=== PATIENT | male | born 1955 | race Caucasian/White ===

== ENCOUNTER 2016-09-20 07:20 | Inpatient (IN) | payer MEDICARE, OTHER ==
[~2016-09-20] VITALS: Ht 182.9 cm; Wt 58.0 kg
[2016-09-20] VITALS (19 sets, daily range): BP systolic 102–147; BP diastolic 67–96; PULSE 74–94; RESP 14–38; TEMP 98.1–98.5; O2SAT 96–100
[~2016-09-20 07:20] MED LIST: ALBU6.7H INH; HYDR-755 PO; PERM5CRE TOP; THIO10CA PO; TRIA.1%T TOP; ZYPR20TA PO
--- NOTE | 2016-09-20 07:39 | PD ---
HPI Chief Complaint: Respiratory Distress Time Seen by Provider: 07:36 Travel History International Travel<30 days: No Contact w/Intl Traveler<30days: No Traveled to known affect area: No History of Present Illness HPI 60-year-old male with history of schizophrenia, smoking, COPD, presents to the ER brought in by EMS for worsening in shortness of breath. He had been given Solu-Medrol and 4 nebulizers by EMS with little improvement. Initial saturation was in the 70s. He is currently able to speak sentence fragments at a time. He has been coughing. Denies any chest pains or other issues. Modifying Factors: None Associated Signs & Symptoms: Shortness of breath, coughing Risk Factors: COPD PFSH Past Medical History Asthma: No Blood Disorders: No Depression: Yes Cancer: No Cardiovascular Problems: No COPD: No Diabetes: No Diminished Hearing: No Endocrine: No Genitourinary: No Immune Disorder: No Musculoskeletal: No Neurologic: No Psychiatric: Yes (SCHIZOPHRENIA) Reproductive: No Respiratory: Yes Schizophrenia: Yes PNEUMOCCOCAL Vaccine (Year): 3 Past Surgical History Abdominal Surgery: Yes (CYST REMOVED) Neurologic Surgery: Yes (PT UNABLE TO SPECIFY) Other Surgery: No Social History Alcohol Use: No Tobacco Use: Yes (1/2 PPD) Substance Use: Yes (PAST HX) Allergies-Medications (Allergen,Severity, Reaction): Coded Allergies: Codeine (Verified Adverse Reaction, Mild, NAUSEA, 03/06/14) Reported Meds & Prescriptions Reported Meds & Active Scripts Active Proventil Hfa (Albuterol Sulfate) 6.7 Gm Aero 2 Puff INH Q4 * SHAKE WELL BEFORE USE * Elimite (Permethrin) 5 % Cr 60 Gm TOP DIRECTED PATIENT INSTRUCTIONS: THOROUGHLY MASSAGE ELIMITE (PERMETHRIN) 5% CREAM INTO THE SKIN FROM HEAD TO TOE COVERING ALL EXTERNAL BODY PARTS. THE CREAM SHOULD BE REMOVED BY WASHING (SHOWER OR BATH) 8 TO 14 HOURS AFTER APPLICATION. PATIENTS MAY EXPERIENCE ITCHING AFTER TREATMENT AND IS RARELY A SIGN OF TREATMENT FAILURE. Reported Hydroxyzine Hcl (Hydroxyzine HCl) 10 Mg Tab 10 Mg PO Q6 Aristocort (Triamcinolone Acetonide) 0.1 % Lotn 1 Applic TOP BID APPLY TO: Thiothixene 10 Mg Cap 10 Mg PO Zyprexa (Olanzapine) 20 Mg Tab 20 Mg PO HS Review of Systems Except as stated in HPI: all other systems reviewed are Neg Physical Exam Narrative GENERAL: Well-developed elderly white male patient currently in moderate respiratory distress. Lethargic but awake and oriented 3. SKIN: Focused skin assessment warm/dry. HEAD: Atraumatic. Normocephalic. EYES: Pupils equal and round. No scleral icterus. No injection or drainage. ENT: No nasal bleeding or discharge. Mucous membranes pink and moist. NECK: Trachea midline. No JVD. CARDIOVASCULAR: Regular rate and rhythm. No murmur appreciated. RESPIRATORY: No accessory muscle use. Coarse breath sounds bilaterally. Breath sounds equal bilaterally. GASTROINTESTINAL: Abdomen soft, non-tender, nondistended. Hepatic and splenic margins not palpable. MUSCULOSKELETAL: No obvious deformities. No clubbing. No cyanosis. No edema. NEUROLOGICAL: Awake and alert. No obvious cranial nerve deficits. Motor grossly within normal limits. Normal speech. PSYCHIATRIC: Appropriate mood and affect; insight and judgment normal. Data Data Last Documented VS Vital Signs Date Time Temp Pulse Resp B/P Pulse Ox O2 Delivery O2 Flow Rate FiO2 09/20/16 07:55 100 60 09/20/16 07:53 92 37 CPAP 09/20/16 07:45 139/67 09/20/16 07:30 98.3 Orders Complete Blood Count With Diff (09/20/16 07:36) Comprehensive Metabolic Panel (09/20/16 07:36) B-Type Natriuretic Peptide (09/20/16 07:36) Ckmb (Isoenzyme) Profile (09/20/16 07:36) Troponin I (09/20/16 07:36) Blood Culture (09/20/16 07:36) Iv Access Insert/Monitor (09/20/16 07:36) Electrocardiogram (09/20/16 07:36) Ecg Monitoring (09/20/16 07:36) Oximetry (09/20/16 07:36) Oxygen Administration (09/20/16 07:36) Chest, Single Ap (09/20/16 07:36) Sodium Chloride 0.9% Flush (Ns Flush) (09/20/16 07:45) Resp Bipap / Cpap Non Invas Vt (09/20/16 07:36) Lactic Acid (09/20/16 07:40) Ceftriaxone Inj (Rocephin Inj) (09/20/16 08:21) Azithromycin Inj (Zithromax Inj) (09/20/16 08:21) CKMB (09/20/16 07:35) CKMB% (09/20/16 07:35) Sodium Chlorid 0.9% 500 Ml Inj (Ns 500 M (09/20/16 09:00) Albuterol-Ipratropium Neb (Duoneb Neb) (09/20/16 09:00) Arterial Blood Gas (Abg) (09/20/16 08:45) Resp Bipap / Cpap Non Invas Vt (09/20/16 08:58) Labs Laboratory Tests Test 09/20/16 09/20/16 09/20/16 07:35 07:41 08:45 White Blood Count 5.3 TH/MM3 Red Blood Count 4.64 MIL/MM3 Hemoglobin 14.2 GM/DL Hematocrit 42.6 % Mean Corpuscular Volume 91.9 FL Mean Corpuscular Hemoglobin 30.5 PG Mean Corpuscular Hemoglobin 33.2 % Concent Red Cell Distribution Width 12.9 % Platelet Count 185 TH/MM3 Mean Platelet Volume 7.6 FL Neutrophils (%) (Auto) 64.3 % Lymphocytes (%) (Auto) 17.0 % Monocytes (%) (Auto) 18.6 % Eosinophils (%) (Auto) 0.0 % Basophils (%) (Auto) 0.1 % Neutrophils # (Auto) 3.4 TH/MM3 Lymphocytes # (Auto) 0.9 TH/MM3 Monocytes # (Auto) 1.0 TH/MM3 Eosinophils # (Auto) 0.0 TH/MM3 Basophils # (Auto) 0.0 TH/MM3 CBC Comment DIFF FINAL Differential Comment Sodium Level 121 MEQ/L Potassium Level 4.6 MEQ/L Chloride Level 78 MEQ/L Carbon Dioxide Level 35.3 MEQ/L Anion Gap 8 MEQ/L Blood Urea Nitrogen 14 MG/DL Creatinine 0.69 MG/DL Estimat Glomerular Filtration 116 ML/MIN Rate Random Glucose 140 MG/DL Calcium Level 9.4 MG/DL Total Bilirubin 0.5 MG/DL Aspartate Amino Transf 72 U/L (AST/SGOT) Alanine Aminotransferase 83 U/L (ALT/SGPT) Alkaline Phosphatase 80 U/L Total Creatine Kinase 293 U/L Creatine Kinase MB 33.7 NG/ML Troponin I 0.27 NG/ML B-Type Natriuretic Peptide 334 PG/ML Total Protein 7.0 GM/DL Albumin 3.2 GM/DL Lactic Acid Level 1.7 mmol/L Blood Gas Puncture Site RT RADIAL Blood Gas Patient Temperature 98.6 Blood Gas HCO3 36 mmol/L Blood Gas Base Excess 9.1 mmol/L Blood Gas Oxygen Saturation 92 % Arterial Blood pH 7.26 Arterial Blood Partial 82 mmHg Pressure CO2 Arterial Blood Partial 239 mmHG Pressure O2 Arterial Blood Oxygen Content 19.0 Vol % Arterial Blood 7.0 % Carboxyhemoglobin Arterial Blood Methemoglobin 0.7 % Blood Gas Hemoglobin 14.3 G/DL Oxygen Delivery Device BIPAP Blood Gas Ventilator Setting IPAP15/EPAP5 Blood Gas Inspired Oxygen 60 % MDM Medical Decision Making Medical Screen Exam Complete: Yes Emergency Medical Condition: Yes Medical Record Reviewed: Yes Interpretation(s) EKG shows sinus rhythm at a rate of 95 bpm with intermittent APCs. No signs of acute ST-T changes. Laboratory Tests Test 09/20/16 09/20/16 07:35 08:45 Monocytes (%) (Auto) 18.6 % (0.0-8.0) Lymphocytes # (Auto) 0.9 TH/MM3 (1.0-4.8) Monocytes # (Auto) 1.0 TH/MM3 (0-0.9) Sodium Level 121 MEQ/L (136-145) Chloride Level 78 MEQ/L (98-107) Carbon Dioxide Level 35.3 MEQ/L (21.0-32.0) Random Glucose 140 MG/DL (74-106) Aspartate Amino Transf 72 U/L (15-37) (AST/SGOT) Alanine Aminotransferase 83 U/L (12-78) (ALT/SGPT) Creatine Kinase MB 33.7 NG/ML (0.5-3.6) Troponin I 0.27 NG/ML (0.02-0.05) B-Type Natriuretic Peptide 334 PG/ML (0-100) Albumin 3.2 GM/DL (3.4-5.0) Blood Gas HCO3 36 mmol/L (22-26) Blood Gas Base Excess 9.1 mmol/L (-2-2) Arterial Blood pH 7.26 (7.380-7.420) Arterial Blood Partial 82 mmHg (38-42) Pressure CO2 Arterial Blood Partial 239 mmHG Pressure O2 (61-120) Arterial Blood 7.0 % (0-4) Carboxyhemoglobin Last 24 hours Impressions Chest X-Ray 09/20/16 0964 Signed Impressions: Service Date/Time: Tuesday, September 20, 2016 07:55 - CONCLUSION: 1. Interstitial and airspace opacities in the paratracheal right apical region appear slightly more prominent in comparison to remote comparison and likely reflect interval evolution of scarring. However, superimposed developing airspace disease on chronic changes cannot be excluded in the appropriate clinical setting. Ron Baltazar MD Differential Diagnosis Shortness of breath, coughingCOPD exacerbation versus pneumonia versus CHF versus bronchitis Narrative Course Chest x-ray does show some signs of apical filtrates questionable for early pneumonia. IV antibiotics were initiated after cultures were drawn. Patient was given further nebulizers and put on BiPAP in the ER due to ongoing respiratory distress. Patient's lab work returns showing significant hyponatremia and IV fluids normal saline were also given. At this point, my plan would be to admit the patient for further treatment. Case is discussed with [facility] practice resident service for admission. Patient is admitted to critical care unit due to BiPAP use. Aggregate critical care time was 30 minutes. Time to perform other separately billable procedures was not included in the critical care time. My time did not include minutes spent treating any other patients simultaneously or on activities that did not directly contribute to the patient's treatment. The services I provided to this patient were to treat and/or prevent clinically significant deterioration that could result in: Worsening respiratory distress, respiratory Failure, sepsis, I provided critical care services requiring my management, as noted below: Chart data review, documentation time, medication orders and management, vital sign assessments/reviewing monitor data, ordering and reviewing lab tests, ordering and interpreting/reviewing x-rays and diagnostic studies, care of the patient and discussion of the patient with the admitting physicians. Diagnosis Primary Impression: COPD exacerbation Additional Impression: Pneumonia Admitting Information Admitting Physician Requests: Admit Raul Whitley MD Sep 20, 2016 07:39
[2016-09-20] MEDS ORDERED: SODIUM CHLORIDE 0.9% FLUSH 10 ML FLUSH IVF PRN (07:45)
[2016-09-20 08:00] LABS: AUTOMATED NEUTROPHIL # 3.4 TH/MM3 (1.8-7.7); BASOPHIL % 0.1 % (0.0-2.0); HEMATOCRIT 42.6 % (39.0-51.0); HEMO FLAGS DIFF FINAL; LYMPHOCYTE # 0.9 TH/MM3 (1.0-4.8); MEAN CELL VOLUME 91.9 FL (80.0-100.0); MEAN CORPUSCULAR HEMOGLOBIN 30.5 PG (27.0-34.0); MEAN CORPUSCULAR HGB CONC 33.2 % (32.0-36.0); MONO % 18.6 % (0.0-8.0); NEUT % 64.3 % (16.0-70.0); PLATELET COUNT 185 TH/MM3 (150-450); RED BLOOD COUNT 4.64 MIL/MM3 (4.50-5.90); RED CELL DISTRIBUTION WIDTH 12.9 % (11.6-17.2); WHITE BLOOD COUNT 5.3 TH/MM3 (4.0-11.0)
--- NOTE | 2016-09-20 08:17 | RADRPT ---
EXAM DATE/TIME: 09/20/2016 07:55 [facility] COMPARISON: CHEST SINGLE AP, March 06, 2014, 14:47. INDICATIONS : Short of breath. MEDICAL HISTORY : None. SURGICAL HISTORY : None. ENCOUNTER: Initial ACUITY: 1 day PAIN SCORE: 0/10 LOCATION: Bilateral chest FINDINGS: Patchy interstitial and airspace opacities in the right paratracheal apical region which may reflect scarring. Lungs are hyperexpanded with mild interstitial prominence similar to prior exam. Cardiomedi astinal contours are within normal limits. Bony thorax is intact. CONCLUSION: 1. Interstitial and airspace opacities in the paratracheal right apical region appear slightly more p rominent in comparison to remote comparison and likely reflect interval evolution of scarring. Howeve r, superimposed developing airspace disease on chronic changes cannot be excluded in the appropriate clinical setting. Ron Baltazar MD on September 20, 2016 at 8:10 Board Certified Radiologist. This report was verified electronically.
[2016-09-20] MEDS ORDERED: AZITHROMYCIN INJ 500 MG in SODIUM CHLOR 0.9% 250 ML INJ 250 ML IV STA (08:21)
[2016-09-20] MEDS ORDERED: cefTRIAXone INJ 2,000 MG in SODIUM CHLORIDE 0.9% INJ 100 ML IV STA (08:21)
[2016-09-20 08:25] LABS: ALKALINE PHOSPHATASE 80 U/L (45-117); ALT (GPT) 83 U/L (12-78); ANION GAP 8 MEQ/L (5-15); AST (GOT) 72 U/L (15-37); BICARBONATE 35.3 MEQ/L (21.0-32.0); BLOOD UREA NITROGEN 14 MG/DL (7-18); CHLORIDE 78 MEQ/L (98-107); CREATINE KINASE 293 U/L (39-308); GLOMERULAR FILTRATION RATE 116 ML/MIN (>89); POTASSIUM 4.6 MEQ/L (3.5-5.1); TOTAL BILIRUBIN ADULT 0.5 MG/DL (0.2-1.0)
[2016-09-20 08:38] LABS: SODIUM (NA) 121 MEQ/L (136-145)
[2016-09-20 08:54] LABS: CKMB 33.7 NG/ML (0.5-3.6)
[2016-09-20 08:56] LABS: BLOOD GAS BASE EXCESS 9.1 mmol/L (-2-2); BLOOD GAS HCO3 36 mmol/L (22-26); BLOOD GAS METHEMOGLOBIN 0.7 % (0-2); BLOOD GAS O2 HGB SATURATION 92 % (90-100); BLOOD GAS PCO2 82 mmHg (38-42); BLOOD GAS PO2 239 mmHG (61-120); BLOOD GAS TOTAL HGB 14.3 G/DL (12.0-16.0); TEMP CORR TO 98.6
[2016-09-20 08:57] LABS: CRITICAL VALUE YES; DRAW SITE RT RADIAL; FIO2 60 %; NUMBER OF ARTERIAL PUNCTURES 1; OXYGEN DEVICE BIPAP; STAT YES; ULNAR PULSE PRESENT; VENT SETTINGS IPAP15/EPAP5
[2016-09-20] MEDS ORDERED: SODIUM CHLORID 0.9% 500 ML INJ 500 ML IV ONE (09:00)
[2016-09-20] MEDS: RESP: ALBUTEROL 2.5 MG/IPRATROPIUM 0.5 MG NEB (SCH) INH ×6 (09:05→23:21)
--- NOTE | 2016-09-20 09:27 | HHI.HP ---
HPI Service Family Medicine Team B Dr. Maricel Laurent, attending Dr. Christa Cobian, PGY 2 Dr. Agustina Gonzales, PGY 1 Primary Care Physician Antwan Diaz MD Admission Diagnosis COPD exacerbation/pneumonia/hypercapnia/BiPAP Diagnoses: International Travel<30 Days: No Contact w/Intl Traveler<30days: No History of Present Illness Patient is a 60 year old male with a history significant for COPD, chronic smoking, schizophrenia, who presents to the ED from his [facility] for worsening shortness of breath. Endorses he has had symptoms of shortness of breath for at least a week. He was brought via [facility] to the ED. He denies chest pain but endorses chest tightness. He endorses a cough but states this is nonproductive. He denies fevers, chills at home. He denies a history of intubation or needing CPAP in the past. He resides at [facility], and cannot offer which medication she has been taking at home. He is possibly on amitriptyline. EMS treatments: Solu-Medrol 125 mg IV 1, albuterol 4. ED treatments: Continued monitoring, Duonebs x 2, requiring BiPAP at arrival. Received IV ceftriaxone and IV azithromycin 1. Initial lab work collected. ( Christa Cobian MD R1) Review of Systems ROS Limitations: Clinical Condition (wearing BiPAP, difficult to hear answers) Constitutional: DENIES: Fever, Chills Eyes: DENIES: Blurred vision, Diplopia, Eye pain, Vision loss Respiratory: COMPLAINS OF: Cough, Shortness of breath, DENIES: Wheezing, Hemoptysis, Sputum production Cardiovascular: DENIES: Chest pain, Palpitations, Syncope, Dyspnea on Exertion Gastrointestinal: DENIES: Abdominal pain, Nausea, Vomiting Integumentary: DENIES: Rash Hematologic/lymphatic: DENIES: Bruising, Lymphadenopathy (Christa Cobian MD R1 ) Past Family Social History Past Medical History COPD Chronic smoking Schizophrenia History of gallstones per patient report Past Surgical History Denies Reported Medications Patient states he takes medications daily for schizophrenia Medication reconciliation pending (Christa Cobian MD R1) Allergies: Coded Allergies: Codeine (Verified Adverse Reaction, Mild, NAUSEA, 03/06/14) *MDRO Multi-Drug Resistant Organism (Verified Adverse Reaction, Unknown, ) MRSA PCR screen positive 09/20/16 Family History Unable to obtain Social History Lives at [facility] Endorses smoking cigarette Denies alcohol Denies illicit drug use (Christa Cobian MD R1) Physical Exam Vital Signs Vital Signs Date Time Temp Pulse Resp B/P Pulse Ox O2 Delivery O2 Flow Rate FiO2 09/20/16 07:55 100 60 09/20/16 07:53 92 37 99 CPAP 60 09/20/16 07:45 90 35 139/67 98 Aerosol Mask 100 09/20/16 07:30 98.3 94 38 143/77 98 09/20/16 07:30 98.3 94 38 143/77 98 Aerosol Mask 100 09/20/16 07:30 98 Aerosol Mask Physical Exam GENERAL: Thin male patient in moderate respiratory distress. He is wearing BiPAP. He has increased work of breathing, abdominal breathing. He appears anxious. He is speaking in short sentences. SKIN: Warm and dry. No obvious rashes or bruises. He is very tanned. HEAD: Atraumatic. Normocephalic. EYES: Pupils equal and round. No scleral icterus. No injection or drainage. ENT: Patient is wearing BiPAP machine; this exam was deferred. NECK: Trachea midline. No JVD. CARDIOVASCULAR: Regular rate and rhythm. No murmurs on auscultation. RESPIRATORY: Coarse breath sounds on anterior lung currie. BiPAP settings are PEEP 15, IPAP range 6-8, 45% FiO2. Significant decreased air movement all over the posterior lung currie. There are no obvious crackles or wheezes. GASTROINTESTINAL: Abdomen soft, non-tender, mild distention. Hepatic and splenic margins not palpable. Normal bowel sounds. MUSCULOSKELETAL: Extremities without clubbing, cyanosis, or edema. No obvious deformities. NEUROLOGICAL: Awake and alert. No obvious cranial nerve deficits. Motor grossly within normal limits. Grossly normal strength. Normal speech. PSYCHIATRIC: Appropriate mood and affect; insight and judgment normal. Laboratory Laboratory Tests Test 09/20/16 09/20/16 09/20/16 07:35 07:41 08:45 White Blood Count 5.3 Red Blood Count 4.64 Hemoglobin 14.2 Hematocrit 42.6 Mean Corpuscular Volume 91.9 Mean Corpuscular Hemoglobin 30.5 Mean Corpuscular Hemoglobin 33.2 Concent Red Cell Distribution Width 12.9 Platelet Count 185 Mean Platelet Volume 7.6 Neutrophils (%) (Auto) 64.3 Lymphocytes (%) (Auto) 17.0 Monocytes (%) (Auto) 18.6 Eosinophils (%) (Auto) 0.0 Basophils (%) (Auto) 0.1 Neutrophils # (Auto) 3.4 Lymphocytes # (Auto) 0.9 Monocytes # (Auto) 1.0 Eosinophils # (Auto) 0.0 Basophils # (Auto) 0.0 CBC Comment DIFF FINAL Differential Comment Sodium Level 121 Potassium Level 4.6 Chloride Level 78 Carbon Dioxide Level 35.3 Anion Gap 8 Blood Urea Nitrogen 14 Creatinine 0.69 Estimat Glomerular Filtration 116 Rate Random Glucose 140 Calcium Level 9.4 Total Bilirubin 0.5 Aspartate Amino Transf 72 (AST/SGOT) Alanine Aminotransferase 83 (ALT/SGPT) Alkaline Phosphatase 80 Total Creatine Kinase 293 Creatine Kinase MB 33.7 Troponin I 0.27 B-Type Natriuretic Peptide 334 Total Protein 7.0 Albumin 3.2 Lactic Acid Level 1.7 Blood Gas Puncture Site RT RADIAL Blood Gas Patient Temperature 98.6 Blood Gas HCO3 36 Blood Gas Base Excess 9.1 Blood Gas Oxygen Saturation 92 Arterial Blood pH 7.26 Arterial Blood Partial 82 Pressure CO2 Arterial Blood Partial 239 Pressure O2 Arterial Blood Oxygen Content 19.0 Arterial Blood 7.0 Carboxyhemoglobin Arterial Blood Methemoglobin 0.7 Blood Gas Hemoglobin 14.3 Oxygen Delivery Device BIPAP Blood Gas Ventilator Setting IPAP15/EPAP5 Blood Gas Inspired Oxygen 60 Date/Time Procedure Status Source Growth 09/20/16 07:40 Aerobic Blood Culture Received Blood Peripheral Pending 09/20/16 07:40 Anaerobic Blood Culture Received Blood Peripheral Pending (Christa Cobian MD R1) Result Diagram: 09/20/1673409/20/1635 Imaging Last Impressions Chest X-Ray 09/20/16735 Signed Impressions: Service Date/Time: Tuesday, September 20, 2016 07:55 - CONCLUSION: 1. Interstitial and airspace opacities in the paratracheal right apical region appear slightly more prominent in comparison to remote comparison and likely reflect interval evolution of scarring. However, superimposed developing airspace disease on chronic changes cannot be excluded in the appropriate clinical setting. Ron Baltazar MD (Christa Cobian MD R1) Assessment and Plan Assessment and Plan 60-year-old male with history of COPD, schizophrenia, and chronic smoking who presents with severe shortness of breath concerning for acute COPD exacerbation. CXR notable for possible infiltrate concerning for underlying pneumonia. Patient required BiPAP on admission with good O2 sats, however, ABG is notable for significant CO2 retention and patient may tire due to respiratory effort. We will admit to [facility] for close monitoring. Code Status Full code on admission. Patient is hesitant to get intubated but he has decided that he would like to be documented as full code at time of admission. Discussed Condition With Dr. Agustina Gonzales and Dr. Maricel Laurent present during conversation. ( Christa Cobian MD R1) Attending Attestation THIS CASE WAS DISCUSSED WITH THE RESIDENT PHYSICIANS AND PATIENT WAS SEEN AND EXAMINED BY ME IN THE EMERGENCY ROOM. I HAVE REVIEWED THE RECORD AND AGREE WITH THE ABOVE NOTE AND PLAN OF CARE WAS DISCUSSED. I HAVE AUTHORIZED THE ORDER FOR ADMISSION TO AN IN-PATIENT STATUS. Pt is moderate to severe resp distress on bipap. He was admitted to the [facility] with anticipation that he would tire and might need further ventilatory support. Soon after admission repeat ABG and patients clinical picture was not improving so the patient was intubated by the pipe covering molder. Due to patient underlying psychiatric illnesses of anxiety and schizophrenia we will watch very closely - he may be difficult to wean off of the ventilator support due to these issues. (Maricel Laurent MD) Problem List: (1) COPD exacerbation Status: Acute Plan: Patient admitted for acute COPD exacerbation, possibly exacerbated by pneumonia. ABG on admission as follows: PH 7.26, CO2 82, * Admit to C. Dr. August is aware of patient. * Repeat ABG at noon * Respiratory support with BiPAP, goal O2 sat greater than 92%, titrate down her up as indicated * Patient has been counseled that he may require ventilatory support after further monitoring, pending ABG changes/respiratory effort changes * Duo nebs every 4 hours scheduled, albuterol every 2 hours prn SOB/wheezing * Solu-Medrol 125 mg IV 1 per EMS, will continue Solu-Medrol IV 60 mg every 6 hours, consider titrating down on reevaluation tomorrow * We'll treat for pneumonia, community-acquired, based on CXR findings: Rocephin 1 g every 24 hours IV, azithromycin 500 mg IV every 24 hours. Once patient is no longer on BiPAP, we will transition to azithromycin by mouth. * Respiratory: A cappella, chest physiotherapy, incentive spirometry * We'll obtain UA for urine Legionella and pneumococcal antigens (2) Elevated troponin Status: Acute Plan: Patient complains of chest tightness on admission. EKG showing non-acute abnormalities, no evidence of ischemia. Troponin is 0.27, mildly elevated. Only documented troponin and EMR is from 2013 and it was within normal limits. Elevated troponin can be due to demand ischemia related to initial hypoxia. * Trend cardiac enzymes and EKG every 3 hours * Monitor for changes in chest symptoms as his chest tightness is likely related to his respiratory status * Re-evaluate for new pain symptoms (3) Pneumonia Status: Acute Plan: As above, patient is admitted for acute COPD exacerbation with CXR notable for possible infiltrate in the right apex. * Treatment as above (4) SCHIZOPHRENIA NOS-UNSPEC Status: Chronic Plan: Patient has chronic schizophrenia. He is not appearing to respond to stimuli or having acute symptoms at this time. * He has not had any recent admissions for schizophrenia, therefore we will refer to records for current medications and administer home medications while inpatient (5) Tobacco dependence, continuous Status: Chronic Plan: Patient reports chronic tobacco dependence. * Nicotine high-dose patch while inpatient * We will patient financial counselor on smoking cessation (6) Hyponatremia Status: Acute Plan: Patient noted to have sodium of 121 on admission. Differential diagnosis includes SIADH, heart failure, hypothyroidism, adrenal insufficiency. Suspect SIADH given patient has history of pulmonary disease including likely pneumonia at this time. Kidneys are functioning normally per initial BMP. Glucose was mildly elevated on initial BMP at 140. Plan: * Will repeat BMP * Fluid restrict for now (7) Fluids/Electrolytes/Nutrition/Prophylaxis Status: Acute Plan: Fluids: Fluid restricted given hyponatremia Electrolytes: Hyponatremia, managed as above, will monitor Nutrition: NPO for now given respiratory distress, will reassess DVT Prophylaxis: Early ambulation. Heparin 5000U subQ q12hr/bilateral SCDs] GI Prophylaxis: Protonix 40 mg IV daily given steroid use (Christa Cobian MD R1) Physician Certification 2 Midnight Certification Type: Admission for Inpatient Services Order for Inpatient Services The services are ordered in accordance with Medicare regulations or non- Medicare payer requirements, as applicable. In the case of services not specified as inpatient-only, they are appropriately provided as inpatient services in accordance with the 2-midnight benchmark. Estimated LOS (days): 4 days is the estimated time the patient will need to remain in the hospital, assuming treatment plan goals are met and no additional complications. Post-Hospital Plan: Not yet determined (Christa Cobian MD R1) 2 Midnight Certification Type: Admission for Inpatient Services Post-Hospital Plan: Skilled Nursing/LONG-TERM (Maricel Laurent MD) Christa Cobian MD R1 Sep 20, 2016 09:27 Maricel Laurent MD Sep 21, 2016 11:57
[2016-09-20] MEDS ORDERED: LACTULOSE SYRUP 20 GM/30 ML CUP PO PRN (09:30)
[2016-09-20] MEDS ORDERED: ACETAMINOPHEN 325 MG TAB PO PRN ×2 (09:30→10:45)
[2016-09-20] MEDS ORDERED: SENNOSIDES 8.6 MG TAB PO PRN (09:30)
[2016-09-20] MEDS ORDERED: NALOXONE HCL 0.4 MG/ML AMP IV PRN (09:30)
[2016-09-20] MEDS ORDERED: MAGNESIUM HYDROXIDE SUSP 30 ML CUP PO PRN (09:30)
[2016-09-20] MEDS ORDERED: BISACODYL 10 MG SUPP RECTAL PRN (09:30)
[2016-09-20] MEDS ORDERED: ONDANSETRON HCL 4 MG/2 ML VIAL IVP PRN (09:30)
[2016-09-20] MEDS ORDERED: SODIUM CHLORIDE 0.9% FLUSH 10 ML FLUSH IV FLUSH PRN (09:30)
[2016-09-20] MEDS ORDERED: RESP: ALBUTEROL 2.5 MG/3 ML NEB (PRN) INH (09:45)
[2016-09-20 10:13] LABS: BLOOD GAS BASE EXCESS 4.8 mmol/L (-2-2); BLOOD GAS CARBOXYHEMOGLOBIN 5.6 % (0-4); BLOOD GAS HCO3 32 mmol/L (22-26); BLOOD GAS METHEMOGLOBIN 0.7 % (0-2); BLOOD GAS O2 HGB SATURATION 93 % (90-100); BLOOD GAS OXYGEN CONTENT 18.7 Vol % (12.0-20.0); BLOOD GAS PCO2 78 mmHg (38-42); BLOOD GAS PO2 140 mmHG (61-120); BLOOD GAS TOTAL HGB 14.2 G/DL (12.0-16.0); CRITICAL VALUE YES; TEMP CORR TO 98.6
[2016-09-20 10:14] LABS: DRAW SITE RT RADIAL; FIO2 45 %; NUMBER OF ARTERIAL PUNCTURES 1; OXYGEN DEVICE BIPAP; STAT NO; ULNAR PULSE PRESENT; VENT SETTINGS IPAP18/EPAP6
[2016-09-20] MEDS ORDERED: MISCELLANEOUS NURSING INFORMATION XX SCH (10:45)
[2016-09-20] MEDS ORDERED: CHLORHEXIDINE GLUCONATE 2 % 1 PACK (2 CLOTHS) TOP PRN (10:45)
[2016-09-20] MEDS: HEPARIN SODIUM - SQ 10,000 UNITS/ML VIAL SQ SCH ×2 (10:52→21:47)
[2016-09-20] MEDS: methylPREDNISolone SOD SUCC 125 MG/2 ML VIAL IVP SCH ×3 (10:53→21:47)
[2016-09-20] MEDS: PANTOPRAZOLE SODIUM 40 MG VIAL IV SCH (10:59)
[2016-09-20] MEDS ORDERED: PROPOFOL 1000 MG/100 ML INJ 100 ML ONE (11:38)
[2016-09-20] MEDS ORDERED: SUCCINYLCHOLINE CHLORIDE 200 MG/10 ML VIAL ONE (11:38)
[2016-09-20] MEDS ORDERED: SUCCINYLCHOLINE CHLORIDE 200 MG/10 ML VIAL IV ONE (12:15)
[2016-09-20] MEDS ORDERED: PROPOFOL 1000 MG/100 ML IV SCH (12:30)
[2016-09-20] MEDS ORDERED: fentaNYL DRIP 250 ML IV SCH (12:45)
[2016-09-20 13:45] LABS: BLOOD, URINE NEG (NEG); COMMENT (UR) CULT NOT INDICATED; CULTURE IF INDICATED CULT NOT INDICATED; GLUCOSE,URINE TRACE mg/dL (NEG); HYALINE CAST, URINE 3 /lpf (RARE); KETONE, URINE NEG (NEG); MUCUS URINE FEW /lpf (OCC); NITRITE,URINE NEG (NEG); PH, URINE 6.5 (5.0-8.5); SQUAMOUS EPITHELIAL CELL URINE <1 /hpf (0-5); URINE COLOR YELLOW (YELLW/STRAW)
[2016-09-20 14:25] LABS: BLOOD GAS BASE EXCESS 3.6 mmol/L (-2-2); BLOOD GAS CARBOXYHEMOGLOBIN 2.4 % (0-4); BLOOD GAS HCO3 30 mmol/L (22-26); BLOOD GAS METHEMOGLOBIN 1.1 % (0-2); BLOOD GAS O2 HGB SATURATION 96 % (90-100); BLOOD GAS PCO2 64 mmHg (38-42); BLOOD GAS PO2 506 mmHg (61-120); CRITICAL VALUE YES; DRAW SITE RT RADIAL; FIO2 100 %; NUMBER OF ARTERIAL PUNCTURES 1; OXYGEN DEVICE VENTILATOR; STAT NO; TEMP CORR TO 98.6; VENT SETTINGS SEE COMMENTS
[2016-09-20 14:30] LABS: BICARBONATE 29.8 MEQ/L (21.0-32.0); MAGNESIUM 1.9 MG/DL (1.5-2.5); POTASSIUM 4.9 MEQ/L (3.5-5.1)
[2016-09-20] MEDS: PROPOFOL 1000 MG/100 ML IV SCH (18:06)
--- NOTE | 2016-09-20 19:00 | EKG ---
Date Performed: 09/20/2016 Time Performed: 07:38:38 PTAGE: 60 years EKG: Sinus rhythm WITH OCCASIONAL VENTRICULAR PREMATURE COMPLEXES RIGHT ATRIAL ENLARGEMENT MARKED RIGHT AXIS DEVIATION INCOMPLETE RIGHT BUNDLE BRANCH BLOCK SEPTAL MYOCARDIAL INFARCTION ABNORMAL ECG PREVIOUS TRACING : 03/06/2014 14.53 Compared to previous tracing right atrial abnormality is ne w. Patient is no longer in atrial fibrillation. DOCTOR: Juan Morejon Interpretating Date/Time 09/20/2016 18:58:44
[2016-09-20] MEDS: BUDESONIDE-FORMOTEROL 160/4.5 MCG INHALER INH SCH (21:00)
[2016-09-20] MEDS: REMOVE OLD PATCH T-DERMAL SCH (21:00)
[2016-09-20] MEDS: DOCUSATE SODIUM 50 MG/SENNA 8.6 MG TAB PO SCH (21:00)
[2016-09-20] MEDS: SODIUM CHLORIDE 0.9% FLUSH 10 ML FLUSH IV FLUSH SCH (21:00)
--- NOTE | 2016-09-20 21:09 | PD.CONS ---
[facility] Service Critical Care Medicine Consult Requested By Family medicine service Reason for Consult hypoxia Primary Care Physician Antwan Diaz MD History of Present Illness This is a 60-year-old male with a history of COPD, smoking, schizophrenia who came to the emergency department from his assisted living facility with worsening shortness of breath. In emergency department he was found to have an elevated white count and a nonproductive cough. He was given antibiotics, steroids, and started on BiPAP and admitted to the ICU. The patient continued to worsen despite aggressive measures, and the intensive care service was consulted for evaluation and recommendations. When I evaluated the patient, he was on BiPAP with worsening PCO2 on serial ABGs. He was tachypneic, labored, in distress. I emergently intubated him, please see separate procedure note for details. Additional information is unobtainable from the patient due to his clinical condition. Review of Systems ROS Limitations: Clinical Condition, Altered Mental Status ROS Patient is severely agitated and altered, as well as hypoxic on BiPAP. Complete review of systems is unobtainable due to his clinical condition. Past Family Social History Allergies: Coded Allergies: Codeine (Verified Adverse Reaction, Mild, NAUSEA, 03/06/14) Past Medical History Complete past medical history is unobtainable due to the patient's clinical condition. Per chart review: COPD Chronic smoking Schizophrenia History of gallstones per patient report Past Surgical History Complete past surgical history is unobtainable due to the patient's clinical condition. Per chart review, the patient denied any past surgical history Reported Medications Complete home medication list is unobtainable due to the patient's cognition. Per chart review, the patient stated prior that he took medications daily for schizophrenia. Active Ordered Medications See MAR Family History Unable to be obtained secondary to patient's clinical condition Social History Complete social history unable to be obtained secondary to patient's clinical condition. Per chart review: Lives at [facility] Endorses smoking cigarette Denies alcohol Denies illicit drug use Physical Exam Vital Signs Vital Signs Date Time Temp Pulse Resp B/P Pulse Ox O2 Delivery O2 Flow Rate FiO2 09/20/16 19:31 97 50 09/20/16 18:00 78 09/20/16 16:53 97 50 09/20/16 16:00 98.5 74 14 105/67 99 09/20/16 16:00 74 09/20/16 14:27 97 50 09/20/16 14:00 74 09/20/16 13:15 98 100 09/20/16 11:55 96 100 09/20/16 11:14 99 45 09/20/16 11:10 92 28 147/96 97 3 09/20/16 11:00 86 09/20/16 11:00 98.5 86 14 111/71 96 09/20/16 08:30 35 98 BiPAP 45 09/20/16 07:55 100 60 09/20/16 07:53 92 37 99 CPAP 60 09/20/16 07:45 90 35 139/67 98 Aerosol Mask 100 09/20/16 07:30 98.3 94 38 143/77 98 09/20/16 07:30 98 Aerosol Mask 09/20/16 07:30 98.3 94 38 143/77 98 Aerosol Mask 100 09/20/16 07:30 98 Aerosol Mask Physical Exam GENERAL: Middle-aged male, lying in bed, BiPAP in place, in severe distress. Appears quite cachectic HEENT: Normocephalic. Atraumatic. Pupils equal, round, reactive, conjugate. Mucous membranes are moist NECK: Trachea is midline. There is no JVD. BiPAP in place CHEST: Tachypneic, labored, using accessory muscles. Bilateral significantly decreased air entry. CARDIOVASCULAR: Tachycardic rate, regular rhythm. Sinus by telemetry ABDOMEN: Soft, nontender, nondistended. No guarding. MUSCULOSKELETAL: Pulses 2+. No peripheral edema. NEUROLOGICAL: RASS +1. Does not follow commands. Moves all extremities spontaneously. Laboratory Laboratory Tests Test 09/20/16 09/20/16 09/20/16 09/20/16 07:35 07:41 08:45 10:06 White Blood Count 5.3 Red Blood Count 4.64 Hemoglobin 14.2 Hematocrit 42.6 Mean Corpuscular Volume 91.9 Mean Corpuscular Hemoglobin 30.5 Mean Corpuscular Hemoglobin 33.2 Concent Red Cell Distribution Width 12.9 Platelet Count 185 Mean Platelet Volume 7.6 Neutrophils (%) (Auto) 64.3 Lymphocytes (%) (Auto) 17.0 Monocytes (%) (Auto) 18.6 Eosinophils (%) (Auto) 0.0 Basophils (%) (Auto) 0.1 Neutrophils # (Auto) 3.4 Lymphocytes # (Auto) 0.9 Monocytes # (Auto) 1.0 Eosinophils # (Auto) 0.0 Basophils # (Auto) 0.0 CBC Comment DIFF FINAL Differential Comment Sodium Level 121 Potassium Level 4.6 Chloride Level 78 Carbon Dioxide Level 35.3 Anion Gap 8 Blood Urea Nitrogen 14 Creatinine 0.69 Estimat Glomerular Filtration 116 Rate Random Glucose 140 Calcium Level 9.4 Total Bilirubin 0.5 Aspartate Amino Transf 72 (AST/SGOT) Alanine Aminotransferase 83 (ALT/SGPT) Alkaline Phosphatase 80 Total Creatine Kinase 293 Creatine Kinase MB 33.7 Troponin I 0.27 B-Type Natriuretic Peptide 334 Total Protein 7.0 Albumin 3.2 Lactic Acid Level 1.7 Blood Gas Puncture Site RT RADIAL RT RADIAL Blood Gas Patient Temperature 98.6 98.6 Blood Gas HCO3 36 32 Blood Gas Base Excess 9.1 4.8 Blood Gas Oxygen Saturation 92 93 Arterial Blood pH 7.26 7.24 Arterial Blood Partial 82 78 Pressure CO2 Arterial Blood Partial 239 140 Pressure O2 Arterial Blood Oxygen Content 19.0 18.7 Arterial Blood 7.0 5.6 Carboxyhemoglobin Arterial Blood Methemoglobin 0.7 0.7 Blood Gas Hemoglobin 14.3 14.2 Oxygen Delivery Device BIPAP BIPAP Blood Gas Ventilator Setting IPAP15/EPAP5 IPAP18/EPAP6 Blood Gas Inspired Oxygen 60 45 Test 09/20/16 09/20/16 09/20/16 09/20/16 11:15 13:00 13:22 14:14 Urine Color YELLOW Urine Turbidity CLEAR Urine pH 6.5 Urine Specific [place] 1.014 Urine Protein 30 Urine Glucose (UA) TRACE Urine Ketones NEG Urine Occult Blood NEG Urine Nitrite NEG Urine Bilirubin NEG Urine Urobilinogen LESS THAN 2.0 Urine Leukocyte Esterase NEG Urine RBC 1 Urine WBC LESS THAN 1 Urine Squamous Epithelial <1 Cells Urine Hyaline Casts 3 Urine Mucus FEW Microscopic Urinalysis Comment CULT NOT INDICATED Nasal Screen MRSA (PCR) MRSA DETECTED Sodium Level 122 Potassium Level 4.9 Chloride Level 84 Carbon Dioxide Level 29.8 Anion Gap 8 Blood Urea Nitrogen 14 Creatinine 0.52 Estimat Glomerular Filtration 161 Rate Random Glucose 163 Calcium Level 8.6 Phosphorus Level 3.3 Magnesium Level 1.9 Total Creatine Kinase 217 Troponin I 0.19 Blood Gas Puncture Site RT RADIAL Blood Gas Patient Temperature 98.6 Blood Gas HCO3 30 Blood Gas Base Excess 3.6 Blood Gas Oxygen Saturation 96 Arterial Blood pH 7.29 Arterial Blood Partial 64 Pressure CO2 Arterial Blood Partial 506 Pressure O2 Arterial Blood Oxygen Content 19.0 Arterial Blood 2.4 Carboxyhemoglobin Arterial Blood Methemoglobin 1.1 Blood Gas Hemoglobin 13.0 Oxygen Delivery Device VENTILATOR Blood Gas Ventilator Setting SEE COMMENTS Blood Gas Inspired Oxygen 100 Date/Time Procedure Status Source Growth 09/20/16 11:15 Legionella Antigen - Final Complete Urine Clean Catch PRESUMPTIVE NEGATIVE FOR LEGIONELLA P... 09/20/16 11:15 Streptococcus pneumoniae Antigen (M - Final Complete Urine Clean Catch PRESUMPTIVE NEGATIVE FOR STREPTOCOCCU... 09/20/16 07:40 Aerobic Blood Culture Received Blood Peripheral Pending 09/20/16 07:40 Anaerobic Blood Culture Received Blood Peripheral Pending Result Diagram: 09/20/1635 09/20/16 1322 Imaging Last Impressions Chest X-Ray 09/20/1636 Signed Impressions: Service Date/Time: Tuesday, September 20, 2016 07:55 - CONCLUSION: 1. Interstitial and airspace opacities in the paratracheal right apical region appear slightly more prominent in comparison to remote comparison and likely reflect interval evolution of scarring. However, superimposed developing airspace disease on chronic changes cannot be excluded in the appropriate clinical setting. Ron Baltazar MD Assessment and Plan Assessment and Plan Assessment: 60-year-old male with a history of COPD and smoking who presents with what clinically appears to be COPD exacerbation acute hypoxic respiratory failure failing noninvasive positive pressure ventilation requiring invasive mechanical ventilation. Active problems: Acute hypoxic and hypercarbic respiratory failure, worsening COPD exacerbation Agitated delirium Plan: -- proceed with intubation -- wean fio2 for spo2 > 90% -- serial abg -- steroids -- abx -- hob at 30 degrees, vent bundle, nebs -- propofol/fentanyl for goal RASS -2. -- will need to restart psych meds. This patient remains critically ill with one or more organ systems which are or may become a threat to life. I have spent in excess of 33 minutes discontinuously in the care and management of this patient. This time is exclusive of procedures, and includes, but is not limited to, evaluation of the patient, review of the medical record, discussions with family, consultants, nursing staff, or respiratory therapy, and documentation in the medical record. Garrett Hall MD Sep 20, 2016 21:09
--- NOTE | 2016-09-20 21:10 | PD.PROCEDR ---
Procedure Note Procedure Endotracheal Intubation Diagnosis: COPD exacerbation Indications: Acute hypoxic and hypercarbic respiratory failure failing noninvasive positive pressure ventilation Consent: Consent is deemed emergent or medically necessary Anesthesia: Propofol 80 mg IV, succinylcholine 120 mg IV Description of the Procedure: The patient was positioned in the sniffing position. Pre-oxygenation was performed using a 100% FiO2 BiPAP. Anesthesia was induced via rapid sequence. A Zambrano #2 was used for laryngoscopy and a Grade I view was obtained. A 8.0 cuffed endotracheal tube was inserted atraumatically through the vocal cords. Confirmation of correct endotracheal tube placement was made by equal and bilateral breath sounds and colorimetric CO2 detection. The endotracheal tube was secured at 23 cm at the teeth. There were no immediate complications noted. The patient remained hemodynamically stable throughout the procedure. A chest x-ray has been ordered. I personally performed the procedure. Garrett Hall MD Sep 20, 2016 21:10
[2016-09-20] MEDS ORDERED: POTASSIUM PHOSPHATE INJ 30 MMOL in SODIUM CHLOR 0.9% 250 ML INJ 250 ML IV PRN (21:15)
[2016-09-20] MEDS ORDERED: POTASSIUM CHLOR 40 MEQ PREMIX 100 ML IV PRN ×2 (21:15)
[2016-09-20] MEDS ORDERED: MAGNESIUM OXIDE 400 MG TAB PO PRN (21:15)
[2016-09-20] MEDS ORDERED: MAGNESIUM SULFATE INJ 4 GM in SODIUM CHLORIDE 0.9% INJ 92 ML IV PRN (21:15)
[2016-09-20] MEDS ORDERED: POTASSIUM PHOSPHATE MONOBASIC 500 MG TAB PO PRN (21:15)
[2016-09-20] MEDS ORDERED: DEXTROSE 50% IN WATER 50 ML VIAL(D50) IV PUSH PRN (21:15)
[2016-09-20] MEDS ORDERED: SODIUM PHOSPHATE INJ 30 MMOL in SODIUM CHLOR 0.9% 250 ML INJ 240 ML IV PRN (21:15)
[2016-09-20] MEDS ORDERED: POTASSIUM CHLOR 20 MEQ PREMIX 100 ML IV PRN ×2 (21:15)
[2016-09-20] MEDS ORDERED: POTASSIUM PHOSPHATE MONOBASIC 500 MG TAB PO/TUBE PRN (21:15)
[2016-09-20] MEDS ORDERED: MAGNESIUM SULFATE INJ 2 GM in SODIUM CHLORIDE 0.9% INJ 96 ML IV PRN (21:15)
--- NOTE | 2016-09-20 21:48 | EKG ---
Date Performed: 09/20/2016 Time Performed: 16:21:17 PTAGE: 60 years EKG: Sinus rhythm BORDERLINE RIGHT AXIS DEVIATION INCOMPLETE RIGHT BUNDLE BRANCH BLOCK SEPTAL MYOCARDIAL INFARCTION , PROBABLY OLD ABNORMAL ECG PREVIOUS TRACING : 09/20/2016 07.38 Compared to prior tracing no significant change DOCTOR: Kita Barros Interpretating Date/Time 09/20/2016 21:46:48
[2016-09-20] MEDS: INSULIN NovoLIN REGULAR SUPPLEMENTAL SCALE SQ SCH (22:04)
[2016-09-21] VITALS (25 sets, daily range): BP systolic 103–153; BP diastolic 68–83; PULSE 61–97; RESP 11–23; TEMP 97.4–98; O2SAT 94–100
[2016-09-21] MEDS: CHLORHEXIDINE GLUCONATE 2 % 1 PACK (2 CLOTHS) TOP SCH (03:01)
[2016-09-21] MEDS: RESP: ALBUTEROL 2.5 MG/IPRATROPIUM 0.5 MG NEB (SCH) INH ×6 (03:31→23:22)
[2016-09-21] MEDS: methylPREDNISolone SOD SUCC 125 MG/2 ML VIAL IVP SCH ×4 (03:40→20:28)
[2016-09-21] MEDS: PROPOFOL 1000 MG/100 ML IV SCH (03:48)
[2016-09-21 05:14] LABS: BLOOD GAS CARBOXYHEMOGLOBIN 1.1 % (0-4); BLOOD GAS HCO3 33 mmol/L (22-26); BLOOD GAS METHEMOGLOBIN 1.1 % (0-2); BLOOD GAS O2 HGB SATURATION 97 % (90-100); BLOOD GAS OXYGEN CONTENT 18.6 Vol % (12.0-20.0); BLOOD GAS PCO2 63 mmHg (38-42); BLOOD GAS PO2 146 mmHg (61-120); BLOOD GAS TOTAL HGB 13.5 G/DL (12.0-16.0); TEMP CORR TO 98.6
[2016-09-21 05:15] LABS: CRITICAL VALUE YES; OXYGEN DEVICE VENTILATOR
[2016-09-21 05:16] LABS: DRAW SITE RT RADIAL; FIO2 40 %; NUMBER OF ARTERIAL PUNCTURES 1; STAT NO; ULNAR PULSE PRESENT; VENT SETTINGS AC
[2016-09-21] MEDS: INSULIN NovoLIN REGULAR SUPPLEMENTAL SCALE SQ SCH ×3 (05:18→17:34)
--- NOTE | 2016-09-21 05:38 | RADRPT ---
EXAM DATE/TIME: 09/21/2016 04:40 [place] COMPARISON: CHEST SINGLE AP, September 20, 2016, 7:55. INDICATIONS : Short of breath. MEDICAL HISTORY : None. SURGICAL HISTORY : None. ENCOUNTER: Subsequent ACUITY: 2 days PAIN SCORE: 0/10 LOCATION: Bilateral chest FINDINGS: Biapical opacities are again noted, right more so than left and neither side significantly changed. L ungs otherwise appear clear. No pleural effusion. No pneumothorax. Heart size stable, within normal limits. Endotracheal tube tip is at the level of the thoracic inlet. There is a nasogastric tube coursing int o the stomach. CONCLUSION: No significant change. Brody Noonan MD on September 21, 2016 at 5:35 Board Certified Radiologist. This report was verified electronically.
[2016-09-21 06:23] LABS: AUTOMATED NEUTROPHIL # 5.6 TH/MM3 (1.8-7.7); BASOPHIL % 0.1 % (0.0-2.0); HEMATOCRIT 41.8 % (39.0-51.0); HEMO FLAGS DIFF FINAL; LYMPHOCYTE # 0.6 TH/MM3 (1.0-4.8); MEAN CELL VOLUME 91.3 FL (80.0-100.0); MEAN CORPUSCULAR HEMOGLOBIN 30.4 PG (27.0-34.0); MEAN CORPUSCULAR HGB CONC 33.3 % (32.0-36.0); MONO % 11.3 % (0.0-8.0); NEUT % 80.6 % (16.0-70.0); PLATELET COUNT 171 TH/MM3 (150-450); RED BLOOD COUNT 4.58 MIL/MM3 (4.50-5.90); RED CELL DISTRIBUTION WIDTH 12.8 % (11.6-17.2); WHITE BLOOD COUNT 6.9 TH/MM3 (4.0-11.0)
[2016-09-21 07:07] LABS: ANION GAP 7 MEQ/L (5-15)
[2016-09-21 07:10] LABS: ALKALINE PHOSPHATASE 71 U/L (45-117); ALT (GPT) 84 U/L (12-78); AST (GOT) 49 U/L (15-37); BICARBONATE 32.4 MEQ/L (21.0-32.0); BLOOD UREA NITROGEN 14 MG/DL (7-18); CHLORIDE 85 MEQ/L (98-107); GLOMERULAR FILTRATION RATE 118 ML/MIN (>89); POTASSIUM 5.6 MEQ/L (3.5-5.1); TOTAL BILIRUBIN ADULT 0.3 MG/DL (0.2-1.0)
[2016-09-21 07:24] LABS: SODIUM (NA) 124 MEQ/L (136-145)
[2016-09-21] MEDS: PANTOPRAZOLE SODIUM 40 MG VIAL IV SCH (08:03)
[2016-09-21] MEDS: cefTRIAXone INJ 1,000 MG in SODIUM CHLORIDE 0.9% INJ 100 ML IV SCH (08:03)
[2016-09-21] MEDS: NICOTINE 21 MG/24 HR PATCH T-DERMAL SCH (08:05)
[2016-09-21] MEDS: DOCUSATE SODIUM 50 MG/SENNA 8.6 MG TAB PO SCH ×2 (08:06→20:29)
[2016-09-21] MEDS: SODIUM CHLORIDE 0.9% FLUSH 10 ML FLUSH IV FLUSH SCH ×2 (08:07→20:29)
[2016-09-21] MEDS: CHLORHEXIDINE 0.12% (ORAL KIT) 15 ML CUP MT SCH ×2 (08:19→20:00)
[2016-09-21] MEDS: BUDESONIDE-FORMOTEROL 160/4.5 MCG INHALER INH SCH (09:00)
[2016-09-21 09:31] LABS: BLOOD GAS BASE EXCESS 7.1 mmol/L (-2-2); BLOOD GAS CARBOXYHEMOGLOBIN 0.9 % (0-4); BLOOD GAS HCO3 32 mmol/L (22-26); BLOOD GAS METHEMOGLOBIN 1.3 % (0-2); BLOOD GAS O2 HGB SATURATION 97 % (90-100); BLOOD GAS PCO2 54 mmHg (38-42); BLOOD GAS PO2 182 mmHg (61-120); BLOOD GAS TOTAL HGB 13.7 G/DL (12.0-16.0); CRITICAL VALUE YES; DRAW SITE RT RADIAL; FIO2 40 %; NUMBER OF ARTERIAL PUNCTURES 1; OXYGEN DEVICE VENTILATOR; STAT NO; TEMP CORR TO 98.6; ULNAR PULSE PRESENT; VENT SETTINGS 550/AC18/PEEP5
[2016-09-21] MEDS ORDERED: THIO10CA PO (12:01)
[2016-09-21] MEDS ORDERED: OLAN15TA PO (12:01)
[2016-09-21] MEDS ORDERED: BENZ0.5T PO (12:01)
--- NOTE | 2016-09-21 12:01 | HHI.FPPN ---
Subjective Remarks Patient was seen and examined this morning. He is currently on ventilatory support but taking sedation holiday per CC. Still making respiratory secretions. No fevers overnight. Patient resides at [facility] and I spoke with Lisy Lundberg there today to clarify home medications: * Benztropine 2 mg nightly * Olanzapine 15 mg nightly * Thiothixene 10 nightly (Christa Cobian MD R1) Objective Vitals Vital Signs Date Time Temp Pulse Resp B/P Pulse Ox O2 Delivery O2 Flow Rate FiO2 09/21/16 11:15 94 40 09/21/16 10:02 40 09/21/16 10:02 100 40 09/21/16 10:00 78 09/21/16 08:00 97.9 61 18 110/74 100 09/21/16 08:00 61 09/21/16 07:15 100 40 09/21/16 06:00 62 09/21/16 05:15 100 40 09/21/16 04:03 100 40 09/21/16 04:00 98.0 66 15 103/68 99 09/21/16 04:00 66 09/21/16 02:00 68 09/21/16 01:02 99 40 09/21/16 00:00 98.0 73 14 104/68 99 09/21/16 00:00 73 09/20/16 22:21 97 40 09/20/16 22:00 75 09/20/16 20:00 98.1 79 14 102/67 96 09/20/16 20:00 79 09/20/16 19:31 97 50 09/20/16 18:00 78 09/20/16 16:53 97 50 09/20/16 16:00 98.5 74 14 105/67 99 09/20/16 16:00 74 09/20/16 14:27 97 50 09/20/16 14:00 74 09/20/16 13:15 98 100 09/20/16 11:55 96 100 I/O 09/20/16 09/20/16 09/20/16 09/21/16 09/21/16 09/21/16 07:00 15:00 23:00 07:00 15:00 23:00 Intake Total 180 ml 141 ml Output Total 600 ml 750 ml Balance -420 ml -609 ml Intake Oral 0 ml 0 ml IV Total 180 ml 141 ml Output Urine Total 600 ml 750 ml Stool Total 0 ml 0 ml (Christa Cobian MD R1) Result Diagram: 09/21/16 0605 09/21/16 0606 Imaging Last Impressions Chest X-Ray 09/21/16 0600 Signed Impressions: Service Date/Time: Wednesday, September 21, 2016 04:40 - CONCLUSION: No significant change. Brody Noonan MD Objective Remarks GENERAL: Thin male patient on ventilator. He is alert and anxious on ventilator. He follows commands to breath deeply and calm down. Moving spontaneously SKIN: Warm and dry. There is a 1 cm puncture khanh on the left chin which does not appear new. HEAD: Atraumatic. Normocephalic. EYES: Pupils equal and round. No scleral icterus. No injection or drainage. ENT: ET tube in place. OG tube in place. NECK: Trachea midline. No JVD. CARDIOVASCULAR: Regular rate and rhythm. No murmurs on auscultation. RESPIRATORY: Coarse breath sounds on anterior lung currie. GASTROINTESTINAL: Abdomen soft, non-tender, nondistended. MUSCULOSKELETAL: Extremities without clubbing, cyanosis, or edema. No obvious deformities. NEUROLOGICAL: On ventilator. Alert, trying to speak. Nods appropriately to questions and requests. PSYCHIATRIC: Appropriate mood and affect; insight and judgment normal. Procedures ET tube placement 09/20/2016 (Christa Cobian MD R1) Urinary Catheter: Yes (Christa Cobian MD R1) Vascular Central Line Catheter: No (Christa Cobian MD R1) A/P Assessment and Plan 60-year-old male with history of COPD, schizophrenia, and chronic smoking who presents with severe shortness of breath concerning for acute COPD exacerbation. CXR notable for possible infiltrate concerning for underlying pneumonia. Patient required BiPAP on admission with good O2 sats, however, ABG is notable for significant CO2 retention and patient may tire due to respiratory effort. We will admit to IM for close monitoring. Discharge Planning Unclear. Ventilated, on sedation holiday. Hopeful for extubation soon. Continued inpatient management warranted as patient condition critical on day 1 of admission. Expect improvement in 1-2 days, possible extubation, continued inpatient management. Critical care assisting with managing. (Christa Cobian MD R1) Attending Attestation The exam, history, and the medical decision-making described in the above note were completed with the assistance of the resident physician. I reviewed and agree with the findings presented. I attest that I had a [id number] encounter with the patient on the same day, and personally performed and documented my assessment and findings in the medical record. (Maricel Laurent MD) Problem List: (1) COPD exacerbation Status: Acute Plan: Patient admitted for acute COPD exacerbation, possibly exacerbated by pneumonia. ABG on admission as follows: PH 7.26, CO2 82. Worsening respiratory status warranted intubation on 09/20/16. Critical care currently managing. Plan: * Sedation holiday * Continue monitoring closely * Possible extubation per CC today per nurse Hospital Course: * Admit to [facility]. Dr. August is aware of patient. * Patient was counseled that he may require ventilatory support after further monitoring, pending ABG changes/respiratory effort changes * Respiratory support with BiPAP, goal O2 sat greater than 92% --> intubated on * Duo nebs every 4 hours scheduled, albuterol every 2 hours prn SOB/wheezing * Solu-Medrol 125 mg IV 1 per EMS, will continue Solu-Medrol IV 60 mg every 6 hours * Pneumonia, community-acquired, suspected based on CXR findings: Rocephin 1 g every 24 hours IV, azithromycin 500 mg IV every 24 hours. Once patient is no longer on BiPAP, we will transition to azithromycin by mouth. * Respiratory: A cappella, chest physiotherapy, incentive spirometry * Urine Legionella and Pneumoccocal Ag negative (2) Elevated troponin Status: Acute Plan: Cardiac enzymes improved, likely demand-ischemia. EKG showing non-acute changes and no signs of acute ischemic event. Continue to monitor on telemetry for now. Hospital Course: * Patient complained of chest tightness on admission. EKG showing non-acute abnormalities, no evidence of ischemia. Troponin is 0.27, mildly elevated. Only documented troponin and EMR is from 2013 and it was within normal limits. Elevated troponin can be due to demand ischemia related to initial hypoxia. * Monitor for changes in chest symptoms as his chest tightness is likely related to his respiratory status * Re-evaluate for new pain symptoms (3) Pneumonia Status: Acute Plan: As above, patient is admitted for acute COPD exacerbation with CXR notable for possible infiltrate in the right apex. * Treatment as above (4) SCHIZOPHRENIA NOS-UNSPEC Status: Chronic Plan: Patient has chronic schizophrenia. He is not appearing to respond to stimuli or having acute symptoms at this time. * He has not had any recent admissions for schizophrenia, therefore we will refer to records for current medications and administer home medications while inpatient Patient resides at [facility] and I spoke with Lisy Lundberg there today to clarify home medications: * Benztropine 2 mg nightly * Olanzapine 15 mg nightly * Thiothixene 10 nightly (5) Tobacco dependence, continuous Status: Chronic Plan: Patient reports chronic tobacco dependence. * Nicotine high-dose patch while inpatient * We will halfway house counselor on smoking cessation (6) Hyponatremia Status: Acute Plan: Slowly improving. Likely related to pneumonia. Consider low-rate NS. Hospital Course: Patient noted to have sodium of 121 on admission. Differential diagnosis includes SIADH, heart failure, hypothyroidism, adrenal insufficiency. Suspect SIADH given patient has history of pulmonary disease including likely pneumonia at this time. Kidneys are functioning normally per initial BMP. Glucose was mildly elevated on initial BMP at 140. (7) Fluids/Electrolytes/Nutrition/Prophylaxis Status: Acute Plan: Fluids: Fluid restricted given hyponatremia Electrolytes: Hyponatremia, managed as above, will monitor Nutrition: NPO for now given respiratory distress, will reassess DVT Prophylaxis: Early ambulation. Heparin 5000U subQ q12hr/bilateral SCDs GI Prophylaxis: Protonix 40 mg IV daily given steroid use (Christa Cobian MD R1) Christa Cobian MD R1 Sep 21, 2016 12:01 Maricel Laurent MD Sep 22, 2016 09:14
[2016-09-21 12:31] LABS: BLOOD GAS BASE EXCESS 6.9 mmol/L (-2-2); BLOOD GAS CARBOXYHEMOGLOBIN 0.6 % (0-4); BLOOD GAS HCO3 33 mmol/L (22-26); BLOOD GAS METHEMOGLOBIN 1.3 % (0-2); BLOOD GAS O2 HGB SATURATION 96 % (90-100); BLOOD GAS OXYGEN CONTENT 19.9 Vol % (12.0-20.0); BLOOD GAS PCO2 66 mmHg (38-42); BLOOD GAS PO2 125 mmHg (61-120); BLOOD GAS TOTAL HGB 14.6 G/DL (12.0-16.0); TEMP CORR TO 98.6
[2016-09-21 12:32] LABS: CRITICAL VALUE YES; DRAW SITE RT RADIAL; FIO2 40 %; NUMBER OF ARTERIAL PUNCTURES 1; OXYGEN DEVICE VENT; STAT NO; ULNAR PULSE Y
[2016-09-21] MEDS: HEPARIN SODIUM - SQ 10,000 UNITS/ML VIAL SQ SCH ×2 (13:25→20:28)
[2016-09-21] MEDS: AZITHROMYCIN INJ 500 MG in SODIUM CHLOR 0.9% 250 ML INJ 250 ML IV SCH (13:26)
[2016-09-21 17:07] LABS: BLOOD GAS BASE EXCESS 7.6 mmol/L (-2-2); BLOOD GAS HCO3 33 mmol/L (22-26); BLOOD GAS METHEMOGLOBIN 1.1 % (0-2); BLOOD GAS O2 HGB SATURATION 97 % (90-100); BLOOD GAS OXYGEN CONTENT 18.7 Vol % (12.0-20.0); BLOOD GAS PCO2 60 mmHg (38-42); BLOOD GAS PO2 140 mmHg (61-120); BLOOD GAS TOTAL HGB 13.6 G/DL (12.0-16.0); TEMP CORR TO 98.6
[2016-09-21 17:08] LABS: CRITICAL VALUE YES; DRAW SITE RT RADIAL; FIO2 35 %; NUMBER OF ARTERIAL PUNCTURES 1; OXYGEN DEVICE BIPAP; STAT NO; ULNAR PULSE Y
--- NOTE | 2016-09-21 17:33 | HHI.CCPN ---
Subjective Remarks/Hospital Course Hospital Course: This is a 60-year-old male with a history of COPD, smoking, schizophrenia who came to the emergency department from his assisted living facility with worsening shortness of breath. In emergency department he was found to have an elevated white count and a nonproductive cough. He was given antibiotics, steroids, and started on BiPAP and admitted to the ICU. The patient continued to worsen despite aggressive measures, and the intensive care service was consulted for evaluation and recommendations. When I evaluated the patient, he was on BiPAP with worsening PCO2 on serial ABGs. He was tachypneic, labored, in distress. I emergently intubated him, please see separate procedure note for details. Additional information is unobtainable from the patient due to his clinical condition. Subjective: 09/21: patient clinically improving, awake, following commands. ABGs improving. patient self-extubated, but clinically stable. placed back on BiPAP. Objective Vital Signs Date Time Temp Pulse Resp B/P Pulse Ox O2 Delivery O2 Flow Rate FiO2 09/21/16 15:28 99 35 09/21/16 14:00 88 09/21/16 13:25 Nasal Cannula 2.00 09/21/16 12:00 97.4 11 153/78 Intake and Output 09/20/16 09/20/16 09/21/16 08:00 16:00 00:00 Intake Total 180 ml Output Total 600 ml Balance -420 ml Result Diagram: 09/21/16 0605 09/21/16 0606 Other Results Microbiology Date/Time Procedure Status Source Growth 09/20/16 11:15 Legionella Antigen - Final Complete Urine Clean Catch PRESUMPTIVE NEGATIVE FOR LEGIONELLA P... 09/20/16 11:15 Streptococcus pneumoniae Antigen (M - Final Complete Urine Clean Catch PRESUMPTIVE NEGATIVE FOR STREPTOCOCCU... Laboratory Tests Test 09/21/16 09/21/16 09/21/16 05:01 09:25 12:25 Blood Gas Puncture Site RT RADIAL RT RADIAL RT RADIAL Blood Gas Patient Temperature 98.6 98.6 98.6 Blood Gas HCO3 33 mmol/L 32 mmol/L 33 mmol/L (22-26) (22-26) (22-26) Blood Gas Base Excess 7.0 mmol/L 7.1 mmol/L 6.9 mmol/L (-2-2) (-2-2) (-2-2) Blood Gas Oxygen Saturation 97 % (90-100) 97 % (90-100) 96 % (90-100) Arterial Blood pH 7.33 7.39 7.32 (7.380-7.420) (7.380-7.420) (7.380-7.420) Arterial Blood Partial 63 mmHg (38-42) 54 mmHg (38-42) 66 mmHg (38-42) Pressure CO2 Arterial Blood Partial 146 mmHg 182 mmHg 125 mmHg Pressure O2 (61-120) (61-120) (61-120) Arterial Blood Oxygen Content 18.6 Vol % 19.0 Vol % 19.9 Vol % (12.0-20.0) (12.0-20.0) (12.0-20.0) Arterial Blood 1.1 % (0-4) 0.9 % (0-4) 0.6 % (0-4) Carboxyhemoglobin Arterial Blood Methemoglobin 1.1 % (0-2) 1.3 % (0-2) 1.3 % (0-2) Blood Gas Hemoglobin 13.5 G/DL 13.7 G/DL 14.6 G/DL (12.0-16.0) (12.0-16.0) (12.0-16.0) Oxygen Delivery Device VENTILATOR VENTILATOR VENT Blood Gas Ventilator Setting AC 550/AC18/PEEP5 CPAP 10/5/40% Blood Gas Inspired Oxygen 40 % 40 % 40 % Imaging Last Impressions Chest X-Ray 09/20/16 0736 Signed Impressions: Service Date/Time: Tuesday, September 20, 2016 07:55 - CONCLUSION: 1. Interstitial and airspace opacities in the paratracheal right apical region appear slightly more prominent in comparison to remote comparison and likely reflect interval evolution of scarring. However, superimposed developing airspace disease on chronic changes cannot be excluded in the appropriate clinical setting. Ron Baltazar MD Objective Remarks GENERAL: Middle-aged cachectic male, lying in bed, BiPAP in place. HEENT: Normocephalic. Atraumatic. Pupils equal, round, reactive, conjugate. Mucous membranes are moist NECK: Trachea is midline. There is no JVD. BiPAP in place CHEST: Tachypneic, unlabored. increased air entry bilaterally. scant wheezes. CARDIOVASCULAR: Tachycardic rate, regular rhythm. Sinus by telemetry ABDOMEN: Soft, nontender, nondistended. No guarding. MUSCULOSKELETAL: Pulses 2+. No peripheral edema. NEUROLOGICAL: RASS 0. Follows commands. A/P Assessment and Plan Assessment: 60-year-old male with a history of COPD and smoking who presents with what clinically appears to be COPD exacerbation and acute hypoxic respiratory failure which is slowly resolving. continue NIPPV for now, may require reintubation if he fails again. Active problems: Acute hypoxic and hypercarbic respiratory failure, slightly improved. COPD exacerbation Agitated delirium- improving. Plan: --continue BiPAP. -- wean fio2 for spo2 > 90% -- serial abg -- steroids -- abx -- hob at 30 degrees, vent bundle, nebs -- discussed with family medicine service, agree with restarting home psych meds. CCM will continue to follow along. Garrett Hall MD Sep 21, 2016 17:33
[2016-09-21] MEDS: BENZTROPINE MESYLATE 2 MG TAB PO SCH (20:29)
[2016-09-21] MEDS: THIOTHIXENE 10 MG CAP PO SCH (20:29)
[2016-09-21] MEDS: REMOVE OLD PATCH T-DERMAL SCH (20:34)
[2016-09-22] VITALS (16 sets, daily range): BP systolic 98–132; BP diastolic 56–73; PULSE 75–104; RESP 20–34; TEMP 97.7–99; O2SAT 87–100
[2016-09-22] MEDS: BUDESONIDE-FORMOTEROL 160/4.5 MCG INHALER INH SCH ×3 (00:49→21:55)
[2016-09-22] MEDS: RESP: ALBUTEROL 2.5 MG/IPRATROPIUM 0.5 MG NEB (SCH) INH ×5 (03:54→23:55)
[2016-09-22] MEDS: CHLORHEXIDINE GLUCONATE 2 % 1 PACK (2 CLOTHS) TOP SCH (04:00)
[2016-09-22] MEDS: INSULIN NovoLIN REGULAR SUPPLEMENTAL SCALE SQ SCH ×4 (05:07→17:31)
[2016-09-22] MEDS: methylPREDNISolone SOD SUCC 125 MG/2 ML VIAL IVP SCH ×4 (05:07→21:52)
[2016-09-22 05:48] LABS: BLOOD GAS BASE EXCESS 11.3 mmol/L (-2-2); BLOOD GAS CARBOXYHEMOGLOBIN 1.1 % (0-4); BLOOD GAS HCO3 36 mmol/L (22-26); BLOOD GAS METHEMOGLOBIN 1.1 % (0-2); BLOOD GAS O2 HGB SATURATION 90 % (90-100); BLOOD GAS OXYGEN CONTENT 17.7 Vol % (12.0-20.0); BLOOD GAS PCO2 55 mmHg (38-42); BLOOD GAS PO2 65 mmHg (61-120); BLOOD GAS TOTAL HGB 13.9 G/DL (12.0-16.0); TEMP CORR TO 98.6
[2016-09-22 05:50] LABS: CRITICAL VALUE YES; DRAW SITE RT RADIAL; FIO2 30 %; LITER FLOW 2.5 L/M; NUMBER OF ARTERIAL PUNCTURES 1; OXYGEN DEVICE NASAL CANNULA; STAT NO; ULNAR PULSE PRESENT
[2016-09-22 06:38] LABS: AUTOMATED NEUTROPHIL # 7.5 TH/MM3 (1.8-7.7); BASOPHIL % 0.2 % (0.0-2.0); HEMATOCRIT 40.3 % (39.0-51.0); HEMO FLAGS DIFF FINAL; LYMPH % 5.2 % (9.0-44.0); LYMPHOCYTE # 0.5 TH/MM3 (1.0-4.8); MEAN CELL VOLUME 90.4 FL (80.0-100.0); MEAN CORPUSCULAR HEMOGLOBIN 30.5 PG (27.0-34.0); MEAN CORPUSCULAR HGB CONC 33.7 % (32.0-36.0); NEUT % 85.6 % (16.0-70.0); PLATELET COUNT 183 TH/MM3 (150-450); RED BLOOD COUNT 4.45 MIL/MM3 (4.50-5.90); RED CELL DISTRIBUTION WIDTH 13.1 % (11.6-17.2); WHITE BLOOD COUNT 8.8 TH/MM3 (4.0-11.0)
[2016-09-22] MEDS ORDERED: LORazepam 2 MG/ML VIAL IV PUSH PRN (07:00)
[2016-09-22 07:07] LABS: ALKALINE PHOSPHATASE 69 U/L (45-117); ALT (GPT) 74 U/L (12-78); ANION GAP 2 MEQ/L (5-15); AST (GOT) 32 U/L (15-37); BLOOD UREA NITROGEN 15 MG/DL (7-18); CHLORIDE 93 MEQ/L (98-107); GLOMERULAR FILTRATION RATE 148 ML/MIN (>89); POTASSIUM 4.7 MEQ/L (3.5-5.1); SODIUM (NA) 133 MEQ/L (136-145); TOTAL BILIRUBIN ADULT 0.3 MG/DL (0.2-1.0)
--- NOTE | 2016-09-22 07:33 | HHI.CCPN ---
Subjective Remarks/Hospital Course Hospital Course: This is a 60-year-old male with a history of COPD, smoking, schizophrenia who came to the emergency department from his assisted living facility with worsening shortness of breath. In emergency department he was found to have an elevated white count and a nonproductive cough. He was given antibiotics, steroids, and started on BiPAP and admitted to the ICU. The patient continued to worsen despite aggressive measures, and the intensive care service was consulted for evaluation and recommendations. When I evaluated the patient, he was on BiPAP with worsening PCO2 on serial ABGs. He was tachypneic, labored, in distress. I emergently intubated him, please see separate procedure note for details. Additional information is unobtainable from the patient due to his clinical condition. Subjective: 09/21: patient clinically improving, awake, following commands. ABGs improving. patient self-extubated, but clinically stable. placed back on BiPAP. 09/22: patient resting comfortably on 2L NC. ABG continues to improve. less agitated this morning. Objective Vital Signs Date Time Temp Pulse Resp B/P Pulse Ox O2 Delivery O2 Flow Rate FiO2 09/22/16 06:00 89 09/22/16 04:02 98 35 09/22/16 04:00 97.9 21 98/56 09/21/16 19:56 BiPAP 09/21/16 13:25 2.00 Intake and Output 09/21/16 09/21/16 09/22/16 08:00 16:00 00:00 Intake Total 141 ml 385 ml 285 ml Output Total 750 ml 851 ml 1000 ml Balance -609 ml -466 ml -715 ml Result Diagram: 09/22/16 0625 09/22/16 0625 Other Results Microbiology Date/Time Procedure Status Source Growth 09/20/16 11:15 Legionella Antigen - Final Complete Urine Clean Catch PRESUMPTIVE NEGATIVE FOR LEGIONELLA P... 09/20/16 11:15 Streptococcus pneumoniae Antigen (M - Final Complete Urine Clean Catch PRESUMPTIVE NEGATIVE FOR STREPTOCOCCU... Laboratory Tests Test 09/21/16 09/21/16 09/21/16 09/22/16 09:25 12:25 17:00 05:35 Blood Gas Puncture Site RT RADIAL RT RADIAL RT RADIAL RT RADIAL Blood Gas Patient Temperature 98.6 98.6 98.6 98.6 Blood Gas HCO3 32 mmol/L 33 mmol/L 33 mmol/L 36 mmol/L (22-26) (22-26) (22-26) (22-26) Blood Gas Base Excess 7.1 mmol/L 6.9 mmol/L 7.6 mmol/L 11.3 mmol/L (-2-2) (-2-2) (-2-2) (-2-2) Blood Gas Oxygen Saturation 97 % (90-100) 96 % (90-100) 97 % (90-100) 90 % (90- 100) Arterial Blood pH 7.39 7.32 7.36 7.43 (7.380-7.420) (7.380-7.420) (7.380-7.420) (7.380-7.420) Arterial Blood Partial 54 mmHg (38-42) 66 mmHg (38-42) 60 mmHg (38-42) 55 mmHg ( 38-42) Pressure CO2 Arterial Blood Partial 182 mmHg 125 mmHg 140 mmHg 65 mmHg Pressure O2 (61-120) (61-120) (61-120) (61-120) Arterial Blood Oxygen Content 19.0 Vol % 19.9 Vol % 18.7 Vol % 17.7 Vol % (12.0-20.0) (12.0-20.0) (12.0-20.0) (12.0-20.0) Arterial Blood 0.9 % (0-4) 0.6 % (0-4) 1.0 % (0-4) 1.1 % (0-4) Carboxyhemoglobin Arterial Blood Methemoglobin 1.3 % (0-2) 1.3 % (0-2) 1.1 % (0-2) 1.1 % (0-2) Blood Gas Hemoglobin 13.7 G/DL 14.6 G/DL 13.6 G/DL 13.9 G/DL (12.0-16.0) (12.0-16.0) (12.0-16.0) (12.0-16.0) Oxygen Delivery Device VENTILATOR VENT BIPAP NASAL CANNULA Blood Gas Ventilator Setting 550/AC18/PEEP5 CPAP 10/5/40% 10/5 Blood Gas Inspired Oxygen 40 % 40 % 35 % 30 % Blood Gas Liter Flow 2.5 L/M Imaging Last Impressions Chest X-Ray 09/20/16 0736 Signed Impressions: Service Date/Time: Tuesday, September 20, 2016 07:55 - CONCLUSION: 1. Interstitial and airspace opacities in the paratracheal right apical region appear slightly more prominent in comparison to remote comparison and likely reflect interval evolution of scarring. However, superimposed developing airspace disease on chronic changes cannot be excluded in the appropriate clinical setting. Ron Baltazar MD Objective Remarks GENERAL: Middle-aged cachectic male, resting comfortably in bed, NC o2. HEENT: Normocephalic. Atraumatic. Pupils equal, round, reactive, conjugate. Mucous membranes are moist NECK: Trachea is midline. There is no JVD. on 2L o2 by NC. CHEST: unlabored. increased air entry bilaterally. scant wheezes. CARDIOVASCULAR: normal rate, regular rhythm. Sinus by telemetry ABDOMEN: Soft, nontender, nondistended. No guarding. MUSCULOSKELETAL: Pulses 2+. No peripheral edema. NEUROLOGICAL: RASS 0. Follows commands. A/P Assessment and Plan Assessment: 60-year-old male with a history of COPD and smoking who presents with what clinically appears to be COPD exacerbation and acute hypoxic respiratory failure which is clinically improving. has remained stable overnight. could leave the ICU later today. Active problems: Acute hypoxic and hypercarbic respiratory failure- resolving. COPD exacerbation- improving. Agitated delirium- improving. Plan: -- nc o2 as tolerated. -- wean fio2 for spo2 > 90% -- steroids -- abx, f/u sputum culture. -- continue psych meds -- will d/w FM team, but can likely leave ICU today. [facility] will sign off. please re-consult as needed. Garrett Hall MD Sep 22, 2016 07:33
[2016-09-22] MEDS: CHLORHEXIDINE 0.12% (ORAL KIT) 15 ML CUP MT SCH ×2 (08:00→20:00)
[2016-09-22] MEDS: DOCUSATE SODIUM 50 MG/SENNA 8.6 MG TAB PO SCH ×2 (09:00→21:52)
[2016-09-22] MEDS: SODIUM CHLORIDE 0.9% FLUSH 10 ML FLUSH IV FLUSH SCH ×2 (09:51→21:54)
[2016-09-22] MEDS: NICOTINE 21 MG/24 HR PATCH T-DERMAL SCH (09:51)
[2016-09-22] MEDS: cefTRIAXone INJ 1,000 MG in SODIUM CHLORIDE 0.9% INJ 100 ML IV SCH (09:52)
[2016-09-22] MEDS: HEPARIN SODIUM - SQ 10,000 UNITS/ML VIAL SQ SCH ×2 (10:00→21:53)
[2016-09-22] MEDS: AZITHROMYCIN INJ 500 MG in SODIUM CHLOR 0.9% 250 ML INJ 250 ML IV SCH (10:00)
--- NOTE | 2016-09-22 10:19 | HHI.FPPN ---
Subjective Remarks Patient was seen and examined this morning. He was extubated early in the day on 09/21/16 and had been on Bipap prior to trial of nasal cannula this morning. He states he wants to eat breakfast and is very hungry. He denies chest pain and shortness of breath while on nasal cannula, and states "I can't wear that" when referring to the Bipap machine. (Christa Cobian MD R1) Objective Vitals Vital Signs Date Time Temp Pulse Resp B/P Pulse Ox O2 Delivery O2 Flow Rate FiO2 09/22/16 06:00 89 09/22/16 04:02 98 35 09/22/16 04:00 79 09/22/16 04:00 97.9 78 21 98/56 100 09/22/16 02:00 79 09/22/16 01:05 94 35 09/22/16 00:00 97.7 82 20 110/56 100 09/22/16 00:00 81 09/21/16 23:22 96 35 09/21/16 22:00 84 09/21/16 20:00 78 09/21/16 20:00 97.4 77 20 139/83 100 09/21/16 19:56 98 35 09/21/16 19:56 98 BiPAP 35 09/21/16 18:00 86 09/21/16 16:00 97 09/21/16 16:00 97.4 97 23 145/70 98 09/21/16 15:28 99 35 09/21/16 14:05 96 35 09/21/16 14:00 88 09/21/16 13:25 96 Nasal Cannula 2.00 09/21/16 13:00 95 Nasal Cannula 2 09/21/16 12:47 97 40 09/21/16 12:00 97.4 81 11 153/78 97 09/21/16 12:00 81 09/21/16 11:15 94 40 09/21/16 10:02 40 09/21/16 10:02 100 40 09/21/16 10:00 78 I/O 09/21/16 09/21/16 09/21/16 09/22/16 09/22/16 09/22/16 07:00 15:00 23:00 07:00 15:00 23:00 Intake Total 141 ml 385 ml 285 ml 73 ml Output Total 750 ml 851 ml 1000 ml 1450 ml Balance -609 ml -466 ml -715 ml -1377 ml Intake Oral 0 ml IV Total 141 ml 227 ml 285 ml 73 ml Tube Feeding 158 ml Output Urine Total 750 ml 850 ml 1000 ml 1450 ml Stool Total 0 ml 1 ml # Bowel Movements 0 (Christa Cobian MD R1) Result Diagram: 09/22/16 0625 09/22/16 0625 Imaging Last Impressions Chest X-Ray 09/21/16 0600 Signed Impressions: Service Date/Time: Wednesday, September 21, 2016 04:40 - CONCLUSION: No significant change. Brody Noonan MD Objective Remarks GENERAL: Thin male patient lying in bed using nasal cannula. He is alert, very talkative. SKIN: Warm and dry. There is a 1 cm puncture khanh on the left chin which does not appear new HEAD: Atraumatic. Normocephalic. EYES: Pupils equal and round. No scleral icterus. No injection or drainage. ENT: Nasal cannula in place. NECK: Trachea midline. No JVD. CARDIOVASCULAR: Regular rate and rhythm. No murmurs on auscultation. RESPIRATORY: Exam notable for decreased air movement and inspiratory wheezing at the apices bilaterally. Easy work of breathing. GASTROINTESTINAL: Abdomen soft, non-tender, nondistended. Bowel sounds decreased. MUSCULOSKELETAL: Extremities without clubbing, cyanosis, or edema. No obvious deformities. NEUROLOGICAL: Alert, awake, energetic. Not able to assess orientation as he is focused on eating. Moving spontaneously and following commands. PSYCHIATRIC: Appropriate mood and affect. Not appearing to respond to internal stimuli. Perseverates on wanting to eat. Procedures ET tube placement 09/20/2016. Extubation 09/21/2016. Medications and IVs Inpatient Medications Acetaminophen (Tylenol) 650 mg Q6H PRN PO PAIN 1-10 AND/OR FEVER >101F Last administered on 09/21/16 21:27; Start 09/20/16 at 10:45 Albuterol Sulfate (Albuterol Neb) 2.5 mg Q2HR NEB PRN INH SHORTNESS OF BREATH; Start 09/20/16 at 09:45 Albuterol/ Ipratropium (Duoneb Neb) 1 ampule Q4HR NEB INH Last administered on 09/22/16 03:54; Start 09/20/16 at 12:00 Azithromycin 500 mg/Sodium Chloride 250 ml @ 250 mls/hr ONCE STAT IV Last administered on 09/20/16 10:51; Start 09/20/16 at 08:21; Stop 09/20/16 at 09:20 ; Status DC Azithromycin/ Sodium Chloride (Zithromax Inj/ NS 250 ml Inj) 250 ml @ 250 mls/ hr Q24H IV Last administered on 09/21/16 13:26; Start 09/21/16 at 10:00 Benztropine Mesylate (Cogentin) 2 mg HS PO Last administered on 09/21/16 20:29 ; Start 09/21/16 at 21:00 Bisacodyl (Dulcolax Supp) 10 mg DAILY PRN RECTAL SEVERE CONSITIPATION; Start at 09:30 Budesonide/ Formoterol Fumarate (Symbicort 160-4.5 Inh) 2 puff Q12HR INH Last administered on 09/22/16 00:49; Start 09/20/16 at 21:00 Ceftriaxone Sodium 1000 mg/ Sodium Chloride 100 ml @ 200 mls/hr Q24H IV Last administered on 09/21/16 08:03; Start 09/21/16 at 09:00 Ceftriaxone Sodium 2000 mg/ Sodium Chloride 100 ml @ 200 mls/hr ONCE STAT IV Last administered on 09/20/16 09:38; Start 09/20/16 at 08:21; Stop 09/20/16 at 08:50; Status DC Chlorhexidine Gluconate (Chlorhexidine 2% Cloth) 3 pack UNSCH PRN TOP HYGIENIC CARE; Start 09/20/16 at 10:45 Chlorhexidine Gluconate (Peridex 0.12% Liq) 15 ml BID@08,20 MT Last administered on 09/21/16 08:19; Start 09/21/16 at 08:00 Dextrose (D50w (Vial) Inj) 25 ml UNSCH PRN IV PUSH HYPOGLYCEMIA-SEE COMMENTS; Start 09/20/16 at 21:15 Fentanyl Citrate 250 ml @ 0 mls/hr TITRATE IV Last administered on 09/20/16 13 :01; Start 09/20/16 at 12:45; Stop 09/22/16 at 07:35; Status DC Heparin Sodium (Porcine) (Heparin Inj) 5,000 units Q12H SQ Last administered on 09/21/16 20:28; Start 09/20/16 at 10:00 Insulin Human Regular (NovoLIN R SUPPLEMENTAL SCALE) 1 Q6HR SQ Last administered on 09/21/16 12:00; Start 09/21/16 at 00:00 Lactulose (Lactulose Liq) 30 ml DAILY PRN PO SEVERE CONSITIPATION; Start at 09:30 Lorazepam (Ativan Inj) 1 mg ONCE PRN IV PUSH AGITATION Last administered on 08:18; Start 09/22/16 at 07:00; Stop 09/22/16 at 19:00 Magnesium Hydroxide (Milk Of Magnesia Liq) 30 ml Q12H PRN PO MILD - MODERATE CONSTIPATION; Start 09/20/16 at 09:30 Magnesium Oxide 800 mg 800 mg UNSCH PRN PO For Magnesium 1.2 - 1.6 mg/dL; Start 09/20/16 at 21:15 Magnesium Sulfate 2 gm/Sodium Chloride 100 ml @ 50 mls/hr UNSCH PRN IV For Magnesium 1.2 - 1.6 mg/dL; Start 09/20/16 at 21:15 Magnesium Sulfate 4 gm/Sodium Chloride 100 ml @ 50 mls/hr UNSCH PRN IV For Magnesium 0.9 - 1.1 mg/dL; Start 09/20/16 at 21:15 Methylprednisolone Sodium Succinate 60 mg 60 mg Q6H IVP Last administered on 05:07; Start 09/20/16 at 10:00 Miscellaneous Information 1 Q361D XX ; Start 09/20/16 at 10:45 Naloxone HCl (Narcan Inj) 0.4 mg UNSCH PRN IV SEE LABEL COMMENTS; Start at 09:30 Nicotine (Habitrol 21 Mg Patch.24 Hr) 1 patch DAILY T-DERMAL Last administered on 09/21/16 08:05; Start 09/21/16 at 09:00 Olanzapine (ZyPREXA) 15 mg HS PO Last administered on 09/21/16 20:29; Start at 21:00 Ondansetron HCl (Zofran Inj) 4 mg Q6H PRN IVP NAUSEA OR VOMITING; Start at 09:30 Pantoprazole Sodium (Protonix Inj) 40 mg DAILY IV Last administered on 08:03; Start 09/20/16 at 11:00; Stop 09/22/16 at 07:35; Status DC Potassium Phosphate (K-Phos) 2,000 mg Q4H PRN PO For Phosphorus < 2.5 mg/dL; Start 09/20/16 at 21:15 Potassium Phosphate 2000 mg 2,000 mg UNSCH PRN PO/TUBE SEE LABEL COMMENTS; Start 09/20/16 at 21:15 Potassium Phosphate 30 mmol/ Sodium Chloride 260 ml @ 42 mls/hr UNSCH PRN IV SEE LABEL COMMENTS; Start 09/20/16 at 21:15 Potassium Chloride (KCl 40 Meq Premix Inj) 100 ml @ 25 mls/hr UNSCH PRN IV For Potassium 3.3 - 3.5 mEq/L; Start 09/20/16 at 21:15 Propofol (Diprivan 1000 Mg/100ml Inj) 100 ml @ 0 mls/hr TITRATE IV Last administered on 09/21/16 03:48; Start 09/20/16 at 13:15; Stop 09/22/16 at 07:35 ; Status DC Senna/Docusate Sodium (Sabra-Colace) 1 tab BID PO Last administered on 20:29; Start 09/20/16 at 21:00 Sennosides (Senokot) 17.2 mg Q12H PRN PO MODERATE - SEVERE CONSTIPATION; Start 09/20/16 at 09:30 Sodium Chloride (NS 500 ml Inj) 500 ml @ 500 mls/hr BOLUS ONCE IV Last administered on 09/20/16 09:39; Start 09/20/16 at 09:00; Stop 09/20/16 at 09:59 ; Status DC Sodium Chloride (NS Flush) 2 ml BID IV FLUSH Last administered on 09/21/16 20: 29; Start 09/20/16 at 21:00 Sodium Chloride 2 ml 2 ml UNSCH PRN IVF FLUSH AFTER USING IV ACCESS; Start 01/27 at 07:45; Stop 09/20/16 at 09:39; Status DC Sodium Phosphate/ Sodium Chloride (Sodium Phosphate Inj/NS 250 ml Inj) 250 ml @ 42 mls/hr UNSCH PRN IV For Phosphorus < 2.5 mg/dL; Start 09/20/16 at 21:15 Succinylcholine Chloride 200 mg 200 mg NOW ONCE IV Last administered on t 12:19; Start 09/20/16 at 12:15; Stop 09/20/16 at 12:16; Status DC Thiothixene (Navane) 10 mg HS PO Last administered on 09/21/16t 20:29; Start at 21:00 (Christa Cobian MD R1) Urinary Catheter: Yes Assessment to: Remove (Christa Cobian MD R1) Vascular Central Line Catheter: No (Christa Cobian MD R1) A/P Assessment and Plan 60-year-old male with history of COPD, schizophrenia, and chronic smoking who presents with severe shortness of breath concerning for acute COPD exacerbation. CXR notable for possible infiltrate concerning for underlying pneumonia. Currently in ICU, s/p ventilatory support 09/20-09/21, now on Bipap/ nasal cannula. Discharge Planning Continued inpatient management warranted as patient condition critical on day 1 of admission. Expect continued clinical improvement, possible transfer to med/ surg floor in 1-2 days. Critical care assisting with managing. (Christa Cobian MD R1) Attending Attestation Patient seen and examined. Case reviewed and discussed with the resident team. Agree with plan of care as discussed with me and documented in the resident note. (Maricel Laurent MD) Problem List: (1) COPD exacerbation Status: Acute Plan: Patient admitted for acute COPD exacerbation, possibly exacerbated by pneumonia. ABG on admission as follows: PH 7.26, CO2 82. Worsening respiratory status warranted intubation on 09/20/16, currently on nasal cannula. Plan: * Continue monitoring closely in IMC * Continue respiratory treatments as below * Continue Rocephin and Azithromycin as below, will transition to PO azithromycin if tolerating PO * Follow sputum and blood cultures Hospital Course: * Patient required BiPAP on admission with good O2 sats, however, ABG notable for significant CO2 retention and patient may tire due to respiratory effort. * Admitted to [facility]. Dr. August (critical care) currently on board to manage critical stage of illness * Patient was counseled that he may require ventilatory support after further monitoring, pending ABG changes/respiratory effort changes * Respiratory support with BiPAP, goal O2 sat greater than 92% --> intubated on 09/20/2016 * Extubation 09/21/2016 * Goal O2 sat >92% * Duo nebs every 4 hours scheduled, albuterol every 2 hours prn SOB/wheezing * Solu-Medrol 125 mg IV 1 per EMS, will continue Solu-Medrol IV 60 mg every 6 hours * Pneumonia, community-acquired, suspected based on CXR findings: Rocephin 1 g every 24 hours IV, azithromycin 500 mg IV every 24 hours. Once patient is no longer on BiPAP, we will transition to azithromycin by mouth. * Respiratory: A cappella, chest physiotherapy, incentive spirometry * Urine Legionella and Pneumococcal Ag negative * No leukocytosis or fever this admission, will continue to monitor * MRSA nasal screen positive, will initiate contact precautions * Procalcitonin noted to be normal (2) Elevated troponin Status: Acute Plan: Cardiac enzymes improved, likely demand-ischemia. No chest pain. Continue to monitor on telemetry for now. Hospital Course: * Patient complained of chest tightness on admission. * EKGs showing non-acute changes and no signs of acute ischemic event. * Troponin initial is 0.27, mildly elevated. Only documented troponin and EMR is from 2013 and it was within normal limits. Elevated troponin can be due to demand ischemia related to initial hypoxia. * Continue monitoring. Monitor for changes in chest symptoms as his chest tightness is likely related to his respiratory status. * Re-evaluate if new pain symptoms (3) Pneumonia Status: Acute Plan: As above, patient is admitted for acute COPD exacerbation with CXR notable for possible infiltrate in the right apex. * Management as above (4) SCHIZOPHRENIA NOS-UNSPEC Status: Chronic Plan: He is not appearing to respond to stimuli or having acute symptoms at this time. Psychotropic home medications listed below were restarted 09/21/2016. Patient is agitated on Bipap this morning but respiratory status stable, possibly related to psychiatric condition. Will continue to monitor. Ativan 1 mg 1 given early a.m. given agitation on BiPAP, tolerated this well. However, we'll avoid sedating medications, attempt redirecting prior to routine use. Hospital Course: * Patient has chronic schizophrenia. * Patient resides at [facility] and I spoke with Lisy Lundberg there today to clarify home medications: Benztropine 2 mg nightly Olanzapine 15 mg nightly Thiothixene 10 nightly (5) Tobacco dependence, continuous Status: Chronic Plan: Patient reports chronic tobacco dependence. * Nicotine high-dose patch while inpatient * We will addictions counselor assistant on smoking cessation (6) Hyponatremia Status: Acute Plan: Improving. Likely related to pneumonia. Will continue to monitor trends. Intervention = fluid restriction only. Caution overcorrecting given risk of neurologic compromise (e.g. CPM) Hospital Course: * Patient noted to have sodium of 121 on admission. Differential diagnosis includes SIADH, heart failure, hypothyroidism, adrenal insufficiency. Suspect SIADH given patient has history of pulmonary disease including likely pneumonia at this time. * Kidneys are functioning normally per initial BMP. Glucose was mildly elevated on initial BMP at 140. * Trends over first 24hr: 121-->124 * Na 131 on 09/22/2016 early am, continuing to normalize (7) Fluids/Electrolytes/Nutrition/Prophylaxis Status: Acute Plan: Fluids: Fluid restricted given hyponatremia, will start diet/PO hydration today if passing swallow evaluation Electrolytes: Hyponatremia, managed as above, will monitor Nutrition: Swallow study today DVT Prophylaxis: Early ambulation. Heparin 5000U subQ q12hr/bilateral SCDs GI Prophylaxis: Protonix 40 mg IV daily given steroid use (Christa Cobian MD R1) Christa Cobian MD R1 Sep 22, 2016 10:19 Maricel Laurent MD Sep 22, 2016 17:04
--- NOTE | 2016-09-22 11:34 | PD.WCN.NOT ---
Wound Consult Description: Screening Communicated with: YANNICK Strong Recommendation: Continue to reposition patient Q2H and PRN for comfort. Float heels off mattress surface while in bed. Additional Information: Patient seen for screening of possible wound to left buttock. Patient was positioned to his right side for assessment on [facility] with assistance from SHAHID Ni. Patient presents with beige/fenton discoloration to left buttock, no redness and no open areas noted to sacrum, coccyx, or buttocks. Patient was left on his right side after assessment with YANNICK Strong at bedside and communicated unremarkable findings. Vale Orona Sep 22, 2016 11:34
[2016-09-22] MEDS: PANTOPRAZOLE SODIUM 40 MG VIAL IV PUSH SCH (12:46)
[2016-09-22] MEDS: REMOVE OLD PATCH T-DERMAL SCH (21:00)
[2016-09-22] MEDS: BENZTROPINE MESYLATE 2 MG TAB PO SCH (21:53)
[2016-09-22] MEDS: THIOTHIXENE 10 MG CAP PO SCH (21:53)
[2016-09-23] VITALS (8 sets, daily range): BP systolic 117–133; BP diastolic 57–78; PULSE 54–99; RESP 17–28; TEMP 96.3–97; O2SAT 90–96
[2016-09-23] MEDS: CHLORHEXIDINE GLUCONATE 2 % 1 PACK (2 CLOTHS) TOP SCH (03:05)
[2016-09-23] MEDS: methylPREDNISolone SOD SUCC 125 MG/2 ML VIAL IVP SCH ×2 (03:05→09:06)
[2016-09-23 03:32] LABS: BASOPHIL % 0.2 % (0.0-2.0); HEMATOCRIT 38.3 % (39.0-51.0); HEMO FLAGS DIFF FINAL; LYMPH % 5.7 % (9.0-44.0); LYMPHOCYTE # 0.5 TH/MM3 (1.0-4.8); MEAN CELL VOLUME 91.5 FL (80.0-100.0); MEAN CORPUSCULAR HEMOGLOBIN 30.7 PG (27.0-34.0); MEAN CORPUSCULAR HGB CONC 33.5 % (32.0-36.0); MONO % 8.8 % (0.0-8.0); NEUT % 85.3 % (16.0-70.0); PLATELET COUNT 193 TH/MM3 (150-450); RED BLOOD COUNT 4.18 MIL/MM3 (4.50-5.90); RED CELL DISTRIBUTION WIDTH 12.9 % (11.6-17.2); WHITE BLOOD COUNT 8.2 TH/MM3 (4.0-11.0)
[2016-09-23] MEDS: RESP: ALBUTEROL 2.5 MG/IPRATROPIUM 0.5 MG NEB (SCH) INH ×3 (03:43→12:06)
[2016-09-23 03:54] LABS: BICARBONATE 40.8 MEQ/L (21.0-32.0); POTASSIUM 4.5 MEQ/L (3.5-5.1)
[2016-09-23] MEDS: INSULIN NovoLIN REGULAR SUPPLEMENTAL SCALE SQ SCH ×3 (05:48→12:00)
[2016-09-23] MEDS: CHLORHEXIDINE 0.12% (ORAL KIT) 15 ML CUP MT SCH (08:00)
[2016-09-23] MEDS: BUDESONIDE-FORMOTEROL 160/4.5 MCG INHALER INH SCH (09:00)
[2016-09-23] MEDS: SODIUM CHLORIDE 0.9% FLUSH 10 ML FLUSH IV FLUSH SCH (09:00)
[2016-09-23] MEDS: NICOTINE 21 MG/24 HR PATCH T-DERMAL SCH (09:05)
[2016-09-23] MEDS: cefTRIAXone INJ 1,000 MG in SODIUM CHLORIDE 0.9% INJ 100 ML IV SCH (09:06)
[2016-09-23] MEDS: HEPARIN SODIUM - SQ 10,000 UNITS/ML VIAL SQ SCH (09:06)
[2016-09-23] MEDS: DOCUSATE SODIUM 50 MG/SENNA 8.6 MG TAB PO SCH (09:06)
[2016-09-23] MEDS ORDERED: SODIUM CHLOR 0.9% IV SCH (10:30)
[2016-09-23] MEDS ORDERED: VANCOMYCIN IV SCH (10:30)
[2016-09-23] MEDS ORDERED: Vancomycin Consult Pharmacy 1 EA OTHER SCH (10:30)
[2016-09-23] MEDS ORDERED: VANCOMYCIN 1,000 MG/NS 250 ML IV SCH ×2 (12:00)
[2016-09-23] MEDS: PANTOPRAZOLE SODIUM 40 MG VIAL IV PUSH SCH (12:22)
--- NOTE | 2016-09-23 14:09 | HHI.FPPN ---
Subjective Remarks Patient was seen and evaluated this morning. He seemed confused and paranoid; he stated that "the congested water is making me sick." He repeatedly asked if he could go home today. It was explained to him that he continues to be very ill and that he will require IV antibiotics and steroids for a number of days before he can be safely discharged. He denied chest pain, heart palpitations, nausea and vomiting. He said that he has not had a bowel movement since he was admitted to the hospital. Initially, patient refused exam, but later agreed to exam. (Agustina Fields MD R1) Objective Vitals Vital Signs Date Time Temp Pulse Resp B/P Pulse Ox O2 Delivery O2 Flow Rate FiO2 09/23/16 12:00 97.0 99 18 133/64 91 09/23/16 09:00 93 Nasal Cannula 2.00 09/23/16 08:00 96.3 88 17 118/78 96 09/23/16 06:03 93 Nasal Cannula 2.00 09/23/16 05:58 28 94 09/23/16 03:46 90 Nasal Cannula 2.00 09/23/16 02:30 96.7 64 17 117/57 95 09/23/16 00:00 96.7 84 20 131/75 90 09/23/16 00:00 84 09/22/16 23:56 96 Nasal Cannula 3.00 09/22/16 22:00 85 09/22/16 20:00 82 09/22/16 20:00 97.7 82 24 105/66 94 09/22/16 18:00 104 09/22/16 16:00 99 09/22/16 16:00 98.4 99 24 120/57 93 09/22/16 14:00 75 I/O 09/22/16 09/22/16 09/22/16 09/23/16 09/23/16 09/23/16 06:59 14:59 22:59 06:59 14:59 22:59 Intake Total 73 ml 656 ml 100 ml Output Total 1450 ml 1100 ml 150 ml Balance -1377 ml -444 ml -50 ml Intake Oral 265 ml 100 ml IV Total 73 ml 391 ml Output Urine Total 1450 ml 1100 ml 150 ml # Voids 1 # Bowel Movements 0 0 (Agustina Fields MD R1) Result Diagram: 09/23/16 0229 09/23/16 1048 Other Results Sputum: MRSA positive Imaging Last Impressions Chest X-Ray 09/21/16 0600 Signed Impressions: Service Date/Time: Wednesday, September 21, 2016 04:40 - CONCLUSION: No significant change. Brody Noonan MD Objective Remarks GENERAL: Thin male patient lying in bed using nasal cannula. He is alert, very talkative. SKIN: Warm and dry. There is a 1 cm puncture khanh on the left chin, which does not appear new. HEAD: Atraumatic. Normocephalic. EYES: Pupils equal and round. No scleral icterus. No injection or drainage. ENT: Nasal cannula in place. NECK: Trachea midline. No JVD. CARDIOVASCULAR: Regular rate and rhythm. No murmurs on auscultation. RESPIRATORY: Exam notable for inspiratory wheezing at the apices bilaterally. GASTROINTESTINAL: Abdomen soft, non-tender, nondistended. Normal bowel sounds. MUSCULOSKELETAL: Extremities without clubbing, cyanosis, or edema. No obvious deformities. NEUROLOGICAL: Alert, awake, energetic. Oriented x3. Moving spontaneously and following commands. PSYCHIATRIC: Paranoid. Judgement comes and goes. Questionable capacity. Procedures ET tube placement 09/20/2016. Extubation 09/21/2016. Medications and IVs Current Medications Medications (Trade) Dose Ordered Sig/Durga Route Start Time Stop Time Status Last Admin (NS Flush) 2 ml UNSCH PRN IV FLUSH 09/20/16 09:30 (NS Flush) 2 ml BID IV FLUSH 09/20/16 21:00 09/23/16 09:00 (Zofran Inj) 4 mg Q6H PRN IVP 09/20/16 09:30 (Heparin Inj) 5,000 units Q12H SQ 09/20/16 10:00 09/23/16 09:06 (Narcan Inj) 0.4 mg UNSCH PRN IV 09/20/16 09:30 (Sabra-Colace) 1 tab BID PO 09/20/16 21:00 09/23/16 09:06 (Milk Of Magnesia Liq) 30 ml Q12H PRN PO 09/20/16 09:30 (Senokot) 17.2 mg Q12H PRN PO 09/20/16 09:30 (Dulcolax Supp) 10 mg DAILY PRN RECTAL 09/20/16 09:30 (Lactulose Liq) 30 ml DAILY PRN PO 09/20/16 09:30 (Symbicort 160-4.5 Inh) 2 puff Q12HR INH 09/20/16 21:00 09/23/16 09:00 (Habitrol 21 Mg Patch.24 Hr) 1 patch DAILY T-DERMAL 09/21/16 09:00 09/23/16 09:05 Miscellaneous Information 1 HS T-DERMAL 09/20/16 21:00 09/22/16 21:00 (Tylenol) 650 mg Q6H PRN PO 09/20/16 10:45 09/21/16 21:27 Miscellaneous Information 1 Q361D XX 09/20/16 10:45 (Chlorhexidine 2% Cloth) 3 pack Taper DAILY@04 TOP 09/21/16 04:00 09/17/17 03:59 09/22/16 04:00 (Chlorhexidine 2% Cloth) 3 pack UNSCH PRN TOP 09/20/16 10:45 (Peridex 0.12% Liq) 15 ml BID@08,20 MT 09/21/16 08:00 09/21/16 08:19 (D50w (Vial) Inj) 25 ml UNSCH PRN IV PUSH 09/20/16 21:15 (NovoLIN R SUPPLEMENTAL SCALE) 1 Q6HR SQ 09/21/16 00:00 09/23/16 12:00 (Cogentin) 2 mg HS PO 09/21/16 21:00 09/22/16 21:53 (ZyPREXA) 15 mg HS PO 09/21/16 21:00 09/22/16 21:00 (Navane) 10 mg HS PO 09/21/16 21:00 09/22/16 21:53 Pantoprazole Sodium 40 mg 40 mg Q24H IV PUSH 09/22/16 12:00 09/23/16 12:22 (Vancomycin Consult Pharmacy) 0 ml @ 0 mls/hr UNSCH OTHER 09/23/16 10:30 Methylprednisolone Sodium Succinate 45 mg 45 mg Q6H IVP 09/23/16 16:00 (Vancomycin Inj/ NS 250 ml Inj) 250 ml @ 250 mls/hr Q12H IV 09/23/16 12:00 09/23/16 12:22 Miscellaneous Information SPECIFIC LAB TO BE DRAWN:VANCO TROUGH DATE TO... ONCE ONCE .XX 09/25/16 11:45 09/25/16 11:46 (Agustina Fields MD R1) Urinary Catheter: No (Agustina Fields MD R1) Vascular Central Line Catheter: No (Agustina Fields MD R1) A/P Assessment and Plan 60-year-old male with history of COPD, schizophrenia, and chronic smoking who presents with severe shortness of breath concerning for acute COPD exacerbation. CXR notable for possible infiltrate concerning for underlying pneumonia. Discharge Planning Continued inpatient management warranted as patient requires IV antibiotics, IV steroids and scheduled breathing treatments. (Agustina Fields MD R1) Attending Attestation The exam, history, and the medical decision-making described in the above note were completed with the assistance of the resident physician. I reviewed and agree with the findings presented. I attest that I had a [id number] encounter with the patient on the same day, and personally performed and documented my assessment and findings in the medical record. Patient very confused and paranoid today. Begging and pleading to go home. Multiple attempts to explain to the patient that he needs to remain in the hospital at this time for treatment. Patient Crump Acted and psych consult requested to help. Patient will be transferred to the psych floor and we will continue to care for his medical needs. Change to vancomycin today and start to wean down on his IV solumedrol dose. (Maricel Laurent MD) Problem List: (1) COPD exacerbation Status: Acute Plan: Patient admitted for acute COPD exacerbation, possibly exacerbated by pneumonia. ABG on admission as follows: PH 7.26, CO2 82. Worsening respiratory status warranted intubation on 09/20/16, currently on nasal cannula. Plan: * Continue respiratory treatments as below. * Decrease SoluMEDROL dose from 60 - 45mg q6h IV. * Start Vancomycin q12h IV - sputum positive for MRSA, sensitive to Vancomycin and Bactrim, consider d/c home on Bactrim. Hospital Course: * Patient required BiPAP on admission with good O2 sats, however, ABG notable for significant CO2 retention and patient may tire due to respiratory effort. * Admitted to [facility]. Dr. August (critical care) currently on board to manage critical stage of illness. * Patient was counseled that he may require ventilatory support after further monitoring, pending ABG changes/respiratory effort changes. * Respiratory support with BiPAP, goal O2 sat greater than 92% --> intubated on 09/20/2016. * Extubation 09/21/2016. * Goal O2 sat >92%. * Duo nebs every 4 hours scheduled, albuterol every 2 hours prn SOB/wheezing. * Solu-Medrol 125 mg IV 1 per EMS, will continue Solu-Medrol IV 60 mg every 6 hours. * Pneumonia, community-acquired, suspected based on CXR findings: Rocephin 1 g every 24 hours IV, azithromycin 500 mg IV every 24 hours. * Respiratory: A cappella, chest physiotherapy, incentive spirometry. * Urine Legionella and Pneumococcal Ag negative. * No leukocytosis or fever this admission, will continue to monitor. * MRSA nasal screen positive, will initiate contact precautions. * Procalcitonin noted to be normal. (2) Pneumonia Status: Acute Plan: As above, patient is admitted for acute COPD exacerbation with CXR notable for possible infiltrate in the right apex. * Management as above. (3) SCHIZOPHRENIA NOS-UNSPEC Status: Chronic Plan: Confused and paranoid today. Questionable capacity. Consult Psychiatry for formal assessment. Psychotropic home medications listed below were restarted 09/21/2016. Hospital Course: * Patient has chronic schizophrenia. * Patient resides at [facility] and I spoke with Lisy Lundberg there today to clarify home medications: Benztropine 2 mg nightly Olanzapine 15 mg nightly Thiothixene 10 nightly (4) Tobacco dependence, continuous Status: Chronic Plan: Patient reports chronic tobacco dependence. * Nicotine high-dose patch while inpatient. * We will retirement plan counselor on smoking cessation. (5) Elevated troponin Status: Resolved Plan: Cardiac enzymes normalized. Initial elevation likely due to demand- ischemia. No chest pain. Hospital Course: * Patient complained of chest tightness on admission. * EKGs showing non-acute changes and no signs of acute ischemic event. * Troponin initial is 0.27, mildly elevated. Only documented troponin and EMR is from 2013 and it was within normal limits. Elevated troponin can be due to demand ischemia related to initial hypoxia. * Continue monitoring. Monitor for changes in chest symptoms as his chest tightness is likely related to his respiratory status. * Re-evaluate if new pain symptoms (6) Hyponatremia Status: Resolved Plan: Resolved. Likely related to pneumonia. Will continue to monitor. Hospital Course: * Patient noted to have sodium of 121 on admission. Differential diagnosis includes SIADH, heart failure, hypothyroidism, adrenal insufficiency. Suspect SIADH given patient has history of pulmonary disease including likely pneumonia at this time. * Kidneys are functioning normally per initial BMP. Glucose was mildly elevated on initial BMP at 140. * Trends over first 24hr: 121-->124 * Na 131 on 09/22/2016 early am, continuing to normalize. (7) Fluids/Electrolytes/Nutrition/Prophylaxis Status: Acute Plan: Fluids: * Tolerates PO. Electrolytes: * Hyponatremia resolved. * Continue to monitor. Nutrition: * Tolerates PO; Regular Diet. DVT Prophylaxis: * Early ambulation. * Heparin 5000U subQ q12hr. GI Prophylaxis: * Protonix 40 mg IV daily given steroid use. (Agustina Fields MD R1) Agustina Fields MD R1 Sep 23, 2016 14:09 Maricel Laurent MD Sep 23, 2016 16:00
--- NOTE | 2016-09-23 14:47 | PD.PSY.CON ---
Provisional Diagnosis Admission Date Sep 20, 2016 at 09:15 [place] I. Chronic paranoid schizophrenia [place] II. Deferred [place] III. COPD, diabetes, acute pneumonia [place] IV. History of chronic medical/psychiatric illnesses [place] V. 45 History of Present Illness Service Psychiatry Consult Requested By Primary Care Physician Antwan Diaz MD HPI The patient is a 60 year old man, domiciled in a [facility], single, unemployed, supported by [facility], with psychiatric history of paranoid schizophrenia, multiple psychiatric hospitalizations, last Hospitalization was here at [facility] in 2011, document patient was reviewed, he is on Navane 10 mg at bedtime, olanzapine 50 mg at bedtime, benztropine 1 mg twice a day, no previous suicidal attempts, with a medical history significant for COPD, chronic smoking, who presents to the ED from his [facility] for worsening shortness of breath. Endorses he has had symptoms of shortness of breath for at least a week. He was brought via [facility] to the ED. He denies chest pain but endorses chest tightness. Patient was intubated for airway protection, extubated 2016. Patient consulted to psychiatry today for assessment patient making capacity to leave AMA. On psychiatric evaluation today patient is calm, cooperative, pleasant. Patient says that he wants to go back home, "I usually the hospital, and goal to my house, smoking cigarettes and talk with my roommate ". He reports good mood, denies depressive symptoms, denies hopelessness, denies helplessness, denies worthlessness, low self-esteem, denies suicidal and homicidal ideation, denies visual and auditory hallucinations. However, patient seems to be confused at times, with periods of tangentiality and disorganized thoughts. But usually redirectable. No paranoia, no delusions, no agitation or aggressive behaviors are present. The patient is demanding to leave the hospital today. He was receptive to the idea of having to stay the hospital for a couple of days more due to his medical conditions, but he wasn't happy. Patient is unable to elaborate a rational reason to leave AMA, he doesn' t seem to understand and appreciate the nature of his underlying COPD exacerbation, doesn't seem to have a clear understanding of the consequences of leaving AMA and no following medical recommendations. Review of Systems Constitutional: DENIES: Diaphoretic episodes, Fatigue, Fever, Weight gain, Weight loss, Chills, Dizziness, Change in appetite, Night Sweats Eyes: DENIES: Blurred vision, Diplopia, Eye inflammation, Eye pain, Vision loss , Photosensitivity, Double Vision Ears, nose, mouth, throat: DENIES: Tinnitus, Hearing loss, Vertigo, Nasal discharge, Oral lesions, Throat pain, Hoarseness, Ear Pain, Running Nose, Epistaxis, Sinus Pain, Toothache, Odynophagia Respiratory: COMPLAINS OF: Cough, Shortness of breath, DENIES: Apneas, Snoring , Wheezing, Hemoptysis, Sputum production Cardiovascular: DENIES: Chest pain, Palpitations, Syncope, Dyspnea on Exertion , PND, Lower Extremity Edema, Orthopnea, Claudication Gastrointestinal: DENIES: Abdominal pain, Black stools, Bloody stools, Constipation, Diarrhea, Nausea, Vomiting, Difficulty Swallowing, Anorexia Musculoskeletal: DENIES: Joint pain, Muscle aches, Stiffness, Joint Swelling, Back pain, Neck pain Integumentary: DENIES: Abnormal pigmentation, Nail changes, Pruritus, Rash Hematologic/lymphatic: DENIES: Bruising, Lymphadenopathy Immunologic/allergic: DENIES: Eczema, Urticaria Neurologic: DENIES: Abnormal gait, Headache, Localized weakness, Paresthesias, Seizures, Speech Problems, Tremor, Poor Balance Psychiatric: DENIES: Anxiety, Confusion, Mood changes, Depression, Hallucinations, Agitation, Suicidal Ideation, Homicidal Ideation, Delusions Past Family Social History Coded Allergies: Codeine (Verified Adverse Reaction, Mild, NAUSEA, 03/06/14) *MDRO Multi-Drug Resistant Organism (Verified Adverse Reaction, Unknown, ) MRSA PCR screen positive 09/20/16 MRSA (sputum) 09/21/16 Reported Medications Thiothixene 10 Mg Cap10 Mg PO HS #60 CAP Ref 0 09/21/16 Olanzapine 15 Mg Tab15 Mg PO HS #30 TAB Ref 0 09/21/16 Benztropine 0.5 Mg Tab2 Mg PO HS #30 TAB Ref 0 09/21/16 Current Medications Medications (Trade) Dose Ordered Sig/Durga Route Start Time Stop Time Status Last Admin (NS Flush) 2 ml UNSCH PRN IV FLUSH 09/20/16 09:30 (NS Flush) 2 ml BID IV FLUSH 09/20/16 21:00 09/23/16 09:00 (Zofran Inj) 4 mg Q6H PRN IVP 09/20/16 09:30 (Heparin Inj) 5,000 units Q12H SQ 09/20/16 10:00 09/23/16 09:06 (Narcan Inj) 0.4 mg UNSCH PRN IV 09/20/16 09:30 (Sabra-Colace) 1 tab BID PO 09/20/16 21:00 09/23/16 09:06 (Milk Of Magnesia Liq) 30 ml Q12H PRN PO 09/20/16 09:30 (Senokot) 17.2 mg Q12H PRN PO 09/20/16 09:30 (Dulcolax Supp) 10 mg DAILY PRN RECTAL 09/20/16 09:30 (Lactulose Liq) 30 ml DAILY PRN PO 09/20/16 09:30 (Symbicort 160-4.5 Inh) 2 puff Q12HR INH 09/20/16 21:00 09/23/16 09:00 (Habitrol 21 Mg Patch.24 Hr) 1 patch DAILY T-DERMAL 09/21/16 09:00 09/23/16 09:05 Miscellaneous Information 1 HS T-DERMAL 09/20/16 21:00 09/22/16 21:00 (Tylenol) 650 mg Q6H PRN PO 09/20/16 10:45 09/21/16 21:27 Miscellaneous Information 1 Q361D XX 09/20/16 10:45 (Chlorhexidine 2% Cloth) 3 pack Taper DAILY@04 TOP 09/21/16 04:00 09/17/17 03:59 09/22/16 04:00 (Chlorhexidine 2% Cloth) 3 pack UNSCH PRN TOP 09/20/16 10:45 (Peridex 0.12% Liq) 15 ml BID@08,20 MT 09/21/16 08:00 09/21/16 08:19 (D50w (Vial) Inj) 25 ml UNSCH PRN IV PUSH 09/20/16 21:15 (NovoLIN R SUPPLEMENTAL SCALE) 1 Q6HR SQ 09/21/16 00:00 09/23/16 12:00 (Cogentin) 2 mg HS PO 09/21/16 21:00 09/22/16 21:53 (ZyPREXA) 15 mg HS PO 09/21/16 21:00 09/22/16 21:00 (Navane) 10 mg HS PO 09/21/16 21:00 09/22/16 21:53 Pantoprazole Sodium 40 mg 40 mg Q24H IV PUSH 09/22/16 12:00 09/23/16 12:22 (Vancomycin Consult Pharmacy) 0 ml @ 0 mls/hr UNSCH OTHER 09/23/16 10:30 Methylprednisolone Sodium Succinate 45 mg 45 mg Q6H IVP 09/23/16 16:00 (Vancomycin Inj/ NS 250 ml Inj) 250 ml @ 250 mls/hr Q12H IV 09/23/16 12:00 09/23/16 12:22 Miscellaneous Information SPECIFIC LAB TO BE DRAWN:VANCO TROUGH DATE TO... ONCE ONCE .XX 09/25/16 11:45 09/25/16 11:46 Family History He denies family psychiatric history Social History This was born and raised in [place], he lives in a [facility] facility in [place], no family members around, poor family support, on SSI, highest level of education is GED Patient's Strengths (min. 2) Verbal communication Physical Exam On physical exam patient does not present any psychomotor retardation or agitation, no tremors, no EPS, no acute dystonia, no gait disturbances Vital Signs Vital Signs Date Time Temp Pulse Resp B/P Pulse Ox O2 Delivery O2 Flow Rate FiO2 09/23/16 12:00 97.0 99 18 133/64 91 09/23/16 09:00 Nasal Cannula 2.00 09/22/16 04:02 35 I/O 09/22/16 09/22/16 09/23/16 08:00 16:00 00:00 Intake Total 73 ml 656 ml 100 ml Output Total 1450 ml 1100 ml 150 ml Balance -1377 ml -444 ml -50 ml Lab Results 09/22/16 0625 09/22/16 0625 Mental Status Examination Appearance skinny elderly man, he looks acutely ill, fair hygiene, age appearing , cooperative, irritable Speech: Unremarkable Orientation: x3 Memory: Unremarkable Thought Process: Logical, Goal Directed, Loose Association Thought Content: Unremarkable Language Fluent and spontaneous Fund of Knowledge Adequate for level of education Hallucination Type: None Attention and Concentration: Good Suicidal Ideation: No Previous Suicide Attempts: No Homicidal Ideation: No Previous Homicide Attempts: No Judgment: Poor Affect: Irritable Mood: Angry Motor Activity: Normal gait Assessment & Plan Problem List: (1) Chronic paranoid schizophrenia Assessment & Plan: The patient is a 60 year-old man with psychiatric history of chronic paranoid schizophrenia, multiple psychiatric hospitalizations , last Hospitalization was here at [facility] in 2011, document patient was reviewed, he is on Navane 10 mg at bedtime, olanzapine 50 mg at bedtime, benztropine 1 mg twice a day, no previous suicidal attempts, with a medical history significant for COPD, chronic smoking, who presents to the ED from his [facility] for worsening shortness of breath. Patient consulted to psychiatry today for assessment patient making capacity to leave AMA. On psychiatric evaluation the patient does not present any evidence of depressive symptoms, anxiety, morro or tay psychosis. He denies suicidal and homicidal ideation, he denies visual and auditory hallucinations. Patient has episodic confusion, tangentiality and loosening of association, but he is easily redirectable. Partially oriented in time and place. He is requesting persistently to leave AMA. The patient is demanding to leave the hospital today. He was receptive to the idea of having to stay the hospital for a couple of days more due to his medical conditions, but he wasn't happy. Patient is unable to elaborate a rational reason to leave AMA, he doesn't seem to understand and appreciate the nature of his underlying COPD exacerbation, doesn't seem to have a clear understanding of the consequences of leaving AMA and no following medical recommendations. At this moment the patient does not have decision-making capacity to leave AMA. Agree with continuing Navane 10 mg, olanzapine 15 mg, benztropine 1 mg twice a day. Will add olanzapine 10 mg IM every 8 hours when necessary aggressive behavior and agitation. I anticipate the patient can potentially become aggressive and problematic in the medical floor, he might benefit of med psych admission in order to continue medical treatment and close psychiatric monitoring and follow-up in a more structured environment. Consult appreciated. Case was discussed with primary medical team and nursing charge. If you have any concerns or questions overdosing week end, please communicate with psychiatrist division head, Dr. Colye, Ext [phone]. We'll follow-up. ICD Code: F20.0 Assessment & Plan Estimated LOS: Truman Martin MD Sep 23, 2016 14:47
--- NOTE | 2016-09-23 14:52 | HHI.DCPOC ---
Discharge Care Plan Diagnosis: (1) COPD exacerbation (2) Pneumonia (3) SCHIZOPHRENIA NOS-UNSPEC (4) Tobacco dependence, continuous Goals to Promote Your Health * To prevent worsening of your condition and complications * To maintain your health at the optimal level Directions to Meet Your Goals Take your medications as prescribed Follow your dietary instruction Follow activity as directed Keep your appointments as scheduled Take your immunizations and boosters as scheduled If your symptoms worsen call your PCP, if no PCP go to Urgent Care Center or Emergency Room Smoking is Dangerous to Your Health. Avoid second hand smoke Call the 24-hour hour crisis hotline for domestic abuse at Agustina Fields MD R1 Sep 23, 2016 14:52
[2016-09-23] MEDS ORDERED: SOLU125I IVP (15:11)
[2016-09-23] MEDS ORDERED: PROT40TA PO (15:11)
[2016-09-23] MEDS ORDERED: SYMB160A INH (15:11)
[2016-09-23] MEDS ORDERED: NICO21DI25 T-DERMAL (15:11)
[2016-09-23] MEDS ORDERED: ALBU0.08 INH (15:11)
[2016-09-23] MEDS ORDERED: IPRASOL INH (15:11)
[2016-09-23] MEDS ORDERED: VANC1INJ45 IV (15:14)
[2016-09-23] MEDS ORDERED: methylPREDNISolone SOD SUCC 125 MG/2 ML VIAL IVP SCH (16:00)
[2016-09-23] MEDS ORDERED: OLANZapine IM 10 MG VIAL IM PRN (16:00)
[2016-09-25] MEDS ORDERED: PHARMACY ORDERED LAB ONE (11:45)
== END 2016-09-23 16:44 | DRG 208 ==
LOC: NEPC 07:20 → NEDA 09:15 → HIMW 11:15 → N07B 09-23 02:19
PROVIDERS: ADMIT Family Medicine; ATTEND Family Medicine
PROC: 5A09357 Assistance with Respiratory Ventilation, Less than 24 Consecutive Hours, Continuous Positive Airway Pressure (ICD-10-PCS; principal; 2016-09-20)
PROC: 5A1935Z Respiratory Ventilation, Less than 24 Consecutive Hours (ICD-10-PCS; 2016-09-20)
PROC: 0BH17EZ Insertion of Endotracheal Airway into Trachea, Via Natural or Artificial Opening (ICD-10-PCS; 2016-09-20)
DX: J44.0 Chronic obstructive pulmonary disease with (acute) lower respiratory infection (principal); J96.01 Acute respiratory failure with hypoxia; J96.02 Acute respiratory failure with hypercapnia; J18.9 Pneumonia, unspecified organism; E87.1 Hypo-osmolality and hyponatremia; I24.8 Other forms of acute ischemic heart disease; F20.9 Schizophrenia, unspecified; J44.1 Chronic obstructive pulmonary disease with (acute) exacerbation; F17.210 Nicotine dependence, cigarettes, uncomplicated; F41.9 Anxiety disorder, unspecified
CPT/HCPCS: 31500; 36600; 71010; 80048; 80053; 81001; 82550; 82552; 82805; 82948; 83605; 83735; 83880; 84100; 84145; 84295; 84484; 85025; 86403; 87040; 87070; 87147; 87186; 87205; 87449; 87641; 93005; 94002; 94003; 94150; 94640; 94664; 94667; 94668; C9113; J0330; J0456; J0696; J1644; J2060; J2930; J3010; J3370; J7040; J7050; J7613

== ENCOUNTER 2016-09-23 15:00 | Inpatient (IN) | payer MEDICARE, OTHER ==
[~2016-09-23 15:00] MED LIST changes: -ALBU6.7H INH; +BENZ0.5T PO; -HYDR-755 PO; +OLAN15TA PO; -PERM5CRE TOP; -TRIA.1%T TOP; -ZYPR20TA PO
[2016-09-23] MEDS ORDERED: SOLU125I IVP (15:11)
[2016-09-23] MEDS ORDERED: IPRASOL INH (15:11)
[2016-09-23] MEDS ORDERED: ALBU0.08 INH (15:11)
[2016-09-23] MEDS ORDERED: SYMB160A INH (15:11)
[2016-09-23] MEDS ORDERED: NICO21DI25 T-DERMAL (15:11)
[2016-09-23] MEDS ORDERED: PROT40TA PO (15:11)
[2016-09-23] MEDS ORDERED: VANC1INJ45 IV (15:14)
[2016-09-23 17:27] VITALS: BP 159/75; PULSE 90; RESP 17; TEMP 98
[2016-09-23 17:29] VITALS: O2SAT 90
[2016-09-23 17:51] VITALS: BP 159/75; PULSE 90; RESP 17; TEMP 98; O2SAT 96
[2016-09-23] MEDS ORDERED: LORazepam 2 MG/ML VIAL IM PRN ×2 (18:30→21:00)
[2016-09-23] MEDS ORDERED: MAGNESIUM HYDROXIDE SUSP 30 ML CUP PO PRN (20:00)
[2016-09-23] MEDS: PANTOPRAZOLE SOD 40 MG DELAYED RELEASE TAB PO SCH (20:00)
[2016-09-23] MEDS ORDERED: ALUMINUM/MAGNESIUM/SIMETH 30 ML CUP PO PRN (20:00)
[2016-09-23] MEDS: NICOTINE 21 MG/24 HR PATCH T-DERMAL SCH (20:15)
[2016-09-23] MEDS: BENZTROPINE MESYLATE 1 MG TAB PO SCH (20:57)
[2016-09-23] MEDS: BUDESONIDE-FORMOTEROL 160/4.5 MCG INHALER INH SCH (20:58)
[2016-09-23] MEDS: THIOTHIXENE 10 MG CAP PO SCH (20:58)
[2016-09-23] MEDS ORDERED: LORazepam 0.5 MG TAB PO PRN (21:00)
[2016-09-23] MEDS ORDERED: LORazepam 1 MG TAB PO PRN (21:00)
[2016-09-23] MEDS ORDERED: OLANZapine IM 10 MG VIAL IM PRN (21:00)
[2016-09-23] MEDS ORDERED: ACETAMINOPHEN 325 MG TAB PO PRN (21:00)
[2016-09-23] MEDS ORDERED: RESP: ALBUTEROL 2.5 MG/3 ML NEB (SCH) NEB (22:00)
[2016-09-23] MEDS: VANCOMYCIN INJ 1,000 MG in SODIUM CHLOR 0.9% 250 ML INJ 250 ML IV SCH (23:40)
[2016-09-23] MEDS: HEPARIN SODIUM - SQ 10,000 UNITS/ML VIAL SQ SCH (23:45)
[2016-09-24] MEDS ORDERED: RESP: ALBUTEROL 2.5 MG/3 ML NEB (PRN) INH (00:15)
[2016-09-24] MEDS: methylPREDNISolone SOD SUCC 125 MG/2 ML VIAL IV SCH ×2 (01:20→05:20)
[2016-09-24 05:51] VITALS: BP 144/78; PULSE 78; RESP 12; TEMP 97.6; O2SAT 88
[2016-09-24] MEDS: INSULIN ASPART SUPPLEMENTAL SCALE SQ SCH ×4 (07:00→21:49)
[2016-09-24] MEDS: RESP: ALBUTEROL 2.5 MG/IPRATROPIUM 0.5 MG NEB (SCH) NEB ×4 (08:05→22:25)
[2016-09-24] MEDS: DOCUSATE SODIUM 50 MG/SENNA 8.6 MG TAB PO SCH ×2 (09:00→21:00)
[2016-09-24] MEDS: HEPARIN SODIUM - SQ 10,000 UNITS/ML VIAL SQ SCH ×2 (09:00→21:02)
[2016-09-24] MEDS: BUDESONIDE-FORMOTEROL 160/4.5 MCG INHALER INH SCH ×2 (09:00→21:03)
[2016-09-24] MEDS: NICOTINE 21 MG/24 HR PATCH T-DERMAL SCH (09:00)
[2016-09-24] MEDS: PANTOPRAZOLE SOD 40 MG DELAYED RELEASE TAB PO SCH (09:00)
[2016-09-24] MEDS ORDERED: MISCELLANEOUS NURSING INFORMATION ONE (09:00)
--- NOTE | 2016-09-24 09:18 | PD.CONS ---
HPI Service Family Medicine Consult Requested By Dr. La. Reason for Consult COPD exacerbation. Pneumonia - MRSA positive. Primary Care Physician Antwan Diaz M.D. History of Present Illness At admission on 09/20/16: Patient is a 60 year old male with a history significant for COPD, schizophrenia and chronic smoking, who presents to the ED from his [facility] for worsening shortness of breath. Endorses he has had symptoms of shortness of breath for at least a week. He was brought via [facility] to the ED. He denies chest pain but endorses chest tightness. He endorses a cough but states this is nonproductive. He denies fevers, chills at home. He denies a history of intubation or needing CPAP in the past. EMS treatments: * Solu-Medrol 125 mg IV 1, albuterol 4. ED treatments: * Continued monitoring, Duonebs x 2, requiring BiPAP at arrival. Received IV ceftriaxone and IV azithromycin 1. Hospital Course: * Patient required BiPAP on admission with good O2 sats; however, ABG notable for significant CO2 retention. * Admitted to [facility] Dr. August (critical care) to manage critical stage of illness. * Respiratory support with BiPAP, goal O2 sat greater than 92% --> intubated on 09/20/2016. * Extubation 09/21/2016. * Goal O2 sat >92%. * Duo nebs every 4 hours scheduled, albuterol every 2 hours prn SOB/wheezing. * Solu-Medrol IV 60 mg q6h; reduced to 45 mg q6hr 09/23/16. * Pneumonia, community-acquired, suspected based on CXR findings: initially empirically treated with Rocephin 1 g q24h IV, azithromycin 500 mg IV q24h; sputum MRSA positive, antibiotic switched to Vancomycin q12h on 09/23/16. * Respiratory: Acapella, chest physiotherapy, incentive spirometry. * Urine Legionella and Pneumococcal Ag negative. * No leukocytosis or fever this admission, will continue to monitor. * Procalcitonin noted to be normal. Progress Note from 09/23/16: Patient was seen and evaluated this morning. He seemed confused and paranoid; he stated that "the congested water is making me sick." He repeatedly asked if he could go home today. It was explained to him that he continues to be very ill and that he will require IV antibiotics and steroids for a number of days before he can be safely discharged. He denied chest pain, heart palpitations, nausea and vomiting. He said that he has not had a bowel movement since he was admitted to the hospital. Initially, patient refused exam, but later agreed to exam. Crump Act was filed later in the day. Psych was consulted and agreed that patient is unable to make his own decisions at this time. Psych recommended transferring patient to the Med-Psych unit. Patient now in Med-Psych unit. ( Agustina Fields MD R1) Review of Systems Constitutional: DENIES: Fatigue, Fever, Chills Eyes: DENIES: Blurred vision, Diplopia, Eye pain, Vision loss, Double Vision Ears, nose, mouth, throat: DENIES: Hearing loss, Nasal discharge, Throat pain, Running Nose Respiratory: COMPLAINS OF: Cough, Sputum production, Shortness of breath, DENIES: Hemoptysis Cardiovascular: DENIES: Chest pain, Palpitations Gastrointestinal: DENIES: Abdominal pain, Black stools, Constipation, Diarrhea , Nausea, Vomiting Genitourinary: DENIES: Urinary incontinence Musculoskeletal: DENIES: Muscle aches Integumentary: DENIES: Rash Hematologic/lymphatic: DENIES: Bruising Neurologic: DENIES: Abnormal gait, Headache Psychiatric: COMPLAINS OF: Anxiety, DENIES: Suicidal Ideation, Homicidal Ideation (Agustina Fileds MD R1) Past Family Social History Past Medical History COPD Schizophrenia Chronic smoking History of gallstones per patient report Past Surgical History Denies. Reported Medications Thiothixene 10 Mg Cap 10 Mg PO HS Olanzapine 15 Mg Tab 15 Mg PO HS Benztropine (Benztropine Mesylate) 0.5 Mg Tab 2 Mg PO HS (Agustina Fields MD R1) Allergies: Coded Allergies: Codeine (Verified Adverse Reaction, Mild, NAUSEA, 03/06/14) *MDRO Multi-Drug Resistant Organism (Verified Adverse Reaction, Unknown, ) MRSA PCR screen positive 09/20/16 MRSA (sputum) 09/21/16 Active Ordered Medications Current Medications Medications (Trade) Dose Ordered Sig/Durga Route Start Time Stop Time Status Last Admin (Cogentin) 2 mg HS PO 09/23/16 21:00 09/23/16 20:57 (Symbicort 160-4.5 Inh) 2 puff Q12HR INH 09/23/16 21:00 09/23/16 20:58 (ZyPREXA) 15 mg HS PO 09/23/16 21:00 09/23/16 20:58 (Protonix) 40 mg DAILY PO 09/23/16 20:00 (Navane) 10 mg HS PO 09/23/16 21:00 09/23/16 20:58 (Ativan) 1 mg Q6HR PRN PO 09/23/16 21:00 (Ativan Inj) 1 mg Q6H PRN IM 09/23/16 18:30 (Tylenol) 650 mg Q4H PRN PO 09/23/16 21:00 (Milk Of Magnesia Liq) 30 ml DAILY PRN PO 09/23/16 20:00 (Mag-Al Plus Susp Liq) 30 ml Q6HR PRN PO 09/23/16 20:00 (Habitrol 21 Mg Patch.24 Hr) 1 patch DAILY T-DERMAL 09/23/16 20:15 (ZyPREXA INJ) 10 mg Q12HR PRN IM 09/23/16 21:00 Pneumococcal Polyvalent Vaccine 25 mcg 25 mcg ONCE ONCE IM 09/24/16 10:00 09/24/16 10:01 (Vancomycin Inj/ NS 250 ml Inj) 250 ml @ 250 mls/hr Q12H IV 09/23/16 22:00 09/23/16 23:40 (Heparin Inj) 5,000 units Q12HR SQ 09/23/16 22:00 09/23/16 23:45 (Sabra-Colace) 1 tab BID PO 09/24/16 09:00 (SoluMEDROL INJ) 45 mg Q6H IV 09/23/16 23:00 09/24/16 05:20 Miscellaneous Information "INFLUENZA VACCAINE OUT... ONCE ONCE .XX 09/24/16 09:00 09/24/16 09:01 Family History Unable to obtain. Social History Lives at [facility]. Endorses smoking cigarette. Denies alcohol. Denies illicit drug use. (Agustina Fields MD R1) Physical Exam Vital Signs Vital Signs Date Time Temp Pulse Resp B/P Pulse Ox O2 Delivery O2 Flow Rate FiO2 09/24/16 05:51 97.6 78 12 144/78 88 09/23/16 17:51 98.0 90 17 159/75 96 09/23/16 17:29 90 09/23/16 17:27 98.0 90 17 159/75 Physical Exam GENERAL: Thin male patient lying in bed using nasal cannula. He is alert and pleasant. SKIN: Warm and dry. There is a 1 cm puncture khanh on the left chin, not new. HEAD: Atraumatic. Normocephalic. EYES: Pupils equal and round. No scleral icterus. No injection or drainage. ENT: Nasal cannula in place. NECK: Trachea midline. No JVD. CARDIOVASCULAR: Regular rate and rhythm. No murmurs on auscultation. RESPIRATORY: Exam notable for inspiratory wheezing at the apices bilaterally. GASTROINTESTINAL: Abdomen soft, non-tender, nondistended. Normal bowel sounds. MUSCULOSKELETAL: Extremities without clubbing, cyanosis, or edema. No obvious deformities. NEUROLOGICAL: Alert, awake, energetic. Oriented x3. Moving spontaneously and following commands. PSYCHIATRIC: Agreeable to treatment plan today; appears to understand the importance of staying in the hospital to receive further treatment. Laboratory WBC: 8.8 -> 8.2 Hgb: 13.6 -> 12.8L Hct: 40.3 -> 38.3L Plt Count: 183 -> 193 Na: 136 -> 140 K: 4.5 (Agustina Fields MD R1) Imaging Chest X-Ray 09/20: Interstitial and airspace opacities in the paratracheal right apical region appear slightly more prominent in comparison to remote comparison and likely reflect interval evolution of scarring. However, superimposed developing airspace disease on chronic changes cannot be excluded in the appropriate clinical setting. Chest X-Ray 09/21: No significant change. (Agustina Fields MD R1) Assessment and Plan Assessment and Plan 60-year-old male with history of COPD, schizophrenia, and chronic smoking who presents with severe shortness of breath concerning for acute COPD exacerbation. CXR notable for possible infiltrate concerning for underlying pneumonia. Sputum MRSA positive. Code Status Full Code Discussed Condition With Dr. Maricel Laurent, Attending Christa Miller, PGY-2 (Agustina Fields MD R1) Attending Attestation Patient seen and examined. Case reviewed and discussed with the resident team. Agree with plan of care as discussed with me and documented in the resident note. (Maricel Laurent MD) Problem List: (1) COPD exacerbation Status: Acute Plan: * Continue respiratory treatments as follows: Duo nebs every 4 hours scheduled, albuterol every 2 hours prn SOB/wheezing * Switch SoluMEDROL 45mg q6h IV to Prednisone 40mg BID. * Start Vancomycin q12h IV - sputum positive for MRSA, sensitive to Vancomycin and Bactrim, consider d/c home on Bactrim. Hospital Course: * Patient required BiPAP on admission with good O2 sats, however, ABG notable for significant CO2 retention. * Admitted to [facility]. Dr. August (critical care) to manage critical stage of illness. * Respiratory support with BiPAP, goal O2 sat greater than 92% --> intubated on 09/20/2016. * Extubation 09/21/2016. * Goal O2 sat >92%. * Duo nebs every 4 hours scheduled, albuterol every 2 hours prn SOB/wheezing. * Solu-Medrol 125 mg IV 1 per EMS, will continue Solu-Medrol IV 60 mg every 6 hours. * Pneumonia, community-acquired, suspected based on CXR findings: started empirically Rocephin 1 g every 24 hours IV, azithromycin 500 mg IV every 24 hours. * Respiratory: Acapella, chest physiotherapy, incentive spirometry. * Urine Legionella and Pneumococcal Ag negative. * No leukocytosis or fever this admission, will continue to monitor. * MRSA nasal screen positive, will initiate contact precautions. * Procalcitonin noted to be normal. (2) Pneumonia Status: Acute Plan: As above, patient is admitted for acute COPD exacerbation with CXR notable for possible infiltrate in the right apex. Sputum culture MRSA positive. * Management as above. (3) SCHIZOPHRENIA NOS-UNSPEC Status: Chronic Plan: Psychiatry actively managing at this time. Psychotropic home medications listed below were restarted 09/21/2016. Hospital Course: * Patient has chronic schizophrenia. * Patient resides at [facility] and I spoke with Lisy Lundberg there today to clarify home medications: Benztropine 2 mg nightly Olanzapine 15 mg nightly Thiothixene 10 nightly (4) Tobacco dependence, continuous Status: Chronic Plan: Patient reports chronic tobacco dependence. * Nicotine high-dose patch while inpatient. * We will cosmetic counselor on smoking cessation. (5) Fluids/Electrolytes/Nutrition/Prophylaxis Status: Acute Plan: Fluids: * Tolerates PO. Electrolytes: * Hyponatremia at admission - resolved. * Continue to monitor. Nutrition: * Tolerates PO; Regular Diet. DVT Prophylaxis: * Early ambulation. * Heparin 5000U subQ q12hr. GI Prophylaxis: * Protonix 40 mg IV daily given steroid use. (Agustina Fields MD R1) Agustina Fields MD R1 Sep 24, 2016 09:18 Maricel Laurent MD Sep 25, 2016 07:50
[2016-09-24] MEDS: VANCOMYCIN INJ 1,000 MG in SODIUM CHLOR 0.9% 250 ML INJ 250 ML IV SCH ×2 (10:00→21:00)
[2016-09-24] MEDS ORDERED: predniSONE 20 MG TAB PO SCH (10:00)
[2016-09-24] MEDS ORDERED: PNEUMOCOCCAL POLYVALENT INJ 25 MCG/0.5 ML SYR IM ONE (10:00)
[2016-09-24] MEDS: predniSONE 20 MG TAB PO SCH ×2 (10:00→21:45)
[2016-09-24 11:23] LABS: ANION GAP 4 MEQ/L (5-15); BICARBONATE 37.4 MEQ/L (21.0-32.0); BLOOD UREA NITROGEN 13 MG/DL (7-18); CHLORIDE 96 MEQ/L (98-107); GLOMERULAR FILTRATION RATE 145 ML/MIN (>89); POTASSIUM 4.2 MEQ/L (3.5-5.1); SODIUM (NA) 137 MEQ/L (136-145)
[2016-09-24 11:25] LABS: HDL CHOLESTEROL 47.4 MG/DL (40.0-60.0); LDL CHOLESTEROL 79 MG/DL (0-99)
--- NOTE | 2016-09-24 13:58 | HHI.HP ---
Provisional Diagnosis Admission Date Sep 23, 2016 at 15:00 Nesmith I. 1. Schizophrenia, paranoid type, presently stable Nesmith II. Deferred Nesmith V. GAF is 50 presently Certification of Person's Competence To Provide Express and Informed Consent I have personally examined Fredis EllsworthJr , a person being served at [facility] on, Sep 24, 2016 13:58. Express and informed consent means consent voluntarily given in writing, by a competent person, after sufficient explanation and disclosure of the subject matter involved to enable the person to make a knowing and willful decision without any element of force, fraud, deceit, duress, or other form of constraint or coercion. This person is 18 years of age or older, is not now known to be incompetent to consent to treatment with a guardian advocate, and does not have a health care surrogate or proxy currently making medical treatment decisions. I have found this person to be one of the following: [] Competent to provide express and informed consent, as defined above, for voluntary admission to this facility and is competent to provide express and informed consent for treatment. He/she has the consistent capacity to make well reasoned, willful, and knowing decisions concerning his or her medical or mental health treatment. The person fully and consistently understands the purpose of the admission for examination/placement and is fully capable of personally exercising all rights assured [place] [] Incompetent to provide express and informed consent to voluntary admission, and this is incompetent to provide express and informed consent to treatment. The person must be transferred to involuntary status and a petition for a guardian advocate filed with the Circuit Court. [x] Refusing to provide express and informed consent to voluntary admission but is competent to provide express and informed consent for treatment. The person must be discharged or transferred to involuntary status. Form shall be completed within 24 hours of a person's arrival at the receiving facility and filed in the clinical record of each person: 1. Admitted on a voluntary basis 2. Permitted to provide express and informed consent to his/her own treatment 3. Allowed to transfer from involuntary to voluntary status 4. Prior to permitting a person to consent to his or her own treatment after having been previously found incompetent to consent to treatment. History of Present Illness Capacity: Has Capacity HPI Mr. Ellsworth is a 60-year-old male with a history of schizophrenia who presented initially to the hospital with a COPD exacerbation. He was medically admitted and was apparently agitating to leave the hospital. Dr. La evaluated the patient in consultation and placed the patient under a Crump act and he was subsequently transferred to the medical psychiatric unit. Reviewing the electronic medical record, I note the patient was most recently psychiatrically admitted here under Dr. Izquierdo in 2011. Patient seen and examined with nurse. Chart reviewed. Case discussed with nursing staff who reports that patient has been no behavioral problems since arriving on the unit. On my examination today, the patient is in good spirits. Denies any issues with mood. No depressive or hypomanic/manic symptoms noted. He denies any audiovisual hallucinations, and I can elicit no delusional beliefs. He does point out that he typically becomes more paranoid the longer he stays in the hospital. He denies any suicidal or homicidal ideation, intent or plan on direct questioning. He denies any side effects from his psychotropic medications and says that he has been on them for a very long time. He continues to express a desire to leave the hospital, but as with his encounter with Dr. La the patient's understanding of the risks and benefits of so doing are poor. The remainder of the psychiatric ROS is negative. Past psychiatric history: Patient reports a history of schizophrenia diagnosed at age 18. He follows with nurse practitioner Karlos at [facility] he says. He reports he has not been psychiatrically admitted for several years. He endorses a history of some sort of suicide attempts but none recently. Family history: The patient denies any family history of mental illness. Chemical dependency history: The patient denies any abuse of drugs or alcohol. He does smoke a pack a day of cigarettes. Social history: The patient resides at [facility]. He has been there for 3 or 4 years and enjoys it. He is single with no children. High school educated with some college. On disability. Denies history. Denies legal history. No reported access to guns or firearms. Review of Systems ROS Limitations: Poor Historian Except as stated in HPI: all other systems reviewed are Neg Past Psych History Psychological trauma history No reported trauma history to me Violence risk - others (6 mos) Lower imminent risk Violence risk - self (6 mos) Concern for self neglect in decision to leave the hospital as a result of poor executive functioning related to his chronic schizophrenia Substance Abuse History Drugs/Alcohol past 12 months See above Past Family Social History Coded Allergies: Codeine (Verified Adverse Reaction, Mild, NAUSEA, 03/06/14) *MDRO Multi-Drug Resistant Organism (Verified Adverse Reaction, Unknown, ) MRSA PCR screen positive 09/20/16 MRSA (sputum) 09/21/16 Past Medical History See electronic medical record Active Scripts Vancomycin HCl in Sodium Chlor (Vancomycin Hydrochloride/ 1-0.9 gm/250Ml-%)1 Inj Inj1 Gm IV Q12HR 2 Days Prov:Agustina Fields MD 09/23/16 Pantoprazole (Protonix)40 Mg Tab40 Mg PO DAILY #30 TAB Ref 0 Prov:Agustina Fields MD 09/23/16 Nicotine (Eq Nicotine)21 Mg/24 Hr Dis1 Patch T-DERMAL DAILY #1 PATCH Prov:Agustina Fields MD 09/23/16 Methylprednisolone Sod Succinate Inj (Solu-Medrol Inj)125 Mg Inj45 Mg IVP Q6H 1 Day Prov:Agustina Fields MD R1 09/23/16 Ipratropium-Albuterol Neb (Duoneb)0.5-2.5 Mg/3 Ml Neb1 Ampule INH Q4HR NEB 30 Days Prov:Agustina Fields MD R1 09/23/16 Budesonide-Formoterol Inh (Symbicort Inh)160-4.5 Mcg/Act Aero2 Puff INH Q12HR # 1 INHALER Prov:Agustina Fields MD 09/23/16 Albuterol Neb 2.5 Mg/3 Ml Neb2.5 Mg INH Q2HR NEB PRN (SHORTNESS OF BREATH) 30 Days Prov:Agustina Fields MD R1 09/23/16 Reported Medications Thiothixene 10 Mg Cap10 Mg PO HS #60 CAP Ref 0 09/21/16 Olanzapine 15 Mg Tab15 Mg PO HS #30 TAB Ref 0 09/21/16 Benztropine 0.5 Mg Tab2 Mg PO HS #30 TAB Ref 0 09/21/16 Current Medications Medications (Trade) Dose Ordered Sig/Durga Route Start Time Stop Time Status Last Admin (Cogentin) 2 mg HS PO 09/23/16 21:00 09/23/16 20:57 (Symbicort 160-4.5 Inh) 2 puff Q12HR INH 09/23/16 21:00 09/24/16 09:00 (ZyPREXA) 15 mg HS PO 09/23/16 21:00 09/23/16 20:58 (Protonix) 40 mg DAILY PO 09/23/16 20:00 09/24/16 09:00 (Navane) 10 mg HS PO 09/23/16 21:00 09/23/16 20:58 (Ativan) 1 mg Q6HR PRN PO 09/23/16 21:00 (Ativan Inj) 1 mg Q6H PRN IM 09/23/16 18:30 (Tylenol) 650 mg Q4H PRN PO 09/23/16 21:00 (Milk Of Magnesia Liq) 30 ml DAILY PRN PO 09/23/16 20:00 (Mag-Al Plus Susp Liq) 30 ml Q6HR PRN PO 09/23/16 20:00 (Habitrol 21 Mg Patch.24 Hr) 1 patch DAILY T-DERMAL 09/23/16 20:15 09/24/16 09:00 Olanzapine 10 mg 10 mg Q12HR PRN IM 09/23/16 21:00 (Vancomycin Inj/ NS 250 ml Inj) 250 ml @ 250 mls/hr Q12H IV 09/23/16 22:00 09/24/16 10:00 (Heparin Inj) 5,000 units Q12HR SQ 09/23/16 22:00 09/24/16 09:00 (Sabra-Colace) 1 tab BID PO 09/24/16 09:00 09/24/16 09:00 (Deltasone) 40 mg BID PO 09/24/16 10:00 09/24/16 10:00 Patient's Strengths (min. 2) In a monitored setting. Verbally fluent. Physical Exam Physical exam completed by hospitalist hr business partner consultant. On my examination today, the patient appears to be in no acute physical distress. No abnormal motor movements noted. Laboratories and vital signs reviewed: Vital Signs Vital Signs Date Time Temp Pulse Resp B/P Pulse Ox O2 Delivery O2 Flow Rate FiO2 09/24/16 05:51 97.6 78 12 144/78 88 I/O 09/23/16 09/23/16 09/24/16 08:00 16:00 00:00 Intake Total 720 ml Balance 720 ml Lab Results Item Value Date Time White Blood Count 8.2 TH/MM3 09/23/16228 Hemoglobin 12.8 GM/DL L 09/23/16228 Platelet Count 193 TH/MM3 09/23/16228 Sodium Level 137 MEQ/L 09/24/16 1006 Potassium Level 4.2 MEQ/L 09/24/16 1006 Chloride Level 96 MEQ/L L 09/24/16 1006 Carbon Dioxide Level 37.4 MEQ/L H 09/24/16 1006 Blood Urea Nitrogen 13 MG/DL 09/24/16 1006 Creatinine 0.57 MG/DL L 09/24/16 1006 Mental Status Examination Patient is casually attired. He is well groomed. He is awake and alert and oriented to person and hospital at least. No abnormal motor movements noted. Speech is within normal limits for rate, tone and volume. Language and fund of knowledge seem approximately average. Mood is fair and affect is blunted. Thought process linear. No loosening of associations. No delusions elicited. Denies audiovisual hallucinations. Denies suicidal or homicidal ideation, intent or plan. Insight and judgment are likely chronically poor. Assessment & Plan Problem List: (1) Chronic paranoid schizophrenia ICD Code: F20.0 Assessment & Plan This is a 60-year-old male with psychiatric history as detailed above who is presently admitted to the medical psychiatric unit under a Crump act. Patient continues to articulate a desire to leave the hospital, but I concur with Dr. La that patient's decision-making capacity is poor, likely owing to poor executive functioning as a consequence of chronic psychotic illness. I am not presently convinced that we would be able to support a petition for involuntary psychiatric hospitalization, as he seems presently stable with respect to his psychotic illness, but my plan will be to retain the patient on the unit for observation as long as the Crump act will allow to give the medical team the opportunity to stabilize his medical condition. Admitted inpatient. Crump act remains in place for now. Consult to the hospitalist and defer medical management of the case to them. Continue Zyprexa , Navane and scheduled Cogentin as ordered. Agree with Zyprexa as needed for agitation. Ativan as needed for anxiety. Vitals every shift. Counselor to see. Disposition planning. Estimated length of stay: 2-3 days. Discharge Planning Discharge back to facility as soon as medically cleared or upon Crump act expiry. Request HC Surrog/Guard Advoc?: No Chapo Coley MD Sep 24, 2016 13:58
[2016-09-24 18:00] VITALS: BP 115/69; PULSE 72; RESP 16; TEMP 98.2; O2SAT 95
[2016-09-24] MEDS: BENZTROPINE MESYLATE 1 MG TAB PO SCH (21:03)
[2016-09-24] MEDS: THIOTHIXENE 10 MG CAP PO SCH (21:44)
[2016-09-25 05:38] VITALS: BP 138/75; PULSE 79; RESP 18; TEMP 97.8; O2SAT 96
[2016-09-25] MEDS: INSULIN ASPART SUPPLEMENTAL SCALE SQ SCH ×4 (06:24→20:46)
[2016-09-25 07:15] VITALS: O2SAT 95
[2016-09-25] MEDS: RESP: ALBUTEROL 2.5 MG/IPRATROPIUM 0.5 MG NEB (SCH) NEB ×5 (07:15→22:35)
[2016-09-25] MEDS: HEPARIN SODIUM - SQ 10,000 UNITS/ML VIAL SQ SCH ×2 (08:19→20:46)
[2016-09-25] MEDS: DOCUSATE SODIUM 50 MG/SENNA 8.6 MG TAB PO SCH ×2 (08:19→20:45)
[2016-09-25] MEDS: NICOTINE 21 MG/24 HR PATCH T-DERMAL SCH (08:19)
[2016-09-25] MEDS: PANTOPRAZOLE SOD 40 MG DELAYED RELEASE TAB PO SCH (08:19)
[2016-09-25] MEDS: predniSONE 20 MG TAB PO SCH ×2 (08:19→20:45)
[2016-09-25] MEDS: VANCOMYCIN INJ 1,000 MG in SODIUM CHLOR 0.9% 250 ML INJ 250 ML IV SCH ×2 (08:20→21:29)
[2016-09-25] MEDS: BUDESONIDE-FORMOTEROL 160/4.5 MCG INHALER INH SCH ×2 (08:51→20:47)
[2016-09-25 09:00] LABS: AUTOMATED NEUTROPHIL # 6.1 TH/MM3 (1.8-7.7); BASOPHIL % 0.1 % (0.0-2.0); EOSINOPHIL % 0.1 % (0.0-4.0); HEMATOCRIT 41.5 % (39.0-51.0); LYMPH % 9.4 % (9.0-44.0); LYMPHOCYTE # 0.7 TH/MM3 (1.0-4.8); MEAN CELL VOLUME 92.5 FL (80.0-100.0); MEAN CORPUSCULAR HEMOGLOBIN 31.1 PG (27.0-34.0); MEAN CORPUSCULAR HGB CONC 33.6 % (32.0-36.0); MONO % 7.6 % (0.0-8.0); NEUT % 82.8 % (16.0-70.0); PLATELET COUNT 184 TH/MM3 (150-450); RED BLOOD COUNT 4.49 MIL/MM3 (4.50-5.90); RED CELL DISTRIBUTION WIDTH 13.3 % (11.6-17.2); WHITE BLOOD COUNT 7.3 TH/MM3 (4.0-11.0)
[2016-09-25 09:04] LABS: HEMO FLAGS AUTO DIFF
[2016-09-25 09:23] LABS: BICARBONATE 37.1 MEQ/L (21.0-32.0)
[2016-09-25 09:32] LABS: BANDS 4 % (0-6); METAMYELOCYTES 5 % (0-1); MYELOCYTES 1 % (0-0); NEUTROPHIL # MANUAL DIFF 6.1 TH/MM3 (1.8-7.7); POLYS (SEG NEUTROPHILS) 73 % (16-70); WBC DIFF SAMPLE 100
[2016-09-25 09:33] LABS: PLATELET ESTIMATE SMEAR NORMAL (NORMAL); PLATELET MORPHOLOGY NORMAL (NORMAL); SCAN/DIFF FINAL DIFF MANUAL
--- NOTE | 2016-09-25 11:58 | HHI.PYPN ---
Subjective Remarks Patient seen and examined with nurse. Chart reviewed. Case discussed with nursing staff. No behavioral issues noted. Case also discussed with hospitalist team who anticipate the patient will be medically cleared for discharge tomorrow. On my examination today, patient is in good spirits. He is agreeable to remaining in the hospital until tomorrow. Agreeable to signing voluntary at this point. Denies any SI or HI. Denies AVH. No delusions. Denies side effects from medications. No physical complaints. Review of Systems Except as stated in HPI: all other systems reviewed are Neg Objective Alert: Yes [place]: Person, Place, Date, Situation Mood: Calm Affect: Blunted Memory Intact: Comment (intact on clinical exam) Hallucinations: Other (denies AVH) Delusions: No Delusion Type: Other (no delusions) Suicidal: Ideation (denies SI) Homicidal: Ideation (denies HI) Insight/Judgment Unchanged Remarks No motor abnormalities noted. Labs Test 09/25/16 07:45 White Blood Count 7.3 TH/MM3 Red Blood Count 4.49 MIL/MM3 Hemoglobin 13.9 GM/DL Hematocrit 41.5 % Mean Corpuscular Volume 92.5 FL Mean Corpuscular Hemoglobin 31.1 PG Mean Corpuscular Hemoglobin 33.6 % Concent Red Cell Distribution Width 13.3 % Platelet Count 184 TH/MM3 Mean Platelet Volume 7.7 FL Neutrophils (%) (Auto) 82.8 % Lymphocytes (%) (Auto) 9.4 % Monocytes (%) (Auto) 7.6 % Eosinophils (%) (Auto) 0.1 % Basophils (%) (Auto) 0.1 % Neutrophils # (Auto) 6.1 TH/MM3 Lymphocytes # (Auto) 0.7 TH/MM3 Monocytes # (Auto) 0.6 TH/MM3 Eosinophils # (Auto) 0.0 TH/MM3 Basophils # (Auto) 0.0 TH/MM3 CBC Comment AUTO DIFF Differential Total Cells 100 Counted Neutrophils % (Manual) 73 % Band Neutrophils % 4 % Lymphocytes % 9 % Monocytes % 8 % Neutrophils # (Manual) 6.1 TH/MM3 Metamyelocytes 5 % Myelocytes 1 % Differential Comment FINAL DIFF MANUAL Platelet Estimate NORMAL Platelet Morphology Comment NORMAL Red Cell Morphology Comment NORMAL Sodium Level 136 MEQ/L Potassium Level 4.0 MEQ/L Chloride Level 93 MEQ/L Carbon Dioxide Level 37.1 MEQ/L Anion Gap 6 MEQ/L Blood Urea Nitrogen 11 MG/DL Creatinine 0.55 MG/DL Estimat Glomerular Filtration 151 ML/MIN Rate Random Glucose 124 MG/DL Calcium Level 8.3 MG/DL Labs reviewed Vitals/IOs Vital Signs Date Time Temp Pulse Resp B/P Pulse Ox O2 Delivery O2 Flow Rate FiO2 09/25/16 11:20 95 Nasal Cannula 1.00 09/25/16 05:38 97.8 79 18 138/75 Intake and Output 09/24/16 09/24/16 09/24/16 07:59 15:59 23:59 Intake Total 2280 ml 970 ml 3750 ml Balance 2280 ml 970 ml 3750 ml Assessment & Plan Problem List: (1) Chronic paranoid schizophrenia ICD Code: F20.0 Assessment & Plan Continue current psychotropics as ordered. Continue to monitor on the unit. Patient may sign voluntary. Justification for Cont. Inpt. Complicating conditions Discharge Planning Per Dr. Ferris Request HC Surrog/Guard Advoc?: No Chapo Coley MD Sep 25, 2016 11:58
--- NOTE | 2016-09-25 12:14 | HHI.FPPN ---
Subjective Remarks No acute events overnight. Vital signs unremarkable. Patient remains on NC but is being weaned off. This morning he reports feeling well with no complaint. Denies coughing or SOB. (Katie Aguila MD R2) Objective Vitals Vital Signs Date Time Temp Pulse Resp B/P Pulse Ox O2 Delivery O2 Flow Rate FiO2 09/25/16 11:20 95 Nasal Cannula 1.00 09/25/16 08:30 Nasal Cannula 2.00 09/25/16 07:15 95 Nasal Cannula 1.00 09/25/16 05:38 97.8 79 18 138/75 96 09/24/16 18:00 98.2 72 16 115/69 95 09/24/16 16:15 Nasal Cannula 2.00 I/O 09/24/16 09/24/16 09/24/16 09/25/16 09/25/16 09/25/16 07:00 15:00 23:00 07:00 15:00 23:00 Intake Total 1920 ml 1330 ml 3750 ml 240 ml Balance 1920 ml 1330 ml 3750 ml 240 ml Intake Oral 1920 ml 1080 ml 3750 ml 240 ml IV Total 250 ml # Voids 1 2 3 (Katie Aguila MD R2) Result Diagram: 09/25/16 0745 09/25/16 0745 Objective Remarks GEN: Well-developed, well-nourished patient. No acute distress. Resting comfortably in bed. CV: Regular rate and rhythm without obvious murmurs LUNGS: Clear to auscultation bilaterally. Normal respiratory effort. No wheezes , rales, rhonchi. EXT: No edema. No calf tenderness. NEURO/PSYCH: Awake, alert. Appropriate insight and judgment. Normal speech ( Katie Aguila MD R2) A/P Assessment and Plan 60-year-old male with history of COPD, schizophrenia, and chronic smoking who presents with severe shortness of breath concerning for acute COPD exacerbation. CXR notable for infiltrate concerning for underlying pneumonia. Sputum MRSA positive. Pt clinically improving. Discharge Planning Likely tomorrow once patient is weaned off of supplemental oxygen. -Once patient is off oxygen, will discharge on Bactrim DS BID to complete a 7 day course of ABX (Will discharge with 5days worth of medications) -discharge with steroid taper (Katie Aguila MD R2) Attending Attestation The exam, history, and the medical decision-making described in the above note were completed with the assistance of the resident physician. I reviewed and agree with the findings presented. I attest that I had a [id number] encounter with the patient on the same day, and personally performed and documented my assessment and findings in the medical record. (Maricel Laurent MD) Problem List: (1) COPD exacerbation Status: Acute Plan: * Continue respiratory treatments as follows: Duo nebs every 4 hours scheduled, albuterol every 2 hours prn SOB/wheezing * Continue Prednisone 40mg BID. To be tapered at discharge * Continue Vancomycin q12h IV - sputum positive for MRSA, sensitive to Vancomycin and Bactrim. Hospital Course: * Patient required BiPAP on admission with good O2 sats, however, ABG notable for significant CO2 retention. * Admitted to [facility]. Dr. August (critical care) to manage critical stage of illness. * Respiratory support with BiPAP, goal O2 sat greater than 92% --> intubated on 09/20/2016. * Extubation 09/21/2016. * Goal O2 sat >92%. * Duo nebs every 4 hours scheduled, albuterol every 2 hours prn SOB/wheezing. * Solu-Medrol 125 mg IV 1 per EMS, will continue Solu-Medrol IV 60 mg every 6 hours. * Pneumonia, community-acquired, suspected based on CXR findings: started empirically Rocephin 1 g every 24 hours IV, azithromycin 500 mg IV every 24 hours. * Respiratory: Acapella, chest physiotherapy, incentive spirometry. * Urine Legionella and Pneumococcal Ag negative. * No leukocytosis or fever this admission, will continue to monitor. * MRSA nasal screen positive, will initiate contact precautions. * Procalcitonin noted to be normal. (2) Pneumonia Status: Acute Plan: As above, patient is admitted for acute COPD exacerbation with CXR notable for possible infiltrate in the right apex. Sputum culture MRSA positive. * Management as above. (3) SCHIZOPHRENIA NOS-UNSPEC Status: Chronic Plan: Psychiatry actively managing at this time. Plan is to go to inpatient psych voluntarily tomorrow. Psychotropic home medications listed below were restarted 09/21/2016. Hospital Course: * Patient has chronic schizophrenia. * Patient resides at [facility] and Timjosh spoke with Lisy Lundberg to clarify home medications: Benztropine 2 mg nightly Olanzapine 15 mg nightly Thiothixene 10 nightly (4) Tobacco dependence, continuous Status: Chronic Plan: Patient reports chronic tobacco dependence. * Nicotine high-dose patch while inpatient. * We will financial services counselor on smoking cessation. (5) Fluids/Electrolytes/Nutrition/Prophylaxis Status: Acute Plan: Fluids: * Tolerates PO. Electrolytes: * Hyponatremia at admission - resolved. * Continue to monitor. Nutrition: * Tolerates PO; Regular Diet. DVT Prophylaxis: * Early ambulation. * Heparin 5000U subQ q12hr. GI Prophylaxis: * Protonix 40 mg PO daily given steroid use. (Katie Aguila MD R2) Katie Aguila MD R2 Sep 25, 2016 12:14 Maricel Laurent MD Sep 25, 2016 12:39
[2016-09-25] MEDS ORDERED: Vancomycin Consult Pharmacy 1 EA OTHER SCH (12:15)
[2016-09-25 12:37] LABS: HEMOGLOBIN A1a 1.3 %; HEMOGLOBIN Ao 82.9 %; HEMOGLOBIN LA1C 2.9 %; HEMOGLOBIN P3 4.1 %
[2016-09-25 18:00] VITALS: BP 144/78; PULSE 83; RESP 18; TEMP 98; O2SAT 92
[2016-09-25] MEDS: BENZTROPINE MESYLATE 1 MG TAB PO SCH (20:45)
[2016-09-25] MEDS: THIOTHIXENE 10 MG CAP PO SCH (20:46)
[2016-09-25] MEDS ORDERED: PHARMACY ORDERED LAB ONE (21:45)
[2016-09-26 06:00] VITALS: BP 116/79; PULSE 71; RESP 18; TEMP 98.2; O2SAT 94
[2016-09-26] MEDS: INSULIN ASPART SUPPLEMENTAL SCALE SQ SCH ×2 (06:19→11:00)
[2016-09-26] MEDS ORDERED: THIO10CA PO (07:25)
[2016-09-26] MEDS ORDERED: BENZ0.5T PO (07:25)
[2016-09-26] MEDS ORDERED: OLAN15TA PO (07:25)
[2016-09-26] MEDS ORDERED: IPRASOL INH (07:25)
[2016-09-26] MEDS ORDERED: PROT40TA PO (07:25)
[2016-09-26] MEDS ORDERED: PRED10 PO ×2 (07:25→08:54)
[2016-09-26] MEDS ORDERED: SYMB160A INH (07:25)
[2016-09-26] MEDS ORDERED: ALBU0.08 INH (07:25)
[2016-09-26] MEDS ORDERED: NICO21DI25 T-DERMAL (07:25)
[2016-09-26] MEDS: RESP: ALBUTEROL 2.5 MG/IPRATROPIUM 0.5 MG NEB (SCH) NEB (08:11)
[2016-09-26 08:12] VITALS: O2SAT 96
[2016-09-26] MEDS ORDERED: SULF1TAB58 PO (08:37)
--- NOTE | 2016-09-26 08:39 | HHI.FPPN ---
Subjective Remarks Patient was seen and examined this morning. He is feeling great. He has had no shortness of breath, chest pain, nausea, vomiting, diarrhea. He has had normal appetite and bowel movement. He has been off oxygen since last night, satting above 92%. He is ambulating without shortness of breath or balance issues. He states he is excited to return to his friends at the [facility] and states they administer his medications. (Christa Cobian MD R1) Objective Vitals Vital Signs Date Time Temp Pulse Resp B/P Pulse Ox O2 Delivery O2 Flow Rate FiO2 09/26/16 08:12 96 21 09/26/16 07:10 Room Air 09/26/16 06:00 98.2 71 18 116/79 94 09/25/16 22:35 21 09/25/16 20:00 Room Air 09/25/16 18:00 98.0 83 18 144/78 92 09/25/16 11:20 95 Nasal Cannula 1.00 I/O 09/25/16 09/25/16 09/25/16 09/26/16 09/26/16 09/26/16 07:00 15:00 23:00 07:00 15:00 23:00 Intake Total 240 ml 1680 ml 480 ml 1210 ml Balance 240 ml 1680 ml 480 ml 1210 ml Intake Oral 240 ml 1680 ml 480 ml 960 ml IV Total 250 ml # Voids 3 3 # Bowel Movements 0 (Christa Cobian MD R1) Result Diagram: 09/25/16 0745 09/25/16 0745 Objective Remarks GENERAL: Alert and awake. Energetic and talkative. He is receiving breathing treatment without difficulty. SKIN: Warm and dry. No rashes. HEAD: Atraumatic. Normocephalic. EYES: Pupils equal and round. No scleral icterus. No injection or drainage. ENT: No nasal bleeding or discharge. Mucous membranes pink and moist. NECK: Trachea midline. No JVD. CARDIOVASCULAR: Regular rate and rhythm. Mild tachycardia without murmur. RESPIRATORY: No accessory muscle use. Clear to auscultation without wheezes or rhonchi. Mild wet cough after treatment ended. GASTROINTESTINAL: Abdomen soft, non-tender, nondistended. Bowel sounds normal. Hepatic and splenic margins not palpable. MUSCULOSKELETAL: Extremities without clubbing, cyanosis, or edema. No obvious deformities. NEUROLOGICAL: Awake and alert. No obvious cranial nerve deficits. Motor grossly within normal limits. Five out of 5 muscle strength in the arms and legs. Normal speech. PSYCHIATRIC: Pressured speech. Not responding to internal stimuli. Pleasant, non -combative, cooperative with exam. Medications and IVs Inpatient Medications Acetaminophen (Tylenol) 650 mg Q4H PRN PO Pain 1-5 or Temp >101F; Start at 21:00 Al Hydrox/Mg Hydrox/Simethicone (Mag-Al Plus Susp Liq) 30 ml Q6HR PRN PO DYSPEPSIA; Start 09/23/16 at 20:00 Albuterol Sulfate (Albuterol Neb) 2.5 mg Q2HR NEB PRN INH SOB/WHEEZING; Start 09/24/16 at 00:15 Albuterol/ Ipratropium (Duoneb Neb) 1 ampule Q4HR WHILE AWAKE NEB NEB Last administered on 09/26/16 08:11; Start 09/24/16 at 08:00 Benztropine Mesylate (Cogentin) 2 mg HS PO Last administered on 09/25/16 20:45 ; Start 09/23/16 at 21:00 Budesonide/ Formoterol Fumarate (Symbicort 160-4.5 Inh) 2 puff Q12HR INH Last administered on 09/25/16 08:51; Start 09/23/16 at 21:00 Heparin Sodium (Porcine) (Heparin Inj) 5,000 units Q12HR SQ Last administered on 09/25/16 20:46; Start 09/23/16 at 22:00 Insulin Aspart (NovoLOG SUPPLEMENTAL SCALE) 1 ACHS SLIDING SCALE SQ Last administered on 09/25/16 11:00; Start 09/24/16 at 07:00 Lorazepam (Ativan Inj) 0.5 mg Q12HR PRN IM MODERATE TO SEVERE ANXIETY; Start at 21:00; Stop 09/23/16 at 21:00; Status DC Lorazepam (Ativan) 0.5 mg Q12HR PRN PO MODERATE TO SEVERE ANXIETY; Start at 21:00; Stop 09/23/16 at 21:00; Status DC Magnesium Hydroxide (Milk Of Magnesia Liq) 30 ml DAILY PRN PO CONSTIPATION; Start 09/23/16 at 20:00 Methylprednisolone Sodium Succinate (SoluMEDROL INJ) 45 mg Q6H IV Last administered on 09/24/16 05:20; Start 09/23/16 at 23:00; Stop 09/24/16 at 09:01 ; Status DC Miscellaneous Information SPECIFIC LAB TO BE NIKHIL... ONCE ONCE .XX Last administered on 09/25/16 21:29; Start 09/25/16 at 21:45; Stop 09/25/16 at 21:46 ; Status DC Nicotine (Habitrol 21 Mg Patch.24 Hr) 1 patch DAILY T-DERMAL Last administered on 09/25/16 08:19; Start 09/23/16 at 20:15 Olanzapine (ZyPREXA INJ) 10 mg Q12HR PRN IM agitation/aggre; Start 09/23/16 at 21:00 Olanzapine (ZyPREXA) 15 mg HS PO Last administered on 09/25/16 20:46; Start at 21:00 Pantoprazole Sodium (Protonix) 40 mg DAILY PO Last administered on 09/25/16 08 :19; Start 09/23/16 at 20:00 Pharmacy Profile Note (Vancomycin Consult Pharmacy) 0 ml @ 0 mls/hr UNSCH OTHER ; Start 09/25/16 at 12:15 Pneumococcal Polyvalent Vaccine 25 mcg 25 mcg ONCE ONCE IM Last administered on 09/24/16 09:06; Start 09/24/16 at 10:00; Stop 09/24/16 at 10:01; Status DC Prednisone (Deltasone) 40 mg DAILY PO ; Start 09/24/16 at 10:00; Stop 09/24/16 at 10:00; Status DC Prednisone 40 mg 40 mg BID PO Last administered on 09/25/16 20:45; Start 09/24 at 10:00 Senna/Docusate Sodium (Sabra-Colace) 1 tab BID PO Last administered on 20:45; Start 09/24/16 at 09:00 Thiothixene (Navane) 10 mg HS PO Last administered on 09/25/16 20:46; Start at 21:00 Vancomycin HCl/ Sodium Chloride (Vancomycin Inj/ NS 250 ml Inj) 250 ml @ 250 mls/hr Q12H IV Last administered on 7/16/17at 21:29; Start 09/23/16 at 22:00 ( Christa Cobian MD R1) Urinary Catheter: No (Christa Cobian MD R1) Vascular Central Line Catheter: No (Christa Cobian MD R1) A/P Assessment and Plan 60-year-old male with history of COPD, schizophrenia, and chronic smoking who presents with severe shortness of breath concerning for acute COPD exacerbation. CXR notable for infiltrate concerning for underlying pneumonia. Sputum MRSA positive. Pt clinically improving. Discharge Planning Discharge today after 12pm. He will get another dose of Vancomycin as inpatient. beauty shop manager (Irma) on Med-Psych floor consulted and aware, she has called Ember Swanson to assist in transport to this [facility] today. Will discharge on Bactrim DS BID to complete a 7 day course of ABX (Will discharge with 5days worth of medications) Discharge also on steroid taper. Will get 40mg PO dose this morning. Will continue steroids for 6 days post discharge. He is to follow up with his psychiatrist (through [facility]) and PCP (Dr. Tyler" per [facility] ) within one week. (Christa Cobian MD R1) Attending Attestation Patient seen and examined. Case reviewed and discussed with the resident team. Agree with plan of care as discussed with me and documented in the resident note. (Maricel Laurent MD) Problem List: (1) COPD exacerbation Status: Acute Plan: Discharge today to [facility]. Antibiotics and Steroids to be continued. Note discharge plan above. Hospital Course: * Patient required BiPAP on admission with good O2 sats, however, ABG notable for significant CO2 retention. * Admitted to [facility]. Dr. August (critical care) to manage critical stage of illness. * Respiratory support with BiPAP, goal O2 sat greater than 92% --> intubated on 09/20/2016. * Extubation 09/21/2016. * Goal O2 sat >92%. * Duo nebs every 4 hours scheduled, albuterol every 2 hours prn SOB/wheezing. * Solu-Medrol 125 mg IV 1 per EMS, will continue Solu-Medrol IV 60 mg every 6 hours. * Pneumonia, community-acquired, suspected based on CXR findings: started empirically Rocephin 1 g every 24 hours IV, azithromycin 500 mg IV every 24 hours. * Respiratory: Acapella, chest physiotherapy, incentive spirometry. * Urine Legionella and Pneumococcal Ag negative. * No leukocytosis or fever this admission, will continue to monitor. * MRSA nasal screen positive, will initiate contact precautions. * Procalcitonin noted to be normal. Inpatient Management of COPD exacerbation: * Duo nebs every 4 hours scheduled, albuterol every 2 hours prn SOB/wheezing * 40mg BID. To be tapered at discharge * Continue Vancomycin q12h IV - sputum positive for MRSA, sensitive to Vancomycin and Bactrim. (2) Pneumonia Status: Acute Plan: As above, patient is admitted for acute COPD exacerbation with CXR notable for possible infiltrate in the right apex. Sputum culture MRSA positive. * Management as above. (3) SCHIZOPHRENIA NOS-UNSPEC Status: Chronic Plan: Psychiatry actively managing at this time, agree with voluntary discharge /discharge once medically cleared. Psychiatric disease is stable. He will continue home psych meds as outpatient and follow up with [facility] within one week. Psychotropic home medications listed below were restarted 09/21/2016. Hospital Course: * Patient has chronic schizophrenia. * Patient resides at [facility], home medications clarified with Lisy Lundberg on 09/21/2016: Benztropine 2 mg nightly Olanzapine 15 mg nightly Thiothixene 10 nightly (4) Tobacco dependence, continuous Status: Chronic Plan: Patient reports chronic tobacco dependence. * Nicotine high-dose patch while inpatient, prescribed to continue at discharge. * Counseled on smoking cessation. (5) Fluids/Electrolytes/Nutrition/Prophylaxis Status: Acute Plan: Fluids: * Tolerates PO. Electrolytes: * Hyponatremia at admission - resolved. * Continue to monitor. Nutrition: * Tolerates PO; Regular Diet. DVT Prophylaxis: * Early ambulation. * Heparin 5000U subQ q12hr. GI Prophylaxis: * Protonix 40 mg PO daily given steroid use. To continue as outpatient until d/c 'd by PCP. (Christa Cobian MD R1) Christa Cobian MD R1 Sep 26, 2016 08:39 Maricel Laurent MD Sep 26, 2016 15:38
[2016-09-26] MEDS: DOCUSATE SODIUM 50 MG/SENNA 8.6 MG TAB PO SCH (08:48)
[2016-09-26] MEDS: BUDESONIDE-FORMOTEROL 160/4.5 MCG INHALER INH SCH (08:48)
[2016-09-26] MEDS: PANTOPRAZOLE SOD 40 MG DELAYED RELEASE TAB PO SCH (08:48)
[2016-09-26] MEDS: predniSONE 20 MG TAB PO SCH (08:48)
[2016-09-26] MEDS: NICOTINE 21 MG/24 HR PATCH T-DERMAL SCH (08:48)
[2016-09-26] MEDS: HEPARIN SODIUM - SQ 10,000 UNITS/ML VIAL SQ SCH (08:48)
--- NOTE | 2016-09-26 09:02 | HHI.DCPOC ---
Discharge Care Plan Diagnosis: (1) COPD exacerbation (2) Pneumonia (3) Chronic paranoid schizophrenia (4) Tobacco dependence, continuous Goals to Promote Your Health * To prevent worsening of your condition and complications * To maintain your health at the optimal level Directions to Meet Your Goals Take your medications as prescribed Follow your dietary instruction Follow activity as directed Keep your appointments as scheduled Take your immunizations and boosters as scheduled If your symptoms worsen call your PCP, if no PCP go to Urgent Care Center or Emergency Room Smoking is Dangerous to Your Health. Avoid second hand smoke Call the 24-hour hour crisis hotline for domestic abuse at Christa Cobian MD R1 Sep 26, 2016 09:02
[2016-09-26] MEDS ORDERED: VANCOMYCIN 1,500 MG/NS 500 ML IV SCH ×2 (10:00)
--- NOTE | 2016-09-26 10:30 | HHI.DS ---
Psychiatry Discharge Summary Inpatient Psychiatric care?: Yes Advance Directive: Yes Mental Health AdvanceDirective: No Health Care Proxy: No Admission Admission Date Sep 23, 2016 at 15:00 Admission Diagnosis: (1) Chronic paranoid schizophrenia ICD Code: F20.0 Brief History Mr. Ellsworth is a 60-year-old male with a history of schizophrenia who presented initially to the hospital with a COPD exacerbation. He was medically admitted and was apparently agitating to leave the hospital. Dr. La evaluated the patient in consultation and placed the patient under a [place] act and he was subsequently transferred to the medical psychiatric unit. Reviewing the electronic medical record, I note the patient was most recently psychiatrically admitted here under Dr. Izquierdo in 2011. Patient seen and examined with nurse. Chart reviewed. Case discussed with nursing staff who reports that patient has been no behavioral problems since arriving on the unit. On my examination today, the patient is in good spirits. Denies any issues with mood. No depressive or hypomanic/manic symptoms noted. He denies any audiovisual hallucinations, and I can elicit no delusional beliefs. He does point out that he typically becomes more paranoid the longer he stays in the hospital. He denies any suicidal or homicidal ideation, intent or plan on direct questioning. He denies any side effects from his psychotropic medications and says that he has been on them for a very long time. He continues to express a desire to leave the hospital, but as with his encounter with Dr. La the patient's understanding of the risks and benefits of so doing are poor. The remainder of the psychiatric ROS is negative. Past psychiatric history: Patient reports a history of schizophrenia diagnosed at age 18. He follows with nurse practitioner Karlos at [facility] he says. He reports he has not been psychiatrically admitted for several years. He endorses a history of some sort of suicide attempts but none recently. Family history: The patient denies any family history of mental illness. Chemical dependency history: The patient denies any abuse of drugs or alcohol. He does smoke a pack a day of cigarettes. Social history: The patient resides at [facility]. He has been there for 3 or 4 years and enjoys it. He is single with no children. High school educated with some college. On disability. Denies history. Denies legal history. No reported access to guns or firearms. Tobacco Use In Past 30 Days: 5 or More Cigarettes/Day Alcohol Use: Monthly or Less Hospital Course Patient was admitted in the med psych unit, from the medical floor. He was initially admitted due to COPD exacerbation. Patient was requesting to leave AMA and acting disorganized in the medical floor. He was transferred to the med psych unit to be in a more structured environment, to restart his medication , and to monitor psychotic behavior. Safety measure were immediately started. Initially psychiatric and psychosocial evaluation performed. The beginning patient was tangential, and choice some paranoid delusions. He was restarted in his outpatient psychotropics. Has patient improved medically and after starting psychotropics he showed significant improvement in thought process and behavior. During his estate the med psych unit, no agitation, no aggressive behavior, hostility were reported. At the moment of the evaluation the patient is a baseline, compliant with medications, no significant side effects, his living facility agree with the plan of discharge. Results Blood Pressure 116 / 79 Vital Signs Date Time Temp Pulse Resp B/P Pulse Ox O2 Delivery O2 Flow Rate FiO2 09/26/16 08:12 96 21 09/26/16 07:10 Room Air 09/26/16 06:00 98.2 71 18 116/79 09/25/16 11:20 1.00 Laboratory Tests Test 09/24/16 09/25/16 10:06 07:45 Chloride Level 96 MEQ/L 93 MEQ/L (98-107) (98-107) Carbon Dioxide Level 37.4 MEQ/L 37.1 MEQ/L (21.0-32.0) (21.0-32.0) Creatinine 0.57 MG/DL 0.55 MG/DL (0.60-1.30) (0.60-1.30) Random Glucose 194 MG/DL 124 MG/DL (74-106) (74-106) Calcium Level 8.3 MG/DL 8.3 MG/DL (8.5-10.1) (8.5-10.1) Anion Gap 4 MEQ/L (5-15) Hemoglobin A1c 6.4 % (4.3-6.0) Red Blood Count 4.49 MIL/MM3 (4.50-5.90) Neutrophils (%) (Auto) 82.8 % (16.0-70.0) Lymphocytes # (Auto) 0.7 TH/MM3 (1.0-4.8) Neutrophils % (Manual) 73 % (16-70) Metamyelocytes 5 % (0-1) Myelocytes 1 % (0-0) Laboratory Results Test 09/24/16 10:06 Hemoglobin A1c 6.4 % (4.3-6.0) Triglycerides Level 99 MG/DL (42-150) Cholesterol Level 146 MG/DL (120-200) LDL Cholesterol 79 MG/DL (0-99) HDL Cholesterol 47.4 MG/DL (40.0-60.0) Summary of Procedures Not procedures done Pending results at discharge: No Medications # of Antipsychotic meds at D/C: 2 Appropriate >1 Antipsych meds?: 2 Approp Antipsych med options 1 - Minimum of three failed multiple trials of monotherapy. 2 - Documented plan to taper to monotherapy due to previous use of multiple meds OR cross-taper in progress at D/C. 3 - Documentation of augmentation of Clozapine. 4 - Justification other than those listed in allowable values 1-3, document here : Discharge Discharge Date: Sep 26, 2016 Discharge Diagnosis: (1) Chronic paranoid schizophrenia Diagnosis: Principal ICD Code: F20.0 Mental Status Exam at Disch elderly man, looks older than his stated age, disheveled, [facility], calm and cooperative. Speech is reticent, low tone. Mood is euthymic , affect appropriate. Thought process is logical and coherent, thought content devoid of SI, HI, visual and auditory hallucinations. No paranoia, no delusions present. Insight, impulse control, judgment are fair. Cognition is intact. Pt Condition on Discharge: Stable Discharge Disposition: [facility] Discharge Instructions Diet Instructions: As Tolerated, No Restrictions Activities you can perform: Regular-No Restrictions Scheduled Appointment: Isaiah Foster Appointment Date: Sep 27, 2016 Appointment Time: 07:30am Discharge Time > 30 minutes Discharge/Advance Care Plan Health Problems: (1) Chronic paranoid schizophrenia Goals to promote your health * To prevent worsening of your condition and complications * To maintain your health at the optimal level Directions to meet your goals Take your medications as prescribed Follow your dietary instruction Follow activity as directed Keep your appointments as scheduled Take your immunizations and boosters as scheduled If your symptoms worsen call your PCP, if no PCP go to Urgent Care Center or Emergency Room For 24/7 questions related to your inpatient stay or results of tests pending at discharge, please contact Dr. Truman La at Smoking is Dangerous to Your Health. Avoid second hand smoking Truman La MD Sep 26, 2016 10:30
--- NOTE | 2016-09-26 12:24 | HHI.DS ---
Discharge Summary Admission Date Sep 23, 2016 at 15:00 Discharge Date: Sep 26, 2016 Admitting Diagnosis (1) COPD exacerbation Diagnosis: Principal Plan: Discharge today to [facility]. Antibiotics and Steroids to be continued. Note discharge plan above. Hospital Course: * Patient required BiPAP on admission with good O2 sats, however, ABG notable for significant CO2 retention. * Admitted to [facility]. Dr. August (critical care) to manage critical stage of illness. * Respiratory support with BiPAP, goal O2 sat greater than 92% --> intubated on 09/20/2016. * Extubation 09/21/2016. * Goal O2 sat >92%. * Duo nebs every 4 hours scheduled, albuterol every 2 hours prn SOB/wheezing. * Solu-Medrol 125 mg IV 1 per EMS, will continue Solu-Medrol IV 60 mg every 6 hours. * Pneumonia, community-acquired, suspected based on CXR findings: started empirically Rocephin 1 g every 24 hours IV, azithromycin 500 mg IV every 24 hours. * Respiratory: Acapella, chest physiotherapy, incentive spirometry. * Urine Legionella and Pneumococcal Ag negative. * No leukocytosis or fever this admission, will continue to monitor. * MRSA nasal screen positive, will initiate contact precautions. * Procalcitonin noted to be normal. Inpatient Management of COPD exacerbation: * Duo nebs every 4 hours scheduled, albuterol every 2 hours prn SOB/wheezing * 40mg BID. To be tapered at discharge * Continue Vancomycin q12h IV - sputum positive for MRSA, sensitive to Vancomycin and Bactrim. (2) Pneumonia Diagnosis: Principal Plan: As above, patient is admitted for acute COPD exacerbation with CXR notable for possible infiltrate in the right apex. Sputum culture MRSA positive. He was intubated on date of admission 09/20 for respiratory failure and was extubated 09/21 as noted above * Management as above. (3) SCHIZOPHRENIA NOS-UNSPEC Diagnosis: Secondary Plan: Psychiatry actively managing at this time, agree with voluntary discharge /discharge once medically cleared. Psychiatric disease is stable. He will continue home psych meds as outpatient and follow up with [facility] within one week. Psychotropic home medications listed below were restarted 09/21/2016. Hospital Course: * Patient has chronic schizophrenia. * Patient resides at [facility], home medications clarified with Lisy Lundberg on 09/21/2016: Benztropine 2 mg nightly Olanzapine 15 mg nightly Thiothixene 10 nightly (4) Tobacco dependence, continuous Diagnosis: Secondary Plan: Patient reports chronic tobacco dependence. * Nicotine high-dose patch while inpatient, prescribed to continue at discharge. * Counseled on smoking cessation. (5) Fluids/Electrolytes/Nutrition/Prophylaxis Diagnosis: Secondary Plan: Fluids: * Tolerates PO. Electrolytes: * Hyponatremia at admission - resolved. * Continue to monitor. Nutrition: * Tolerates PO; Regular Diet. DVT Prophylaxis: * Early ambulation. * Heparin 5000U subQ q12hr. GI Prophylaxis: * Protonix 40 mg PO daily given steroid use. To continue as outpatient until d/c 'd by PCP. [facility] Critical Care Psychiatry Brief History At admission on 09/20/16: Patient is a 60 year old male with a history significant for COPD, schizophrenia and chronic smoking, who presents to the ED from his [facility] for worsening shortness of breath. Endorses he has had symptoms of shortness of breath for at least a week. He was brought via [facility] to the ED. He denies chest pain but endorses chest tightness. He endorses a cough but states this is nonproductive. He denies fevers, chills at home. He denies a history of intubation or needing CPAP in the past. EMS treatments: * Solu-Medrol 125 mg IV 1, albuterol 4. ED treatments: * Continued monitoring, Duonebs x 2, requiring BiPAP at arrival. Received IV ceftriaxone and IV azithromycin 1. Hospital Course: * Patient required BiPAP on admission with good O2 sats; however, ABG notable for significant CO2 retention. * Admitted to [facility]. Dr. August (critical care) to manage critical stage of illness. * Respiratory support with BiPAP, goal O2 sat greater than 92% --> intubated on 09/20/2016. * Extubation 09/21/2016. * Goal O2 sat >92%. * Duo nebs every 4 hours scheduled, albuterol every 2 hours prn SOB/wheezing. * Solu-Medrol IV 60 mg q6h; reduced to 45 mg q6hr 09/23/16. * Pneumonia, community-acquired, suspected based on CXR findings: initially empirically treated with Rocephin 1 g q24h IV, azithromycin 500 mg IV q24h; sputum MRSA positive, antibiotic switched to Vancomycin q12h on 09/23/16. * Respiratory: Acapella, chest physiotherapy, incentive spirometry. * Urine Legionella and Pneumococcal Ag negative. * No leukocytosis or fever this admission, will continue to monitor. * Procalcitonin noted to be normal. Progress Note from 09/23/16: Patient was seen and evaluated this morning. He seemed confused and paranoid; he stated that "the congested water is making me sick." He repeatedly asked if he could go home today. It was explained to him that he continues to be very ill and that he will require IV antibiotics and steroids for a number of days before he can be safely discharged. He denied chest pain, heart palpitations, nausea and vomiting. He said that he has not had a bowel movement since he was admitted to the hospital. Initially, patient refused exam, but later agreed to exam. Crump Act was filed later in the day. Psych was consulted and agreed that patient is unable to make his own decisions at this time. Psych recommended transferring patient to the Med-Psych unit. CBC/BMP: 09/25/16 0745 09/25/16 0745 Significant Findings Laboratory Tests Test 09/24/16 09/25/16 10:06 07:45 Chloride Level 96 MEQ/L 93 MEQ/L (98-107) (98-107) Carbon Dioxide Level 37.4 MEQ/L 37.1 MEQ/L (21.0-32.0) (21.0-32.0) Creatinine 0.57 MG/DL 0.55 MG/DL (0.60-1.30) (0.60-1.30) Random Glucose 194 MG/DL 124 MG/DL (74-106) (74-106) Calcium Level 8.3 MG/DL 8.3 MG/DL (8.5-10.1) (8.5-10.1) Anion Gap 4 MEQ/L (5-15) Hemoglobin A1c 6.4 % (4.3-6.0) Red Blood Count 4.49 MIL/MM3 (4.50-5.90) Neutrophils (%) (Auto) 82.8 % (16.0-70.0) Lymphocytes # (Auto) 0.7 TH/MM3 (1.0-4.8) Neutrophils % (Manual) 73 % (16-70) Metamyelocytes 5 % (0-1) Myelocytes 1 % (0-0) Imaging Chest X-Ray 09/21/16 0600 Signed Impressions: Service Date/Time: Wednesday, September 21, 2016 04:40 - CONCLUSION: No significant change. Brody Noonan MD PE at Discharge GENERAL: Alert and awake. Energetic and talkative. He is receiving breathing treatment without difficulty. SKIN: Warm and dry. No rashes. HEAD: Atraumatic. Normocephalic. EYES: Pupils equal and round. No scleral icterus. No injection or drainage. ENT: No nasal bleeding or discharge. Mucous membranes pink and moist. NECK: Trachea midline. No JVD. CARDIOVASCULAR: Regular rate and rhythm. Mild tachycardia without murmur. RESPIRATORY: No accessory muscle use. Clear to auscultation without wheezes or rhonchi. Mild wet cough after treatment ended. GASTROINTESTINAL: Abdomen soft, non-tender, nondistended. Bowel sounds normal. Hepatic and splenic margins not palpable. MUSCULOSKELETAL: Extremities without clubbing, cyanosis, or edema. No obvious deformities. NEUROLOGICAL: Awake and alert. No obvious cranial nerve deficits. Motor grossly within normal limits. Five out of 5 muscle strength in the arms and legs. Normal speech. PSYCHIATRIC: Pressured speech. Not responding to internal stimuli. Pleasant, non -combative, cooperative with exam. Hospital Course Patient was admitted for management of COPD exacerbation and likely pneumonia based on CXR at admission. Started on Rocephin and azithromycin and given DuoNeb treatments in addition to IV Solu-Medrol at time of admission. He had acute decline in his respiratory status shortly after admission, requiring BiPAP which she did not tolerate and notable ABG showing severe hypoxia and acidosis. He was intubated shortly after admission for ventilatory support. He was fortunately extubated the next day and tolerated nasal cannula by end of day. He really has a history of chronic schizophrenia on multiple psychotropic medications and he attempts to leave AMA on day 3 of stay. He was thus Crump acted and transferred to [facility] psych floor with psychiatry consulted. He was continued on Solu-Medrol IV and transitioned to prednisone by mouth on 09/25. He was continued on Rocephin and azithromycin until sputum culture resulted positive for MRSA; he was started on IV vancomycin on 09/24. This was continued until time of discharge, it was time he was discharged with Bactrim DS to complete 5 more days (total of 7 days on treatment adequate for MRSA). He was discharged also on prednisone taper. He was also given renewal scripts for his psychotropic medications as well as breathing treatments/inhalers. The patient was admitted from an [facility] ([facility]) and was discharged back to this facility. Case management arranged transport and confirmed a follow-up with Isaiah Laughlin for psychotropic medication management as well as his PCP for his medical condition. He was discharged in stable condition. Pt Condition on Discharge: Stable Discharge Disposition: [facility]F/[facility] Discharge Instructions DIET: Follow Instructions for: As Tolerated, No Restrictions Activities you can perform: Regular-No Restrictions Follow up Referrals: PCP Follow-up - 1 Week Psychiatry Adult - 1 Week New Medications: Prednisone (Prednisone) 10 Mg Tab 10 MG PO DIRECTED Take 30mg BID on Day 1, 50mg (30mg morning + 20mg evening) on Day 2, then 20mg BID on Day 3, then 30mg (20mg morning + 10mg evening) on Day 4, then 20mg once on Day 5, then 10mg once on Day 6. #21 Ref 0 TAB Sulfamethoxazole/Trimethoprim (Sulfamethoxazole-Tmp Ss Tablet) 400 Mg-80 Mg Tablet 2 TAB PO BID Take two tabs twice per day until you run out. #20 TAB Continued Medications: Albuterol Neb (Albuterol Neb) 2.5 Mg/3 Ml Neb 2.5 MG INH Q2HR NEB PRN SHORTNESS OF BREATH #1 NEBULE (This prescription has been renewed) Benztropine (Benztropine) 0.5 Mg Tab 2 MG PO HS #30 Ref 0 TAB (This prescription has been renewed) Budesonide-Formoterol Inh (Symbicort Inh) 160-4.5 Mcg/Act Aero 2 PUFF INH Q12HR #1 INHALER (This prescription has been renewed) Ipratropium-Albuterol Neb (Duoneb) 0.5-2.5 Mg/3 Ml Neb 1 AMPULE INH Q4HR NEB #30 ML (This prescription has been renewed) Nicotine (Eq Nicotine) 21 Mg/24 Hr Dis 1 PATCH T-DERMAL DAILY #1 PATCH (This prescription has been renewed) Olanzapine (Olanzapine) 15 Mg Tab 15 MG PO HS #30 Ref 0 TAB (This prescription has been renewed) Pantoprazole (Protonix) 40 Mg Tab 40 MG PO DAILY Reflux #14 Ref 0 TAB (This prescription has been renewed) Thiothixene (Thiothixene) 10 Mg Cap 10 MG PO HS Schizophrenia #60 Ref 0 CAP (This prescription has been renewed) Discontinued Medications: Methylprednisolone Sod Succinate Inj (Solu-Medrol Inj) 125 Mg Inj 45 MG IVP Q6H Days 1 INJECTION Vancomycin HCl in Sodium Chlor (Vancomycin Hydrochloride/ 1-0.9 gm/250Ml-%) 1 Inj Inj 1 GM IV Q12HR Days 2 UNIT Christa Cobian MD R1 Sep 26, 2016 12:24
[2016-09-27] MEDS ORDERED: PHARMACY ORDERED LAB ONE (21:45)
== END 2016-09-26 14:15 | DRG 885 ==
LOC: H4EA 15:00
PROVIDERS: ADMIT Psychiatry & Neurology Psychiatry; ATTEND Psychiatry & Neurology Psychiatry
DX: F20.0 Paranoid schizophrenia (principal); J15.212 Pneumonia due to Methicillin resistant Staphylococcus aureus; J44.0 Chronic obstructive pulmonary disease with (acute) lower respiratory infection; J44.1 Chronic obstructive pulmonary disease with (acute) exacerbation; F17.210 Nicotine dependence, cigarettes, uncomplicated; Z23 Encounter for immunization
CPT/HCPCS: 80048; 80061; 80202; 82948; 83036; 85007; 85027; 90732; 94640; 94664; J1644; J1815; J2930; J3370; J7040; J7050; J7512; J7613

== ENCOUNTER 2017-07-28 15:35 | Inpatient (IN) | payer MEDICARE, OTHER ==
[~2017-07-28] VITALS: Ht 182.9 cm; Wt 59.5 kg
[2017-07-28] VITALS (9 sets, daily range): BP systolic 117–137; BP diastolic 59–91; PULSE 86–95; RESP 18–24; TEMP 97.7–98; O2SAT 95–97
[~2017-07-28 15:35] MED LIST changes: +ALBU0.08 INH; +IPRASOL INH; +NICO21DI25 T-DERMAL; +PRED10 PO; +PROT40TA PO; +SULF400T18 PO; +SYMB160A INH
--- NOTE | 2017-07-28 15:59 | PD ---
HPI Chief Complaint: Respiratory Symptoms Time Seen by Provider: 15:48 Travel History International Travel<30 days: No Contact w/Intl Traveler<30days: No Traveled to known affect area: No History of Present Illness HPI 61-year-old male with history of schizophrenia, COPD, tobacco dependency, presents emergency department for evaluation of worsening shortness of breath. Patient states he has chronic shortness of breath. He is not oxygen dependent. He tells me he woke up this morning and had difficult time breathing. He smoked a cigarette and drinks of coffee which seemed to help a little bit. He has been using his inhaler more frequently and this does not seem to be helping with anything. He reports a productive sputum that is yellow-green in color. Denies any fever or chills. Has a moderate substernal chest pain that radiates to his bilateral arms. This also started this morning. Denies any nausea. He does feel lightheaded. Per [facility] report, patient was throwing frequent PVCs in route and was given lidocaine 2 times. He remained stable throughout his right here. He has no other symptoms to report. I did discuss with the patient that if indeed he did start breathing if he would want to be intubated. My attending physician is also discussed this with him. Patient is a DO NOT RESUSCITATE. PFSH Past Medical History Asthma: No Blood Disorders: No Anxiety: Yes Depression: Yes Cancer: No Cardiovascular Problems: No COPD: Yes Diabetes: No Diminished Hearing: No Endocrine: No Genitourinary: No Immune Disorder: No Musculoskeletal: No Neurologic: No Psychiatric: Yes Reproductive: No Respiratory: Yes (COPD) Immunizations Current: No Schizophrenia: Yes PNEUMOCCOCAL Vaccine (Year): 3 Past Surgical History Abdominal Surgery: Yes (CYST REMOVED) AICD: No Arteriovenous Shunt: No Insulin Pump: No Joint Replacement: No Neurologic Surgery: Yes (PT UNABLE TO SPECIFY) Pacemaker: No Other Surgery: No Social History Alcohol Use: No Tobacco Use: Yes (1/2 PPD) Substance Use: No Allergies-Medications (Allergen,Severity, Reaction): Coded Allergies: codeine (Unverified Adverse Reaction, Mild, NAUSEA, 10/25/16) *MDRO Multi-Drug Resistant Organism (Verified Adverse Reaction, Unknown, ) MRSA PCR screen positive 09/20/16 MRSA (sputum) 09/21/16 Reported Meds & Prescriptions Reported Meds & Active Scripts Active Duoneb (Ipratropium-Albuterol Neb) 0.5-2.5 Mg/3 Ml Neb 1 Ampule INH Q4HR NEB Symbicort Inh (Budesonide/Formoterol Fumarate) 160-4.5 Mcg/Act Aero 2 Puff INH Q12HR Albuterol Neb (Albuterol Sulfate) 2.5 Mg/3 Ml Neb 2.5 Mg INH Q2HR NEB PRN Thiothixene 10 Mg Cap 10 Mg PO HS Olanzapine 15 Mg Tab 15 Mg PO HS Benztropine (Benztropine Mesylate) 0.5 Mg Tab 2 Mg PO HS Reported Nitrofurantoin Macrocrystal 50 Mg Cap 50 Mg PO BID Megestrol (Megestrol Acetate) 40 Mg Tab 80 Mg PO TID Lisinopril 10 Mg Tab 10 Mg PO DAILY Review of Systems Except as stated in HPI: all other systems reviewed are Neg Physical Exam Narrative GENERAL: Thin male patient, in mild respiratory distress. SKIN: Focused skin assessment warm/dry. HEAD: Atraumatic. Normocephalic. EYES: Pupils equal and round. No scleral icterus. No injection or drainage. ENT: No nasal bleeding or discharge. Mucous membranes pink and moist. NECK: Trachea midline. No JVD. CARDIOVASCULAR: Tachycardic rate and rhythm. No murmur appreciated. RESPIRATORY: Mild accessory muscle use. Diminished, coarse, expiratory wheeze to auscultation. Breath sounds equal bilaterally. GASTROINTESTINAL: Abdomen soft, non-tender, nondistended. Hepatic and splenic margins not palpable. MUSCULOSKELETAL: No obvious deformities. No clubbing. No cyanosis. No edema. NEUROLOGICAL: Awake and alert. No obvious cranial nerve deficits. Motor grossly within normal limits. Normal speech. PSYCHIATRIC: Appropriate mood and affect; insight and judgment normal. Data Data Last Documented VS Vital Signs Date Time Temp Pulse Resp B/P (MAP) Pulse Ox O2 Delivery O2 Flow Rate FiO2 07/28/17 16:47 97 Nasal Cannula 3.00 07/28/17 15:55 96 21 07/28/17 15:44 98.0 117/89 (98) Orders Orders Complete Blood Count With Diff (07/28/17 15:55) Comprehensive Metabolic Panel (07/28/17 15:55) Act Partial Throm Time (Ptt) (07/28/17 15:55) Prothrombin Time / Inr (Pt) (07/28/17 15:55) Magnesium (Mg) (07/28/17 15:55) Ckmb (Isoenzyme) Profile (07/28/17 15:55) Troponin I (07/28/17 15:55) Arterial Blood Gas (Abg) (07/28/17 15:55) Urinalysis - C+S If Indicated (07/28/17 15:55) Influenzae A/B Antigen (07/28/17 15:55) Blood Culture (07/28/17 15:55) Iv Access Insert/Monitor (07/28/17 15:55) Electrocardiogram (07/28/17 15:55) Ecg Monitoring (07/28/17 15:55) Oximetry (07/28/17 15:55) Oxygen Administration (07/28/17 15:55) Chest, Pa & Lat (07/28/17 15:55) Sodium Chloride 0.9% Flush (Ns Flush) (07/28/17 16:00) Albuterol-Ipratropium Neb (Duoneb Neb) (07/28/17 16:45) CKMB (07/28/17 16:00) CKMB% (07/28/17 16:00) Labs Laboratory Tests Test 07/28/17 15:57 07/28/17 16:00 Blood Gas Puncture Site RT RADIAL Blood Gas Patient Temperature 98.6 Blood Gas HCO3 31 mmol/L Blood Gas Base Excess 5.9 mmol/L Blood Gas Oxygen Saturation 90 % Arterial Blood pH 7.40 Arterial Blood Partial Pressure CO2 51 mmHg Arterial Blood Partial Pressure O2 90 mmHG Arterial Blood Oxygen Content 19.9 Vol % Arterial Blood Carboxyhemoglobin 6.8 % Arterial Blood Methemoglobin 0.7 % Blood Gas Hemoglobin 15.6 G/DL Oxygen Delivery Device NASAL CANNULA Blood Gas Liter Flow 3 L/M White Blood Count 8.0 TH/MM3 Red Blood Count 4.90 MIL/MM3 Hemoglobin 15.0 GM/DL Hematocrit 45.0 % Mean Corpuscular Volume 91.8 FL Mean Corpuscular Hemoglobin 30.7 PG Mean Corpuscular Hemoglobin Concent 33.5 % Red Cell Distribution Width 13.0 % Platelet Count 197 TH/MM3 Mean Platelet Volume 8.1 FL Neutrophils (%) (Auto) 57.5 % Lymphocytes (%) (Auto) 30.3 % Monocytes (%) (Auto) 9.9 % Eosinophils (%) (Auto) 1.7 % Basophils (%) (Auto) 0.6 % Neutrophils # (Auto) 4.6 TH/MM3 Lymphocytes # (Auto) 2.4 TH/MM3 Monocytes # (Auto) 0.8 TH/MM3 Eosinophils # (Auto) 0.1 TH/MM3 Basophils # (Auto) 0.0 TH/MM3 CBC Comment AUTO DIFF Differential Comment AUTO DIFF CONFIRMED Platelet Estimate NORMAL Platelet Morphology Comment CLUMPED Prothrombin Time 10.0 SEC Prothromb Time International Ratio 1.0 RATIO Activated Partial Thromboplast Time 22.0 SEC Blood Urea Nitrogen 12 MG/DL Creatinine 0.79 MG/DL Random Glucose 111 MG/DL Total Protein 6.6 GM/DL Albumin 3.5 GM/DL Calcium Level 8.8 MG/DL Magnesium Level 2.1 MG/DL Alkaline Phosphatase 71 U/L Aspartate Amino Transf (AST/SGOT) 22 U/L Alanine Aminotransferase (ALT/SGPT) 19 U/L Total Bilirubin 0.4 MG/DL Sodium Level 131 MEQ/L Potassium Level 4.1 MEQ/L Chloride Level 95 MEQ/L Carbon Dioxide Level 26.2 MEQ/L Anion Gap 10 MEQ/L Estimat Glomerular Filtration Rate 99 ML/MIN Total Creatine Kinase 105 U/L Creatine Kinase MB 3.8 NG/ML Troponin I LESS THAN 0.02 NG/ML MDM Medical Decision Making Medical Screen Exam Complete: Yes Emergency Medical Condition: Yes Medical Record Reviewed: Yes Differential Diagnosis COPD exacerbation versus pneumonia versus influenza versus ACS versus sepsis Narrative Course 61-year-old male presents emergency department for evaluation of shortness of breath. Patient appears in mild respiratory distress. He is given additional DuoNeb here. He is given Solu-Medrol 125 mg prior to arrival. EKG is reviewed by my attending physician and patient does have frequent PVCs. Otherwise no significant ST elevation or depression. Laboratory Tests Test 07/28/17 15:57 07/28/17 16:00 Blood Gas Puncture Site RT RADIAL Blood Gas Patient Temperature 98.6 Blood Gas HCO3 31 mmol/L Blood Gas Base Excess 5.9 mmol/L Blood Gas Oxygen Saturation 90 % Arterial Blood pH 7.40 Arterial Blood Partial Pressure CO2 51 mmHg Arterial Blood Partial Pressure O2 90 mmHG Arterial Blood Oxygen Content 19.9 Vol % Arterial Blood Carboxyhemoglobin 6.8 % Arterial Blood Methemoglobin 0.7 % Blood Gas Hemoglobin 15.6 G/DL Oxygen Delivery Device NASAL CANNULA Blood Gas Liter Flow 3 L/M White Blood Count 8.0 TH/MM3 Red Blood Count 4.90 MIL/MM3 Hemoglobin 15.0 GM/DL Hematocrit 45.0 % Mean Corpuscular Volume 91.8 FL Mean Corpuscular Hemoglobin 30.7 PG Mean Corpuscular Hemoglobin Concent 33.5 % Red Cell Distribution Width 13.0 % Platelet Count 197 TH/MM3 Mean Platelet Volume 8.1 FL Neutrophils (%) (Auto) 57.5 % Lymphocytes (%) (Auto) 30.3 % Monocytes (%) (Auto) 9.9 % Eosinophils (%) (Auto) 1.7 % Basophils (%) (Auto) 0.6 % Neutrophils # (Auto) 4.6 TH/MM3 Lymphocytes # (Auto) 2.4 TH/MM3 Monocytes # (Auto) 0.8 TH/MM3 Eosinophils # (Auto) 0.1 TH/MM3 Basophils # (Auto) 0.0 TH/MM3 CBC Comment AUTO DIFF Differential Comment AUTO DIFF CONFIRMED Platelet Estimate NORMAL Platelet Morphology Comment CLUMPED Prothrombin Time 10.0 SEC Prothromb Time International Ratio 1.0 RATIO Activated Partial Thromboplast Time 22.0 SEC Blood Urea Nitrogen 12 MG/DL Creatinine 0.79 MG/DL Random Glucose 111 MG/DL Total Protein 6.6 GM/DL Albumin 3.5 GM/DL Calcium Level 8.8 MG/DL Magnesium Level 2.1 MG/DL Alkaline Phosphatase 71 U/L Aspartate Amino Transf (AST/SGOT) 22 U/L Alanine Aminotransferase (ALT/SGPT) 19 U/L Total Bilirubin 0.4 MG/DL Sodium Level 131 MEQ/L Potassium Level 4.1 MEQ/L Chloride Level 95 MEQ/L Carbon Dioxide Level 26.2 MEQ/L Anion Gap 10 MEQ/L Estimat Glomerular Filtration Rate 99 ML/MIN Total Creatine Kinase 105 U/L Creatine Kinase MB 3.8 NG/ML Troponin I LESS THAN 0.02 NG/ML Last Impressions Chest X-Ray 07/28/17 9531 Signed Impressions: Service Date/Time: Friday, July 28, 2017 16:16 - CONCLUSION: 1. Changes suggestive of obstructive pulmonary disease. 2. No acute abnormality. Ron Baltazar MD I discussed the patient my attending physician who is also assessed the patient. patient will be admitted observation for COPD exacerbation. Diagnosis Primary Impression: COPD exacerbation Additional Impression: Hyponatremia Admitting Information Admitting Physician Requests: Observation Condition: Stable Gwen Dias July 28, 2017 15:59
[2017-07-28] MEDS ORDERED: LISI10TA3 PO (16:00)
[2017-07-28] MEDS ORDERED: SODIUM CHLORIDE 0.9% FLUSH 10 ML FLUSH IVF PRN (16:00)
[2017-07-28] MEDS ORDERED: MEGE40TA PO (16:00)
[2017-07-28] MEDS ORDERED: NITR1CAP37 PO (16:00)
[2017-07-28 16:34] LABS: AUTOMATED NEUTROPHIL # 4.6 TH/MM3 (1.8-7.7); BASOPHIL % 0.6 % (0.0-2.0); EOSINOPHIL # 0.1 TH/MM3 (0-0.4); EOSINOPHIL % 1.7 % (0.0-4.0); LYMPH % 30.3 % (9.0-44.0); LYMPHOCYTE # 2.4 TH/MM3 (1.0-4.8); MEAN CELL VOLUME 91.8 FL (80.0-100.0); MEAN CORPUSCULAR HEMOGLOBIN 30.7 PG (27.0-34.0); MEAN CORPUSCULAR HGB CONC 33.5 % (32.0-36.0); MEAN PLATELET VOLUME 8.1 FL (7.0-11.0); MONO % 9.9 % (0.0-8.0); MONOCYTE # 0.8 TH/MM3 (0-0.9); NEUT % 57.5 % (16.0-70.0); PLATELET COUNT 197 TH/MM3 (150-450)
--- NOTE | 2017-07-28 16:39 | RADRPT ---
EXAM DATE/TIME: 07/28/2017 16:16 [place] COMPARISON: No previous studies available for comparison. INDICATIONS : Short of breath. MEDICAL HISTORY : None. SURGICAL HISTORY : None. ENCOUNTER: Initial ACUITY: 1 day PAIN SCORE: 0/10 LOCATION: Bilateral chest FINDINGS: Lungs are hyperexpanded with mild interstitial prominence. No significant focal pleural or parenchyma l opacities. Cardiomediastinal contours are within normal limits. Bony thorax is intact. CONCLUSION: 1. Changes suggestive of obstructive pulmonary disease. 2. No acute abnormality. Ron Baltazar MD on July 28, 2017 at 16:37 Board Certified Radiologist. This report was verified electronically.
[2017-07-28] MEDS: RESP: ALBUTEROL 2.5 MG/IPRATROPIUM 0.5 MG NEB (SCH) INH (16:46)
[2017-07-28 16:50] LABS: ALT (GPT) 19 U/L (12-78)
[2017-07-28 16:53] LABS: ALBUMIN 3.5 GM/DL (3.4-5.0); ALKALINE PHOSPHATASE 71 U/L (45-117); AST (GOT) 22 U/L (15-37); BICARBONATE 26.2 MEQ/L (21.0-32.0); BLOOD UREA NITROGEN 12 MG/DL (7-18); CALCIUM 8.8 MG/DL (8.5-10.1); CHLORIDE 95 MEQ/L (98-107); CREATININE 0.79 MG/DL (0.60-1.30); GLOMERULAR FILTRATION RATE 99 ML/MIN (>89); GLUCOSE,RANDOM 111 MG/DL (74-106); MAGNESIUM 2.1 MG/DL (1.5-2.5); SODIUM (NA) 131 MEQ/L (136-145); TOTAL BILIRUBIN ADULT 0.4 MG/DL (0.2-1.0); TOTAL PROTEIN 6.6 GM/DL (6.4-8.2); TROPONIN I LESS THAN 0.02 NG/ML (0.02-0.05)
--- NOTE | 2017-07-28 18:36 | PD ---
Physical Exam Date Seen by Provider: July 28, 2017 Time Seen by Provider: 17:00 Narrative I, Dr. Whitley, have reviewed the advance practice practitioner's documentation and am in agreement, met with the patient face to face, made the diagnosis, and the medical decision making was done by me. *My assessment and Findings: Patient seen and evaluated with PA, please see PA notes for further details. Here because of shortness of breath, initially was found to have multiple PVCs according to [facility] and they had given him lidocaine out of concerns of possible dysrhythmias. In the ER, his PVCs remained, he is wheezing quite a bit and I suspect he has an underlying COPD exacerbation. I did not hear any crackles. Chest x-ray did not show any signs of acute pneumonia. Patient was treated with Solu-Medrol and nebulizers with improvement in symptoms. However, he is continuing to be symptomatic and plan would be to admit him for further evaluation. Laboratory Tests Test 07/28/17 15:57 07/28/17 16:00 Blood Gas HCO3 31 mmol/L (22-26) Blood Gas Base Excess 5.9 mmol/L (-2-2) Arterial Blood Partial Pressure CO2 51 mmHg (38-42) Arterial Blood Carboxyhemoglobin 6.8 % (0-4) Monocytes (%) (Auto) 9.9 % (0.0-8.0) Platelet Morphology Comment CLUMPED (NORMAL) Activated Partial Thromboplast Time 22.0 SEC (24.3-30.1) Random Glucose 111 MG/DL (74-106) Sodium Level 131 MEQ/L (136-145) Chloride Level 95 MEQ/L (98-107) Creatine Kinase MB 3.8 NG/ML (0.5-3.6) Troponin I LESS THAN 0.02 NG/ML Last 24 hours Impressions Chest X-Ray 07/28/17 6435 Signed Impressions: Service Date/Time: Friday, July 28, 2017 16:16 - CONCLUSION: 1. Changes suggestive of obstructive pulmonary disease. 2. No acute abnormality. Ron Baltazar MD Case is discussed with Dr. Sullivan for admission. Data Data Last Documented VS Vital Signs Date Time Temp Pulse Resp B/P (MAP) Pulse Ox O2 Delivery O2 Flow Rate FiO2 07/28/17 16:47 97 Nasal Cannula 3.00 07/28/17 15:55 96 21 07/28/17 15:44 98.0 117/89 (98) Orders Orders Complete Blood Count With Diff (07/28/17 15:55) Comprehensive Metabolic Panel (07/28/17 15:55) Act Partial Throm Time (Ptt) (07/28/17 15:55) Prothrombin Time / Inr (Pt) (07/28/17 15:55) Magnesium (Mg) (07/28/17 15:55) Ckmb (Isoenzyme) Profile (07/28/17 15:55) Troponin I (07/28/17 15:55) Arterial Blood Gas (Abg) (07/28/17 15:55) Urinalysis - C+S If Indicated (07/28/17 15:55) Influenzae A/B Antigen (07/28/17 15:55) Blood Culture (07/28/17 15:55) Iv Access Insert/Monitor (07/28/17 15:55) Electrocardiogram (07/28/17 15:55) Ecg Monitoring (07/28/17 15:55) Oximetry (07/28/17 15:55) Oxygen Administration (07/28/17 15:55) Chest, Pa & Lat (07/28/17 15:55) Sodium Chloride 0.9% Flush (Ns Flush) (07/28/17 16:00) Albuterol-Ipratropium Neb (Duoneb Neb) (07/28/17 16:45) CKMB (07/28/17 16:00) CKMB% (07/28/17 16:00) Admit Order (Ed Use Only) (07/28/17 18:02) Labs Laboratory Tests Test 07/28/17 15:57 07/28/17 16:00 Blood Gas Puncture Site RT RADIAL Blood Gas Patient Temperature 98.6 Blood Gas HCO3 31 mmol/L Blood Gas Base Excess 5.9 mmol/L Blood Gas Oxygen Saturation 90 % Arterial Blood pH 7.40 Arterial Blood Partial Pressure CO2 51 mmHg Arterial Blood Partial Pressure O2 90 mmHG Arterial Blood Oxygen Content 19.9 Vol % Arterial Blood Carboxyhemoglobin 6.8 % Arterial Blood Methemoglobin 0.7 % Blood Gas Hemoglobin 15.6 G/DL Oxygen Delivery Device NASAL CANNULA Blood Gas Liter Flow 3 L/M White Blood Count 8.0 TH/MM3 Red Blood Count 4.90 MIL/MM3 Hemoglobin 15.0 GM/DL Hematocrit 45.0 % Mean Corpuscular Volume 91.8 FL Mean Corpuscular Hemoglobin 30.7 PG Mean Corpuscular Hemoglobin Concent 33.5 % Red Cell Distribution Width 13.0 % Platelet Count 197 TH/MM3 Mean Platelet Volume 8.1 FL Neutrophils (%) (Auto) 57.5 % Lymphocytes (%) (Auto) 30.3 % Monocytes (%) (Auto) 9.9 % Eosinophils (%) (Auto) 1.7 % Basophils (%) (Auto) 0.6 % Neutrophils # (Auto) 4.6 TH/MM3 Lymphocytes # (Auto) 2.4 TH/MM3 Monocytes # (Auto) 0.8 TH/MM3 Eosinophils # (Auto) 0.1 TH/MM3 Basophils # (Auto) 0.0 TH/MM3 CBC Comment AUTO DIFF Differential Comment AUTO DIFF CONFIRMED Platelet Estimate NORMAL Platelet Morphology Comment CLUMPED Prothrombin Time 10.0 SEC Prothromb Time International Ratio 1.0 RATIO Activated Partial Thromboplast Time 22.0 SEC Blood Urea Nitrogen 12 MG/DL Creatinine 0.79 MG/DL Random Glucose 111 MG/DL Total Protein 6.6 GM/DL Albumin 3.5 GM/DL Calcium Level 8.8 MG/DL Magnesium Level 2.1 MG/DL Alkaline Phosphatase 71 U/L Aspartate Amino Transf (AST/SGOT) 22 U/L Alanine Aminotransferase (ALT/SGPT) 19 U/L Total Bilirubin 0.4 MG/DL Sodium Level 131 MEQ/L Potassium Level 4.1 MEQ/L Chloride Level 95 MEQ/L Carbon Dioxide Level 26.2 MEQ/L Anion Gap 10 MEQ/L Estimat Glomerular Filtration Rate 99 ML/MIN Total Creatine Kinase 105 U/L Creatine Kinase MB 3.8 NG/ML Troponin I LESS THAN 0.02 NG/ML [facility] Medical Record Reviewed: Yes Supervised Visit with JASBIR: Yes Diagnosis Primary Impression: COPD exacerbation Additional Impression: Hyponatremia Admitting Information Admitting Physician Requests: Admit Condition: Stable Raul Whitley MD July 28, 2017 18:36
[2017-07-28] MEDS ORDERED: RESP: ALBUTEROL 2.5 MG/IPRATROPIUM 0.5 MG NEB (PRN) NEB (18:45)
[2017-07-28] MEDS ORDERED: SODIUM CHLORIDE 0.9% FLUSH 10 ML FLUSH IV FLUSH PRN (18:45)
[2017-07-28] MEDS ORDERED: RESP: ALBUTEROL 2.5 MG/3 ML NEB (PRN) INH (18:45)
[2017-07-28] MEDS ORDERED: NICOTINE 21 MG/24 HR PATCH TD SCH (18:45)
--- NOTE | 2017-07-28 18:50 | HHI.HP ---
HPI Service [facility] Hospitalists Primary Care Physician Unknown Admission Diagnosis COPD EXACERBATION Diagnoses: Chief Complaint: "I could not breathe" Travel History International Travel<30 Days: No Contact w/Intl Traveler <30 Da: No Traveled to Known Affected Are: No History of Present Illness This is a 58-year-old male with past medical history significant for COPD and schizophrenia who presents to [facility] complaining of worsening shortness of breath associated with cough. Patient states he started developing symptoms approximately 1 week ago and shortness of breath as well as cough Worsening. The patient denies fevers or chills. Patient otherwise denies abdominal pain, nausea, vomiting, diarrhea. Review of Systems As per HPI, other systems reviewed by me and negative. Past Family Social History Past Medical History Paranoid schizophrenia, COPD, anorexia/bulimia. Past Surgical History Patient skin cancer fulguration. Denies any other major surgeries. Reported Medications Reported Meds & Active Scripts Active Duoneb (Ipratropium-Albuterol Neb) 0.5-2.5 Mg/3 Ml Neb 1 Ampule INH Q4HR NEB Symbicort Inh (Budesonide/Formoterol Fumarate) 160-4.5 Mcg/Act Aero 2 Puff INH Q12HR Albuterol Neb (Albuterol Sulfate) 2.5 Mg/3 Ml Neb 2.5 Mg INH Q2HR NEB PRN Thiothixene 10 Mg Cap 10 Mg PO HS Olanzapine 15 Mg Tab 15 Mg PO HS Benztropine (Benztropine Mesylate) 0.5 Mg Tab 2 Mg PO HS Reported Nitrofurantoin Macrocrystal 50 Mg Cap 50 Mg PO BID Megestrol (Megestrol Acetate) 40 Mg Tab 80 Mg PO TID Lisinopril 10 Mg Tab 10 Mg PO DAILY Allergies: Coded Allergies: codeine (Unverified Adverse Reaction, Mild, NAUSEA, 10/25/16) *MDRO Multi-Drug Resistant Organism (Verified Adverse Reaction, Unknown, ) MRSA PCR screen positive 09/20/16 MRSA (sputum) 09/21/16 Active Ordered Medications Current Medications Medications (Trade) Dose Ordered Sig/Durga Route Start Time Stop Time Status Last Admin (NS Flush) 2 ml UNSCH PRN IVF 07/28/17 16:00 (NS Flush) 2 ml BID IV FLUSH 07/28/17 21:00 (NS Flush) 2 ml UNSCH PRN IV FLUSH 07/28/17 18:45 (Albuterol Neb) 2.5 mg Q2HR NEB PRN INH 07/28/17 18:45 Levofloxacin/ Dextrose 150 ml @ 100 mls/hr Q24H IV 07/28/17 20:00 07/28/17 20:20 (Lovenox Inj) 40 mg Q24H SQ 07/28/17 20:00 (SoluMEDROL INJ) 40 mg Q6HR IV PUSH 07/29/17 00:00 (Duoneb Neb) 1 ampule Q4HR WHILE AWAKE NEB NEB 07/28/17 20:00 07/28/17 19:14 (Duoneb Neb) 1 ampule Q2HR NEB PRN NEB 07/28/17 18:45 (Cogentin) 2 mg HS PO 07/28/17 21:00 (Prinivil) 10 mg DAILY PO 07/29/17 09:00 (Megace) 80 mg TID PO 07/29/17 09:00 (ZyPREXA) 15 mg HS PO 07/28/17 21:00 (Navane) 10 mg HS PO 07/28/17 21:00 (Habitrol 21 Mg Patch.24 Hr) 1 patch DAILY T-DERMAL 07/29/17 09:00 Miscellaneous Information 1 HS T-DERMAL 07/28/17 21:00 Family History The patient denies family history of diabetes, cancer or heart disease. Social History The patient states that he is smokes 1 pack per day and has done that for many years. Denies alcohol or illegal drug use. Physical Exam Vital Signs Vital Signs Date Time Temp Pulse Resp B/P (MAP) Pulse Ox O2 Delivery O2 Flow Rate FiO2 07/28/17 16:47 97 Nasal Cannula 3.00 07/28/17 16:11 96 Nasal Cannula 3.00 07/28/17 16:11 96 Nasal Cannula 3.00 07/28/17 15:55 96 21 95 Room Air 07/28/17 15:44 98.0 95 21 117/89 (98) 96 Physical Exam GENERAL: This is a well-nourished, well-developed patient, in no apparent distress. SKIN: No rashes, ecchymoses or lesions. Cool and dry. HEAD: Atraumatic. Normocephalic. No temporal or scalp tenderness. EYES: Pupils equal round and reactive. Extraocular motions intact. No scleral icterus. No injection or drainage. ENT: Nose without bleeding, purulent drainage or septal hematoma. Throat without erythema, tonsillar hypertrophy or exudate. Uvula midline. Airway patent. NECK: Trachea midline. No JVD or lymphadenopathy. Supple, nontender, no meningeal signs. CARDIOVASCULAR: Regular rate and rhythm without murmurs, gallops, or rubs. RESPIRATORY: Diffuse bilateral expiratory wheezing. No rales or rhonchi auscultated. GASTROINTESTINAL: Abdomen soft, non-tender, nondistended. No hepato-splenomegaly , or palpable masses. No guarding. MUSCULOSKELETAL: Extremities without clubbing, cyanosis, or edema. No joint tenderness, effusion, or edema noted. No calf tenderness. Negative Homans sign bilaterally. NEUROLOGICAL: Awake and alert. Cranial nerves II through XII intact. Motor and sensory grossly within normal limits. Five out of 5 muscle strength in all muscle groups. Normal speech. Laboratory Laboratory Tests Test 07/28/17 15:57 07/28/17 16:00 Blood Gas Puncture Site RT RADIAL Blood Gas Patient Temperature 98.6 Blood Gas HCO3 31 Blood Gas Base Excess 5.9 Blood Gas Oxygen Saturation 90 Arterial Blood pH 7.40 Arterial Blood Partial Pressure CO2 51 Arterial Blood Partial Pressure O2 90 Arterial Blood Oxygen Content 19.9 Arterial Blood Carboxyhemoglobin 6.8 Arterial Blood Methemoglobin 0.7 Blood Gas Hemoglobin 15.6 Oxygen Delivery Device NASAL CANNULA Blood Gas Liter Flow 3 White Blood Count 8.0 Red Blood Count 4.90 Hemoglobin 15.0 Hematocrit 45.0 Mean Corpuscular Volume 91.8 Mean Corpuscular Hemoglobin 30.7 Mean Corpuscular Hemoglobin Concent 33.5 Red Cell Distribution Width 13.0 Platelet Count 197 Mean Platelet Volume 8.1 Neutrophils (%) (Auto) 57.5 Lymphocytes (%) (Auto) 30.3 Monocytes (%) (Auto) 9.9 Eosinophils (%) (Auto) 1.7 Basophils (%) (Auto) 0.6 Neutrophils # (Auto) 4.6 Lymphocytes # (Auto) 2.4 Monocytes # (Auto) 0.8 Eosinophils # (Auto) 0.1 Basophils # (Auto) 0.0 CBC Comment AUTO DIFF Differential Comment AUTO DIFF CONFIRMED Platelet Estimate NORMAL Platelet Morphology Comment CLUMPED Prothrombin Time 10.0 Prothromb Time International Ratio 1.0 Activated Partial Thromboplast Time 22.0 Blood Urea Nitrogen 12 Creatinine 0.79 Random Glucose 111 Total Protein 6.6 Albumin 3.5 Calcium Level 8.8 Magnesium Level 2.1 Alkaline Phosphatase 71 Aspartate Amino Transf (AST/SGOT) 22 Alanine Aminotransferase (ALT/SGPT) 19 Total Bilirubin 0.4 Sodium Level 131 Potassium Level 4.1 Chloride Level 95 Carbon Dioxide Level 26.2 Anion Gap 10 Estimat Glomerular Filtration Rate 99 Total Creatine Kinase 105 Creatine Kinase MB 3.8 Troponin I LESS THAN 0.02 Date/Time Source Procedure Growth Status 07/28/17 16:30 Blood Peripheral Aerobic Blood Culture Pending Received 07/28/17 16:30 Blood Peripheral Anaerobic Blood Culture Pending Received 07/28/17 16:00 Nasal Washing Influenza Types A,B Antigen (PIERCE) - Final NEGATIVE FOR FLU A AND B ANTIGEN.... Complete Result Diagram: 07/28/17 1600 07/28/17 1600 Imaging Last Impressions Chest X-Ray 07/28/17 1555 Signed Impressions: Service Date/Time: Friday, July 28, 2017 16:16 - CONCLUSION: 1. Changes suggestive of obstructive pulmonary disease. 2. No acute abnormality. Ron Baltazar MD Chest x-ray reviewed by me. Caprini VTE Risk Assessment Caprini VTE Risk Assessment: Mod/High Risk (score >= 2) Caprini Risk Assessment Model Point Value = 1 Point Value = 2 Point Value = 3 Point Value = 5 Age 41-60 Minor surgery BMI > 25 kg/m2 Swollen legs Varicose veins or History of unexplained or recurrent spontaneous Oral contraceptives or hormone replacement Sepsis (< 1 month) Serious lung disease, including pneumonia (< 1 month) Abnormal pulmonary function Acute myocardial infarction Congestive heart failure (< 1 month) History of inflammatory bowel disease Medical patient at bed rest Age 61-74 Arthroscopic surgery Major open surgery (> 45 min) Laparoscopic surgery (> 45 min) Malignancy Confined to bed (> 72 hours) Immobilizing plaster cast Central venous access Age >= 75 History of VTE Family history of VTE Factor V Leiden Prothrombin [id number] Lupus anticoagulant Anticardiolipin antibodies Elevated serum homocysteine Heparin-induced thrombocytopenia Other congenital or acquired thrombophilia Stroke (< 1 month) Elective arthroplasty Hip, pelvis, or leg fracture Acute spinal cord injury (< 1 month) Prophylaxis Regimen Total Risk Factor Score Risk Level Prophylaxis Regimen 0-1 Low Early ambulation 2 Moderate Order ONE of the following: *Sequential Compression Device (SCD) *Heparin 5000 units SQ BID 3-4 Higher Order ONE of the following medications: *Heparin 5000 units SQ TID *Enoxaparin/Lovenox 40 mg SQ daily (WT < 150 kg, CrCl > 30 mL/min) *Enoxaparin/Lovenox 30 mg SQ daily (WT < 150 kg, CrCl > 10-29 mL/min) *Enoxaparin/Lovenox 30 mg SQ BID (WT < 150 kg, CrCl > 30 mL/min) AND/OR *Sequential Compression Device (SCD) 5 or more Highest Order ONE of the following medications: *Heparin 5000 units SQ TID (Preferred with Epidurals) *Enoxaparin/Lovenox 40 mg SQ daily (WT < 150 kg, CrCl > 30 mL/min) *Enoxaparin/Lovenox 30 mg SQ daily (WT < 150 kg, CrCl > 10-29 mL/min) *Enoxaparin/Lovenox 30 mg SQ BID (WT < 150 kg, CrCl > 30 mL/min) AND *Sequential Compression Device (SCD) Assessment and Plan Problem List: (1) COPD exacerbation ICD Code: J44.1 - Chronic obstructive pulmonary disease with (acute) exacerbation Status: Acute (2) Hyponatremia ICD Code: E87.1 - Hypo-osmolality and hyponatremia Status: Resolved (3) Chronic paranoid schizophrenia ICD Code: F20.0 - Paranoid schizophrenia Status: Acute (4) Tobacco dependence, continuous Status: Chronic Permanent Comment: counseled to quit Last Edited By: Tim Arteaga on Mar 31, 2011 23:08 (5) HTN (hypertension) ICD Code: I10 - Essential (primary) hypertension (6) Anorexia ICD Code: R63.0 - Anorexia Status: Chronic Assessment and Plan Admit the patient to the medical floor Start on Solu-Medrol 125 mg IV once and then 60 mg IV every 6 hours. Start on IV Levaquin. Supplemental oxygen to keep oxygen saturation more than 92% Treated with DuoNeb nebulizer treatments Hyponatremia possibly secondary to dehydration, will place on normal saline. Continue chronic medications for paranoid schizophrenia which seems to be stable. Advised smoking cessation, will start on nicotine patch. Blood pressure seems to be stable. Continue lisinopril. Monitor vital signs Placed on Lovenox subcutaneously for DVT prophylaxis. Continue Megace for anorexia. Code Status Full code Discussed Condition With Patient, ED physician, RN. Physician Certification 2 Midnight Certification Type: Admission for Inpatient Services Order for Inpatient Services The services are ordered in accordance with Medicare regulations or non- Medicare payer requirements, as applicable. In the case of services not specified as inpatient-only, they are appropriately provided as inpatient services in accordance with the 2-midnight benchmark. Estimated LOS (days): 2 days is the estimated time the patient will need to remain in the hospital, assuming treatment plan goals are met and no additional complications. Post-Hospital Plan: Home Stan Gil MD July 28, 2017 18:50
[2017-07-28] MEDS ORDERED: methylPREDNISolone SOD SUCC 125 MG/2 ML VIAL IV PUSH ONE (19:00)
[2017-07-28] MEDS: RESP: ALBUTEROL 2.5 MG/IPRATROPIUM 0.5 MG NEB (SCH) NEB (19:14)
[2017-07-28] MEDS ORDERED: LEVOFLOXACIN 750 MG PREMIX INJ 150 ML IV SCH (20:00)
[2017-07-28] MEDS: REMOVE OLD NICODERM (NICOTINE) PATCH T-DERMAL SCH (21:00)
[2017-07-28] MEDS: ENOXAPARIN SODIUM 40 MG/0.4 ML SYRINGE SQ SCH (21:49)
[2017-07-28] MEDS: THIOTHIXENE 10 MG CAP PO SCH (23:52)
[2017-07-28] MEDS: BENZTROPINE MESYLATE 1 MG TAB PO SCH (23:52)
[2017-07-28] MEDS: SODIUM CHLORIDE 0.9% FLUSH 10 ML FLUSH IV FLUSH SCH (23:53)
[2017-07-28] MEDS: methylPREDNISolone SOD SUCC 40 MG/1 ML VIAL IV PUSH SCH (23:55)
[2017-07-29 00:01] VITALS: BP 120/67; PULSE 88; RESP 17; TEMP 98.2; O2SAT 93
[2017-07-29 04:00] VITALS: BP 137/73; PULSE 93; RESP 18; TEMP 98.3; O2SAT 94
[2017-07-29] MEDS: methylPREDNISolone SOD SUCC 40 MG/1 ML VIAL IV PUSH SCH ×3 (05:19→17:14)
[2017-07-29 07:38] VITALS: O2SAT 93
[2017-07-29] MEDS: RESP: ALBUTEROL 2.5 MG/IPRATROPIUM 0.5 MG NEB (SCH) NEB ×4 (07:38→19:48)
[2017-07-29 08:00] VITALS: BP 141/75; PULSE 93; RESP 18; TEMP 97.2; O2SAT 97
[2017-07-29 08:28] LABS: AUTOMATED NEUTROPHIL # 4.3 TH/MM3 (1.8-7.7); BASOPHIL % 0.2 % (0.0-2.0); HEMATOCRIT 45.2 % (39.0-51.0); LYMPH % 7.6 % (9.0-44.0); LYMPHOCYTE # 0.4 TH/MM3 (1.0-4.8); MEAN CELL VOLUME 92.1 FL (80.0-100.0); MEAN CORPUSCULAR HEMOGLOBIN 30.5 PG (27.0-34.0); MEAN CORPUSCULAR HGB CONC 33.2 % (32.0-36.0); MEAN PLATELET VOLUME 7.7 FL (7.0-11.0); MONO % 5.6 % (0.0-8.0); MONOCYTE # 0.3 TH/MM3 (0-0.9); NEUT % 86.6 % (16.0-70.0); PLATELET COUNT 200 TH/MM3 (150-450)
[2017-07-29] MEDS: LISINOPRIL 10 MG TAB PO SCH (08:43)
[2017-07-29] MEDS: MEGESTROL ACETATE 40 MG TAB PO SCH ×3 (08:44→17:10)
[2017-07-29] MEDS: SODIUM CHLORIDE 0.9% FLUSH 10 ML FLUSH IV FLUSH SCH ×2 (08:44→21:33)
[2017-07-29] MEDS: NICOTINE 21 MG/24 HR PATCH T-DERMAL SCH (08:44)
[2017-07-29 08:47] LABS: BICARBONATE 29.4 MEQ/L (21.0-32.0); CALCIUM 8.9 MG/DL (8.5-10.1); CREATININE 0.68 MG/DL (0.60-1.30)
[2017-07-29] MEDS ORDERED: INFLUENZA VIRUS VACCINE (QUADRIVALENT) 0.5 ML SYR IM ONE (10:00)
[2017-07-29 12:00] VITALS: BP 131/78; PULSE 81; RESP 18; TEMP 97.8; O2SAT 95
--- NOTE | 2017-07-29 13:55 | EKG ---
Date Performed: 07/28/2017 Time Performed: 15:56:24 PTAGE: 61 years EKG: SINUS TACHYCARDIA WITH FREQUENT VENTRICULAR PREMATURE COMPLEXES IN A BIGEMINAL PATTERN BORD LEONEL RIGHT AXIS DEVIATION ANTEROSEPTAL MYOCARDIAL INFARCTION ABNORMAL ECG PREVIOUS TRACING : 09/20/2016 16.21 Since the previous tracing, no significant change noted DOCTOR: Jaret Bird Interpretating Date/Time 07/29/2017 13:51:51
[2017-07-29 16:00] VITALS: BP 119/68; PULSE 88; RESP 18; TEMP 97.9; O2SAT 97
--- NOTE | 2017-07-29 18:12 | HHI.PR ---
Subjective Remarks Patient reports breathing is much better asking for double portions of food Objective Vitals Vital Signs Date Time Temp Pulse Resp B/P (MAP) Pulse Ox O2 Delivery O2 Flow Rate FiO2 07/29/17 15:02 Nasal Cannula 1.00 07/29/17 12:00 97.8 81 18 131/78 (95) 95 07/29/17 08:00 97.2 93 18 141/75 (97) 97 07/29/17 07:38 93 Nasal Cannula 2.00 07/29/17 04:00 98.3 93 18 137/73 (94) 94 07/29/17 00:01 98.2 88 17 120/67 (84) 93 07/28/17 20:35 97.7 93 18 136/91 (106) 95 07/28/17 20:00 88 22 125/62 (83) 96 Nasal Cannula 3.00 07/28/17 19:16 96 Nasal Cannula 3.00 07/28/17 19:00 86 24 119/59 (79) 96 Nasal Cannula 3.00 07/28/17 18:45 88 22 137/69 (91) 97 Nasal Cannula 3.00 I/O 07/28/17 07/28/17 07/28/17 07/29/17 07/29/17 07/29/17 07:00 15:00 23:00 07:00 15:00 23:00 Intake Total 420 ml Output Total 500 ml Balance -80 ml Intake Oral 420 ml Output Urine Total 500 ml # Bowel Movements 0 Result Diagram: 07/29/17 0746 07/29/17 0746 Other Results Laboratory Tests Test 07/28/17 15:57 07/28/17 16:00 07/29/17 07:46 Blood Gas Puncture Site RT RADIAL Blood Gas Patient Temperature 98.6 Blood Gas HCO3 31 mmol/L Blood Gas Base Excess 5.9 mmol/L Blood Gas Oxygen Saturation 90 % Arterial Blood pH 7.40 Arterial Blood Partial Pressure CO2 51 mmHg Arterial Blood Partial Pressure O2 90 mmHG Arterial Blood Oxygen Content 19.9 Vol % Arterial Blood Carboxyhemoglobin 6.8 % Arterial Blood Methemoglobin 0.7 % Blood Gas Hemoglobin 15.6 G/DL Oxygen Delivery Device NASAL CANNULA Blood Gas Liter Flow 3 L/M White Blood Count 8.0 TH/MM3 5.0 TH/MM3 Red Blood Count 4.90 MIL/MM3 4.90 MIL/MM3 Hemoglobin 15.0 GM/DL 15.0 GM/DL Hematocrit 45.0 % 45.2 % Mean Corpuscular Volume 91.8 FL 92.1 FL Mean Corpuscular Hemoglobin 30.7 PG 30.5 PG Mean Corpuscular Hemoglobin Concent 33.5 % 33.2 % Red Cell Distribution Width 13.0 % 13.0 % Platelet Count 197 TH/MM3 200 TH/MM3 Mean Platelet Volume 8.1 FL 7.7 FL Neutrophils (%) (Auto) 57.5 % 86.6 % Lymphocytes (%) (Auto) 30.3 % 7.6 % Monocytes (%) (Auto) 9.9 % 5.6 % Eosinophils (%) (Auto) 1.7 % 0.0 % Basophils (%) (Auto) 0.6 % 0.2 % Neutrophils # (Auto) 4.6 TH/MM3 4.3 TH/MM3 Lymphocytes # (Auto) 2.4 TH/MM3 0.4 TH/MM3 Monocytes # (Auto) 0.8 TH/MM3 0.3 TH/MM3 Eosinophils # (Auto) 0.1 TH/MM3 0.0 TH/MM3 Basophils # (Auto) 0.0 TH/MM3 0.0 TH/MM3 CBC Comment AUTO DIFF DIFF FINAL Differential Comment AUTO DIFF CONFIRMED Platelet Estimate NORMAL Platelet Morphology Comment CLUMPED Prothrombin Time 10.0 SEC Prothromb Time International Ratio 1.0 RATIO Activated Partial Thromboplast Time 22.0 SEC Blood Urea Nitrogen 12 MG/DL 16 MG/DL Creatinine 0.79 MG/DL 0.68 MG/DL Random Glucose 111 MG/DL 94 MG/DL Total Protein 6.6 GM/DL Albumin 3.5 GM/DL Calcium Level 8.8 MG/DL 8.9 MG/DL Magnesium Level 2.1 MG/DL Alkaline Phosphatase 71 U/L Aspartate Amino Transf (AST/SGOT) 22 U/L Alanine Aminotransferase (ALT/SGPT) 19 U/L Total Bilirubin 0.4 MG/DL Sodium Level 131 MEQ/L 135 MEQ/L Potassium Level 4.1 MEQ/L 4.3 MEQ/L Chloride Level 95 MEQ/L 97 MEQ/L Carbon Dioxide Level 26.2 MEQ/L 29.4 MEQ/L Anion Gap 10 MEQ/L 9 MEQ/L Estimat Glomerular Filtration Rate 99 ML/MIN 118 ML/MIN Total Creatine Kinase 105 U/L Creatine Kinase MB 3.8 NG/ML Troponin I LESS THAN 0.02 NG/ML Imaging Last Impressions Chest X-Ray 07/28/17 1555 Signed Impressions: Service Date/Time: Friday, July 28, 2017 16:16 - CONCLUSION: 1. Changes suggestive of obstructive pulmonary disease. 2. No acute abnormality. Ron Baltazar MD Objective Remarks GENERAL: This is a thin, well-developed patient, in no apparent distress. CARDIOVASCULAR: Regular rate and rhythm RESPIRATORY: Clear to auscultation. Breath sounds equal bilaterally. GASTROINTESTINAL: Abdomen soft, non-tender, nondistended. Normal active bowel sounds MUSCULOSKELETAL: Extremities without clubbing, cyanosis, or edema. NEURO: Alert & Oriented x4 to person, place, time, situation. Moves all ext x4 A/P Problem List: (1) COPD exacerbation ICD Code: J44.1 - Chronic obstructive pulmonary disease with (acute) exacerbation Status: Acute (2) Hyponatremia ICD Code: E87.1 - Hypo-osmolality and hyponatremia Status: Resolved (3) Chronic paranoid schizophrenia ICD Code: F20.0 - Paranoid schizophrenia Status: Acute (4) Tobacco dependence, continuous Status: Chronic Permanent Comment: counseled to quit Last Edited By: Tim Arteaga on Mar 31, 2011 23:08 (5) HTN (hypertension) ICD Code: I10 - Essential (primary) hypertension (6) Anorexia ICD Code: R63.0 - Anorexia Status: Chronic Assessment and Plan Admit the patient to the medical floor given Solu-Medrol 125 mg IV once and then 60 mg IV every 6 hours, change to prednisone 30 mg PO BID Start on IV Levaquin, change to PO Supplemental oxygen to keep oxygen saturation more than 92% Treated with DuoNeb nebulizer treatments Hyponatremia possibly secondary to dehydration, will place on normal saline. Continue chronic medications for paranoid schizophrenia which seems to be stable. Advised smoking cessation, will start on nicotine patch. Blood pressure seems to be stable. Continue lisinopril. Monitor vital signs Placed on Lovenox subcutaneously for DVT prophylaxis. Megace to 40 mg TID Supervising physician Danna Dior July 29, 2017 18:12
[2017-07-29] MEDS: predniSONE 10 MG TAB PO SCH (21:29)
[2017-07-29] MEDS: BENZTROPINE MESYLATE 1 MG TAB PO SCH (21:29)
[2017-07-29] MEDS: THIOTHIXENE 10 MG CAP PO SCH (21:29)
[2017-07-29] MEDS: ENOXAPARIN SODIUM 40 MG/0.4 ML SYRINGE SQ SCH (21:30)
[2017-07-29] MEDS: REMOVE OLD NICODERM (NICOTINE) PATCH T-DERMAL SCH (21:30)
[2017-07-29] MEDS: LEVOFLOXACIN 500 MG TAB PO SCH (21:32)
[2017-07-30] VITALS (8 sets, daily range): BP systolic 133–145; BP diastolic 67–84; PULSE 74–110; RESP 18; TEMP 97.4–98; O2SAT 92–98
[2017-07-30] MEDS: RESP: ALBUTEROL 2.5 MG/IPRATROPIUM 0.5 MG NEB (SCH) NEB ×4 (07:42→20:01)
[2017-07-30] MEDS: SODIUM CHLORIDE 0.9% FLUSH 10 ML FLUSH IV FLUSH SCH ×2 (08:51→19:27)
[2017-07-30] MEDS: LEVOFLOXACIN 500 MG TAB PO SCH (08:52)
[2017-07-30] MEDS: predniSONE 10 MG TAB PO SCH ×2 (08:52→19:26)
[2017-07-30] MEDS: MEGESTROL ACETATE 40 MG TAB PO SCH ×3 (08:53→17:59)
[2017-07-30] MEDS: NICOTINE 21 MG/24 HR PATCH T-DERMAL SCH (08:54)
[2017-07-30] MEDS: LISINOPRIL 10 MG TAB PO SCH (08:54)
[2017-07-30] MEDS ORDERED: LEVA500T33 PO (11:11)
[2017-07-30] MEDS ORDERED: PRED10 PO (11:18)
--- NOTE | 2017-07-30 11:26 | HHI.FF ---
Face to Face Verification Diagnosis: (1) Tobacco dependence, continuous (2) Hyponatremia (3) COPD exacerbation Home Health Nursing Order: Medical education Signs/symptoms of disease process Medication education-adverse effect Nursing assessment with vital signs I have seen patient Gerberkecia Freda Ellsworth Jr on 07/30/17. My clinical findings support the need for the requested home health care services because: Med compliance is questionable Limited ability to care for self I certify that my clinical findings support that this patient is homebound because: Impaired cognitive ability/safety Danna Friedman July 30, 2017 11:26
[2017-07-30] MEDS ORDERED: methylPREDNISolone SOD SUCC 40 MG/1 ML VIAL IV PUSH ONE (11:30)
--- NOTE | 2017-07-30 15:58 | HHI.PR ---
Subjective Remarks Patient reports breathing is, "a little better than yesterday." Objective Vitals Vital Signs Date Time Temp Pulse Resp B/P (MAP) Pulse Ox O2 Delivery O2 Flow Rate FiO2 07/30/17 12:00 97.5 110 18 142/78 (99) 98 07/30/17 08:00 97.5 81 18 133/67 (89) 95 07/30/17 07:42 92 21 07/30/17 04:00 97.7 74 18 136/84 (101) 95 07/30/17 00:00 97.4 83 18 134/78 (96) 95 07/29/17 21:32 Room Air 07/29/17 16:00 97.9 88 18 119/68 (85) 97 I/O 07/29/17 07/29/17 07/29/17 07/30/17 07/30/17 07/30/17 07:00 15:00 23:00 07:00 15:00 23:00 Intake Total 420 ml 700 ml 480 ml Output Total 500 ml 600 ml Balance -80 ml 700 ml -120 ml Intake Oral 420 ml 700 ml 480 ml Output Urine Total 500 ml 600 ml # Voids 3 # Bowel Movements 0 Result Diagram: 07/29/17 0746 07/29/17 0746 Other Results Laboratory Tests Test 07/28/17 15:57 07/28/17 16:00 07/29/17 07:46 Blood Gas Puncture Site RT RADIAL Blood Gas Patient Temperature 98.6 Blood Gas HCO3 31 mmol/L Blood Gas Base Excess 5.9 mmol/L Blood Gas Oxygen Saturation 90 % Arterial Blood pH 7.40 Arterial Blood Partial Pressure CO2 51 mmHg Arterial Blood Partial Pressure O2 90 mmHG Arterial Blood Oxygen Content 19.9 Vol % Arterial Blood Carboxyhemoglobin 6.8 % Arterial Blood Methemoglobin 0.7 % Blood Gas Hemoglobin 15.6 G/DL Oxygen Delivery Device NASAL CANNULA Blood Gas Liter Flow 3 L/M White Blood Count 8.0 TH/MM3 5.0 TH/MM3 Red Blood Count 4.90 MIL/MM3 4.90 MIL/MM3 Hemoglobin 15.0 GM/DL 15.0 GM/DL Hematocrit 45.0 % 45.2 % Mean Corpuscular Volume 91.8 FL 92.1 FL Mean Corpuscular Hemoglobin 30.7 PG 30.5 PG Mean Corpuscular Hemoglobin Concent 33.5 % 33.2 % Red Cell Distribution Width 13.0 % 13.0 % Platelet Count 197 TH/MM3 200 TH/MM3 Mean Platelet Volume 8.1 FL 7.7 FL Neutrophils (%) (Auto) 57.5 % 86.6 % Lymphocytes (%) (Auto) 30.3 % 7.6 % Monocytes (%) (Auto) 9.9 % 5.6 % Eosinophils (%) (Auto) 1.7 % 0.0 % Basophils (%) (Auto) 0.6 % 0.2 % Neutrophils # (Auto) 4.6 TH/MM3 4.3 TH/MM3 Lymphocytes # (Auto) 2.4 TH/MM3 0.4 TH/MM3 Monocytes # (Auto) 0.8 TH/MM3 0.3 TH/MM3 Eosinophils # (Auto) 0.1 TH/MM3 0.0 TH/MM3 Basophils # (Auto) 0.0 TH/MM3 0.0 TH/MM3 CBC Comment AUTO DIFF DIFF FINAL Differential Comment AUTO DIFF CONFIRMED Platelet Estimate NORMAL Platelet Morphology Comment CLUMPED Prothrombin Time 10.0 SEC Prothromb Time International Ratio 1.0 RATIO Activated Partial Thromboplast Time 22.0 SEC Blood Urea Nitrogen 12 MG/DL 16 MG/DL Creatinine 0.79 MG/DL 0.68 MG/DL Random Glucose 111 MG/DL 94 MG/DL Total Protein 6.6 GM/DL Albumin 3.5 GM/DL Calcium Level 8.8 MG/DL 8.9 MG/DL Magnesium Level 2.1 MG/DL Alkaline Phosphatase 71 U/L Aspartate Amino Transf (AST/SGOT) 22 U/L Alanine Aminotransferase (ALT/SGPT) 19 U/L Total Bilirubin 0.4 MG/DL Sodium Level 131 MEQ/L 135 MEQ/L Potassium Level 4.1 MEQ/L 4.3 MEQ/L Chloride Level 95 MEQ/L 97 MEQ/L Carbon Dioxide Level 26.2 MEQ/L 29.4 MEQ/L Anion Gap 10 MEQ/L 9 MEQ/L Estimat Glomerular Filtration Rate 99 ML/MIN 118 ML/MIN Total Creatine Kinase 105 U/L Creatine Kinase MB 3.8 NG/ML Troponin I LESS THAN 0.02 NG/ML Imaging Last Impressions Chest X-Ray 07/28/17 1555 Signed Impressions: Service Date/Time: Friday, July 28, 2017 16:16 - CONCLUSION: 1. Changes suggestive of obstructive pulmonary disease. 2. No acute abnormality. Ron Baltazar MD Objective Remarks GENERAL: This is a thin, well-developed patient, in no apparent distress. CARDIOVASCULAR: Regular rate and rhythm RESPIRATORY: decreased with scattered expiratory wheezing GASTROINTESTINAL: Abdomen soft, non-tender, nondistended. Normal active bowel sounds MUSCULOSKELETAL: Extremities without clubbing, cyanosis, or edema. NEURO: Alert & Oriented. Moves all ext x4 A/P Problem List: (1) COPD exacerbation ICD Code: J44.1 - Chronic obstructive pulmonary disease with (acute) exacerbation Status: Acute (2) Hyponatremia ICD Code: E87.1 - Hypo-osmolality and hyponatremia Status: Resolved (3) Chronic paranoid schizophrenia ICD Code: F20.0 - Paranoid schizophrenia Status: Acute (4) Tobacco dependence, continuous Status: Chronic Permanent Comment: counseled to quit Last Edited By: Tim Arteaga on Mar 31, 2011 23:08 (5) HTN (hypertension) ICD Code: I10 - Essential (primary) hypertension (6) Anorexia ICD Code: R63.0 - Anorexia Status: Chronic Assessment and Plan Admit the patient to the medical floor given Solu-Medrol 125 mg IV once and then 60 mg IV every 6 hours, change to prednisone 30 mg PO BID (07/30) patient with expiratory wheezing and decreased air movement with give Solu-Medrol 40 mg IV 1 continue p.o. prednisone, add EZ Pap, IS and Mucinex Start on IV Levaquin, change to PO Supplemental oxygen to keep oxygen saturation more than 92% Treated with DuoNeb nebulizer treatments Hyponatremia possibly secondary to dehydration, will place on normal saline. Continue chronic medications for paranoid schizophrenia which seems to be stable. Advised smoking cessation, will start on nicotine patch. Blood pressure seems to be stable. Continue lisinopril. Monitor vital signs Placed on Lovenox subcutaneously for DVT prophylaxis. Megace to 40 mg TID Supervising physician Danna Dior July 30, 2017 15:58
[2017-07-30] MEDS: BENZTROPINE MESYLATE 1 MG TAB PO SCH (19:25)
[2017-07-30] MEDS: THIOTHIXENE 10 MG CAP PO SCH (19:26)
[2017-07-30] MEDS: ENOXAPARIN SODIUM 40 MG/0.4 ML SYRINGE SQ SCH (19:26)
[2017-07-30] MEDS: guaiFENesin E.R. 600 MG TAB PO SCH (19:26)
[2017-07-30] MEDS: REMOVE OLD NICODERM (NICOTINE) PATCH T-DERMAL SCH (19:32)
[2017-07-31] VITALS: BP 126/71; PULSE 82; RESP 18; TEMP 98; O2SAT 93
[2017-07-31 03:50] VITALS: BP 143/77; PULSE 72; RESP 18; TEMP 98.5; O2SAT 92
[2017-07-31 08:00] VITALS: BP 151/91; PULSE 60; RESP 20; TEMP 97.9; O2SAT 94
[2017-07-31] MEDS: RESP: ALBUTEROL 2.5 MG/IPRATROPIUM 0.5 MG NEB (SCH) NEB ×3 (08:05→16:02)
[2017-07-31 08:08] VITALS: O2SAT 93
[2017-07-31] MEDS: LISINOPRIL 10 MG TAB PO SCH (09:00)
[2017-07-31] MEDS: guaiFENesin E.R. 600 MG TAB PO SCH (09:00)
[2017-07-31] MEDS: MEGESTROL ACETATE 40 MG TAB PO SCH ×2 (09:00→12:25)
[2017-07-31] MEDS: predniSONE 10 MG TAB PO SCH (09:11)
[2017-07-31] MEDS: LEVOFLOXACIN 500 MG TAB PO SCH (09:11)
[2017-07-31] MEDS: SODIUM CHLORIDE 0.9% FLUSH 10 ML FLUSH IV FLUSH SCH (09:13)
[2017-07-31] MEDS: NICOTINE 21 MG/24 HR PATCH T-DERMAL SCH (09:15)
[2017-07-31 11:19] LABS: AUTOMATED NEUTROPHIL # 8.7 TH/MM3 (1.8-7.7); BASOPHIL % 0.1 % (0.0-2.0); HEMATOCRIT 44.2 % (39.0-51.0); HEMOGLOBIN 14.8 GM/DL (13.0-17.0); LYMPH % 11.9 % (9.0-44.0); LYMPHOCYTE # 1.3 TH/MM3 (1.0-4.8); MEAN CELL VOLUME 91.6 FL (80.0-100.0); MEAN CORPUSCULAR HEMOGLOBIN 30.8 PG (27.0-34.0); MEAN CORPUSCULAR HGB CONC 33.6 % (32.0-36.0); MEAN PLATELET VOLUME 7.5 FL (7.0-11.0); MONO % 8.1 % (0.0-8.0); MONOCYTE # 0.9 TH/MM3 (0-0.9); NEUT % 79.9 % (16.0-70.0); PLATELET COUNT 222 TH/MM3 (150-450); RED BLOOD COUNT 4.82 MIL/MM3 (4.50-5.90); RED CELL DISTRIBUTION WIDTH 13.3 % (11.6-17.2); WHITE BLOOD COUNT 10.8 TH/MM3 (4.0-11.0)
[2017-07-31 11:41] LABS: ALBUMIN 3.2 GM/DL (3.4-5.0); ALT (GPT) 19 U/L (12-78); AST (GOT) 11 U/L (15-37); BICARBONATE 32.7 MEQ/L (21.0-32.0); BLOOD UREA NITROGEN 16 MG/DL (7-18); CALCIUM 8.8 MG/DL (8.5-10.1); CHLORIDE 98 MEQ/L (98-107); CREATININE 0.73 MG/DL (0.60-1.30); GLOMERULAR FILTRATION RATE 109 ML/MIN (>89); GLUCOSE,RANDOM 79 MG/DL (74-106); MAGNESIUM 2.1 MG/DL (1.5-2.5); PHOSPHORUS 2.9 MG/DL (2.5-4.9); SODIUM (NA) 136 MEQ/L (136-145)
[2017-07-31 11:42] LABS: ALKALINE PHOSPHATASE 64 U/L (45-117); TOTAL BILIRUBIN ADULT 0.3 MG/DL (0.2-1.0); TOTAL PROTEIN 6.3 GM/DL (6.4-8.2)
[2017-07-31 12:00] VITALS: BP 148/85; PULSE 70; RESP 20; TEMP 98.5; O2SAT 92
--- NOTE | 2017-07-31 13:37 | HHI.PR ---
Subjective Remarks This is a 58-year-old male with past medical history significant for COPD and schizophrenia who presents to [facility] complaining of worsening shortness of breath associated with cough. Patient states he started developing symptoms approximately 1 week ago and shortness of breath as well as cough Worsening. The patient denies fevers or chills. Patient otherwise denies abdominal pain, nausea, vomiting, diarrhea. 07-29 Patient reports breathing is much better asking for double portions of food - Patient reports breathing is, "a little better than yesterday." - wants to go home today states he feel better dc to home today Objective Vitals Vital Signs Date Time Temp Pulse Resp B/P (MAP) Pulse Ox O2 Delivery O2 Flow Rate FiO2 07/31/17 08:08 93 07/31/17 08:00 97.9 60 20 151/91 (111) 94 07/31/17 08:00 94 Room Air 07/31/17 03:50 98.5 72 18 143/77 (99) 92 07/31/17 00:00 98.0 82 18 126/71 (89) 93 07/30/17 20:04 93 21 07/30/17 19:05 97.6 93 18 145/81 (102) 92 07/30/17 16:00 98.0 109 18 135/77 (96) 93 I/O 07/30/17 07/30/17 07/30/17 07/31/17 07/31/17 07/31/17 07:00 15:00 23:00 07:00 15:00 23:00 Intake Total 480 ml 600 ml Output Total 600 ml Balance -120 ml 600 ml Intake Oral 480 ml 600 ml Output Urine Total 600 ml # Bowel Movements 1 Result Diagram: 07/31/17 1045 07/31/17 1045 Other Results Laboratory Tests Test 07/28/17 15:57 07/28/17 16:00 07/29/17 07:46 07/31/17 10:45 Blood Gas Puncture Site RT RADIAL Blood Gas Patient Temperature 98.6 Blood Gas HCO3 31 mmol/L Blood Gas Base Excess 5.9 mmol/L Blood Gas Oxygen Saturation 90 % Arterial Blood pH 7.40 Arterial Blood Partial Pressure CO2 51 mmHg Arterial Blood Partial Pressure O2 90 mmHG Arterial Blood Oxygen Content 19.9 Vol % Arterial Blood Carboxyhemoglobin 6.8 % Arterial Blood Methemoglobin 0.7 % Blood Gas Hemoglobin 15.6 G/DL Oxygen Delivery Device NASAL CANNULA Blood Gas Liter Flow 3 L/M White Blood Count 8.0 TH/MM3 5.0 TH/MM3 10.8 TH/MM3 Red Blood Count 4.90 MIL/MM3 4.90 MIL/MM3 4.82 MIL/MM3 Hemoglobin 15.0 GM/DL 15.0 GM/DL 14.8 GM/DL Hematocrit 45.0 % 45.2 % 44.2 % Mean Corpuscular Volume 91.8 FL 92.1 FL 91.6 FL Mean Corpuscular Hemoglobin 30.7 PG 30.5 PG 30.8 PG Mean Corpuscular Hemoglobin Concent 33.5 % 33.2 % 33.6 % Red Cell Distribution Width 13.0 % 13.0 % 13.3 % Platelet Count 197 TH/MM3 200 TH/MM3 222 TH/MM3 Mean Platelet Volume 8.1 FL 7.7 FL 7.5 FL Neutrophils (%) (Auto) 57.5 % 86.6 % 79.9 % Lymphocytes (%) (Auto) 30.3 % 7.6 % 11.9 % Monocytes (%) (Auto) 9.9 % 5.6 % 8.1 % Eosinophils (%) (Auto) 1.7 % 0.0 % 0.0 % Basophils (%) (Auto) 0.6 % 0.2 % 0.1 % Neutrophils # (Auto) 4.6 TH/MM3 4.3 TH/MM3 8.7 TH/MM3 Lymphocytes # (Auto) 2.4 TH/MM3 0.4 TH/MM3 1.3 TH/MM3 Monocytes # (Auto) 0.8 TH/MM3 0.3 TH/MM3 0.9 TH/MM3 Eosinophils # (Auto) 0.1 TH/MM3 0.0 TH/MM3 0.0 TH/MM3 Basophils # (Auto) 0.0 TH/MM3 0.0 TH/MM3 0.0 TH/MM3 CBC Comment AUTO DIFF DIFF FINAL DIFF FINAL Differential Comment AUTO DIFF CONFIRMED Platelet Estimate NORMAL Platelet Morphology Comment CLUMPED Prothrombin Time 10.0 SEC Prothromb Time International Ratio 1.0 RATIO Activated Partial Thromboplast Time 22.0 SEC Blood Urea Nitrogen 12 MG/DL 16 MG/DL 16 MG/DL Creatinine 0.79 MG/DL 0.68 MG/DL 0.73 MG/DL Random Glucose 111 MG/DL 94 MG/DL 79 MG/DL Total Protein 6.6 GM/DL 6.3 GM/DL Albumin 3.5 GM/DL 3.2 GM/DL Calcium Level 8.8 MG/DL 8.9 MG/DL 8.8 MG/DL Magnesium Level 2.1 MG/DL 2.1 MG/DL Alkaline Phosphatase 71 U/L 64 U/L Aspartate Amino Transf (AST/SGOT) 22 U/L 11 U/L Alanine Aminotransferase (ALT/SGPT) 19 U/L 19 U/L Total Bilirubin 0.4 MG/DL 0.3 MG/DL Sodium Level 131 MEQ/L 135 MEQ/L 136 MEQ/L Potassium Level 4.1 MEQ/L 4.3 MEQ/L 4.1 MEQ/L Chloride Level 95 MEQ/L 97 MEQ/L 98 MEQ/L Carbon Dioxide Level 26.2 MEQ/L 29.4 MEQ/L 32.7 MEQ/L Anion Gap 10 MEQ/L 9 MEQ/L 5 MEQ/L Estimat Glomerular Filtration Rate 99 ML/MIN 118 ML/MIN 109 ML/MIN Total Creatine Kinase 105 U/L Creatine Kinase MB 3.8 NG/ML Troponin I LESS THAN 0.02 NG/ML Phosphorus Level 2.9 MG/DL Imaging Last Impressions Chest X-Ray 07/28/17 9974 Signed Impressions: Service Date/Time: Friday, July 28, 2017 16:16 - CONCLUSION: 1. Changes suggestive of obstructive pulmonary disease. 2. No acute abnormality. Ron Baltazar MD Objective Remarks GENERAL: AWAKE ALERT AND ORIENTED X3 TALKATIVE AND COOPERATIVE- WANTS TO GO HOME SKIN: Warm and dry. HEAD: Atraumatic. Normocephalic. EYES: Pupils equal and round. No scleral icterus. No injection or drainage. ENT: No nasal bleeding or discharge. Mucous membranes pink and moist. NECK: Trachea midline. No JVD. CARDIOVASCULAR: Regular rate and rhythm. S1. S2 NO S3 OR S4 RESPIRATORY: No accessory muscle use. Breath sounds equal bilaterally. RHONCHI AND WHEEZE BL GASTROINTESTINAL: Abdomen soft, non-tender, nondistended. Hepatic and splenic margins not palpable. MUSCULOSKELETAL: Extremities without clubbing, cyanosis, or edema. No obvious deformities. NEUROLOGICAL: Awake and alert. No obvious cranial nerve deficits. Motor grossly within normal limits. Five out of 5 muscle strength in the arms and legs. Normal speech. PSYCHIATRIC: INAppropriate mood and affect; insight and judgment ABnormal. Procedures none Medications and IVs Current Medications Sodium Chloride (NS Flush) 2 ml UNSCH PRN IVF FLUSH AFTER USING IV ACCESS; Start 07/28/17 at 16:00; Stop 07/29/17 at 13:17; Status DC Albuterol/ Ipratropium (Duoneb Neb) 1 ampule Q15M INH Last administered on 07/28at 16:46; Start 07/28/17 at 16:45; Stop 07/28/17 at 17:16; Status DC Sodium Chloride (NS Flush) 2 ml BID IV FLUSH Last administered on 07/31/17at 09: 13; Start 07/28/17 at 21:00 Sodium Chloride (NS Flush) 2 ml UNSCH PRN IV FLUSH FLUSH AFTER USING IV ACCESS ; Start 07/28/17 at 18:45 Albuterol Sulfate (Albuterol Neb) 2.5 mg Q2HR NEB PRN INH SHORTNESS OF BREATH; Start 07/28/17 at 18:45 Nicotine (Habitrol 21 Mg Patch.24 Hr) 1 patch DAILY TD ; Start 07/28/17 at 18:45 ; Stop 07/28/17 at 19:05; Status DC Levofloxacin/ Dextrose 150 ml @ 100 mls/hr Q24H IV Last administered on at 20:20; Start 07/28/17 at 20:00; Stop 07/29/17 at 18:09; Status DC Enoxaparin Sodium (Lovenox Inj) 40 mg Q24H SQ Last administered on 07/30/17at 19 :26; Start 07/28/17 at 20:00 Methylprednisolone Sodium Succinate (SoluMEDROL INJ) 125 mg ONCE ONCE IV PUSH ; Start 07/28/17 at 19:00; Stop 07/28/17 at 19:03; Status DC Methylprednisolone Sodium Succinate (SoluMEDROL INJ) 40 mg Q6HR IV PUSH Last administered on 07/29/17at 17:14; Start 07/29/17 at 00:00; Stop 07/29/17 at 23:00 ; Status DC Albuterol/ Ipratropium (Duoneb Neb) 1 ampule Q4HR WHILE AWAKE NEB NEB Last administered on 07/31/17at 11:22; Start 07/28/17 at 20:00 Albuterol/ Ipratropium (Duoneb Neb) 1 ampule Q2HR NEB PRN NEB SOB/WHEEZING; Start 07/28/17 at 18:45 Benztropine Mesylate (Cogentin) 2 mg HS PO Last administered on 07/30/17at 19:25 ; Start 07/28/17 at 21:00 Lisinopril (Prinivil) 10 mg DAILY PO ; Start 07/29/17 at 09:00 Megestrol Acetate (Megace) 80 mg TID PO ; Start 07/29/17 at 09:00; Stop at 18:10; Status DC Olanzapine (ZyPREXA) 15 mg HS PO Last administered on 07/30/17 19:25; Start at 21:00 Thiothixene (Navane) 10 mg HS PO Last administered on 07/30/17at 19:26; Start at 21:00 Nicotine (Habitrol 21 Mg Patch.24 Hr) 1 patch DAILY T-DERMAL Last administered on 07/31/17at 09:15; Start 07/29/17 at 09:00 Miscellaneous Information 1 HS T-DERMAL Last administered on 07/30/17at 19:32; Start 07/28/17 at 21:00 Influenza Virus Vaccine (Flu (Quadrivalent) Vaccine Inj) 0.5 ml ONCE ONCE IM Last administered on 07/29/17at 11:10; Start 07/29/17 at 10:00; Stop 07/29/17 at 10:01; Status DC Levofloxacin (Levaquin) 500 mg DAILY PO Last administered on 07/31/17at 09:11; Start 07/29/17 at 20:00 Prednisone (Deltasone) 30 mg BID PO Last administered on 07/31/17at 09:11; Start 07/29/17 at 21:00 Megestrol Acetate (Megace) 40 mg TID PO ; Start 07/30/17 at 09:00 Methylprednisolone Sodium Succinate (SoluMEDROL INJ) 40 mg ONCE ONCE IV PUSH Last administered on 07/30/17at 12:30; Start 07/30/17 at 11:30; Stop 07/30/17 at 11:44; Status DC Guaifenesin (Mucinex Er) 1,200 mg BID PO ; Start 07/30/17 at 21:00 A/P Problem List: (1) COPD exacerbation ICD Code: J44.1 - Chronic obstructive pulmonary disease with (acute) exacerbation Status: Acute (2) Hyponatremia ICD Code: E87.1 - Hypo-osmolality and hyponatremia Status: Resolved (3) Chronic paranoid schizophrenia ICD Code: F20.0 - Paranoid schizophrenia Status: Acute (4) Tobacco dependence, continuous Status: Chronic Permanent Comment: counseled to quit Last Edited By: Tim Arteaga on Mar 31, 2011 23:08 (5) HTN (hypertension) ICD Code: I10 - Essential (primary) hypertension (6) Anorexia ICD Code: R63.0 - Anorexia Status: Chronic Assessment and Plan Admit the patient to the medical floor given Solu-Medrol 125 mg IV once and then 60 mg IV every 6 hours, change to prednisone 30 mg PO BID (07/30) patient with expiratory wheezing and decreased air movement with give Solu-Medrol 40 mg IV 1 continue p.o. prednisone, add EZ Pap, IS and Mucinex Start on IV Levaquin, change to PO Supplemental oxygen to keep oxygen saturation more than 92% Treated with DuoNeb nebulizer treatments Hyponatremia possibly secondary to dehydration, will place on normal saline. Continue chronic medications for paranoid schizophrenia which seems to be stable. Advised smoking cessation, will start on nicotine patch. Blood pressure seems to be stable. Continue lisinopril. Monitor vital signs Placed on Lovenox subcutaneously for DVT prophylaxis. Megace to 40 mg TID WANTS TO GO HOME DC WITH PT AND airplane first officer Planning DC TO HOME TODAY Jefry Munguia DO July 31, 2017 13:37
[2017-07-31] MEDS ORDERED: Albuterol-Ipratropium Neb NEB (13:41)
[2017-07-31] MEDS ORDERED: NICO21DI25 T-DERMAL (13:41)
[2017-07-31] MEDS ORDERED: SYMB160A INH (13:41)
[2017-07-31] MEDS ORDERED: LISI10TA3 PO (13:41)
[2017-07-31] MEDS ORDERED: guaiFENesin ER PO (13:41)
[2017-07-31] MEDS ORDERED: NEBULIZER1 MI1 (13:43)
--- NOTE | 2017-07-31 13:44 | HHI.DS ---
Discharge Summary Admission Date July 28, 2017 at 18:42 Discharge Date: July 31, 2017 Admitting Diagnosis COPD EXACERBATION (1) COPD exacerbation ICD Code: J44.1 - Chronic obstructive pulmonary disease with (acute) exacerbation Diagnosis: Principal Status: Acute (2) Hyponatremia ICD Code: E87.1 - Hypo-osmolality and hyponatremia Diagnosis: Secondary Status: Resolved (3) Chronic paranoid schizophrenia ICD Code: F20.0 - Paranoid schizophrenia Diagnosis: Principal Status: Acute (4) Tobacco abuse ICD Code: Z72.0 - Tobacco abuse Diagnosis: Principal Status: Chronic (5) HTN (hypertension) ICD Code: I10 - Essential (primary) hypertension Diagnosis: Secondary (6) Anorexia ICD Code: R63.0 - Anorexia Diagnosis: Secondary Status: Chronic Procedures none Brief History - From Admission This is a 58-year-old male with past medical history significant for COPD and schizophrenia who presents to [facility] complaining of worsening shortness of breath associated with cough. Patient states he started developing symptoms approximately 1 week ago and shortness of breath as well as cough Worsening. The patient denies fevers or chills. Patient otherwise denies abdominal pain, nausea, vomiting, diarrhea. CBC/BMP: 07/31/17 1045 07/31/17 1045 Significant Findings Laboratory Tests Test 07/28/17 15:57 07/28/17 16:00 07/29/17 07:46 07/31/17 10:45 Blood Gas HCO3 31 mmol/L (22-26) Blood Gas Base Excess 5.9 mmol/L (-2-2) Arterial Blood Partial Pressure CO2 51 mmHg (38-42) Arterial Blood Carboxyhemoglobin 6.8 % (0-4) Monocytes (%) (Auto) 9.9 % (0.0-8.0) 8.1 % (0.0-8.0) Platelet Morphology Comment CLUMPED (NORMAL) Activated Partial Thromboplast Time 22.0 SEC (24.3-30.1) Random Glucose 111 MG/DL (74-106) Sodium Level 131 MEQ/L (136-145) 135 MEQ/L (136-145) Chloride Level 95 MEQ/L (98-107) 97 MEQ/L (98-107) Creatine Kinase MB 3.8 NG/ML (0.5-3.6) Troponin I LESS THAN 0.02 NG/ML Neutrophils (%) (Auto) 86.6 % (16.0-70.0) 79.9 % (16.0-70.0) Lymphocytes (%) (Auto) 7.6 % (9.0-44.0) Lymphocytes # (Auto) 0.4 TH/MM3 (1.0-4.8) Neutrophils # (Auto) 8.7 TH/MM3 (1.8-7.7) Total Protein 6.3 GM/DL (6.4-8.2) Albumin 3.2 GM/DL (3.4-5.0) Aspartate Amino Transf (AST/SGOT) 11 U/L (15-37) Carbon Dioxide Level 32.7 MEQ/L (21.0-32.0) Imaging Last Impressions Chest X-Ray 07/28/17 9801 Signed Impressions: Service Date/Time: Friday, July 28, 2017 16:16 - CONCLUSION: 1. Changes suggestive of obstructive pulmonary disease. 2. No acute abnormality. Ron Baltazar MD PE at Discharge GENERAL: AWAKE ALERT AND ORIENTED X3 TALKATIVE AND COOPERATIVE- WANTS TO GO HOME SKIN: Warm and dry. HEAD: Atraumatic. Normocephalic. EYES: Pupils equal and round. No scleral icterus. No injection or drainage. ENT: No nasal bleeding or discharge. Mucous membranes pink and moist. NECK: Trachea midline. No JVD. CARDIOVASCULAR: Regular rate and rhythm. S1. S2 NO S3 OR S4 RESPIRATORY: No accessory muscle use. Breath sounds equal bilaterally. RHONCHI AND WHEEZE BL GASTROINTESTINAL: Abdomen soft, non-tender, nondistended. Hepatic and splenic margins not palpable. MUSCULOSKELETAL: Extremities without clubbing, cyanosis, or edema. No obvious deformities. NEUROLOGICAL: Awake and alert. No obvious cranial nerve deficits. Motor grossly within normal limits. Five out of 5 muscle strength in the arms and legs. Normal speech. PSYCHIATRIC: INAppropriate mood and affect; insight and judgment ABnormal. Hospital Course This is a 58-year-old male with past medical history significant for COPD and schizophrenia who presents to [facility] complaining of worsening shortness of breath associated with cough. Patient states he started developing symptoms approximately 1 week ago and shortness of breath as well as cough Worsening. The patient denies fevers or chills. Patient otherwise denies abdominal pain, nausea, vomiting, diarrhea. 5-19 Patient reports breathing is much better asking for double portions of food 5-20 Patient reports breathing is, "a little better than yesterday." 5-21 wants to go home today states he feel better dc to home today Pt Condition on Discharge: Good Discharge Disposition: [facility] with [facility] Discharge Time: > 30 minutes Discharge Instructions DIET: Follow Instructions for: As Tolerated, No Restrictions Speech Therapy-Diet Recommends: Regular Activities you can perform: Regular-No Restrictions Follow up Referrals: PCP Follow-up - 1 Year New Medications: Nebulizer (Nebulizer) 1 Mis Mis EA .XX DIRECTED for Breathing Treatment, #1 0 Refills Prednisone (Prednisone) 10 Mg Tab 10 MG PO DIRECTED for steroid taper, #21 TAB 0 Refills Take 20 mg twice a day by mouth for three days, then take 20 mg once a day by mouth for three days, then take 10 mg once a day by mouth for three days, then stop Levofloxacin (Levaquin) 500 Mg Tablet 500 MG PO DAILY for antibiotic, #7 TAB 0 Refills Nicotine (Eq Nicotine) 21 Mg/24 Hour Dis 1 PATCH T-DERMAL DAILY for TOBACCO, #30 PATCH [Albuterol-Ipratropium Neb] () 1 AMPULE NEBU 1 AMPULE NEB Q4HR WHILE AWAKE NEB for Breathing Treatment, #120 [guaiFENesin ER] () 600 MG TABCR 1200 MG PO BID for Breathing Treatment, #60 TAB Continued Medications: Albuterol Neb (Albuterol Neb) 2.5 Mg/3 Ml Neb 2.5 MG INH Q2HR NEB PRN for SHORTNESS OF BREATH, #1 NEBULE Benztropine (Benztropine) 0.5 Mg Tab 2 MG PO HS, #30 TAB 0 Refills Budesonide-Formoterol Inh (Symbicort Inh) 160-4.5 Mcg/Act Aero 2 PUFF INH Q12HR for Breathing Treatment, #1 INHALER (This prescription has been renewed) Lisinopril (Lisinopril) 10 Mg Tab 10 MG PO DAILY for Blood Pressure Management, #30 TAB 0 Refills (This prescription has been renewed) Megestrol (Megestrol) 40 Mg Tab 80 MG PO TID, TAB 0 Refills Olanzapine (Olanzapine) 15 Mg Tab 15 MG PO HS, #30 TAB 0 Refills Thiothixene (Thiothixene) 10 Mg Cap 10 MG PO HS for Schizophrenia, #60 CAP 0 Refills Discontinued Medications: Ipratropium-Albuterol Neb (Duoneb) 0.5-2.5 Mg/3 Ml Neb 1 AMPULE INH Q4HR NEB, #30 ML Nitrofurantoin Macrocrystal (Nitrofurantoin Macrocrystal) 50 Mg Cap 50 MG PO BID for Infection, CAP 0 Refills Jefry Munguia DO July 31, 2017 13:44
[2017-07-31 15:55] VITALS: BP 150/84; PULSE 86; RESP 20; TEMP 97.3; O2SAT 94
== END 2017-07-31 19:48 | DRG 191 ==
LOC: NEPC 15:35 → NEDA 18:13 → OBSVTOIN 18:13 → INTOOBSV 18:13 → UNDOADMOB 18:13 → OBSVTOIN 18:42 → NEDA 18:42 → N06A 20:27
PROVIDERS: ADMIT Hospitalist; ATTEND Hospitalist
DX: J44.1 Chronic obstructive pulmonary disease with (acute) exacerbation (principal); F20.0 Paranoid schizophrenia; E87.1 Hypo-osmolality and hyponatremia; I10 Essential (primary) hypertension; F17.210 Nicotine dependence, cigarettes, uncomplicated; R63.0 Anorexia; Z66 Do not resuscitate; Z23 Encounter for immunization
CPT/HCPCS: 36600; 71046; 80048; 80053; 82550; 82552; 82805; 83735; 84100; 84484; 85025; 85610; 85730; 87040; 87804; 90686; 93005; 94150; 94640; 94664; J1650; J1956; J2920; J7512; Q2038

== ENCOUNTER 2018-02-01 12:40 | Inpatient (IN) ==
[2018-02-01] MEDS ORDERED: MethylPREDNISolone Sod Succinate Inj 125 MG/2 ML Vial IV.PUSH ONE (12:46)
[2018-02-01] MEDS ORDERED: Magnesium Sulfate Inj 2 GM in Sodium Chlor 0.9% Inj 96 ML IV.SIG ONE (12:48)
--- NOTE | 2018-02-01 12:55 | ED ---
HPI General Chief Complaint: Respiratory Symptoms Stated Complaint: Medical Time Seen by Provider: 02/01/18 12:46 Source: EMS Mode of arrival: EMS Limitations: other (dyspnea) History of Present Illness Patient is a 62-year-old male with history of COPD, schizophrenia, presents to the emergency room from living facility for evaluation of shortness of breath. Patient reports that he has been feeling short of breath for the past few days, patient presented to the emergency room on a CPAP Machine. Patient is unable to provide a full HPI due to this dyspnea. EMS reports that patient did complain of chest pain prior to arrival to the emergency room, reports that his chest pain resolved once the CPAP was placed. EMS did give patient 60 mg of IV Lasix as they were concerned for a possible CHF exacerbation Related Data Home Medications Medication Instructions Recorded Confirmed albuterol sulfate [Ventolin HFA] 2 puff INHALATION QID 02/01/18 02/01/18 benztropine 2 mg PO HS 02/01/18 02/01/18 budesonide-formoterol [Symbicort] 2 puff INHALATION BID 02/01/18 02/01/18 olanzapine 15 mg PO DAILY 02/01/18 02/01/18 thiothixene 10 mg PO HS 02/01/18 02/01/18 Allergies Allergy/AdvReac Type Severity Reaction Status Date / Time codeine AdvReac Intermediate NAUSEA Verified 02/01/18 12:44 Review of Systems ROS Unobtainable ROS Unobtainable: other (unable to obtain due to severe dyspnea) PMFSH History History Provided By: Subscription Agent / EMT Medical History Medical History COPD (chronic obstructive pulmonary disease) (Acute) Schizophrenia (Acute) Smoker (Acute) Surgical History Surgical History History of neurologic surgery (Acute) Social History Social History Substance History: No History of Abuse Second Hand Smoke Exposure: Yes Smoking Status: Current every day smoker Tobacco Type: Cigarettes How Often Do You Have a Drink Containing Alcohol: Monthly or less Recent Travel in [place] within the Last 8 Weeks: No Recent Out of Country Travel within the Last 8 Weeks: No Exam Narrative Exam Narrative: GENERAL: Moderate distress SKIN: Focused skin assessment warm/dry. HEAD: Atraumatic. Normocephalic. EYES: Pupils equal and round. No scleral icterus. No injection or drainage. ENT: No nasal bleeding or discharge. Mucous membranes pink and moist. NECK: Trachea midline. No JVD. CARDIOVASCULAR: Regular rate and rhythm. No murmur appreciated. RESPIRATORY: Positive accessory muscle use. Scattered but diffuse wheezing. Patient with intercostal retractions, clearly dyspneic GASTROINTESTINAL: Abdomen soft, non-tender, nondistended. Hepatic and splenic margins not palpable. MUSCULOSKELETAL: No obvious deformities. No clubbing. No cyanosis. No edema. NEUROLOGICAL: Awake and alert. No obvious cranial nerve deficits. Motor grossly within normal limits. Normal speech. PSYCHIATRIC: Appropriate mood and affect; insight and judgment normal. Procedures Intubation Time Out Performed: Yes Sedative: etomidate Mg Given: 20 Paralytic: succinylcholine Mg Given: 100 Laryngoscope: Kim (4) ET Tube Size: 8 ET Tube Uncuffed: Yes Tube Secured Depth (cm): 24 Tube Secured Location: lips Tube Placement Confirmation: visualized tube passing through cords, equal breath sounds bilaterally, no breath sounds over epigastrium and confirmation by capnometry Patient Tolerated Procedure: well Intubation Complications: none Course Initial Documented Vital Signs Temperature 97.7 F 02/01/18 12:46 Pulse Rate 69 02/01/18 12:46 Respiratory Rate 26 H 02/01/18 12:46 Pulse Oximetry 94 L 02/01/18 12:46 Last Documented Vital Signs Temperature 97.8 F 02/01/18 13:25 Pulse Rate 87 02/01/18 13:35 Respiratory Rate 28 H 02/01/18 13:35 Blood Pressure 136/69 02/01/18 13:25 Pulse Oximetry 97 02/01/18 13:25 Critical Care Time Critical Care Time: Yes Total Critical Care Time: 45 Attestation: Aggregate critical care time was 45 minutes. Time to perform other separately billable procedures was not included in the critical care time. My time did not include minutes spent treating any other patients simultaneously or on activities that did not directly contribute to the patient's treatment. The services I provided to this patient were to treat and/or prevent clinically significant deterioration that could result in: , decompensation, deterioration I provided critical care services requiring my management, as noted below: Chart data review, documentation time, medication orders and management, vital sign assessments/reviewing monitor data, ordering and reviewing lab tests, ordering and interpreting/reviewing x-rays and diagnostic studies, care of the patient and discussion of the patient with the admitting physicians. Medical Decision Making MDM Narrative Medical decision making narrative: During the course of the patients emergency department visit, the patients history, examination, and differential diagnosis were reviewed with the patient. The patient was placed on a monitoring analyst with oximetry and frequent blood pressure monitoring. The patient had an IV access obtained and blood work sent for analysis. The patient was initially placed on BiPAP as patient's pulse ox was 78% on room air. Patient does have increased work of breathing, he is dyspneic. Plan to administer duo nebs, IV magnesium as well as IV Solu-Medrol. An ABG was ordered The patients laboratory studies were reviewed and remarkable for WBC 4.8, hemoglobin 15.3, hematocrit 45.2, platelets 194 Sodium is 122, potassium 5.2, BUN 7, creatinine 1.07, lactic acid is 2.3 Troponin is 0.11 - most likely from hypercapneic respiratory failure Patient was intubated as he continues to progress in his symptoms, his breathing is now at 55 - ph as well as pco2 have worsened after being on bipap for 30 min. Patient was intubated for airway protection. Case was reviewed with Dr. Skinner who accepts patient to the hospital for admission Medical Screen Exam Complete: Yes Emergency Medical Condition: Yes Differential Diagnosis Differential Diagnosis: COPD exacerbation, pneumonia, CHF exacerbation, ACS, arrhythmia Medical Records Medical records reviewed: Yes I reviewed the patient's medical records. Lab Data Lab results reviewed: Yes I reviewed the patient's lab results. Result diagrams: 02/01/18 12:50 02/01/18 12:50 Lab Results 02/01/18 02/01/18 02/01/18 Range/Units 12:50 12:50 13:08 WBC 4.8 (4.0-11.0) th/mm3 RBC 4.75 (4.50-5.90) mil/mm3 Hgb 15.3 (13.0-17.0) gm/dL Hct 45.2 (39.0-51.0) % MCV 95.3 (80.0-100.0) fL MCH 32.1 (27.0-34.0) pg MCHC 33.7 (32.0-36.0) % RDW 13.2 (11.6-17.2) % Plt Count 194 (150-450) th/mm3 MPV 8.0 (7.0-11.0) fL Prelim Diff (Auto) Slide review pending Neut % (Auto) 62.9 (16.0-70.0) % Lymph % (Auto) 12.1 (9.0-44.0) % [place]ard % (Auto) 23.3 H (0.0-8.0) % Eos % (Auto) 0.1 (0.0-4.0) % Baso % (Auto) 1.6 (0.0-2.0) % Neut # (Auto) 3.0 (1.8-7.7) th/mm3 Lymph # (Auto) 0.6 L (1.0-4.8) th/mm3 Stoddard # (Auto) 1.1 H (0.0-0.9) th/mm3 Eos # (Auto) 0.0 (0.0-0.4) th/mm3 Baso # (Auto) 0.1 (0.0-0.2) th/mm3 WBC Differential Manual diff final Seg Neuts % (Manual) 36 (16-70) % Band Neuts % (Manual) 23 H (0-6) % Lymphocytes % (Manual) 22 (9-44) % Monocytes % (Manual) 19 H (0-8) % Abs Neuts (Manual) 2.8 (1.8-7.7) th/mm3 Differential Comment . Toxic Granulation 1+ H (None) Platelet Estimate Normal (Normal) Platelet Morphology Normal (Normal) Puncture Site Left radial Patient Temperature 98.6 O2 Saturation 92 (90-100) % ABG pH 7.23 L* (7.380-7.420) ABG pCO2 86 H* (38-42) mmHg ABG pO2 112 (61-120) mmHg ABG HCO3 35 H (22-26) mmol/L ABG O2 Content 19.6 (12.0-20.0) Vol % ABG Base Excess 7.4 H (-2-2) mmol/L ABG Methemoglobin 0.7 (0-2) % Ted Test Present Hemoglobin 15.1 (12.0-16.0) G/DL Carboxyhemoglobin 4.8 H (0-4) % O2 Delivery Device Bipap Vent Setting Ipap12/epap5 Inspired O2 50 % Critical Value Yes Sodium 122 L* (136-145) meq/L Potassium 5.2 H (3.5-5.1) meq/L Chloride 81 L (98-107) meq/L Carbon Dioxide 34.4 H (21.0-32.0) meq/L Anion Gap 7 (5-15) meq/L BUN 28 H (7-18) mg/dL Creatinine 1.07 (0.60-1.30) mg/dL Estimated GFR 70 L (>89) mL/min Random Glucose 138 H (74-106) mg/dL Lactic Acid (0.4-2.0) mmol/L Calcium 9.2 (8.5-10.1) mg/dL Total Bilirubin 0.5 (0.2-1.0) mg/dL AST 101 H (15-37) U/L ALT 115 H (12-78) U/L Alkaline Phosphatase 103 (45-117) U/L Troponin I 0.11 H (0.02-0.05) ng/mL Total Protein 7.4 (6.4-8.2) g/dL Albumin 3.5 (3.4-5.0) g/dL 02/01/18 02/01/18 Range/Units 13:10 13:40 WBC (4.0-11.0) th/mm3 RBC (4.50-5.90) mil/mm3 Hgb (13.0-17.0) gm/dL Hct (39.0-51.0) % MCV (80.0-100.0) fL MCH (27.0-34.0) pg MCHC (32.0-36.0) % RDW (11.6-17.2) % Plt Count (150-450) th/mm3 MPV (7.0-11.0) fL Prelim Diff (Auto) Neut % (Auto) (16.0-70.0) % Lymph % (Auto) (9.0-44.0) % [place]odd[place] % (Auto) (0.0-8.0) % Eos % (Auto) (0.0-4.0) % Baso % (Auto) (0.0-2.0) % Neut # (Auto) (1.8-7.7) th/mm3 Lymph # (Auto) (1.0-4.8) th/mm3 [place]oddard # (Auto) (0.0-0.9) th/mm3 Eos # (Auto) (0.0-0.4) th/mm3 Baso # (Auto) (0.0-0.2) th/mm3 WBC Differential Seg Neuts % (Manual) (16-70) % Band Neuts % (Manual) (0-6) % Lymphocytes % (Manual) (9-44) % Monocytes % (Manual) (0-8) % Abs Neuts (Manual) (1.8-7.7) th/mm3 Differential Comment Toxic Granulation (None) Platelet Estimate (Normal) Platelet Morphology (Normal) Puncture Site Left radial Patient Temperature 98.6 O2 Saturation 91 (90-100) % ABG pH 7.21 L* (7.380-7.420) ABG pCO2 87 H* (38-42) mmHg ABG pO2 90 (61-120) mmHg ABG HCO3 33 H (22-26) mmol/L ABG O2 Content 18.1 (12.0-20.0) Vol % ABG Base Excess 5.7 H (-2-2) mmol/L ABG Methemoglobin 0.7 (0-2) % Ted Test Present Hemoglobin 14.2 (12.0-16.0) G/DL Carboxyhemoglobin 4.5 H (0-4) % O2 Delivery Device Bipap Vent Setting Ipap18/epap6 Inspired O2 50 % Critical Value Yes Sodium (136-145) meq/L Potassium (3.5-5.1) meq/L Chloride (98-107) meq/L Carbon Dioxide (21.0-32.0) meq/L Anion Gap (5-15) meq/L BUN (7-18) mg/dL Creatinine (0.60-1.30) mg/dL Estimated GFR (>89) mL/min Random Glucose (74-106) mg/dL Lactic Acid 2.3 H (0.4-2.0) mmol/L Calcium (8.5-10.1) mg/dL Total Bilirubin (0.2-1.0) mg/dL AST (15-37) U/L ALT (12-78) U/L Alkaline Phosphatase (45-117) U/L Troponin I (0.02-0.05) ng/mL Total Protein (6.4-8.2) g/dL Albumin (3.4-5.0) g/dL Imaging Data Attestation: I personally reviewed and interpreted this imaging study as follows : Radiologist's impression: Chest X-Ray 02/01/18 12:46 CONCLUSION: Hyperinflated lungs likely from COPD. Mild increased density medial right base. Some this may be secondary to the rotation versus some mild atelectasis or consolidation in this region. ECG Data EKG Prior to Arrival: Yes Attestation: I personally reviewed and interpreted this ECG as follows: Interpretation: EKG at 1246 shows sinus tachycardia at 107 bpm, QT/QTc 327/390, PVCs are present Discharge Plan Discharge Disposition Patient Disposition: 30 Still Patient Discharge Condition Condition: Serious Discharge Details Diagnosis: Acute hypercapnic respiratory failure, Acute hyponatremia Physicians Team ED Provider: Maryan Saucedo Rxs /Orders / Referrals /Forms Prescriptions: No Action thiothixene 10 mg Capsule 10 mg PO HS RF: 0 benztropine 2 mg Tablet 2 mg PO HS RF: 0 olanzapine 15 mg Tablet 15 mg PO DAILY RF: 0 albuterol sulfate [Ventolin HFA] 90 mcg/actuation Hfa Aerosol Inhaler 2 puff INHALATION QID RF: 0 budesonide-formoterol [Symbicort] 160-4.5 mcg/actuation Hfa Aerosol Inhaler 2 puff INHALATION BID RF: 0 Status ED Status: With Doctor
[2018-02-01] MEDS ORDERED: Sod Chloride 0.9% Inj 1,000 ML IV.SIG SCH ×2 (13:00→14:15)
[2018-02-01 13:16] LABS: ABG Base Excess 7.4 mmol/L (-2-2); ABG PCO2 86 mmHg (38-42); ABG PO2 112 mmHg (61-120)
[2018-02-01 13:17] LABS: Baso # (Auto) 0.1 th/mm3 (0.0-0.2); Baso % (Auto) 1.6 % (0.0-2.0); Eos % (Auto) 0.1 % (0.0-4.0); Hematocrit 45.2 % (39.0-51.0); Hemoglobin 15.3 gm/dL (13.0-17.0); Lymph # (Auto) 0.6 th/mm3 (1.0-4.8); Lymph % (Auto) 12.1 % (9.0-44.0); Mean Corpuscular HGB Conc 33.7 % (32.0-36.0); Mean Corpuscular Hemoglobin 32.1 pg (27.0-34.0); Mean Corpuscular Volume 95.3 fL (80.0-100.0); Mono # (Auto) 1.1 th/mm3 (0.0-0.9); Mono % (Auto) 23.3 % (0.0-8.0); Neut % (Auto) 62.9 % (16.0-70.0); Platelet Count 194 th/mm3 (150-450); Red Blood Count 4.75 mil/mm3 (4.50-5.90); Red Cell Distribution Width 13.2 % (11.6-17.2); White Blood Count 4.8 th/mm3 (4.0-11.0)
--- NOTE | 2018-02-01 13:34 | XR ---
EXAM DATE: 02/01/2018 1:30 PM EST AGE/SEX: 62 years / Male INDICATIONS: Short of breath. CLINICAL DATA: This is the patient's initial encounter. Patient reports that signs and symptoms have been present for 1 day and indicates a pain score of Nonresponsive. MEDICAL/SURGICAL HISTORY: . none known . none known COMPARISON: [facility] [place], CHEST PA & LAT, 07/28/2017. [facility] [place], CHEST SINGLE AP, 09/21/2016. . FINDINGS: The patient is rotated towards the left. The heart size is normal. The lungs appear hyperinflated. Th ere is mild increased density at the medial right base. There is a suspected stable scarring in the u pper lungs especially on the right. CONCLUSION: Hyperinflated lungs likely from COPD. Mild increased density medial right base. Some this may be secondary to the rotation versus some mild atelectasis or consolidation in this region. Electronically signed by: Brody Fields MD 02/01/2018 1:33 PM EST
[2018-02-01 13:46] LABS: ABG Base Excess 5.7 mmol/L (-2-2); ABG PCO2 87 mmHg (38-42); ABG PO2 90 mmHg (61-120)
[2018-02-01 13:47] LABS: Lymphocytes 22 % (9-44); Monocytes 19 % (0-8)
[2018-02-01] MEDS ORDERED: Etomidate Inj 40 MG/20 ML Vial IV.PUSH ONE (13:47)
[2018-02-01] MEDS ORDERED: Succinylcholine Inj 200 MG/10 ML Vial ONE (13:47)
[2018-02-01 13:48] LABS: Platelet Estimate Normal (Normal); Platelet Morphology Normal (Normal); Toxic Granulation 1+
[2018-02-01 13:51] LABS: Alanine Aminotransferase 115 U/L (12-78); Albumin 3.5 g/dL (3.4-5.0); Alkaline Phosphatase 103 U/L (45-117); Anion Gap 7 meq/L (5-15); Aspartate Aminotransferase 101 U/L (15-37); Blood Urea Nitrogen 28 mg/dL (7-18); Calcium 9.2 mg/dL (8.5-10.1); Carbon Dioxide 34.4 meq/L (21.0-32.0); Chloride 81 meq/L (98-107); Glomerular Filtration Rate 70 mL/min (>89); Glucose,Random 138 mg/dL (74-106); Potassium 5.2 meq/L (3.5-5.1); Total Protein 7.4 g/dL (6.4-8.2); Troponin I 0.11 ng/mL (0.02-0.05)
[2018-02-01 13:56] LABS: Sodium 122 meq/L (136-145)
[2018-02-01] MEDS ORDERED: Propofol 1000 mg/100 ml Inj 1,000 MG/100 ML BOTTLE ONE (13:57)
[2018-02-01] MEDS: Propofol 1000 mg/100 ml Inj 1,000 MG/100 ML BOTTLE IV.CONT PRN ×2 (13:57→20:59)
[2018-02-01] MEDS ORDERED: Etomidate Inj 20 MG/10 ML Ampul IV.PUSH ONE (13:57)
[2018-02-01] MEDS ORDERED: Succinylcholine Inj 100 MG/5 ML Syringe IV.PUSH ONE (13:57)
[2018-02-01] MEDS ORDERED: fentaNYL Citrate Inj 100 MCG/2 ML Ampul IV.PUSH PRN (14:03)
[2018-02-01] MEDS ORDERED: Magnesium Oxide 400 MG Tablet PO PRN (14:10)
[2018-02-01] MEDS ORDERED: Potassium Chloride 25 MEQ Effervescent Tablet PO PRN (14:10)
[2018-02-01] MEDS ORDERED: Sodium Phosphate Inj 30 MMOL in Sodium Chlor 0.9% Inj 250 ML IV.SIG PRN (14:10)
[2018-02-01] MEDS ORDERED: Potassium Phosphate 500 MG Soluble Tablet PO PRN ×2 (14:10)
[2018-02-01] MEDS ORDERED: Magnesium Sulfate Inj 2 GM in Sodium Chlor 0.9% Inj 96 ML IV.SIG PRN (14:10)
[2018-02-01] MEDS ORDERED: Potassium Chlor 20 mEq Premix 20 MEQ/100 ML PIGGYBACK IV.SIG PRN ×2 (14:10)
[2018-02-01] MEDS ORDERED: Potassium Phosphate Inj 30 MMOL in Sodium Chlor 0.9% Inj 250 ML IV.SIG PRN (14:10)
[2018-02-01] MEDS ORDERED: Magnesium Sulfate Inj 4 GM in Sodium Chlor 0.9% Inj 92 ML IV.SIG PRN (14:10)
[2018-02-01] MEDS ORDERED: Potassium Chlor 40 mEq Premix 40 MEQ/100 ML PIGGYBACK IV.SIG PRN ×2 (14:10)
[2018-02-01] MEDS ORDERED: fentaNYL 10 mcg/mL Premix Drip 2,500 MCG/250 ML BAG IV.SIG PRN (14:18)
[2018-02-01] MEDS ORDERED: Midazolam 100 MG/100 ML Inj 100 MG/100 ML BAG IV.CONT PRN (14:18)
--- NOTE | 2018-02-01 14:18 | P.HPCC ---
History of Present Illness Service: Critical care Chief Complaint: Acute hypoxemic hypercapneic resp failure History of Present Illness: Patient is a 62-year-old male with history of COPD, schizophrenia, continued smoking who was brought to the emergency department from an assisted living facility for severe shortness of breath. Symptoms started few days ago, EMS evaluated and placed him on CPAP machine. Apparently EMS gave him 60 mg of IV Lasix for possible CHF exacerbation. In the ED initial oxygen saturation was 78 % on room air, patient was immediately placed on BiPAP with 50% oxygen. ABG showed pH 7.23 with a PCO2 of 86. Patient received IV Solu-Medrol DuoNeb and IV magnesium, also received 1 dose of IV Levaquin. No clinical improvement on 30 minutes of BiPAP, in fact ABG marginally worsened with pH 7.21 PCO2 87. Lactic acid was 2.3. Patient was intubated and placed on mechanical ventilation by Dr. Saucedo. Critical care medicine was consulted for admission I evaluated the patient in the ED. 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 Respiratory exam reveals bilateral expiratory wheezing. I have placed him on scheduled IV Solu-Medrol, DuoNeb every 4 hours scheduled and as needed, start cefepime 2 g IV every 8 hours and check sputum culture. Also inhaled budesonide had been started. Will repeat ABG in 1 hour. 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 I will check CT of the chest to rule out any occult mass/infiltrate - Diagnosis (1) Acute on chronic respiratory failure with hypoxemia (2) Acute hypercapnic respiratory failure (3) Lactic acidemia (4) COPD with acute exacerbation (5) Hyponatremia (6) Schizophrenia (7) COPD (chronic obstructive pulmonary disease) Inpatient Certification: I certify that the inpatient services were ordered in accordance with Medicare regulations governing the order. This includes certification that hospital inpatient services are reasonable and necessary and in the case of services not specified as inpatient-only under 42 CFR 419.22(n), that they are appropriately provided as inpatient services in accordance to with the 2-midnight benchmark under 43 CFR 412.3(e) Estimated Total Length of Stay (Days): 7 Plans for Post Hospital Care: Not yet determined Review of Systems unobtainable due to endotracheal tube PMFSH - History History Provided By: Vault Keeper / EMT - Medical History Medical History: Medical History (Last Reviewed 02/01/18 @ 14:18 by Malia Skinner MD) COPD (chronic obstructive pulmonary disease) Schizophrenia Smoker - Surgical History Surgical History: Surgical History (Last Reviewed 02/01/18 @ 14:18 by Malia Skinner MD) History of neurologic surgery - Tobacco History Second Hand Smoke Exposure: Yes Tobacco Use In Past 30 Days: Yes Smoking Status: Current every day smoker Tobacco Type: Cigarettes - Alcohol History How Often Do You Have a Drink Containing Alcohol: Monthly or less - Substance Use History Substance History: No History of Abuse - Travel History Recent Travel in the [place] Within the Last 8 Weeks: No Recent Travel Out of the Country Within the Last 8 Weeks: No - Immunization History Tetanus Immunization: >5 Years Medications and Allergies Active Medications: Active Medications Albuterol (Duoneb Neb (Prn)) 1 ampul NEB Q4HR NEB PRN PRN Reason: SHORTNESS OF BREATH Albuterol (Duoneb Neb (Durga)) 1 ampul NEB Q4HR NEB DURGA Budesonide (Pulmocort Respule Neb) 0.5 mg NEB Q12HR NEB DURGA Chlorhexidine Gluconate (Chlorhexidine 2% Cloth) 3 pack TOPICAL DAILY@0400 DURGA Stop: 02/07/18 03:59 Chlorhexidine Gluconate (Chlorhexidine 2% Cloth) 3 pack TOPICAL DAILY@0400 PRN PRN Reason: Extra cloth needed Stop: 02/07/18 03:59 Chlorhexidine Gluconate (Peridex 0.12% Oral Kit) 15 ml OROPHARYNG BID@0800, 2000 DURGA Enoxaparin Sodium (Lovenox Inj) 40 mg SQ Q24H DURGA Famotidine (Pepcid Pf Inj) 20 mg IV.PUSH Q12HR DURGA Fentanyl Citrate (Fentanyl Inj) 50 mcg IV.PUSH Q1H PRN PRN Reason: SEE LABEL COMMENTS Magnesium Sulfate 2 gm/ Sodium (Chloride) 100 mls @ 50 mls/hr IV.SIG ONCE ONE Stop: 02/01/18 14:47 Last Admin: 02/01/18 13:23 Dose: 50 mls/hr Propofol (Diprivan 1000 Mg/100 Ml Inj) 1,000 mg in 100 mls @ 2.313 mls/hr IV.CONT TITRATE PRN; Protocol PRN Reason: Per Protocol Levofloxacin/Dextrose (Levaquin 750 Mg Premix Inj) 150 mls @ 100 mls/hr IV.SIG ONCE ONE Stop: 02/01/18 15:27 Sodium Chloride (Ns Inj) 1,000 mls @ 75 mls/hr IV.CONT .[id number] DURGA Magnesium Sulfate 4 gm/ Sodium (Chloride) 100 mls @ 50 mls/hr IV.SIG UNSCH PRN PRN Reason: For Magnesium 0.9 - 1.1 mg/dL Magnesium Sulfate 2 gm/ Sodium (Chloride) 100 mls @ 50 mls/hr IV.SIG UNSCH PRN PRN Reason: For Magnesium 1.2 - 1.6 mg/dL Potassium Chloride (Kcl 40 Meq Premix Inj) 40 meq in 100 mls @ 25 mls/hr IV.SIG Q2H PRN PRN Reason: For Potassium 2.8 - 3.2 mEq/L Potassium Chloride (Kcl 20 Meq Premix Inj) 20 meq in 100 mls @ 50 mls/hr IV.SIG Q2H PRN PRN Reason: For Potassium 3.3 - 3.5 mEq/L Potassium Chloride (Kcl 40 Meq Premix Inj) 40 meq in 100 mls @ 25 mls/hr IV.SIG UNSCH PRN PRN Reason: For Potassium 3.3 - 3.5 mEq/L Potassium Phosphate 30 mmol/ (Sodium Chloride) 260 mls @ 42 mls/hr IV.SIG UNSCH PRN PRN Reason: SEE LABEL COMMENTS Sodium Phosphate 30 mmol/ (Sodium Chloride) 260 mls @ 42 mls/hr IV.SIG UNSCH PRN PRN Reason: For Phosphorus < 2.5 mg/dL Potassium Chloride (Kcl 20 Meq Premix Inj) 20 meq in 100 mls @ 50 mls/hr IV.SIG Q2H PRN PRN Reason: For Potassium 2.8 - 3.2 mEq/L Cefepime HCl 2,000 mg/ Sodium (Chloride) 100 mls @ 200 mls/hr IV.SIG Q8H DURGA Sodium Chloride (Ns Inj) 1,000 mls @ 1,000 mls/hr IV.SIG BOLUS UDRGA Stop: 02/01/18 15:14 Magnesium Oxide (Mag-Ox) 800 mg PO UNSCH PRN PRN Reason: For Magnesium 1.2 - 1.6 mg/dL Methylprednisolone Sodium Succinate (Solumedrol Inj) 40 mg IV.PUSH Q8HR DURGA Miscellaneous Medication () 1 each OROPHARYNG 0000,0400,1200,1600 DURGA Potassium Bicarb/Potassium Chloride (K-Lyte Cl Eff) 50 meq PO UNSCH PRN PRN Reason: For Potassium 3.3 - 3.5 mEq/L Potassium Phosphate (K-Phos Original) 2,000 mg PO Q4H PRN PRN Reason: Phosphorus Less Than 2.5 mg/dL Potassium Phosphate (K-Phos Original) 2,000 mg PO UNSCH PRN PRN Reason: SEE LABEL COMMENTS Sodium Chloride (Ns Flush) 2 ml IV.FLUSH PRN PRN PRN Reason: FLUSH AFTER USING IV ACCESS Allergies Allergy/AdvReac Type Severity Reaction Status Date / Time codeine AdvReac Intermediate NAUSEA Verified 02/01/18 12:44 Home Medications Medication Instructions Recorded Confirmed Type albuterol sulfate [Ventolin HFA] 2 puff INHALATION QID 02/01/18 02/01/18 History benztropine 2 mg PO HS 02/01/18 02/01/18 History budesonide-formoterol [Symbicort] 2 puff INHALATION BID 02/01/18 02/01/18 History olanzapine 15 mg PO DAILY 02/01/18 02/01/18 History thiothixene 10 mg PO HS 02/01/18 02/01/18 History Results - Labs CBC & Chem 7: 02/01/18 12:50 02/01/18 12:50 Labs: Short CBC 02/01/18 Range/Units 12:50 WBC 4.8 (4.0-11.0) th/mm3 Hgb 15.3 (13.0-17.0) gm/dL Hct 45.2 (39.0-51.0) % Plt Count 194 (150-450) th/mm3 [facility] 02/01/18 12:50 Sodium 122 L* Potassium 5.2 H Chloride 81 L Carbon Dioxide 34.4 H BUN 28 H Creatinine 1.07 Calcium 9.2 Cardiac Enzymes 02/01/18 Range/Units 12:50 Troponin I 0.11 H (0.02-0.05) ng/mL Liver Function 02/01/18 Range/Units 12:50 Total Bilirubin 0.5 (0.2-1.0) mg/dL AST 101 H (15-37) U/L ALT 115 H (12-78) U/L Alkaline Phosphatase 103 (45-117) U/L Albumin 3.5 (3.4-5.0) g/dL - Imaging Impressions Chest X-Ray 02/01/18 12:46 CONCLUSION: Hyperinflated lungs likely from COPD. Mild increased density medial right base. Some this may be secondary to the rotation versus some mild atelectasis or consolidation in this region. Exam Vital signs: Vital Signs 02/01/18 12:46 02/01/18 12:47 02/01/18 13:14 Temperature 97.7 F Pulse Rate 69 108 H Respiratory Rate 26 H Blood Pressure Pulse Oximetry 94 L 99 98 02/01/18 13:25 02/01/18 13:35 02/01/18 14:02 Temperature 97.8 F Pulse Rate 108 H 87 92 H Respiratory Rate 28 H 17 Blood Pressure 136/69 146/65 H Pulse Oximetry 97 100 Intake & Output 01/31/18 02/01/18 02/01/18 18:59 06:59 18:59 Weight 77.111 kg Narrative: GENERAL: Intubated sedated status post neuromuscular paralysis SKIN: warm/dry. HEAD: Atraumatic. Normocephalic. EYES: Pupils equal and round reactive. No scleral icterus. ENT: No nasal bleeding or discharge. Orotracheally intubated NECK: Trachea midline. No JVD. CARDIOVASCULAR: Tachycardic rate and rhythm. No murmur appreciated. RESPIRATORY: On PRVC/AC. Air entry equal bilaterally with bilateral expiratory wheezing no crackles GASTROINTESTINAL: Abdomen soft, non-tender, nondistended. Hepatic and splenic margins not palpable. MUSCULOSKELETAL: No obvious deformities. No clubbing. No cyanosis. No edema. NEUROLOGICAL: Intubated sedated just received neuromuscular paralysis which limits neuro exam Septic Shock Reassessment Septic shock perfusion: reassessment completed Caprini VTE Risk Assessment Caprini VTE Risk Assessment: Moderate/High Risk (score >= 2) Caprini Risk Assessment Model: Point Value = 1 Point Value = 2 Point Value = 3 Point Value = 5 Age 41-60 Minor surgery BMI > 25 kg/m2 Swollen legs Varicose veins or History of unexplained or recurrent spontaneous Oral contraceptives or hormone replacement Sepsis (< 1 month) Serious lung disease, including pneumonia (< 1 month) Abnormal pulmonary function Acute myocardial infarction Congestive heart failure (< 1 month) History of inflammatory bowel disease Medical patient at bed rest Age 61-74 Arthroscopic surgery Major open surgery (> 45 min) Laparoscopic surgery (> 45 min) Malignancy Confined to bed (> 72 hours) Immobilizing plaster cast Central venous access Age >= 75 History of VTE Family history of VTE Factor V Leiden Prothrombin [id number] Lupus anticoagulant Anticardiolipin antibodies Elevated serum homocysteine Heparin-induced thrombocytopenia Other congenital or acquired thrombophilia Stroke (< 1 month) Elective arthroplasty Hip, pelvis, or leg fracture Acute spinal cord injury (< 1 month) Prophylaxis Regimen: Total Risk Factor Score Risk Level Prophylaxis Regimen 0-1 Low Early ambulation 2 Moderate Order ONE of the following: *Sequential Compression Device (SCD) *Heparin 5000 units SQ BID 3-4 Higher Order ONE of the following medications: *Heparin 5000 units SQ TID *Enoxaparin/Lovenox 40 mg SQ daily (WT < 150 kg, CrCl > 30 mL/min) *Enoxaparin/Lovenox 30 mg SQ daily (WT < 150 kg, CrCl > 10-29 mL/min) *Enoxaparin/Lovenox 30 mg SQ BID (WT < 150 kg, CrCl > 30 mL/min) AND/OR *Sequential Compression Device (SCD) 5 or more Highest Order ONE of the following medications: *Heparin 5000 units SQ TID (Preferred with Epidurals) *Enoxaparin/Lovenox 40 mg SQ daily (WT < 150 kg, CrCl > 30 mL/min) *Enoxaparin/Lovenox 30 mg SQ daily (WT < 150 kg, CrCl > 10-29 mL/min) *Enoxaparin/Lovenox 30 mg SQ BID (WT < 150 kg, CrCl > 30 mL/min) AND *Sequential Compression Device (SCD) Assessment and Plan - Problem List (1) Acute on chronic respiratory failure with hypoxemia Code(s): J96.21 - Acute and chronic respiratory failure with hypoxia Status: Acute (2) Acute hypercapnic respiratory failure Code(s): J96.02 - Acute respiratory failure with hypercapnia Status: Acute (3) Lactic acidemia Code(s): E87.2 - Acidosis Status: Acute (4) COPD with acute exacerbation Code(s): J44.1 - Chronic obstructive pulmonary disease with (acute) exacerbation Status: Acute (5) Hyponatremia Code(s): E87.1 - Hypo-osmolality and hyponatremia Status: Acute (6) Schizophrenia Code(s): F20.9 - Schizophrenia, unspecified Status: Chronic (7) COPD (chronic obstructive pulmonary disease) Code(s): J44.9 - Chronic obstructive pulmonary disease, unspecified Status: Chronic - Assessment and Plan Plan: NEURO: History of schizophrenia -Propofol and fentanyl for sedation and ventilator synchrony -Daily sedation vacation starting in 24 hours -Continue home neuroleptic medications RESP: Acute COPD exacerbation Acute hypoxemic and hypercapnic respiratory failure COPD Continued tobacco abuse -Failed BiPAP, intubated and placed on PRVC/AC -Ventilator bundle -DuoNeb every 4 hours scheduled and as needed -Check sputum culture, received Levaquin in the ED -Start cefepime 2 g IV every 8 hours -CT of the chest to evaluate for occult mass given hyponatremia and long- standing smoking CV: Lactic acidosis -Normal saline IV fluids 2 L bolus and 84 mL/h -Repeat lactic acid at 6 PM GI: -N.p.o., IV famotidine -Start tube feeds in 24 hours : -Monitor renal function closely. Condom catheter placed in the ED ID: -Antibiotics cefepime 2 g IV every 8 -Check sputum cultures HEME: -Monitor CBC, coags ENDO: Hyponatremia -Electrolyte replacement per protocol -Sliding scale insulin -R/o SIADH -Slow-sodium correction at less than 0.5 mEq/h, not >10 meq in 24 hours PROPH: -Bilateral lower extremity SCDs. Lovenox/famotidine LINES: -Utilize peripheral IVs, central line if needed CC time 45 min Code Status: Full Discussed Condition With: Dr. Saucedo
[2018-02-01] MEDS: Sod Chloride 0.9% Inj 1,000 ML IV.CONT SCH (14:30)
--- NOTE | 2018-02-01 14:33 | XR ---
EXAM DATE: 02/01/2018 2:16 PM EST AGE/SEX: 62 years / Male INDICATIONS: Post intubation. CLINICAL DATA: This is the patient's subsequent encounter. Patient reports that signs and symptoms h ave been present for 2 days and indicates a pain score of Nonresponsive. MEDICAL/SURGICAL HISTORY: Non-responsive. Non-responsive. COMPARISON: C, CHEST 1V SINGLE AP, 02/01/2018. . FINDINGS: The ET tube is 4.5 cm from the ben in good position. The NG tube tip is directed into the stomach. The heart size is normal. The lungs demonstrate minimal prominence of interstitium diffusely. No foc al alveolar consolidation is seen. CONCLUSION: ET tube and NG tube in good position. Minimal prominence of the interstitium which may represent pulmonary venous hypertension or minimal e shannan. Electronically signed by: Brody Fields MD 02/01/2018 2:31 PM EST
[2018-02-01] MEDS: Enoxaparin Inj 40 MG/0.4 ML Syringe SQ SCH (15:41)
[2018-02-01] MEDS: Oral Hygiene Kit OROPHARYNG SCH (15:45)
--- NOTE | 2018-02-01 17:22 | CT ---
EXAM DATE: 02/01/2018 5:14 PM EST AGE/SEX: 62 years / Male INDICATIONS: Shortness of breath for four days. CLINICAL DATA: This is the patient's initial encounter. Patient reports that signs and symptoms have been present for 1 day and indicates a pain score of Nonresponsive. MEDICAL/SURGICAL HISTORY: Chronic obstructive pulmonary disease. None. RADIATION DOSE: 6.75 CTDI (mGy) COMPARISON: No prior exams available for comparison. TECHNIQUE: Multiple contiguous axial images were obtained through the chest without contrast. Image s were obtained in suspended respiration using multiple row detector helical technique. Using automa anjelica exposure control and adjustment of the mA and/or kV according to patient size, radiation dose was kept as low as reasonably achievable to obtain optimal diagnostic quality images. DICOM format imag e data is available electronically for review and comparison. FINDINGS: There is moderate to severe centrilobular emphysema. There is biapical pleural and parenchymal scarri ng. Both bases have very mild inflammatory appearing tree-in-bud type infiltrates. 1.5 cm focal paren chymal opacity seen in the superior segment of the left lower lobe posterior to the hilum, series 3 i mage 38. No lobar consolidation. No pleural effusion or pneumothorax. There is no lymphadenopathy. Heart size within normal limits. Coronary artery calcification present. Endotracheal tube tip is approximately 4 cm above the ben. There is a nasogastric tube with tip at the mid body. CONCLUSION: 1. Moderate to severe emphysema and mild biapical scarring. 2. Very mild tree-in-bud type infectious/inflammatory appearing infiltrates of both bases. No dense or confluent consolidation. No pleural effusion or pneumothorax. 3. 1.5 cm focal parenchymal opacity of the left lower lobe, also most likely infectious or inflammat ory but 3-6 month follow-up noncontrast chest CT is recommended to confirm resolution or at least sta bility. 4. No lymphadenopathy. 5. Normal heart size. Coronary artery calcification noted. Electronically signed by: Brody Noonan MD 02/01/2018 5:21 PM EST
[2018-02-01 18:32] LABS: ABG PCO2 62 mmHg (38-42); ABG PO2 135 mmHg (61-120)
[2018-02-01] MEDS ORDERED: Sod Chloride 0.9% Inj 2,000 ML IV.SIG ONE (19:00)
[2018-02-01] MEDS: Chlorhexidine 0.12% Oral Kit 15 ML UDC OROPHARYNG SCH (20:58)
[2018-02-01] MEDS: Famotidine PF Inj 20 MG/2 ML Vial IV.PUSH SCH (20:58)
[2018-02-01] MEDS: MethylPREDNISolone Sod Succinate Inj 40 MG/ML Vial IV.PUSH SCH (21:00)
[2018-02-01] MEDS: Benztropine 2 MG Tablet PO SCH (21:01)
[2018-02-02] MEDS: Oral Hygiene Kit OROPHARYNG SCH ×5 (00:22→23:40)
[2018-02-02] MEDS: Propofol 1000 mg/100 ml Inj 1,000 MG/100 ML BOTTLE IV.CONT PRN ×4 (01:46→21:09)
[2018-02-02] MEDS ORDERED: Chlorhexidine Gluconate 2% 1 Pack (2 Cloths) TOPICAL PRN (04:00)
[2018-02-02] MEDS: Sod Chloride 0.9% Inj 1,000 ML IV.CONT SCH ×2 (04:12→17:40)
[2018-02-02] MEDS: Chlorhexidine Gluconate 2% 1 Pack (2 Cloths) TOPICAL SCH (04:12)
[2018-02-02] MEDS: MethylPREDNISolone Sod Succinate Inj 40 MG/ML Vial IV.PUSH SCH ×3 (06:05→21:08)
[2018-02-02 06:39] LABS: Baso % (Auto) 0.1 % (0.0-2.0); Hematocrit 42.8 % (39.0-51.0); Hemoglobin 13.8 gm/dL (13.0-17.0); Lymph # (Auto) 0.4 th/mm3 (1.0-4.8); Lymph % (Auto) 7.3 % (9.0-44.0); Mean Corpuscular HGB Conc 32.3 % (32.0-36.0); Mean Platelet Volume 8.1 fL (7.0-11.0); Mono # (Auto) 0.9 th/mm3 (0.0-0.9); Mono % (Auto) 17.8 % (0.0-8.0); Neut % (Auto) 74.8 % (16.0-70.0); Platelet Count 144 th/mm3 (150-450); Red Blood Count 4.32 mil/mm3 (4.50-5.90); White Blood Count 5.3 th/mm3 (4.0-11.0)
[2018-02-02 07:14] LABS: Alanine Aminotransferase 149 U/L (12-78); Albumin 2.6 g/dL (3.4-5.0); Alkaline Phosphatase 72 U/L (45-117); Anion Gap 4 meq/L (5-15); Aspartate Aminotransferase 99 U/L (15-37); Blood Urea Nitrogen 15 mg/dL (7-18); Calcium 8.4 mg/dL (8.5-10.1); Carbon Dioxide 30.8 meq/L (21.0-32.0); Chloride 99 meq/L (98-107); Glomerular Filtration Rate Greater Than 89 mL/min (>89); Glucose,Random 130 mg/dL (74-106); Potassium 4.9 meq/L (3.5-5.1); Sodium 134 meq/L (136-145); Total Protein 5.8 g/dL (6.4-8.2)
[2018-02-02 07:55] LABS: Lymphocytes 21 % (9-44); Metamyelocytes 1 % (0-1); Monocytes 1 % (0-8)
[2018-02-02 07:56] LABS: Ovalocytes 1+
[2018-02-02 07:57] LABS: Toxic Granulation 1+
[2018-02-02] MEDS: OLANZapine 15 MG Tablet PO SCH (09:57)
[2018-02-02] MEDS: Chlorhexidine 0.12% Oral Kit 15 ML UDC OROPHARYNG SCH ×2 (09:57→20:15)
[2018-02-02] MEDS: Famotidine PF Inj 20 MG/2 ML Vial IV.PUSH SCH ×2 (09:57→20:14)
--- NOTE | 2018-02-02 11:03 | P.PNCC ---
Subjective Subjective Remarks/Hospital Course: Patient is a 62-year-old male with history of COPD, schizophrenia, continued smoking who was brought to the emergency department from an assisted living facility for severe shortness of breath. Symptoms started few days ago, EMS evaluated and placed him on CPAP machine. Apparently EMS gave him 60 mg of IV Lasix for possible CHF exacerbation. In the ED initial oxygen saturation was 78 % on room air, patient was immediately placed on BiPAP with 50% oxygen. ABG showed pH 7.23 with a PCO2 of 86. Patient received IV Solu-Medrol DuoNeb and IV magnesium, also received 1 dose of IV Levaquin. No clinical improvement on 30 minutes of BiPAP, in fact ABG marginally worsened with pH 7.21 PCO2 87. Lactic acid was 2.3. Patient was intubated and placed on mechanical ventilation by Dr. Saucedo. Critical care medicine was consulted for admission I evaluated the patient in the ED. 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 Respiratory exam reveals bilateral expiratory wheezing. I have placed him on scheduled IV Solu-Medrol, DuoNeb every 4 hours scheduled and as needed, start cefepime 2 g IV every 8 hours and check sputum culture. Also inhaled budesonide had been started. Will repeat ABG in 1 hour. 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 I will check CT of the chest to rule out any occult mass/infiltrate 02/02: Patient remains intubated heavily sedated for vent synchrony. Failed CPAP attempted today due to severe tachypnea and distress. Continues to have expiratory wheezing. Lactic acid was elevated to 4.2 yesterday received 2 L normal saline bolus following this. Came down to 3 repeat lactic acid today pending Objective Vital Signs / I&O: Vital Signs 02/01/18 12:46 02/01/18 12:47 02/01/18 13:14 Temperature 97.7 F Pulse Rate 69 108 H Respiratory Rate 26 H Blood Pressure Pulse Oximetry 94 L 99 98 02/01/18 13:25 02/01/18 13:35 02/01/18 14:02 Temperature 97.8 F Pulse Rate 108 H 87 92 H Respiratory Rate 28 H 17 Blood Pressure 136/69 146/65 H Pulse Oximetry 97 100 02/01/18 14:04 02/01/18 14:38 02/01/18 15:00 Temperature 97.9 F 97.7 F 98.3 F Pulse Rate 86 83 90 Respiratory Rate 16 16 16 Blood Pressure 113/74 114/73 118/66 Pulse Oximetry 100 100 02/01/18 15:10 02/01/18 17:12 02/01/18 17:22 Temperature Pulse Rate 91 H Respiratory Rate 15 15 Blood Pressure Pulse Oximetry 100 100 02/01/18 18:00 02/01/18 19:00 02/01/18 20:00 Temperature 98.7 F Pulse Rate 87 84 80 Respiratory Rate 16 16 16 Blood Pressure 111/70 103/64 108/70 Pulse Oximetry 100 100 100 02/01/18 20:30 02/01/18 20:44 02/01/18 21:00 Temperature Pulse Rate 79 80 Respiratory Rate 15 15 16 Blood Pressure 104/66 Pulse Oximetry 100 100 02/01/18 22:00 02/01/18 22:35 02/01/18 22:36 Temperature Pulse Rate 80 83 Respiratory Rate 16 15 15 Blood Pressure 126/81 Pulse Oximetry 100 98 98 02/01/18 23:00 02/01/18 23:33 02/02/18 00:00 Temperature 98.5 F Pulse Rate 80 76 75 Respiratory Rate 15 15 15 Blood Pressure 105/69 116/74 Pulse Oximetry 99 100 02/02/18 01:00 02/02/18 01:37 02/02/18 02:00 Temperature Pulse Rate 80 74 Respiratory Rate 15 15 15 Blood Pressure 117/73 118/76 Pulse Oximetry 99 100 100 02/02/18 03:00 02/02/18 03:44 02/02/18 04:00 Temperature 98.6 F Pulse Rate 73 71 73 Respiratory Rate 15 15 15 Blood Pressure 121/77 113/73 Pulse Oximetry 99 99 02/02/18 04:35 02/02/18 05:00 02/02/18 06:00 Temperature Pulse Rate 79 79 Respiratory Rate 15 15 15 Blood Pressure 117/71 112/71 Pulse Oximetry 99 99 99 02/02/18 08:11 Temperature Pulse Rate 79 Respiratory Rate 15 Blood Pressure Pulse Oximetry 99 Intake & Output 02/01/18 02/02/18 02/02/18 18:59 06:59 18:59 Intake Total 2596.0 / 2596.0 3207.8 / 3207.8 Output Total 1999 Balance 596.0 / 596.0 1157.8 / 1157.8 Weight 77.111 kg 61.3 kg Intake: IV 2596.0 / 2596.0 3207.8 / 3207.8 Diprivan 1000 mg/100 ml Inj 1, 46.2 / 46.2 207.6 / 207.6 000 mg In 100 ml @ 5 MCG/KG/MIN 2.313 mls/hr IV.CONT TITRATE PRN Rx#:[id number] NS Inj 1,000 ML @ 75 mls/hr IV. 249.8 / 249.8 750.2 / 750.2 CONT .[id number] [facility] Rx#:[id number] Maxipime Inj 2,000 MG In NS Inj 100 / 100 200 / 200 100 ML @ 200 mls/hr IV.SIG Q8H [facility] Rx#:[id number] Levaquin 750 mg Premix Inj 150 100 / 100 50 / 50 ML @ 100 mls/hr IV.SIG ONCE ONE Rx#:[id number] Magnesium Sulfate Inj 2 GM In 100 / 100 NS Inj 96 ML @ 50 mls/hr IV.SIG ONCE ONE Rx#:[id number] NS Inj 2,000 ML @ Wide Open IV. 1999 SIG BOLUS ONE Rx#:[id number] Oral 0 / 0 0 / 0 Output: Urine 1999 0 / 0 Urine Amount (Catheter) 2049 Indwelling Urethral Catheter 2049 Other: # Bowel Movements 0 0 Result Diagrams: 02/02/18 05:52 02/02/18 05:52 Objective Remarks: GENERAL: Intubated sedated status post neuromuscular paralysis SKIN: warm/dry. HEAD: Atraumatic. Normocephalic. EYES: Pupils equal and round reactive. No scleral icterus. ENT: No nasal bleeding or discharge. Orotracheally intubated NECK: Trachea midline. No JVD. CARDIOVASCULAR: Tachycardic rate and rhythm. No murmur appreciated. RESPIRATORY: On PRVC/AC. Air entry equal bilaterally with bilateral expiratory wheezing. Failed CPAP due to tachypnea GASTROINTESTINAL: Abdomen soft, non-tender, nondistended. Hepatic and splenic margins not palpable. MUSCULOSKELETAL: No obvious deformities. No clubbing. No cyanosis. No edema. NEUROLOGICAL: Intubated sedated, not following commands but moves extremities on sedation lightening Assessment and Plan - Problem List (1) Acute on chronic respiratory failure with hypoxemia Code(s): J96.21 - Acute and chronic respiratory failure with hypoxia Status: Acute (2) Acute hypercapnic respiratory failure Code(s): J96.02 - Acute respiratory failure with hypercapnia Status: Inactive (3) Lactic acidemia Code(s): E87.2 - Acidosis Status: Acute (4) COPD with acute exacerbation Code(s): J44.1 - Chronic obstructive pulmonary disease with (acute) exacerbation Status: Acute (5) Hyponatremia Code(s): E87.1 - Hypo-osmolality and hyponatremia Status: Acute (6) Schizophrenia Code(s): F20.9 - Schizophrenia, unspecified Status: Chronic (7) COPD (chronic obstructive pulmonary disease) Code(s): J44.9 - Chronic obstructive pulmonary disease, unspecified Status: Chronic - Assessment and Plan Plan: NEURO: History of schizophrenia -Propofol and fentanyl for sedation and ventilator synchrony -Daily sedation vacation -did not tolerate today -Continue home neuroleptic medications RESP: Acute COPD exacerbation Acute hypoxemic and hypercapnic respiratory failure COPD Continued tobacco abuse Left lower lobe 1.5 cm parenchymal opacity -Failed BiPAP, intubated and placed on PRVC/AC in the emergency department -Ventilator bundle -DuoNeb every 4 hours scheduled and as needed -Follow-up sputum culture, received Levaquin in the ED -Cefepime 2 g IV every 8 hours -CT of the chest 1. Moderate to severe emphysema and mild biapical scarring. Very mild tree-in-bud type infectious/inflammatory appearing infiltrates of both bases. No dense or confluent consolidation. 1.5 cm focal parenchymal opacity of the left lower lobe, also most likely infectious or inflammatory but 3-6 month follow-up noncontrast chest CT is recommended CV: Lactic acidosis -Normal saline IV fluids 2 L bolus and 84 mL/h -Repeat lactic acid at now GI: -N.p.o., IV famotidine -Start tube feeds with Jevity : -Monitor renal function closely. Condom catheter placed in the ED ID: -Antibiotics cefepime 2 g IV every 8 -f/u sputum cultures. Check blood culture HEME: -Monitor CBC, coags ENDO: Hyponatremia -Electrolyte replacement per protocol -Sliding scale insulin -R/o SIADH -Slow-sodium correction at less than 0.5 mEq/h, not >10 meq in 24 hours PROPH: -Bilateral lower extremity SCDs. Lovenox/famotidine LINES: -Utilize peripheral IVs, central line if needed CC time 35 min Remains critical failing CPAP trials due to severe COPD/emphysema. Lactic acidosis trending down but patient remains critical
[2018-02-02] MEDS: Enoxaparin Inj 40 MG/0.4 ML Syringe SQ SCH (14:25)
--- NOTE | 2018-02-02 18:24 | ECG ---
Date Performed: 02/01/2018 Time Performed: 12:46:32 PTAGE: 62 years EKG: SINUS TACHYCARDIA WITH VENTRICULAR BIGEMINY RIGHT ATRIAL ENLARGEMENT RIGHT BUNDLE BRANCH BL OCK Compared to previous tracing, the atrial abnormalities are new ABNORMAL ECG PREVIOUS TRACING : 07/28/2017 15.56 DOCTOR: Juan Morejon Interpretating Date/Time 02/02/2018 18:23:36
[2018-02-02] MEDS: Benztropine 2 MG Tablet PO SCH (20:14)
[2018-02-03] MEDS: Propofol 1000 mg/100 ml Inj 1,000 MG/100 ML BOTTLE IV.CONT PRN ×4 (02:36→21:22)
[2018-02-03] MEDS: Sod Chloride 0.9% Inj 1,000 ML IV.CONT SCH ×3 (04:33→18:55)
--- NOTE | 2018-02-03 04:43 | XR ---
EXAM DATE: 02/03/2018 4:04 AM EST AGE/SEX: 62 years / Male INDICATIONS: Shortness of breath, possible pulmonary disease. CLINICAL DATA: This is the patient's subsequent encounter. Patient reports that signs and symptoms h ave been present for 3 days and indicates a pain score of Nonresponsive. MEDICAL/SURGICAL HISTORY: Chronic obstructive pulmonary disease. None. COMPARISON: C, CHEST 1V SINGLE AP, 02/01/2018. . FINDINGS: Endotracheal tube in good position. NG enters stomach. No new consolidation. There is underlying emphysema distal airway disease. No effusion. No pneumothor ax. CONCLUSION: Endotracheal tube and nasogastric tube in good position. Underlying emphysema with some interstitial prominence and distal airway disease. No new infiltrate. Electronically signed by: Kwasi Delgado MD 02/03/2018 4:41 AM EST
[2018-02-03] MEDS: MethylPREDNISolone Sod Succinate Inj 40 MG/ML Vial IV.PUSH SCH ×3 (05:56→21:05)
[2018-02-03] MEDS: Oral Hygiene Kit OROPHARYNG SCH ×4 (05:56→23:14)
[2018-02-03] MEDS: Chlorhexidine Gluconate 2% 1 Pack (2 Cloths) TOPICAL SCH (05:56)
[2018-02-03] MEDS: OLANZapine 15 MG Tablet PO SCH (08:54)
[2018-02-03] MEDS: Chlorhexidine 0.12% Oral Kit 15 ML UDC OROPHARYNG SCH ×2 (08:54→19:47)
[2018-02-03] MEDS: Famotidine PF Inj 20 MG/2 ML Vial IV.PUSH SCH ×2 (08:54→20:09)
--- NOTE | 2018-02-03 11:56 | P.PNCC ---
Subjective Subjective Remarks/Hospital Course: Patient is a 62-year-old male with history of COPD, schizophrenia, continued smoking who was brought to the emergency department from an assisted living facility for severe shortness of breath. Symptoms started few days ago, EMS evaluated and placed him on CPAP machine. Apparently EMS gave him 60 mg of IV Lasix for possible CHF exacerbation. In the ED initial oxygen saturation was 78 % on room air, patient was immediately placed on BiPAP with 50% oxygen. ABG showed pH 7.23 with a PCO2 of 86. Patient received IV Solu-Medrol DuoNeb and IV magnesium, also received 1 dose of IV Levaquin. No clinical improvement on 30 minutes of BiPAP, in fact ABG marginally worsened with pH 7.21 PCO2 87. Lactic acid was 2.3. Patient was intubated and placed on mechanical ventilation by Dr. Saucedo. Critical care medicine was consulted for admission I evaluated the patient in the ED. 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 Respiratory exam reveals bilateral expiratory wheezing. I have placed him on scheduled IV Solu-Medrol, DuoNeb every 4 hours scheduled and as needed, start cefepime 2 g IV every 8 hours and check sputum culture. Also inhaled budesonide had been started. Will repeat ABG in 1 hour. 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 I will check CT of the chest to rule out any occult mass/infiltrate 02/02: Patient remains intubated heavily sedated for vent synchrony. Failed CPAP attempted today due to severe tachypnea and distress. Continues to have expiratory wheezing. Lactic acid was elevated to 4.2 yesterday received 2 L normal saline bolus following this. Came down to 3 repeat lactic acid today pending 02/03: Remains critical failed CPAP trial due to severe respiratory distress and wheezing. Required re-sedation and full ventilatory support. Chest x-ray remains unchanged. Severe COPD/emphysema will make it challenging to wean off the ventilator Objective Vital Signs / I&O: Vital Signs 02/02/18 12:00 02/02/18 13:00 02/02/18 14:00 Temperature 98.3 F Pulse Rate 86 77 81 Respiratory Rate 15 15 15 Blood Pressure 107/66 121/81 101/64 Pulse Oximetry 98 100 97 02/02/18 15:00 02/02/18 16:00 02/02/18 16:24 Temperature 98.3 F Pulse Rate 77 80 Respiratory Rate 15 15 15 Blood Pressure 112/70 110/71 Pulse Oximetry 97 96 96 02/02/18 16:57 02/02/18 17:00 02/02/18 18:00 Temperature Pulse Rate 81 79 81 Respiratory Rate 15 15 15 Blood Pressure 109/72 111/72 Pulse Oximetry 97 97 02/02/18 19:00 02/02/18 20:00 02/02/18 20:02 Temperature 97.4 F L Pulse Rate 93 H 90 88 Respiratory Rate 18 15 15 Blood Pressure 116/71 124/71 Pulse Oximetry 95 97 97 02/02/18 21:00 02/02/18 21:59 02/02/18 22:00 Temperature Pulse Rate 78 69 69 Respiratory Rate 15 15 15 Blood Pressure 100/60 104/65 Pulse Oximetry 97 98 98 02/02/18 23:00 02/03/18 00:00 02/03/18 01:00 Temperature 98.6 F Pulse Rate 65 64 62 Respiratory Rate 15 15 15 Blood Pressure 108/67 103/64 103/66 Pulse Oximetry 100 98 98 02/03/18 01:28 02/03/18 02:00 02/03/18 03:00 Temperature Pulse Rate 61 67 63 Respiratory Rate 15 15 15 Blood Pressure 113/66 107/67 Pulse Oximetry 100 99 98 02/03/18 04:00 02/03/18 04:14 02/03/18 05:00 Temperature 98.2 F Pulse Rate 76 60 62 Respiratory Rate 15 15 15 Blood Pressure 147/84 H 112/65 Pulse Oximetry 99 100 99 02/03/18 06:00 02/03/18 07:00 02/03/18 08:00 Temperature 98.1 F Pulse Rate 84 60 51 L Respiratory Rate 31 H 15 15 Blood Pressure 141/82 H 112/65 133/78 Pulse Oximetry 100 97 100 02/03/18 09:00 Temperature Pulse Rate 71 Respiratory Rate 15 Blood Pressure 102/63 Pulse Oximetry 99 Intake & Output 02/02/18 02/03/18 02/03/18 18:59 06:59 18:59 Intake Total 1200 / 1200 1400 / 1400 53.8 / 53.8 Output Total 825 / 825 900 / 900 Balance 375 / 375 500 / 500 53.8 / 53.8 Weight 62.4 kg Intake: IV 1200 / 1200 1400 / 1400 53.8 / 53.8 Diprivan 1000 mg/100 ml Inj 1, 100 / 100 200 / 200 53.8 / 53.8 000 mg In 100 ml @ 5 MCG/KG/MIN 2.313 mls/hr IV.CONT TITRATE PRN Rx#:[id number] NS Inj 1,000 ML @ 75 mls/hr IV. 1000 / 1000 1000 / 1000 CONT .[id number] MACI Rx#:[id number] Maxipime Inj 2,000 MG In NS Inj 100 / 100 200 / 200 100 ML @ 200 mls/hr IV.SIG Q8H MACI Rx#:[id number] Oral 0 / 0 Output: Urine Amount (Catheter) 625 / 625 650 / 650 Indwelling Urethral Catheter 625 / 625 650 / 650 Gastric Drainage 200 / 200 250 / 250 Oral Orogastric Tube 200 / 200 250 / 250 Other: # Bowel Movements 0 Result Diagrams: 02/02/18 05:52 02/02/18 05:52 Objective Remarks: GENERAL: Intubated currently on CPAP trial tachypneic SKIN: warm/dry. HEAD: Atraumatic. Normocephalic. EYES: Pupils equal and round reactive. No scleral icterus. ENT: No nasal bleeding or discharge. Orotracheally intubated NECK: Trachea midline. No JVD. CARDIOVASCULAR: Tachycardic rate and rhythm. No murmur appreciated. RESPIRATORY: On CPAP. Tachypneic with air entry equal bilaterally with bilateral expiratory wheezing. Significant respiratory distress on CPAP trial GASTROINTESTINAL: Abdomen soft, non-tender, nondistended. Hepatic and splenic margins not palpable. MUSCULOSKELETAL: No obvious deformities. No clubbing. No cyanosis. No edema. NEUROLOGICAL: On holding sedation patient wakes up easily follows commands on upper and lower extremities. Assessment and Plan - Problem List (1) Acute on chronic respiratory failure with hypoxemia Code(s): J96.21 - Acute and chronic respiratory failure with hypoxia Status: Acute (2) Acute hypercapnic respiratory failure Code(s): J96.02 - Acute respiratory failure with hypercapnia Status: Acute (3) Lactic acidemia Code(s): E87.2 - Acidosis Status: Acute (4) COPD with acute exacerbation Code(s): J44.1 - Chronic obstructive pulmonary disease with (acute) exacerbation Status: Acute (5) Hyponatremia Code(s): E87.1 - Hypo-osmolality and hyponatremia Status: Acute (6) Schizophrenia Code(s): F20.9 - Schizophrenia, unspecified Status: Chronic (7) COPD (chronic obstructive pulmonary disease) Code(s): J44.9 - Chronic obstructive pulmonary disease, unspecified Status: Chronic - Assessment and Plan Plan: NEURO: History of schizophrenia -Propofol and fentanyl for sedation and ventilator synchrony -Daily sedation vacation -did not tolerate became very anxious -Continue home neuroleptic medications RESP: Acute COPD exacerbation Acute hypoxemic and hypercapnic respiratory failure COPD Continued tobacco abuse Left lower lobe 1.5 cm parenchymal opacity -Failed BiPAP, intubated and placed on PRVC/AC in the emergency department -Ventilator bundle -DuoNeb every 4 hours scheduled and as needed -Sputum culture growing Haemophilus species, received Levaquin in the ED -Cefepime 2 g IV every 8 hours-change to Rocephin -CT of the chest 1. Moderate to severe emphysema and mild biapical scarring. Very mild tree-in-bud type infectious/inflammatory appearing infiltrates of both bases. No dense or confluent consolidation. 1.5 cm focal parenchymal opacity of the left lower lobe, also most likely infectious or inflammatory but 3-6 month follow-up noncontrast chest CT is recommended CV: Lactic acidosis -s/p Normal saline IV fluids 2 L bolus and maintenance 84 mL/h -Repeat lactic acid at now GI: -N.p.o., IV famotidine -Tube feeds with Jevity : -Monitor renal function closely. Condom catheter placed in the ED ID: -Antibiotics cefepime 2 g IV every 8-changed to Rocephin -f/u sputum cultures. -Growing Haemophilus species HEME: -Monitor CBC, coags ENDO: Hyponatremia-resolving -Electrolyte replacement per protocol -Sliding scale insulin -R/o SIADH -Slow-sodium correction at less than 0.5 mEq/h, not >10 meq in 24 hours PROPH: -Bilateral lower extremity SCDs. Lovenox/famotidine LINES: -Utilize peripheral IVs, central line if needed CC time 35 min Remains critical failing CPAP trials due to severe COPD/emphysema. Lactic acidosis resolved. Haemophilus in sputum indicating Haemophilus pneumonia. Antibiotics changed to Rocephin. Severe COPD/emphysema can make it challenging to extubate Code Status: Full
[2018-02-03] MEDS: Enoxaparin Inj 40 MG/0.4 ML Syringe SQ SCH (14:36)
[2018-02-03] MEDS: Benztropine 2 MG Tablet PO SCH (20:09)
[2018-02-04] MEDS: Sod Chloride 0.9% Inj 1,000 ML IV.CONT SCH (02:08)
[2018-02-04] MEDS: Propofol 1000 mg/100 ml Inj 1,000 MG/100 ML BOTTLE IV.CONT PRN ×2 (02:08→08:00)
[2018-02-04] MEDS: Chlorhexidine Gluconate 2% 1 Pack (2 Cloths) TOPICAL SCH (03:33)
[2018-02-04] MEDS: Oral Hygiene Kit OROPHARYNG SCH ×4 (03:33→23:36)
[2018-02-04] MEDS: MethylPREDNISolone Sod Succinate Inj 40 MG/ML Vial IV.PUSH SCH ×3 (05:05→21:15)
[2018-02-04] MEDS ORDERED: RASS Change Order MISCELLANE ONE (08:00)
[2018-02-04] MEDS: Famotidine PF Inj 20 MG/2 ML Vial IV.PUSH SCH ×2 (08:49→21:15)
[2018-02-04] MEDS: Chlorhexidine 0.12% Oral Kit 15 ML UDC OROPHARYNG SCH ×2 (08:49→20:37)
[2018-02-04] MEDS: OLANZapine 15 MG Tablet PO SCH (08:50)
--- NOTE | 2018-02-04 09:33 | P.PNCC ---
Subjective Subjective Remarks/Hospital Course: Patient is a 62-year-old male with history of COPD, schizophrenia, continued smoking who was brought to the emergency department from an assisted living facility for severe shortness of breath. Symptoms started few days ago, EMS evaluated and placed him on CPAP machine. Apparently EMS gave him 60 mg of IV Lasix for possible CHF exacerbation. In the ED initial oxygen saturation was 78 % on room air, patient was immediately placed on BiPAP with 50% oxygen. ABG showed pH 7.23 with a PCO2 of 86. Patient received IV Solu-Medrol DuoNeb and IV magnesium, also received 1 dose of IV Levaquin. No clinical improvement on 30 minutes of BiPAP, in fact ABG marginally worsened with pH 7.21 PCO2 87. Lactic acid was 2.3. Patient was intubated and placed on mechanical ventilation by Dr. Saucedo. Critical care medicine was consulted for admission I evaluated the patient in the ED. 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 Respiratory exam reveals bilateral expiratory wheezing. I have placed him on scheduled IV Solu-Medrol, DuoNeb every 4 hours scheduled and as needed, start cefepime 2 g IV every 8 hours and check sputum culture. Also inhaled budesonide had been started. Will repeat ABG in 1 hour. 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 I will check CT of the chest to rule out any occult mass/infiltrate 02/02: Patient remains intubated heavily sedated for vent synchrony. Failed CPAP attempted today due to severe tachypnea and distress. Continues to have expiratory wheezing. Lactic acid was elevated to 4.2 yesterday received 2 L normal saline bolus following this. Came down to 3 repeat lactic acid today pending 02/03: Remains critical failed CPAP trial due to severe respiratory distress and wheezing. Required re-sedation and full ventilatory support. Chest x-ray remains unchanged. Severe COPD/emphysema will make it challenging to wean off the ventilator 02/04: Remains intubated heavily sedated for ventilator synchrony. Starting Precedex to facilitate weaning trials. Clinically COPD seems to be improving with less wheezing today. Sputum culture with Haemophilus influenzae being treated Objective Vital Signs / I&O: Vital Signs 02/03/18 10:00 02/03/18 11:00 02/03/18 11:52 Temperature Pulse Rate 86 92 H 64 Respiratory Rate 24 15 15 Blood Pressure 155/87 H 141/71 H Pulse Oximetry 99 96 02/03/18 11:57 02/03/18 12:00 02/03/18 13:00 Temperature 98.5 F Pulse Rate 63 49 L Respiratory Rate 15 15 15 Blood Pressure 104/64 124/72 Pulse Oximetry 97 97 100 02/03/18 14:00 02/03/18 15:00 02/03/18 16:00 Temperature 98.4 F Pulse Rate 57 L 60 52 L Respiratory Rate 15 15 15 Blood Pressure 125/74 132/78 111/68 Pulse Oximetry 100 100 98 02/03/18 16:27 02/03/18 17:00 02/03/18 18:00 Temperature Pulse Rate 82 69 Respiratory Rate 15 16 15 Blood Pressure 143/80 H 131/81 Pulse Oximetry 99 99 97 02/03/18 19:00 02/03/18 20:00 02/03/18 20:23 Temperature 98.8 F Pulse Rate 73 56 L 52 L Respiratory Rate 15 15 15 Blood Pressure 120/73 108/70 Pulse Oximetry 99 99 100 02/03/18 21:00 02/03/18 21:02 02/03/18 22:00 Temperature Pulse Rate 61 62 58 L Respiratory Rate 15 15 15 Blood Pressure 112/70 119/69 Pulse Oximetry 99 99 98 02/03/18 23:00 02/03/18 23:59 02/04/18 00:00 Temperature 98.5 F Pulse Rate 57 L 56 L 54 L Respiratory Rate 15 15 15 Blood Pressure 119/70 118/70 Pulse Oximetry 99 98 98 02/04/18 01:00 02/04/18 02:00 02/04/18 02:59 Temperature Pulse Rate 56 L 58 L 73 Respiratory Rate 15 15 15 Blood Pressure 123/71 120/73 147/81 H Pulse Oximetry 99 99 99 02/04/18 03:00 02/04/18 04:00 02/04/18 04:01 Temperature 98.4 F Pulse Rate 75 60 60 Respiratory Rate 15 15 15 Blood Pressure 118/71 Pulse Oximetry 99 96 96 02/04/18 05:00 02/04/18 06:00 Temperature Pulse Rate 61 58 L Respiratory Rate 15 15 Blood Pressure 136/80 135/72 Pulse Oximetry 100 100 Intake & Output 11/24/18 11/25/18 11/25/18 18:59 06:59 18:59 Intake Total 1253.8 / 1253.8 1200 / 1200 100 / 100 Output Total 650 / 650 550 / 550 Balance 603.8 / 603.8 650 / 650 100 / 100 Weight 62.7 kg Intake: IV 1253.8 / 1253.8 1200 / 1200 100 / 100 Diprivan 1000 mg/100 ml Inj 1, 153.8 / 153.8 200 / 200 100 / 100 000 mg In 100 ml @ 5 MCG/KG/MIN 2.313 mls/hr IV.CONT TITRATE PRN Rx#:[id number] NS Inj 1,000 ML @ 75 mls/hr IV. 1000 / 1000 1000 / 1000 CONT .[id number] MACI Rx#:[id number] Rocephin Inj 2,000 MG In NS Inj 100 / 100 100 ML @ 200 mls/hr IV.SIG Q24H MACI Rx#:[id number] Oral 0 / 0 Output: Urine Amount (Catheter) 550 / 550 400 / 400 Indwelling Urethral Catheter 550 / 550 400 / 400 Gastric Drainage 100 / 100 150 / 150 Oral Orogastric Tube 100 / 100 150 / 150 Result Diagrams: 02/02/18 05:52 02/02/18 05:52 Objective Remarks: GENERAL: Intubated currently on full ventilator support SKIN: warm/dry. HEAD: Atraumatic. Normocephalic. EYES: Pupils equal and round reactive. No scleral icterus. ENT: No nasal bleeding or discharge. Orotracheally intubated NECK: Trachea midline. No JVD. CARDIOVASCULAR: S1-S2 normal no murmur appreciated. RESPIRATORY: On PRVC. Air entry equal bilaterally with minimal bilateral expiratory wheezing. GASTROINTESTINAL: Abdomen soft, non-tender, nondistended. Hepatic and splenic margins not palpable. MUSCULOSKELETAL: No obvious deformities. No clubbing. No cyanosis. No edema. NEUROLOGICAL: On holding sedation patient wakes up easily follows commands on upper and lower extremities. Assessment and Plan - Problem List (1) Acute on chronic respiratory failure with hypoxemia Code(s): J96.21 - Acute and chronic respiratory failure with hypoxia Status: Acute (2) Acute hypercapnic respiratory failure Code(s): J96.02 - Acute respiratory failure with hypercapnia Status: Acute (3) Lactic acidemia Code(s): E87.2 - Acidosis Status: Acute (4) COPD with acute exacerbation Code(s): J44.1 - Chronic obstructive pulmonary disease with (acute) exacerbation Status: Acute (5) Hyponatremia Code(s): E87.1 - Hypo-osmolality and hyponatremia Status: Acute (6) Schizophrenia Code(s): F20.9 - Schizophrenia, unspecified Status: Chronic (7) COPD (chronic obstructive pulmonary disease) Code(s): J44.9 - Chronic obstructive pulmonary disease, unspecified Status: Chronic - Assessment and Plan Plan: NEURO: History of schizophrenia -Propofol and fentanyl for sedation and ventilator synchrony -Start Precedex to facilitate ventilator weaning -Daily sedation vacation -Continue home neuroleptic medications RESP: Acute COPD exacerbation Acute hypoxemic and hypercapnic respiratory failure COPD, Continued tobacco abuse Left lower lobe 1.5 cm parenchymal opacity Haemophilus influenza pneumonia -Failed BiPAP, intubated and placed on PRVC/AC in the emergency department -Ventilator bundle -DuoNeb every 4 hours scheduled and as needed, continue IV steroid -Sputum culture growing Haemophilus species, received Levaquin in the ED -Continue Rocephin -CT of the chest 1. Moderate to severe emphysema and mild biapical scarring. Very mild tree-in-bud type infectious/inflammatory appearing infiltrates of both bases. No dense or confluent consolidation. 1.5 cm focal parenchymal opacity of the left lower lobe, also most likely infectious or inflammatory but 3-6 month follow-up noncontrast chest CT is recommended -Failing CPAP trials, attempt daily CV: Lactic acidosis -s/p Normal saline IV fluids 2 L bolus and maintenance 84 mL/h -Repeat lactic acid at now GI: Coffee-ground NG output -N.p.o., IV famotidine -Gastroenterology consult : -Monitor renal function closely. Condom catheter placed in the ED ID: H influenza pneumonia -Antibiotics Rocephin -f/u sputum cultures. -Growing Haemophilus species HEME: -Monitor CBC, coags ENDO: Hyponatremia-resolving -Electrolyte replacement per protocol -Sliding scale insulin -Slow-sodium correction at less than 0.5 mEq/h, not >10 meq in 24 hours PROPH: -Bilateral lower extremity SCDs. Lovenox/famotidine LINES: -Utilize peripheral IVs, central line if needed Level 3 Remains critical failing CPAP trials due to severe COPD/emphysema. Lactic acidosis resolved. Haemophilus pneumonia. Antibiotics changed to Rocephin. Severe COPD/emphysema can make it challenging to extubate. GI consulted for coffee-ground NG output
[2018-02-04] MEDS: Dexmedetomidine Inj 200 MCG in Sodium Chlor 0.9% Inj 48 ML IV.CONT PRN ×5 (10:02→23:36)
--- NOTE | 2018-02-04 13:40 | P.CONGI ---
History of Present Illness Consult date: 02/04/18 Consult reason: Dark brown orogastric residual Chief complaint: Acute hypercapneic respiratory failure History of Present Illness: This patient is a 62-year-old male with past medical history of COPD, schizophrenia and tobacco use. Surgical history includes history of neurologic surgery. Patient presented to the emergency room from assisted living facility with reported shortness of breath. Patient was emergently intubated and ventilated. Upon insertion of orogastric tube patient was noted to have dark brown orogastric residual. Upon consultation, patient currently intubated and mechanically ventilated on a Precedex drip. OG to low intermittent wall suction with 100 mL's of fenton to brown colored fluid noted in collection container. Our service has been consulted to evaluate patient for GI bleeding. <Angy Lawler - Last Filed: 02/04/18 13:32> Review of Systems unobtainable due to endotracheal tube, other <Angy Lawler - Last Filed: 02/04/18 13:32> PMFSH - History History Provided By: Postmaster Relief / EMT - Medical History Medical History: Medical History (Last Reviewed 02/01/18 @ 14:18 by Malia Skinner MD) COPD (chronic obstructive pulmonary disease) Schizophrenia Smoker - Surgical History Surgical History: Surgical History (Last Reviewed 02/01/18 @ 14:18 by Malia Skinner MD) History of neurologic surgery - Tobacco History Second Hand Smoke Exposure: Yes Tobacco Use In Past 30 Days: Yes Smoking Status: Current every day smoker Tobacco Type: Cigarettes - Alcohol History How Often Do You Have a Drink Containing Alcohol: Monthly or less - Substance Use History Substance History: No History of Abuse - Travel History Recent Travel in the [place] Within the Last 8 Weeks: No Recent Travel Out of the Country Within the Last 8 Weeks: No - Immunization History Tetanus Immunization: >5 Years <Angy Lawler - Last Filed: 02/04/18 13:32> - Medical History Medical History: Medical History (Last Reviewed 02/01/18 @ 14:18 by Malia Skinner MD) COPD (chronic obstructive pulmonary disease) Schizophrenia Smoker - Surgical History Surgical History: Surgical History (Last Reviewed 02/01/18 @ 14:18 by Malia Skinner MD) History of neurologic surgery <Xenia Diop - Last Filed: 02/05/18 12:46> Medications and Allergies Active Medications: Active Medications Albuterol (Duoneb Neb (Prn)) 1 ampul NEB Q4HR NEB PRN PRN Reason: SHORTNESS OF BREATH Albuterol (Duoneb Neb (Durga)) 1 ampul NEB Q4HR NEB [facility] Last Admin: 02/04/18 12:16 Dose: 1 ampul Benztropine Mesylate (Cogentin) 2 mg PO HS [facility] Last Admin: 02/03/18 20:09 Dose: 2 mg Budesonide (Pulmocort Respule Neb) 0.5 mg NEB Q12HR NEB [facility] Last Admin: 02/03/18 23:58 Dose: 0.5 mg Chlorhexidine Gluconate (Chlorhexidine 2% Cloth) 3 pack TOPICAL DAILY@0400 [facility] Stop: 02/07/18 03:59 Last Admin: 02/04/18 03:33 Dose: 3 pack Chlorhexidine Gluconate (Chlorhexidine 2% Cloth) 3 pack TOPICAL DAILY@0400 PRN PRN Reason: Extra cloth needed Stop: 02/07/18 03:59 Chlorhexidine Gluconate (Peridex 0.12% Oral Kit) 15 ml OROPHARYNG BID@0800, 2000 [facility] Last Admin: 02/04/18 08:49 Dose: 15 ml Enoxaparin Sodium (Lovenox Inj) 40 mg SQ Q24H [facility] Last Admin: 02/03/18 14:36 Dose: 40 mg Famotidine (Pepcid Pf Inj) 20 mg IV.PUSH Q12HR [facility] Last Admin: 02/04/18 08:49 Dose: 20 mg Fentanyl Citrate (Fentanyl Inj) 50 mcg IV.PUSH Q1H PRN PRN Reason: SEE LABEL COMMENTS Propofol (Diprivan 1000 Mg/100 Ml Inj) 1,000 mg in 100 mls @ 2.313 mls/hr IV.CONT TITRATE PRN; Protocol PRN Reason: Per Protocol Last Titration: 02/04/18 08:46 Dose: 0 mcg/kg/min, 0 mls/hr Magnesium Sulfate 4 gm/ Sodium (Chloride) 100 mls @ 50 mls/hr IV.SIG UNSCH PRN PRN Reason: For Magnesium 0.9 - 1.1 mg/dL Magnesium Sulfate 2 gm/ Sodium (Chloride) 100 mls @ 50 mls/hr IV.SIG UNSCH PRN PRN Reason: For Magnesium 1.2 - 1.6 mg/dL Potassium Chloride (Kcl 40 Meq Premix Inj) 40 meq in 100 mls @ 25 mls/hr IV.SIG Q2H PRN PRN Reason: For Potassium 2.8 - 3.2 mEq/L Potassium Chloride (Kcl 20 Meq Premix Inj) 20 meq in 100 mls @ 50 mls/hr IV.SIG Q2H PRN PRN Reason: For Potassium 3.3 - 3.5 mEq/L Potassium Chloride (Kcl 40 Meq Premix Inj) 40 meq in 100 mls @ 25 mls/hr IV.SIG UNSCH PRN PRN Reason: For Potassium 3.3 - 3.5 mEq/L Potassium Phosphate 30 mmol/ (Sodium Chloride) 260 mls @ 42 mls/hr IV.SIG UNSCH PRN PRN Reason: SEE LABEL COMMENTS Sodium Phosphate 30 mmol/ (Sodium Chloride) 260 mls @ 42 mls/hr IV.SIG UNSCH PRN PRN Reason: For Phosphorus < 2.5 mg/dL Potassium Chloride (Kcl 20 Meq Premix Inj) 20 meq in 100 mls @ 50 mls/hr IV.SIG Q2H PRN PRN Reason: For Potassium 2.8 - 3.2 mEq/L Fentanyl (Fentanyl 10 Mcg/Ml Premix Drip) 2,500 mcg in 250 mls @ 5 mls/hr IV.SIG TITRATE PRN; Protocol PRN Reason: Per Protocol Ceftriaxone Sodium 2,000 mg/ (Sodium Chloride) 100 mls @ 200 mls/hr IV.SIG Q24H [facility] Last Admin: 02/04/18 12:11 Dose: 200 mls/hr Dexmedetomidine HCl 200 mcg/ (Sodium Chloride) 50 mls @ 3.13 mls/hr IV.CONT TITRATE PRN; Protocol PRN Reason: Per Protocol Last Titration: 02/04/18 13:11 Dose: 0.7 mcg/kg/hr, 10.97 mls/hr Magnesium Oxide (Mag-Ox) 800 mg PO UNSCH PRN PRN Reason: For Magnesium 1.2 - 1.6 mg/dL Methylprednisolone Sodium Succinate (Solumedrol Inj) 40 mg IV.PUSH Q8HR [facility] Last Admin: 02/04/18 13:09 Dose: 40 mg Miscellaneous Medication () 1 each OROPHARYNG 0000,0400,1200,1600 [facility] Last Admin: 02/04/18 12:11 Dose: 1 each Olanzapine (Zyprexa) 15 mg PO DAILY [facility] Last Admin: 02/04/18 08:50 Dose: 15 mg Potassium Bicarb/Potassium Chloride (K-Lyte Cl Eff) 50 meq PO UNSCH PRN PRN Reason: For Potassium 3.3 - 3.5 mEq/L Potassium Phosphate (K-Phos Original) 2,000 mg PO Q4H PRN PRN Reason: Phosphorus Less Than 2.5 mg/dL Potassium Phosphate (K-Phos Original) 2,000 mg PO UNSCH PRN PRN Reason: SEE LABEL COMMENTS Sodium Chloride (Ns Flush) 2 ml IV.FLUSH PRN PRN PRN Reason: FLUSH AFTER USING IV ACCESS Thiothixene (Navane) 10 mg PO HS [facility] Last Admin: 02/03/18 20:09 Dose: 10 mg <Angy Lawler - Last Filed: 02/04/18 13:32> Active Medications: Active Medications Albuterol (Duoneb Neb (Prn)) 1 ampul NEB Q4HR NEB PRN PRN Reason: SHORTNESS OF BREATH Albuterol (Duoneb Neb (Durga)) 1 ampul NEB Q4HR NEB [facility] Last Admin: 02/05/18 11:46 Dose: 1 ampul Benztropine Mesylate (Cogentin) 2 mg PO HS [facility] Last Admin: 02/04/18 21:15 Dose: 2 mg Budesonide (Pulmocort Respule Neb) 0.5 mg NEB Q12HR NEB [facility] Last Admin: 02/05/18 08:56 Dose: 0.5 mg Chlorhexidine Gluconate (Chlorhexidine 2% Cloth) 3 pack TOPICAL DAILY@0400 [facility] Stop: 02/07/18 03:59 Last Admin: 02/05/18 04:32 Dose: 3 pack Chlorhexidine Gluconate (Chlorhexidine 2% Cloth) 3 pack TOPICAL DAILY@0400 PRN PRN Reason: Extra cloth needed Stop: 02/07/18 03:59 Chlorhexidine Gluconate (Peridex 0.12% Oral Kit) 15 ml OROPHARYNG BID@0800, 2000 [facility] Last Admin: 02/05/18 08:02 Dose: 15 ml Enoxaparin Sodium (Lovenox Inj) 40 mg SQ Q24H [facility] Last Admin: 02/04/18 15:00 Dose: 40 mg Famotidine (Pepcid Pf Inj) 20 mg IV.PUSH Q12HR [facility] Last Admin: 02/05/18 08:02 Dose: 20 mg Fentanyl Citrate (Fentanyl Inj) 50 mcg IV.PUSH Q1H PRN PRN Reason: SEE LABEL COMMENTS Propofol (Diprivan 1000 Mg/100 Ml Inj) 1,000 mg in 100 mls @ 2.313 mls/hr IV.CONT TITRATE PRN; Protocol PRN Reason: Per Protocol Last Titration: 02/05/18 05:12 Dose: 0 mcg/kg/min, 0 mls/hr Magnesium Sulfate 4 gm/ Sodium (Chloride) 100 mls @ 50 mls/hr IV.SIG UNSCH PRN PRN Reason: For Magnesium 0.9 - 1.1 mg/dL Magnesium Sulfate 2 gm/ Sodium (Chloride) 100 mls @ 50 mls/hr IV.SIG UNSCH PRN PRN Reason: For Magnesium 1.2 - 1.6 mg/dL Potassium Chloride (Kcl 40 Meq Premix Inj) 40 meq in 100 mls @ 25 mls/hr IV.SIG Q2H PRN PRN Reason: For Potassium 2.8 - 3.2 mEq/L Potassium Chloride (Kcl 20 Meq Premix Inj) 20 meq in 100 mls @ 50 mls/hr IV.SIG Q2H PRN PRN Reason: For Potassium 3.3 - 3.5 mEq/L Potassium Chloride (Kcl 40 Meq Premix Inj) 40 meq in 100 mls @ 25 mls/hr IV.SIG UNSCH PRN PRN Reason: For Potassium 3.3 - 3.5 mEq/L Potassium Phosphate 30 mmol/ (Sodium Chloride) 260 mls @ 42 mls/hr IV.SIG UNSCH PRN PRN Reason: SEE LABEL COMMENTS Sodium Phosphate 30 mmol/ (Sodium Chloride) 260 mls @ 42 mls/hr IV.SIG UNSCH PRN PRN Reason: For Phosphorus < 2.5 mg/dL Potassium Chloride (Kcl 20 Meq Premix Inj) 20 meq in 100 mls @ 50 mls/hr IV.SIG Q2H PRN PRN Reason: For Potassium 2.8 - 3.2 mEq/L Fentanyl (Fentanyl 10 Mcg/Ml Premix Drip) 2,500 mcg in 250 mls @ 5 mls/hr IV.SIG TITRATE PRN; Protocol PRN Reason: Per Protocol Ceftriaxone Sodium 2,000 mg/ (Sodium Chloride) 100 mls @ 200 mls/hr IV.SIG Q24H [facility] Last Admin: 02/05/18 12:04 Dose: 200 mls/hr Dexmedetomidine HCl 200 mcg/ (Sodium Chloride) 50 mls @ 3.13 mls/hr IV.CONT TITRATE PRN; Protocol PRN Reason: Per Protocol Last Titration: 02/05/18 05:25 Dose: 1.1 mcg/kg/hr, 17.24 mls/hr Lactulose (Lactulose Liq) 30 ml PO Q6H [facility] Last Admin: 02/05/18 12:04 Dose: 30 ml Magnesium Oxide (Mag-Ox) 800 mg PO UNSCH PRN PRN Reason: For Magnesium 1.2 - 1.6 mg/dL Methylprednisolone Sodium Succinate (Solumedrol Inj) 40 mg IV.PUSH Q8HR [facility] Last Admin: 02/05/18 05:11 Dose: 40 mg Miscellaneous Medication () 1 each OROPHARYNG 0000,0400,1200,1600 [facility] Last Admin: 02/05/18 12:04 Dose: 1 each Olanzapine (Zyprexa) 15 mg PO DAILY [facility] Last Admin: 02/05/18 08:01 Dose: 15 mg Potassium Bicarb/Potassium Chloride (K-Lyte Cl Eff) 50 meq PO UNSCH PRN PRN Reason: For Potassium 3.3 - 3.5 mEq/L Potassium Phosphate (K-Phos Original) 2,000 mg PO Q4H PRN PRN Reason: Phosphorus Less Than 2.5 mg/dL Potassium Phosphate (K-Phos Original) 2,000 mg PO UNSCH PRN PRN Reason: SEE LABEL COMMENTS Sodium Chloride (Ns Flush) 2 ml IV.FLUSH PRN PRN PRN Reason: FLUSH AFTER USING IV ACCESS Thiothixene (Navane) 10 mg PO HS [facility] Last Admin: 02/04/18 21:15 Dose: 10 mg <Xenia Diop A - Last Filed: 02/05/18 12:46> Allergies Allergy/AdvReac Type Severity Reaction Status Date / Time codeine AdvReac Intermediate NAUSEA Verified 02/01/18 12:44 Home Medications Medication Instructions Recorded Confirmed Type albuterol sulfate [Ventolin HFA] 2 puff INHALATION QID 02/01/18 02/01/18 History benztropine 2 mg PO HS 02/01/18 02/01/18 History budesonide-formoterol [Symbicort] 2 puff INHALATION BID 02/01/18 02/01/18 History olanzapine 15 mg PO DAILY 02/01/18 02/01/18 History thiothixene 10 mg PO HS 02/01/18 02/01/18 History Exam Vital signs: Vital Signs 02/03/18 14:00 02/03/18 15:00 02/03/18 16:00 Temperature 98.4 F Pulse Rate 57 L 60 52 L Respiratory Rate 15 15 15 Blood Pressure 125/74 132/78 111/68 Pulse Oximetry 100 100 98 02/03/18 16:27 02/03/18 17:00 02/03/18 18:00 Temperature Pulse Rate 82 69 Respiratory Rate 15 16 15 Blood Pressure 143/80 H 131/81 Pulse Oximetry 99 99 97 02/03/18 19:00 02/03/18 20:00 02/03/18 20:23 Temperature 98.8 F Pulse Rate 73 56 L 52 L Respiratory Rate 15 15 15 Blood Pressure 120/73 108/70 Pulse Oximetry 99 99 100 02/03/18 21:00 02/03/18 21:02 02/03/18 22:00 Temperature Pulse Rate 61 62 58 L Respiratory Rate 15 15 15 Blood Pressure 112/70 119/69 Pulse Oximetry 99 99 98 02/03/18 23:00 02/03/18 23:59 02/04/18 00:00 Temperature 98.5 F Pulse Rate 57 L 56 L 54 L Respiratory Rate 15 15 15 Blood Pressure 119/70 118/70 Pulse Oximetry 99 98 98 02/04/18 01:00 02/04/18 02:00 02/04/18 02:59 Temperature Pulse Rate 56 L 58 L 73 Respiratory Rate 15 15 15 Blood Pressure 123/71 120/73 147/81 H Pulse Oximetry 99 99 99 02/04/18 03:00 02/04/18 04:00 02/04/18 04:01 Temperature 98.4 F Pulse Rate 75 60 60 Respiratory Rate 15 15 15 Blood Pressure 118/71 Pulse Oximetry 99 96 96 02/04/18 05:00 02/04/18 06:00 02/04/18 07:00 Temperature 97.7 F Pulse Rate 61 58 L 57 L Respiratory Rate 15 15 15 Blood Pressure 136/80 135/72 152/83 H Pulse Oximetry 100 100 100 02/04/18 08:00 02/04/18 09:00 02/04/18 10:00 Temperature Pulse Rate 51 L 60 104 H Respiratory Rate 15 15 29 H Blood Pressure 114/64 150/86 H 140/88 Pulse Oximetry 97 100 98 02/04/18 11:00 02/04/18 12:17 Temperature Pulse Rate 67 Respiratory Rate 15 15 Blood Pressure Pulse Oximetry 98 Intake & Output 02/03/18 02/04/18 02/04/18 18:59 06:59 18:59 Intake Total 1253.8 / 1253.8 1200 / 1200 100 / 100 Output Total 650 / 650 550 / 550 Balance 603.8 / 603.8 650 / 650 100 / 100 Weight 62.7 kg Intake: IV 1253.8 / 1253.8 1200 / 1200 100 / 100 Diprivan 1000 mg/100 ml Inj 1, 153.8 / 153.8 200 / 200 100 / 100 000 mg In 100 ml @ 5 MCG/KG/MIN 2.313 mls/hr IV.CONT TITRATE PRN Rx#:[id number] NS Inj 1,000 ML @ 75 mls/hr IV. 1000 / 1000 1000 / 1000 CONT .[id number] [facility] Rx#:[id number] Rocephin Inj 2,000 MG In NS Inj 100 / 100 100 ML @ 200 mls/hr IV.SIG Q24H [facility] Rx#:[id number] Oral 0 / 0 Output: Urine Amount (Catheter) 550 / 550 400 / 400 Indwelling Urethral Catheter 550 / 550 400 / 400 Gastric Drainage 100 / 100 150 / 150 Oral Orogastric Tube 100 / 100 150 / 150 - Constitutional chronically ill appearing - Routine HEENT Exam Head: Present: normocephalic - Routine Respiratory Exam Present: patient mechanically ventilated - Routine Cardiovascular Exam Present: S1, S2 - Routine Abdominal Exam Present: soft, normoactive bowel sounds. Absent: tenderness, distended, firm - Routine Extremities Exam Absent: edema - Routine Skin Exam Present: dry, warm - Routine Neurological Exam Sedated for ventilator synchrony <Angy Lawler - Last Filed: 02/04/18 13:32> Vital signs: Vital Signs 02/04/18 13:00 02/04/18 13:05 02/04/18 14:00 Temperature Pulse Rate 101 H 89 81 Respiratory Rate 23 15 15 Blood Pressure 175/82 H 152/71 H 135/78 Pulse Oximetry 98 97 98 02/04/18 15:00 02/04/18 16:00 02/04/18 16:13 Temperature 98.0 F Pulse Rate 76 98 H Respiratory Rate 15 20 15 Blood Pressure 152/80 H 150/90 H Pulse Oximetry 99 100 98 02/04/18 17:00 02/04/18 18:00 02/04/18 19:00 Temperature Pulse Rate 82 74 89 Respiratory Rate 15 15 16 Blood Pressure 147/81 H 141/81 H 143/79 H Pulse Oximetry 97 96 98 02/04/18 20:00 02/04/18 21:00 02/04/18 21:27 Temperature 98.9 F Pulse Rate 62 54 L 65 Respiratory Rate 15 18 15 Blood Pressure 130/78 136/73 Pulse Oximetry 96 97 02/04/18 21:28 02/04/18 22:00 02/04/18 22:01 Temperature Pulse Rate 68 68 Respiratory Rate 16 15 15 Blood Pressure 117/64 Pulse Oximetry 96 96 96 02/04/18 23:00 02/05/18 00:00 02/05/18 00:38 Temperature 98.7 F Pulse Rate 47 L 47 L 46 L Respiratory Rate 22 16 15 Blood Pressure 135/77 154/84 H Pulse Oximetry 96 98 02/05/18 00:39 02/05/18 01:00 02/05/18 02:00 Temperature Pulse Rate 47 L 47 L Respiratory Rate 15 16 15 Blood Pressure 157/85 H 158/88 H Pulse Oximetry 98 98 97 02/05/18 03:00 02/05/18 04:00 02/05/18 04:47 Temperature 97.8 F Pulse Rate 45 L 44 L 45 L Respiratory Rate 15 15 15 Blood Pressure 163/87 H 165/90 H Pulse Oximetry 97 98 02/05/18 04:48 02/05/18 05:00 02/05/18 06:00 Temperature Pulse Rate 45 L 47 L Respiratory Rate 15 16 16 Blood Pressure 155/85 H 157/85 H Pulse Oximetry 98 98 96 02/05/18 07:00 02/05/18 08:00 02/05/18 08:57 Temperature 97.8 F Pulse Rate 46 L 50 L 54 L Respiratory Rate 16 23 15 Blood Pressure 159/88 H 161/89 H Pulse Oximetry 97 97 99 02/05/18 09:00 02/05/18 09:01 02/05/18 10:00 Temperature Pulse Rate 53 L 55 L 51 L Respiratory Rate 18 19 15 Blood Pressure 137/78 151/82 H Pulse Oximetry 98 98 97 02/05/18 11:00 02/05/18 11:47 02/05/18 12:00 Temperature 98.1 F Pulse Rate 63 61 61 Respiratory Rate 15 15 15 Blood Pressure 113/66 118/70 Pulse Oximetry 95 96 96 Intake & Output 02/04/18 02/05/18 02/05/18 18:59 06:59 18:59 Intake Total 798 / 798 464 / 464 Output Total 1900 / 1900 650 / 650 Balance -1102 / -1102 -186 / -186 Weight 60.6 kg Intake: IV 798 / 798 200 / 200 Precedex Inj 200 MCG In NS Inj 98 / 98 200 / 200 48 ML @ 0.2 MCG/KG/HR 3.13 mls/ hr IV.CONT TITRATE PRN Rx#: [id number] Diprivan 1000 mg/100 ml Inj 1, 100 / 100 000 mg In 100 ml @ 5 MCG/KG/MIN 2.313 mls/hr IV.CONT TITRATE PRN Rx#:[id number] NS Inj 1,000 ML @ 75 mls/hr IV. 500 / 500 CONT .[id number] [facility] Rx#:[id number] Rocephin Inj 2,000 MG In NS Inj 100 / 100 100 ML @ 200 mls/hr IV.SIG Q24H [facility] Rx#:[id number] Tube Feeding 264 / 264 Output: Urine 650 / 650 Urine Amount (Catheter) 1900 / 1900 Indwelling Urethral Catheter 1900 / 1900 Other: # Bowel Movements 0 <Xenia Diop - Last Filed: 02/05/18 12:46> Results - Labs CBC & Chem 7: 02/02/18 05:52 02/02/18 05:52 <Angy Lawler - Last Filed: 02/04/18 13:32> - Labs CBC & Chem 7: 02/05/18 05:12 02/05/18 05:12 Labs: Laboratory Results - last 24 hr 02/04/18 02/05/18 02/05/18 23:06 05:12 05:12 WBC 6.9 RBC 4.78 Hgb 15.2 Hct 44.2 MCV 92.5 D MCH 31.9 MCHC 34.4 RDW 13.8 Plt Count 154 MPV 8.4 Hematology Comments Sodium 142 Potassium 4.5 Chloride 105 Carbon Dioxide 32.0 Anion Gap 5 BUN 26 H Creatinine 0.53 L Estimated GFR Greater than 89 POC Glucose 124 H Random Glucose 155 H Calcium 7.9 L Magnesium 2.5 Total Bilirubin 0.2 AST 29 ALT 104 H Alkaline Phosphatase 65 Total Protein 5.7 L Albumin 2.5 L - Imaging Impressions Chest X-Ray 02/04/18 13:35 CONCLUSION: 1. Suction-type OG catheter tip in the stomach. <Xenia Diop - Last Filed: 02/05/18 12:46> Assessment and Plan - Plan This patient is a 62-year-old male with past medical history of COPD, schizophrenia and tobacco use. Surgical history includes history of neurologic surgery. Patient presented to the emergency room from assisted living facility with reported shortness of breath. Patient was emergently intubated and ventilated. Upon insertion of orogastric tube patient was noted to have dark brown orogastric residual. Upon consultation, patient currently intubated and mechanically ventilated on a Precedex drip. OG to low intermittent wall suction with 100 mL's of fenton to brown colored fluid noted in collection container. Our service has been consulted to evaluate patient for GI bleeding. Dark brown orogastric residual Estimated 100 mL's of fenton to brown colored fluid noted in collection container. Orogastric tube to low intermittent wall suction. 02/02/2018 WBC 5.3 hemoglobin 13.8 hematocrit 42.8 stable Plan -N.p.o. -Orogastric tube -to low intermittent wall suction -PPI -Monitor labs-hemoglobin and hematocrit -Monitor for bleeding -Supportive care -Patient may require an upper endoscopy once stable -Further recommendations to follow This patient has been seen by myself and Dr. Diop and this note is written on his behalf - Attending Attestation Dr. Diop <Angy Lawler - Last Filed: 02/04/18 13:32> - Attending Attestation Seen with Anais, plan as above. Minimal coffee ground material noted. Will follow up with you Thank you for the consult. <Xenia Diop - Last Filed: 02/05/18 12:46>
--- NOTE | 2018-02-04 14:06 | XR ---
EXAM DATE: 02/04/2018 2:02 PM EST AGE/SEX: 62 years / Male INDICATIONS: OG TUBE PLACEMENT. CLINICAL DATA: This is the patient's subsequent encounter. Patient reports that signs and symptoms h ave been present for 4 - 6 days and indicates a pain score of Nonresponsive. MEDICAL/SURGICAL HISTORY: . Chronic obstructive pulmonary disease. None. COMPARISON: [facility] – [place], CHEST 1V SINGLE AP, 02/03/2018. . FINDINGS: There is a suction type orogastric catheter with tip in the stomach. Upper thorax is excluded from th is image. No new focal pleural or parenchymal opacities in the mid to lower lung zones. Cardiomediast inal contours are within normal limits. Remainder of exam is unchanged. CONCLUSION: 1. Suction-type OG catheter tip in the stomach. Electronically signed by: Ron Baltazar MD 02/04/2018 2:05 PM EST
[2018-02-04] MEDS: Enoxaparin Inj 40 MG/0.4 ML Syringe SQ SCH (15:00)
--- NOTE | 2018-02-04 15:34 | P.DIET ---
Nutritional Evaluation Type of nutrition evaluation: initial Nutrition consult regarding: Tube Feeding Objective - Diagnosis Acute Respiratory Failure - Objective % IBW: 81 (IBW:75.5kg) Body Weight Used for Calculations: Actual (61,3kg) Energy Needs - Lower Range (kCal/kg): 28 Energy Needs - Upper Range (kCal/kg): 33 Lower Limit kCal/kg (kCals): 1,716 Upper Limit kCal/kg (kCals): 2,023 Lower Limit Protein Factor (Grams per Kg): 1.2 Upper Limit Protein Factor (Grams per Kg): 1.5 Lower Protein Needs (Protein): 74 Upper Protein Needs (Protein): 92 Dietitian Reviewed in Medical Record: Current diet, Curent medications, Intake & Output, Labs, Medical history, Tube feeding Diet Order: TF only Objective Comments: PMH: COPD, Schizophrenia, smoker Assessment Assessment: Pt at nutritional risk r/t dx and need for a TF for nutrition support. Pt intubated and sedated on propofol/fentanyl. Nutritional needs as assessed above. TF Jevity 1.5 with goal rate 45ml/hr per MD. To best meet pt's nutritional needs, a goal rate of 55ml/hr is necessary to provide 1980kcals, 84gms protein and 1003mls free water. Will monitor TF tolerance, clinical course. Recommendations: TF Jevity 1.5 with goal rate 55ml/hr Dietitian to Monitor: Lab values, Intake & Output, Tube feeding tolerance, Weight change, Medical course
[2018-02-04] MEDS: Benztropine 2 MG Tablet PO SCH (21:15)
[2018-02-05] MEDS: Dexmedetomidine Inj 200 MCG in Sodium Chlor 0.9% Inj 48 ML IV.CONT PRN ×4 (02:32→21:58)
[2018-02-05] MEDS: Oral Hygiene Kit OROPHARYNG SCH ×3 (04:32→15:58)
[2018-02-05] MEDS: Chlorhexidine Gluconate 2% 1 Pack (2 Cloths) TOPICAL SCH (04:32)
[2018-02-05] MEDS: MethylPREDNISolone Sod Succinate Inj 40 MG/ML Vial IV.PUSH SCH ×3 (05:11→21:02)
[2018-02-05 06:09] LABS: Alanine Aminotransferase 104 U/L (12-78); Albumin 2.5 g/dL (3.4-5.0); Alkaline Phosphatase 65 U/L (45-117); Anion Gap 5 meq/L (5-15); Aspartate Aminotransferase 29 U/L (15-37); Blood Urea Nitrogen 26 mg/dL (7-18); Calcium 7.9 mg/dL (8.5-10.1); Chloride 105 meq/L (98-107); Glomerular Filtration Rate Greater Than 89 mL/min (>89); Glucose,Random 155 mg/dL (74-106); Magnesium 2.5 mg/dL (1.5-2.5); Sodium 142 meq/L (136-145); Total Protein 5.7 g/dL (6.4-8.2)
[2018-02-05 06:10] LABS: Potassium 4.5 meq/L (3.5-5.1)
[2018-02-05 06:24] LABS: Hematocrit 44.2 % (39.0-51.0); Hemoglobin 15.2 gm/dL (13.0-17.0); Mean Corpuscular HGB Conc 34.4 % (32.0-36.0); Mean Corpuscular Hemoglobin 31.9 pg (27.0-34.0); Mean Corpuscular Volume 92.5 fL (80.0-100.0); Mean Platelet Volume 8.4 fL (7.0-11.0); Platelet Count 154 th/mm3 (150-450); Red Blood Count 4.78 mil/mm3 (4.50-5.90); Red Cell Distribution Width 13.8 % (11.6-17.2); White Blood Count 6.9 th/mm3 (4.0-11.0)
[2018-02-05] MEDS: OLANZapine 15 MG Tablet PO SCH (08:01)
[2018-02-05] MEDS: Chlorhexidine 0.12% Oral Kit 15 ML UDC OROPHARYNG SCH ×2 (08:02→20:26)
[2018-02-05] MEDS: Famotidine PF Inj 20 MG/2 ML Vial IV.PUSH SCH ×2 (08:02→20:26)
--- NOTE | 2018-02-05 10:19 | P.PNCC ---
Subjective Subjective Remarks/Hospital Course: Patient is a 62-year-old male with history of COPD, schizophrenia, continued smoking who was brought to the emergency department from an assisted living facility for severe shortness of breath. Symptoms started few days ago, EMS evaluated and placed him on CPAP machine. Apparently EMS gave him 60 mg of IV Lasix for possible CHF exacerbation. In the ED initial oxygen saturation was 78 % on room air, patient was immediately placed on BiPAP with 50% oxygen. ABG showed pH 7.23 with a PCO2 of 86. Patient received IV Solu-Medrol DuoNeb and IV magnesium, also received 1 dose of IV Levaquin. No clinical improvement on 30 minutes of BiPAP, in fact ABG marginally worsened with pH 7.21 PCO2 87. Lactic acid was 2.3. Patient was intubated and placed on mechanical ventilation by Dr. Saucedo. Critical care medicine was consulted for admission I evaluated the patient in the ED. 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 Respiratory exam reveals bilateral expiratory wheezing. I have placed him on scheduled IV Solu-Medrol, DuoNeb every 4 hours scheduled and as needed, start cefepime 2 g IV every 8 hours and check sputum culture. Also inhaled budesonide had been started. Will repeat ABG in 1 hour. 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 I will check CT of the chest to rule out any occult mass/infiltrate 02/02: Patient remains intubated heavily sedated for vent synchrony. Failed CPAP attempted today due to severe tachypnea and distress. Continues to have expiratory wheezing. Lactic acid was elevated to 4.2 yesterday received 2 L normal saline bolus following this. Came down to 3 repeat lactic acid today pending 02/03: Remains critical failed CPAP trial due to severe respiratory distress and wheezing. Required re-sedation and full ventilatory support. Chest x-ray remains unchanged. Severe COPD/emphysema will make it challenging to wean off the ventilator 02/04: Remains intubated heavily sedated for ventilator synchrony. Starting Precedex to facilitate weaning trials. Clinically COPD seems to be improving with less wheezing today. Sputum culture with Haemophilus influenzae being treated 02/05: Failed SBT yesterday due to tachypnea. Becomes agitated and develops more wheezing when sedation lightened to come. Use Precedex to facilitate ventilator weaning Objective Vital Signs / I&O: Vital Signs 02/04/18 11:00 02/04/18 12:00 02/04/18 12:17 Temperature 98.7 F Pulse Rate 81 66 Respiratory Rate 15 15 15 Blood Pressure 135/77 153/82 H Pulse Oximetry 98 98 98 02/04/18 13:00 02/04/18 13:05 02/04/18 14:00 Temperature Pulse Rate 101 H 89 81 Respiratory Rate 23 15 15 Blood Pressure 175/82 H 152/71 H 135/78 Pulse Oximetry 98 97 98 02/04/18 15:00 02/04/18 16:00 02/04/18 16:13 Temperature 98.0 F Pulse Rate 76 98 H Respiratory Rate 15 20 15 Blood Pressure 152/80 H 150/90 H Pulse Oximetry 99 100 98 02/04/18 17:00 02/04/18 18:00 02/04/18 19:00 Temperature Pulse Rate 82 74 89 Respiratory Rate 15 15 16 Blood Pressure 147/81 H 141/81 H 143/79 H Pulse Oximetry 97 96 98 02/04/18 20:00 02/04/18 21:00 02/04/18 21:27 Temperature 98.9 F Pulse Rate 62 54 L 65 Respiratory Rate 15 18 15 Blood Pressure 130/78 136/73 Pulse Oximetry 96 97 02/04/18 21:28 02/04/18 22:00 02/04/18 22:01 Temperature Pulse Rate 68 68 Respiratory Rate 16 15 15 Blood Pressure 117/64 Pulse Oximetry 96 96 96 02/04/18 23:00 02/05/18 00:00 02/05/18 00:38 Temperature 98.7 F Pulse Rate 47 L 47 L 46 L Respiratory Rate 22 16 15 Blood Pressure 135/77 154/84 H Pulse Oximetry 96 98 02/05/18 00:39 02/05/18 01:00 02/05/18 02:00 Temperature Pulse Rate 47 L 47 L Respiratory Rate 15 16 15 Blood Pressure 157/85 H 158/88 H Pulse Oximetry 98 98 97 02/05/18 03:00 02/05/18 04:00 02/05/18 04:47 Temperature 97.8 F Pulse Rate 45 L 44 L 45 L Respiratory Rate 15 15 15 Blood Pressure 163/87 H 165/90 H Pulse Oximetry 97 98 02/05/18 04:48 02/05/18 05:00 02/05/18 06:00 Temperature Pulse Rate 45 L 47 L Respiratory Rate 15 16 16 Blood Pressure 155/85 H 157/85 H Pulse Oximetry 98 98 96 02/05/18 07:00 02/05/18 08:00 02/05/18 08:57 Temperature 97.8 F Pulse Rate 46 L 50 L 54 L Respiratory Rate 16 23 15 Blood Pressure 159/88 H 161/89 H Pulse Oximetry 97 97 99 02/05/18 09:00 02/05/18 09:01 Temperature Pulse Rate 53 L 55 L Respiratory Rate 18 19 Blood Pressure 137/78 Pulse Oximetry 98 98 Intake & Output 02/04/18 02/05/18 02/05/18 18:59 06:59 18:59 Intake Total 798 / 798 464 / 464 Output Total 1900 / 1900 650 / 650 Balance -1102 / -1102 -186 / -186 Weight 60.6 kg Intake: IV 798 / 798 200 / 200 Precedex Inj 200 MCG In NS Inj 98 / 98 200 / 200 48 ML @ 0.2 MCG/KG/HR 3.13 mls/ hr IV.CONT TITRATE PRN Rx#: [id number] Diprivan 1000 mg/100 ml Inj 1, 100 / 100 000 mg In 100 ml @ 5 MCG/KG/MIN 2.313 mls/hr IV.CONT TITRATE PRN Rx#:[id number] NS Inj 1,000 ML @ 75 mls/hr IV. 500 / 500 CONT .[id number] [facility] Rx#:[id number] Rocephin Inj 2,000 MG In NS Inj 100 / 100 100 ML @ 200 mls/hr IV.SIG Q24H [facility] Rx#:[id number] Tube Feeding 264 / 264 Output: Urine 650 / 650 Urine Amount (Catheter) 1900 / 1900 Indwelling Urethral Catheter 1900 / 1900 Other: # Bowel Movements 0 Result Diagrams: 02/05/18 05:12 02/05/18 05:12 Objective Remarks: GENERAL: Intubated currently on full ventilator support SKIN: warm/dry. HEAD: Atraumatic. Normocephalic. EYES: Pupils equal and round reactive. No scleral icterus. ENT: No nasal bleeding or discharge. Orotracheally intubated NECK: Trachea midline. No JVD. CARDIOVASCULAR: S1-S2 normal no murmur appreciated. RESPIRATORY: On PRVC. Air entry equal bilaterally with minimal bilateral expiratory wheezing. No crackles. Continues to get tachypneic on CPAP GASTROINTESTINAL: Abdomen soft, non-tender, nondistended. Hepatic and splenic margins not palpable. MUSCULOSKELETAL: No obvious deformities. No clubbing. No cyanosis. No edema. NEUROLOGICAL: On holding sedation patient wakes up easily follows commands on upper and lower extremities. Assessment and Plan - Problem List (1) Acute on chronic respiratory failure with hypoxemia Code(s): J96.21 - Acute and chronic respiratory failure with hypoxia Status: Acute (2) Acute hypercapnic respiratory failure Code(s): J96.02 - Acute respiratory failure with hypercapnia Status: Acute (3) Lactic acidemia Code(s): E87.2 - Acidosis Status: Acute (4) COPD with acute exacerbation Code(s): J44.1 - Chronic obstructive pulmonary disease with (acute) exacerbation Status: Acute (5) Hyponatremia Code(s): E87.1 - Hypo-osmolality and hyponatremia Status: Acute (6) Schizophrenia Code(s): F20.9 - Schizophrenia, unspecified Status: Chronic (7) COPD (chronic obstructive pulmonary disease) Code(s): J44.9 - Chronic obstructive pulmonary disease, unspecified Status: Chronic - Assessment and Plan Plan: NEURO: History of schizophrenia -Propofol and fentanyl for sedation and ventilator synchrony -Precedex to facilitate ventilator weaning -Daily sedation vacation -Continue home neuroleptic medications RESP: Acute COPD exacerbation Acute hypoxemic and hypercapnic respiratory failure COPD, Continued tobacco abuse Left lower lobe 1.5 cm parenchymal opacity Haemophilus influenza pneumonia -Failed BiPAP, intubated and placed on PRVC/AC in the emergency department -Ventilator bundle. DuoNeb every 4 hours scheduled and as needed, continue IV steroid -Sputum culture growing Haemophilus species, Continue Rocephin -CT of the chest: Moderate to severe emphysema and mild biapical scarring. Very mild tree-in-bud type infectious/inflammatory appearing infiltrates of both bases. 1.5 cm focal parenchymal opacity of the left lower lobe, also most likely infectious or inflammatory but 3-6 month follow-up -Failing CPAP trials due to tachypnea, attempt daily CV: Lactic acidosis-resolved -Discontinue IV fluids GI: -Tolerating tube feeds, IV famotidine -Bowel regimen : -Monitor renal function closely. Condom catheter placed in the ED ID: H influenza pneumonia -Antibiotics Rocephin -F/u sputum cultures. -Growing Haemophilus species HEME: -Monitor CBC, coags ENDO: Hyponatremia-resolved -Electrolyte replacement per protocol -Sliding scale insulin PROPH: -Bilateral lower extremity SCDs. Lovenox/famotidine LINES: -Utilize peripheral IVs, central line if needed Level 2 Remains critical failing CPAP trials due to severe COPD/emphysema. Lactic acidosis resolved. Haemophilus pneumonia. Antibiotics changed to Rocephin. Severe COPD/emphysema can make it challenging to extubate. GI consulted for coffee-ground NG output Code Status: FULL
--- NOTE | 2018-02-05 13:40 | P.PNGI ---
Subjective Interval history: Intubated and mechanically ventilated Orogastric tube in place tube feedings infusing no noted or reported bleeding as per bedside RN <Angy Lawler - Last Filed: 02/05/18 13:37> Physical Exam Vital signs: Vital Signs 02/04/18 14:00 02/04/18 15:00 02/04/18 16:00 Temperature 98.0 F Pulse Rate 81 76 98 H Respiratory Rate 15 15 20 Blood Pressure 135/78 152/80 H 150/90 H Pulse Oximetry 98 99 100 02/04/18 16:13 02/04/18 17:00 02/04/18 18:00 Temperature Pulse Rate 82 74 Respiratory Rate 15 15 15 Blood Pressure 147/81 H 141/81 H Pulse Oximetry 98 97 96 02/04/18 19:00 02/04/18 20:00 02/04/18 21:00 Temperature 98.9 F Pulse Rate 89 62 54 L Respiratory Rate 16 15 18 Blood Pressure 143/79 H 130/78 136/73 Pulse Oximetry 98 96 97 02/04/18 21:27 02/04/18 21:28 02/04/18 22:00 Temperature Pulse Rate 65 68 Respiratory Rate 15 16 15 Blood Pressure Pulse Oximetry 96 96 02/04/18 22:01 02/04/18 23:00 02/05/18 00:00 Temperature 98.7 F Pulse Rate 68 47 L 47 L Respiratory Rate 15 22 16 Blood Pressure 117/64 135/77 154/84 H Pulse Oximetry 96 96 98 02/05/18 00:38 02/05/18 00:39 02/05/18 01:00 Temperature Pulse Rate 46 L 47 L Respiratory Rate 15 15 16 Blood Pressure 157/85 H Pulse Oximetry 98 98 02/05/18 02:00 02/05/18 03:00 02/05/18 04:00 Temperature 97.8 F Pulse Rate 47 L 45 L 44 L Respiratory Rate 15 15 15 Blood Pressure 158/88 H 163/87 H 165/90 H Pulse Oximetry 97 97 98 02/05/18 04:47 02/05/18 04:48 02/05/18 05:00 Temperature Pulse Rate 45 L 45 L Respiratory Rate 15 15 16 Blood Pressure 155/85 H Pulse Oximetry 98 98 02/05/18 06:00 02/05/18 07:00 02/05/18 08:00 Temperature 97.8 F Pulse Rate 47 L 46 L 50 L Respiratory Rate 16 16 23 Blood Pressure 157/85 H 159/88 H 161/89 H Pulse Oximetry 96 97 97 02/05/18 08:57 02/05/18 09:00 02/05/18 09:01 Temperature Pulse Rate 54 L 53 L 55 L Respiratory Rate 15 18 19 Blood Pressure 137/78 Pulse Oximetry 99 98 98 02/05/18 10:00 02/05/18 11:00 02/05/18 11:47 Temperature Pulse Rate 51 L 63 61 Respiratory Rate 15 15 15 Blood Pressure 151/82 H 113/66 Pulse Oximetry 97 95 96 02/05/18 12:00 Temperature 98.1 F Pulse Rate 61 Respiratory Rate 15 Blood Pressure 118/70 Pulse Oximetry 96 Intake & Output 02/04/18 02/05/18 02/05/18 18:59 06:59 18:59 Intake Total 798 / 798 464 / 464 Output Total 1900 / 1900 650 / 650 Balance -1102 / -1102 -186 / -186 Weight 60.6 kg Intake: IV 798 / 798 200 / 200 Precedex Inj 200 MCG In NS Inj 98 / 98 200 / 200 48 ML @ 0.2 MCG/KG/HR 3.13 mls/ hr IV.CONT TITRATE PRN Rx#: [id number] Diprivan 1000 mg/100 ml Inj 1, 100 / 100 000 mg In 100 ml @ 5 MCG/KG/MIN 2.313 mls/hr IV.CONT TITRATE PRN Rx#:[id number] NS Inj 1,000 ML @ 75 mls/hr IV. 500 / 500 CONT .[id number] [facility] Rx#:[id number] Rocephin Inj 2,000 MG In NS Inj 100 / 100 100 ML @ 200 mls/hr IV.SIG Q24H [facility] Rx#:[id number] Tube Feeding 264 / 264 Output: Urine 650 / 650 Urine Amount (Catheter) [id number] Indwelling Urethral Catheter 1899 Other: # Bowel Movements 0 - Constitutional chronically ill appearing - Routine HEENT Exam Head: Present: normocephalic - Routine Respiratory Exam Present: patient mechanically ventilated - Routine Abdominal Exam Present: soft, normoactive bowel sounds. Absent: distended, guarding, firm - Routine Skin Exam Present: dry, warm - Routine Neurological Exam Patient slightly responsive to painful stimuli Sedation weaning - Urinary Catheter Management Indwelling Urethral Catheter Cath placed during this visit: yes Reason for continuing: Acute urinary retention Insertion date: 02/02/18 Insertion time: 05:44 <Angy Lawler - Last Filed: 02/05/18 13:37> Vital signs: Vital Signs 02/04/18 19:00 02/04/18 20:00 02/04/18 21:00 Temperature 98.9 F Pulse Rate 89 62 54 L Respiratory Rate 16 15 18 Blood Pressure 143/79 H 130/78 136/73 Pulse Oximetry 98 96 97 02/04/18 21:27 02/04/18 21:28 02/04/18 22:00 Temperature Pulse Rate 65 68 Respiratory Rate 15 16 15 Blood Pressure Pulse Oximetry 96 96 02/04/18 22:01 02/04/18 23:00 02/05/18 00:00 Temperature 98.7 F Pulse Rate 68 47 L 47 L Respiratory Rate 15 22 16 Blood Pressure 117/64 135/77 154/84 H Pulse Oximetry 96 96 98 02/05/18 00:38 02/05/18 00:39 02/05/18 01:00 Temperature Pulse Rate 46 L 47 L Respiratory Rate 15 15 16 Blood Pressure 157/85 H Pulse Oximetry 98 98 02/05/18 02:00 02/05/18 03:00 02/05/18 04:00 Temperature 97.8 F Pulse Rate 47 L 45 L 44 L Respiratory Rate 15 15 15 Blood Pressure 158/88 H 163/87 H 165/90 H Pulse Oximetry 97 97 98 02/05/18 04:47 02/05/18 04:48 02/05/18 05:00 Temperature Pulse Rate 45 L 45 L Respiratory Rate 15 15 16 Blood Pressure 155/85 H Pulse Oximetry 98 98 02/05/18 06:00 02/05/18 07:00 02/05/18 08:00 Temperature 97.8 F Pulse Rate 47 L 46 L 50 L Respiratory Rate 16 16 23 Blood Pressure 157/85 H 159/88 H 161/89 H Pulse Oximetry 96 97 97 02/05/18 08:57 02/05/18 09:00 02/05/18 09:01 Temperature Pulse Rate 54 L 53 L 55 L Respiratory Rate 15 18 19 Blood Pressure 137/78 Pulse Oximetry 99 98 98 02/05/18 10:00 02/05/18 11:00 02/05/18 11:47 Temperature Pulse Rate 51 L 63 61 Respiratory Rate 15 15 15 Blood Pressure 151/82 H 113/66 Pulse Oximetry 97 95 96 02/05/18 12:00 02/05/18 13:00 02/05/18 13:01 Temperature 98.1 F Pulse Rate 61 85 89 Respiratory Rate 15 20 21 Blood Pressure 118/70 113/69 Pulse Oximetry 96 96 96 02/05/18 14:00 02/05/18 14:50 02/05/18 15:00 Temperature Pulse Rate 114 H 83 82 Respiratory Rate 33 H 15 16 Blood Pressure 133/80 106/64 Pulse Oximetry 98 95 95 02/05/18 16:00 02/05/18 17:00 Temperature 98.8 F Pulse Rate 74 73 Respiratory Rate 15 15 Blood Pressure 109/63 114/68 Pulse Oximetry 96 96 Intake & Output 02/04/18 02/05/18 02/05/18 18:59 06:59 18:59 Intake Total 798 / 798 464 / 464 50 / 50 Output Total 1900 / 1900 650 / 650 Balance -1102 / -1102 -186 / -186 50 / 50 Weight 60.6 kg Intake: IV 798 / 798 200 / 200 50 / 50 Precedex Inj 200 MCG In NS Inj 98 / 98 200 / 200 50 / 50 48 ML @ 0.2 MCG/KG/HR 3.13 mls/ hr IV.CONT TITRATE PRN Rx#: [id number] Diprivan 1000 mg/100 ml Inj 1, 100 / 100 000 mg In 100 ml @ 5 MCG/KG/MIN 2.313 mls/hr IV.CONT TITRATE PRN Rx#:[id number] NS Inj 1,000 ML @ 75 mls/hr IV. 500 / 500 CONT .[id number] [facility] Rx#:[id number] Rocephin Inj 2,000 MG In NS Inj 100 / 100 100 ML @ 200 mls/hr IV.SIG Q24H [facility] Rx#:[id number] Tube Feeding 264 / 264 Output: Urine 650 / 650 Urine Amount (Catheter) 1899 / 1900 Indwelling Urethral Catheter 1899 / 1899 Other: # Bowel Movements 0 - Urinary Catheter Management Indwelling Urethral Catheter Cath placed during this visit: no <Xenia Diop - Last Filed: 02/05/18 18:02> Results - Labs CBC & Chem 7: 02/05/18 05:12 02/05/18 05:12 Laboratory Results - last 24 hr 02/04/18 02/05/18 02/05/18 23:06 05:12 05:12 WBC 6.9 RBC 4.78 Hgb 15.2 Hct 44.2 MCV 92.5 D MCH 31.9 MCHC 34.4 RDW 13.8 Plt Count 154 MPV 8.4 Hematology Comments Sodium 142 Potassium 4.5 Chloride 105 Carbon Dioxide 32.0 Anion Gap 5 BUN 26 H Creatinine 0.53 L Estimated GFR Greater than 89 POC Glucose 124 H Random Glucose 155 H Calcium 7.9 L Magnesium 2.5 Total Bilirubin 0.2 AST 29 ALT 104 H Alkaline Phosphatase 65 Total Protein 5.7 L Albumin 2.5 L Microbiology 02/01/18 12:50 Blood - Peripheral Aerobic Blood Culture - Preliminary No growth in 4 days 02/01/18 12:50 Blood - Peripheral Anaerobic Blood Culture - Preliminary No growth in 4 days 02/01/18 12:59 Blood - Peripheral Aerobic Blood Culture - Preliminary No growth in 4 days 02/01/18 12:59 Blood - Peripheral Anaerobic Blood Culture - Preliminary No growth in 4 days 02/01/18 15:30 Sputum - Endotracheal Gram Stain - Final 02/01/18 15:30 Sputum - Endotracheal Sputum Culture - Final Haemophilus influenzae - Imaging Impressions Chest X-Ray 02/04/18 13:35 CONCLUSION: 1. Suction-type OG catheter tip in the stomach. <Angy Lawler - Last Filed: 02/05/18 13:37> - Labs CBC & Chem 7: 02/05/18 05:12 02/05/18 05:12 Laboratory Results - last 24 hr 02/04/18 02/05/18 02/05/18 23:06 05:12 05:12 WBC 6.9 RBC 4.78 Hgb 15.2 Hct 44.2 MCV 92.5 D MCH 31.9 MCHC 34.4 RDW 13.8 Plt Count 154 MPV 8.4 Hematology Comments Sodium 142 Potassium 4.5 Chloride 105 Carbon Dioxide 32.0 Anion Gap 5 BUN 26 H Creatinine 0.53 L Estimated GFR Greater than 89 POC Glucose 124 H Random Glucose 155 H Calcium 7.9 L Magnesium 2.5 Total Bilirubin 0.2 AST 29 ALT 104 H Alkaline Phosphatase 65 Total Protein 5.7 L Albumin 2.5 L Microbiology 02/01/18 12:50 Blood - Peripheral Aerobic Blood Culture - Preliminary No growth in 4 days 02/01/18 12:50 Blood - Peripheral Anaerobic Blood Culture - Preliminary No growth in 4 days 02/01/18 12:59 Blood - Peripheral Aerobic Blood Culture - Preliminary No growth in 4 days 02/01/18 12:59 Blood - Peripheral Anaerobic Blood Culture - Preliminary No growth in 4 days <Xenia Diop - Last Filed: 02/05/18 18:02> Assessment and Plan - Plan This patient is a 62-year-old male with past medical history of COPD, schizophrenia and tobacco use. Surgical history includes history of neurologic surgery. Patient presented to the emergency room from assisted living facility with reported shortness of breath. Patient was emergently intubated and ventilated. Upon insertion of orogastric tube patient was noted to have dark brown orogastric residual. Upon consultation, patient currently intubated and mechanically ventilated on a Precedex drip. OG to low intermittent wall suction with 100 mL's of fenton to brown colored fluid noted in collection container. Our service has been consulted to evaluate patient for GI bleeding. Dark brown orogastric residual Estimated 100 mL's of fenton to brown colored fluid noted in collection container. Orogastric tube to low intermittent wall suction. 02/02/2018 WBC 5.3 hemoglobin 13.8 hematocrit 42.8 stable 02/05/[address] Tube feeding infusing, no noted bleeding as per bedside RN. WBC 6.9 hemoglobin 15.2 hematocrit 44.2 platelet count 154 Plan -N.p.o. -Orogastric tube -to low intermittent wall suction -PPI -Monitor labs-hemoglobin and hematocrit -Monitor for bleeding -Supportive care -Patient may require an upper endoscopy once stable -GI will sign off at this time please reconsult if needed This patient has been seen by myself and Dr. Diop and this note is written on his behalf - Attending Attestation Dr. Diop <Angy Lawler - Last Filed: 02/05/18 13:37> - Attending Attestation Agree with the plan as above. Please notify us if needed again. <Xenia Diop - Last Filed: 02/05/18 18:02>
[2018-02-05] MEDS: Enoxaparin Inj 40 MG/0.4 ML Syringe SQ SCH (14:39)
[2018-02-05] MEDS: Benztropine 2 MG Tablet PO SCH (20:26)
[2018-02-06] MEDS: Oral Hygiene Kit OROPHARYNG SCH ×4 (01:09→14:59)
[2018-02-06] MEDS: Chlorhexidine Gluconate 2% 1 Pack (2 Cloths) TOPICAL SCH (03:12)
[2018-02-06] MEDS: MethylPREDNISolone Sod Succinate Inj 40 MG/ML Vial IV.PUSH SCH ×3 (06:14→21:20)
[2018-02-06] MEDS: Famotidine PF Inj 20 MG/2 ML Vial IV.PUSH SCH ×2 (08:41→21:18)
[2018-02-06] MEDS: OLANZapine 15 MG Tablet PO SCH (08:42)
[2018-02-06] MEDS: Dexmedetomidine Inj 200 MCG in Sodium Chlor 0.9% Inj 48 ML IV.CONT PRN ×4 (08:43→23:51)
[2018-02-06] MEDS: Chlorhexidine 0.12% Oral Kit 15 ML UDC OROPHARYNG SCH ×2 (10:57→21:19)
[2018-02-06] MEDS: Enoxaparin Inj 40 MG/0.4 ML Syringe SQ SCH (14:58)
[2018-02-06] MEDS: Benztropine 2 MG Tablet PO SCH (21:19)
--- NOTE | 2018-02-06 21:21 | P.PNCC ---
Subjective Subjective Remarks/Hospital Course: Patient is a 62-year-old male with history of COPD, schizophrenia, continued smoking who was brought to the emergency department from an assisted living facility for severe shortness of breath. Symptoms started few days ago, EMS evaluated and placed him on CPAP machine. Apparently EMS gave him 60 mg of IV Lasix for possible CHF exacerbation. In the ED initial oxygen saturation was 78 % on room air, patient was immediately placed on BiPAP with 50% oxygen. ABG showed pH 7.23 with a PCO2 of 86. Patient received IV Solu-Medrol DuoNeb and IV magnesium, also received 1 dose of IV Levaquin. No clinical improvement on 30 minutes of BiPAP, in fact ABG marginally worsened with pH 7.21 PCO2 87. Lactic acid was 2.3. Patient was intubated and placed on mechanical ventilation by Dr. Saucedo. Critical care medicine was consulted for admission I evaluated the patient in the ED. 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 Respiratory exam reveals bilateral expiratory wheezing. I have placed him on scheduled IV Solu-Medrol, DuoNeb every 4 hours scheduled and as needed, start cefepime 2 g IV every 8 hours and check sputum culture. Also inhaled budesonide had been started. Will repeat ABG in 1 hour. 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 I will check CT of the chest to rule out any occult mass/infiltrate 02/02: Patient remains intubated heavily sedated for vent synchrony. Failed CPAP attempted today due to severe tachypnea and distress. Continues to have expiratory wheezing. Lactic acid was elevated to 4.2 yesterday received 2 L normal saline bolus following this. Came down to 3 repeat lactic acid today pending 02/03: Remains critical failed CPAP trial due to severe respiratory distress and wheezing. Required re-sedation and full ventilatory support. Chest x-ray remains unchanged. Severe COPD/emphysema will make it challenging to wean off the ventilator 02/04: Remains intubated heavily sedated for ventilator synchrony. Starting Precedex to facilitate weaning trials. Clinically COPD seems to be improving with less wheezing today. Sputum culture with Haemophilus influenzae being treated 02/05: Failed SBT yesterday due to tachypnea. Becomes agitated and develops more wheezing when sedation lightened to come. Use Precedex to facilitate ventilator weaning 02/06: continues to fail SBT. very tachypneic and becomes quite distressed. more awake today. Objective Vital Signs / I&O: Vital Signs 02/05/18 22:00 02/05/18 22:35 02/05/18 23:00 Temperature Pulse Rate 59 L 58 L Respiratory Rate 15 15 15 Blood Pressure 108/64 114/68 Pulse Oximetry 96 96 96 02/06/18 00:00 02/06/18 01:00 02/06/18 01:01 Temperature 36.6 C Pulse Rate 57 L 56 L 56 L Respiratory Rate 15 15 16 Blood Pressure 125/73 123/66 Pulse Oximetry 96 96 96 02/06/18 01:42 02/06/18 02:00 02/06/18 03:00 Temperature Pulse Rate 52 L 50 L Respiratory Rate 15 15 15 Blood Pressure 131/73 141/78 H Pulse Oximetry 96 96 97 02/06/18 04:00 02/06/18 04:32 02/06/18 05:00 Temperature 36.6 C Pulse Rate 54 L 72 Respiratory Rate 15 15 19 Blood Pressure 119/66 141/78 H Pulse Oximetry 97 97 98 02/06/18 06:00 02/06/18 07:00 02/06/18 07:01 Temperature Pulse Rate 63 72 80 Respiratory Rate 15 23 18 Blood Pressure 149/74 H 132/89 Pulse Oximetry 96 96 96 02/06/18 08:00 02/06/18 08:02 02/06/18 09:00 Temperature 37.1 C Pulse Rate 58 L 57 L 53 L Respiratory Rate 38 H 15 54 H Blood Pressure 133/79 Pulse Oximetry 96 97 98 02/06/18 09:01 02/06/18 10:00 02/06/18 11:00 Temperature Pulse Rate 53 L 62 51 L Respiratory Rate 40 H 15 15 Blood Pressure 131/74 146/69 H 155/71 H Pulse Oximetry 98 98 100 02/06/18 12:00 02/06/18 12:01 02/06/18 12:13 Temperature 36.8 C Pulse Rate 50 L 53 L Respiratory Rate 15 15 15 Blood Pressure 150/69 H Pulse Oximetry 99 99 99 02/06/18 13:00 02/06/18 13:01 02/06/18 14:00 Temperature Pulse Rate 59 L 56 L 49 L Respiratory Rate 15 15 15 Blood Pressure 135/63 158/68 H Pulse Oximetry 99 99 100 02/06/18 15:00 02/06/18 15:41 02/06/18 16:00 Temperature 36.7 C Pulse Rate 48 L 51 L Respiratory Rate 15 15 15 Blood Pressure 148/75 H 160/81 H Pulse Oximetry 98 99 99 02/06/18 17:00 02/06/18 18:00 02/06/18 20:35 Temperature Pulse Rate 52 L 48 L 55 L Respiratory Rate 15 15 15 Blood Pressure 148/84 H 161/76 H Pulse Oximetry 99 98 Intake & Output 02/06/18 02/06/18 02/07/18 06:59 18:59 06:59 Intake Total 795 / 795 846 / 846 Output Total 1650 / 1650 Balance 795 / 795 -804 / -804 Weight 62.3 kg Intake: IV 200 / 200 50 / 50 Precedex Inj 200 MCG In NS Inj 100 / 100 50 / 50 48 ML @ 0.2 MCG/KG/HR 3.13 mls/ hr IV.CONT TITRATE PRN Rx#: [id number] Rocephin Inj 2,000 MG In NS Inj 100 / 100 100 ML @ 200 mls/hr IV.SIG Q24H MACI Rx#:[id number] Tube Feeding 595 / 595 556 / 556 Tube Irrigant 240 / 240 Output: Urine Amount (Catheter) 1650 / 1650 Straight 1650 / 1650 Other: Date of Last Bowel Movement 02/05/18 02/06/18 # Incontinent Bowel Movements 1 1 Result Diagrams: 02/05/18 05:12 02/05/18 05:12 Objective Remarks: GENERAL: Intubated currently on full ventilator support SKIN: warm/dry. HEAD: Atraumatic. Normocephalic. EYES: Pupils equal and round reactive. No scleral icterus. ENT: No nasal bleeding or discharge. Orotracheally intubated NECK: Trachea midline. No JVD. CARDIOVASCULAR: normal rate, regular rhythm. sinus. RESPIRATORY: On PRVC. equal chest rise. fio2 35%. peep 5. Continues to get tachypneic on CPAP GASTROINTESTINAL: Abdomen soft, non-tender, nondistended. no guarding. MUSCULOSKELETAL: No obvious deformities. No clubbing. No cyanosis. No edema. NEUROLOGICAL: On holding sedation patient wakes up easily follows commands on upper and lower extremities. Assessment and Plan - Problem List (1) Acute on chronic respiratory failure with hypoxemia Code(s): J96.21 - Acute and chronic respiratory failure with hypoxia Status: Acute (2) Acute hypercapnic respiratory failure Code(s): J96.02 - Acute respiratory failure with hypercapnia Status: Acute (3) Lactic acidemia Code(s): E87.2 - Acidosis Status: Acute (4) COPD with acute exacerbation Code(s): J44.1 - Chronic obstructive pulmonary disease with (acute) exacerbation Status: Acute (5) Hyponatremia Code(s): E87.1 - Hypo-osmolality and hyponatremia Status: Acute (6) Schizophrenia Code(s): F20.9 - Schizophrenia, unspecified Status: Chronic (7) COPD (chronic obstructive pulmonary disease) Code(s): J44.9 - Chronic obstructive pulmonary disease, unspecified Status: Chronic - Assessment and Plan Plan: NEURO: History of schizophrenia -Propofol and fentanyl for sedation and ventilator synchrony -Precedex to facilitate ventilator weaning -Daily sedation vacation -Continue home neuroleptic medications RESP: Acute COPD exacerbation Acute hypoxemic and hypercapnic respiratory failure COPD, Continued tobacco abuse Left lower lobe 1.5 cm parenchymal opacity Haemophilus influenza pneumonia -Failed BiPAP, intubated and placed on PRVC/AC in the emergency department -Ventilator bundle. DuoNeb every 4 hours scheduled and as needed, continue IV steroid -Sputum culture growing Haemophilus species, Continue Rocephin -CT of the chest: Moderate to severe emphysema and mild biapical scarring. Very mild tree-in-bud type infectious/inflammatory appearing infiltrates of both bases. 1.5 cm focal parenchymal opacity of the left lower lobe, also most likely infectious or inflammatory but 3-6 month follow-up -Failing CPAP trials due to tachypnea, attempt daily CV: Lactic acidosis-resolved -Discontinue IV fluids - start lasix 40mg iv x 1. GI: -Tolerating tube feeds, IV famotidine -Bowel regimen : -Monitor renal function closely. Condom catheter placed in the ED ID: H influenza pneumonia -Antibiotics Rocephin -F/u sputum cultures. -Growing Haemophilus species HEME: -Monitor CBC, coags ENDO: Hyponatremia-resolved -Electrolyte replacement per protocol -Sliding scale insulin PROPH: -Bilateral lower extremity SCDs. Lovenox/famotidine LINES: -Utilize peripheral IVs, central line if needed Remains critical failing CPAP trials due to severe COPD/emphysema. Lactic acidosis resolved. Haemophilus pneumonia. Antibiotics changed to Rocephin. Severe COPD/emphysema can make it challenging to extubate. GI consulted for coffee-ground NG output
[2018-02-07] MEDS: Oral Hygiene Kit OROPHARYNG SCH ×4 (00:12→15:16)
[2018-02-07] MEDS: Dexmedetomidine Inj 200 MCG in Sodium Chlor 0.9% Inj 48 ML IV.CONT PRN ×5 (04:23→21:06)
[2018-02-07 05:25] LABS: Hematocrit 46.8 % (39.0-51.0); Hemoglobin 15.4 gm/dL (13.0-17.0); Mean Corpuscular HGB Conc 32.9 % (32.0-36.0); Mean Corpuscular Hemoglobin 31.2 pg (27.0-34.0); Mean Corpuscular Volume 95.1 fL (80.0-100.0); Mean Platelet Volume 7.9 fL (7.0-11.0); Platelet Count 145 th/mm3 (150-450); Red Blood Count 4.93 mil/mm3 (4.50-5.90); White Blood Count 8.9 th/mm3 (4.0-11.0)
[2018-02-07 05:54] LABS: Anion Gap 4 meq/L (5-15); Blood Urea Nitrogen 24 mg/dL (7-18); Calcium 8.4 mg/dL (8.5-10.1); Carbon Dioxide 38.8 meq/L (21.0-32.0); Chloride 100 meq/L (98-107); Glomerular Filtration Rate Greater Than 89 mL/min (>89); Glucose,Random 161 mg/dL (74-106); Magnesium 2.3 mg/dL (1.5-2.5); Phosphorus 3.4 mg/dL (2.5-4.9); Potassium 3.6 meq/L (3.5-5.1); Sodium 143 meq/L (136-145)
--- NOTE | 2018-02-07 05:59 | XR ---
EXAM DATE: 02/07/2018 5:20 AM EST AGE/SEX: 62 years / Male INDICATIONS: Short of breath. CLINICAL DATA: This is the patient's subsequent encounter. Patient reports that signs and symptoms h ave been present for 1 week and indicates a pain score of 0/10. MEDICAL/SURGICAL HISTORY: Non-responsive. Non-responsive. COMPARISON: [facility], CHEST 1V SINGLE AP, 02/04/2018. . FINDINGS: Endotracheal tube in good position. NG enters stomach. Mild basilar airspace disease. No significant effusion. No pneumothorax. CONCLUSION: Nasogastric tube and endotracheal tube in good position. Mild basilar airspace disease. Electronically signed by: Kwasi Delgado MD 02/07/2018 5:58 AM EST
[2018-02-07] MEDS: MethylPREDNISolone Sod Succinate Inj 40 MG/ML Vial IV.PUSH SCH ×3 (06:10→21:05)
[2018-02-07] MEDS: OLANZapine 15 MG Tablet PO SCH (08:22)
[2018-02-07] MEDS: Famotidine PF Inj 20 MG/2 ML Vial IV.PUSH SCH ×2 (08:25→21:06)
[2018-02-07] MEDS: Chlorhexidine 0.12% Oral Kit 15 ML UDC OROPHARYNG SCH ×2 (08:25→20:10)
[2018-02-07] MEDS: Enoxaparin Inj 40 MG/0.4 ML Syringe SQ SCH (15:16)
[2018-02-07] MEDS: Benztropine 2 MG Tablet PO SCH (21:05)
--- NOTE | 2018-02-07 22:08 | P.PNCC ---
Subjective Subjective Remarks/Hospital Course: Patient is a 62-year-old male with history of COPD, schizophrenia, continued smoking who was brought to the emergency department from an assisted living facility for severe shortness of breath. Symptoms started few days ago, EMS evaluated and placed him on CPAP machine. Apparently EMS gave him 60 mg of IV Lasix for possible CHF exacerbation. In the ED initial oxygen saturation was 78 % on room air, patient was immediately placed on BiPAP with 50% oxygen. ABG showed pH 7.23 with a PCO2 of 86. Patient received IV Solu-Medrol DuoNeb and IV magnesium, also received 1 dose of IV Levaquin. No clinical improvement on 30 minutes of BiPAP, in fact ABG marginally worsened with pH 7.21 PCO2 87. Lactic acid was 2.3. Patient was intubated and placed on mechanical ventilation by Dr. Saucedo. Critical care medicine was consulted for admission I evaluated the patient in the ED. 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 Respiratory exam reveals bilateral expiratory wheezing. I have placed him on scheduled IV Solu-Medrol, DuoNeb every 4 hours scheduled and as needed, start cefepime 2 g IV every 8 hours and check sputum culture. Also inhaled budesonide had been started. Will repeat ABG in 1 hour. 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 I will check CT of the chest to rule out any occult mass/infiltrate 02/02: Patient remains intubated heavily sedated for vent synchrony. Failed CPAP attempted today due to severe tachypnea and distress. Continues to have expiratory wheezing. Lactic acid was elevated to 4.2 yesterday received 2 L normal saline bolus following this. Came down to 3 repeat lactic acid today pending 02/03: Remains critical failed CPAP trial due to severe respiratory distress and wheezing. Required re-sedation and full ventilatory support. Chest x-ray remains unchanged. Severe COPD/emphysema will make it challenging to wean off the ventilator 02/04: Remains intubated heavily sedated for ventilator synchrony. Starting Precedex to facilitate weaning trials. Clinically COPD seems to be improving with less wheezing today. Sputum culture with Haemophilus influenzae being treated 02/05: Failed SBT yesterday due to tachypnea. Becomes agitated and develops more wheezing when sedation lightened to come. Use Precedex to facilitate ventilator weaning 02/06: continues to fail SBT. very tachypneic and becomes quite distressed. more awake today. 02/07: still failing SBTs. may be very difficult to wean fro mechanical ventilation due to underlying severe COPD. Objective Vital Signs / I&O: Vital Signs 02/06/18 22:45 02/06/18 23:00 02/07/18 00:00 Temperature Pulse Rate 78 56 L Respiratory Rate 15 24 17 Blood Pressure 119/64 121/64 Pulse Oximetry 98 87 L 98 02/07/18 01:00 02/07/18 01:45 02/07/18 02:00 Temperature Pulse Rate 50 L 48 L Respiratory Rate 20 15 21 Blood Pressure 134/70 128/71 Pulse Oximetry 98 98 98 02/07/18 02:01 02/07/18 03:00 02/07/18 04:00 Temperature Pulse Rate 48 L 45 L 45 L Respiratory Rate 22 29 H 24 Blood Pressure 128/71 136/73 146/74 H Pulse Oximetry 98 100 96 02/07/18 04:47 02/07/18 05:00 02/07/18 05:01 Temperature Pulse Rate 52 L 50 L Respiratory Rate 15 20 15 Blood Pressure 111/59 L Pulse Oximetry 96 95 95 02/07/18 06:00 02/07/18 06:01 02/07/18 07:00 Temperature Pulse Rate 47 L 48 L 52 L Respiratory Rate 25 H 23 27 H Blood Pressure 138/71 142/77 H Pulse Oximetry 97 97 96 02/07/18 08:00 02/07/18 08:01 02/07/18 08:15 Temperature 37.0 C Pulse Rate 49 L 57 L Respiratory Rate 15 17 15 Blood Pressure 135/65 135/65 Pulse Oximetry 96 95 96 02/07/18 09:00 02/07/18 10:00 02/07/18 10:01 Temperature Pulse Rate 50 L 51 L 56 L Respiratory Rate 15 27 H 20 Blood Pressure 136/72 150/71 H Pulse Oximetry 96 96 96 02/07/18 11:00 02/07/18 12:00 02/07/18 12:32 Temperature 37.2 C Pulse Rate 57 L 55 L Respiratory Rate 28 H 23 15 Blood Pressure 144/71 H 132/72 Pulse Oximetry 96 95 95 02/07/18 13:00 02/07/18 14:00 02/07/18 15:00 Temperature Pulse Rate 56 L 55 L 60 Respiratory Rate 21 15 21 Blood Pressure 148/74 H 139/73 Pulse Oximetry 95 95 94 L 02/07/18 15:01 02/07/18 15:43 02/07/18 16:00 Temperature 37.2 C Pulse Rate 60 56 L Respiratory Rate 15 15 21 Blood Pressure 141/67 H 162/75 H Pulse Oximetry 95 94 L 95 02/07/18 18:00 02/07/18 20:31 Temperature Pulse Rate 61 57 L Respiratory Rate 15 Blood Pressure Pulse Oximetry 95 Intake & Output 02/07/18 02/07/18 02/08/18 06:59 18:59 06:59 Intake Total 643 / 643 725 / 725 150 / 150 Output Total 2400 / 2400 950 / 950 Balance -1757 / -1757 -225 / -225 150 / 150 Weight 61 kg Intake: IV 250 / 250 150 / 150 150 / 150 Precedex Inj 200 MCG In NS Inj 150 / 150 150 / 150 50 / 50 48 ML @ 0.2 MCG/KG/HR 3.13 mls/ hr IV.CONT TITRATE PRN Rx#: [id number] Rocephin Inj 2,000 MG In NS Inj 100 / 100 100 / 100 100 ML @ 200 mls/hr IV.SIG Q24H MACI Rx#:[id number] Tube Feeding 243 / 243 575 / 575 Tube Irrigant 150 / 150 Output: Urine 1000 / 1000 Stool 300 / 300 300 / 300 Urine Amount (Catheter) 1100 / 1100 650 / 650 Straight 1100 / 1100 650 / 650 Other: Date of Last Bowel Movement 02/07/18 02/07/18 Result Diagrams: 02/07/18 05:00 02/07/18 05:00 Objective Remarks: GENERAL: Intubated currently on full ventilator support SKIN: warm/dry. HEAD: Atraumatic. Normocephalic. EYES: Pupils equal and round reactive. No scleral icterus. ENT: No nasal bleeding or discharge. Orotracheally intubated NECK: Trachea midline. No JVD. CARDIOVASCULAR: normal rate, regular rhythm. sinus. RESPIRATORY: On PRVC. equal chest rise. fio2 35%. peep 5. Continues to get tachypneic on CPAP GASTROINTESTINAL: Abdomen soft, non-tender, nondistended. no guarding. MUSCULOSKELETAL: No obvious deformities. No clubbing. No cyanosis. No edema. NEUROLOGICAL: On holding sedation patient wakes up easily follows commands on upper and lower extremities. Assessment and Plan - Problem List (1) Acute on chronic respiratory failure with hypoxemia Code(s): J96.21 - Acute and chronic respiratory failure with hypoxia Status: Acute (2) Acute hypercapnic respiratory failure Code(s): J96.02 - Acute respiratory failure with hypercapnia Status: Acute (3) Lactic acidemia Code(s): E87.2 - Acidosis Status: Acute (4) COPD with acute exacerbation Code(s): J44.1 - Chronic obstructive pulmonary disease with (acute) exacerbation Status: Acute (5) Hyponatremia Code(s): E87.1 - Hypo-osmolality and hyponatremia Status: Acute (6) Schizophrenia Code(s): F20.9 - Schizophrenia, unspecified Status: Chronic (7) COPD (chronic obstructive pulmonary disease) Code(s): J44.9 - Chronic obstructive pulmonary disease, unspecified Status: Chronic - Assessment and Plan Plan: NEURO: History of schizophrenia -Propofol and fentanyl for sedation and ventilator synchrony -Precedex to facilitate ventilator weaning -Daily sedation vacation -Continue home neuroleptic medications RESP: Acute COPD exacerbation Acute hypoxemic and hypercapnic respiratory failure COPD, Continued tobacco abuse Left lower lobe 1.5 cm parenchymal opacity Haemophilus influenza pneumonia -Failed BiPAP, intubated and placed on PRVC/AC in the emergency department -Ventilator bundle. DuoNeb every 4 hours scheduled and as needed, continue IV steroid -Sputum culture growing Haemophilus species, Continue Rocephin -CT of the chest: Moderate to severe emphysema and mild biapical scarring. Very mild tree-in-bud type infectious/inflammatory appearing infiltrates of both bases. 1.5 cm focal parenchymal opacity of the left lower lobe, also most likely infectious or inflammatory but 3-6 month follow-up -Failing CPAP trials due to tachypnea, attempt daily CV: Lactic acidosis-resolved -Discontinue IV fluids - lasix 40mg iv x 1. GI: -Tolerating tube feeds, IV famotidine -Bowel regimen : -Monitor renal function closely. Condom catheter placed in the ED ID: H influenza pneumonia -Antibiotics Rocephin -F/u sputum cultures. -Growing Haemophilus species HEME: -Monitor CBC, coags ENDO: Hyponatremia-resolved -Electrolyte replacement per protocol -Sliding scale insulin PROPH: -Bilateral lower extremity SCDs. Lovenox/famotidine LINES: -Utilize peripheral IVs, central line if needed Remains critical failing CPAP trials due to severe COPD/emphysema. Lactic acidosis resolved. Haemophilus pneumonia. Antibiotics changed to Rocephin. Severe COPD/emphysema can make it challenging to extubate. GI consulted for coffee-ground NG output
[2018-02-07] MEDS ORDERED: Dexmedetomidine Inj 1,000 MCG in Sodium Chlor 0.9% Inj 240 ML IV.CONT PRN (23:03)
[2018-02-08] MEDS: Oral Hygiene Kit OROPHARYNG SCH ×4 (00:26→15:42)
[2018-02-08] MEDS: MethylPREDNISolone Sod Succinate Inj 40 MG/ML Vial IV.PUSH SCH ×3 (05:27→21:00)
[2018-02-08 05:44] LABS: Hematocrit 46.6 % (39.0-51.0); Hemoglobin 15.5 gm/dL (13.0-17.0); Mean Corpuscular HGB Conc 33.3 % (32.0-36.0); Mean Corpuscular Hemoglobin 31.4 pg (27.0-34.0); Mean Corpuscular Volume 94.2 fL (80.0-100.0); Platelet Count 132 th/mm3 (150-450); Red Blood Count 4.95 mil/mm3 (4.50-5.90); Red Cell Distribution Width 13.6 % (11.6-17.2); White Blood Count 10.4 th/mm3 (4.0-11.0)
[2018-02-08 05:53] LABS: Anion Gap 5 meq/L (5-15); Blood Urea Nitrogen 25 mg/dL (7-18); Calcium 8.4 mg/dL (8.5-10.1); Carbon Dioxide 37.1 meq/L (21.0-32.0); Chloride 102 meq/L (98-107); Glomerular Filtration Rate Greater Than 89 mL/min (>89); Glucose,Random 132 mg/dL (74-106); Magnesium 2.5 mg/dL (1.5-2.5); Phosphorus 3.1 mg/dL (2.5-4.9); Potassium 3.8 meq/L (3.5-5.1); Sodium 144 meq/L (136-145)
[2018-02-08] MEDS: Chlorhexidine 0.12% Oral Kit 15 ML UDC OROPHARYNG SCH ×2 (10:27→19:40)
[2018-02-08] MEDS: OLANZapine 15 MG Tablet PO SCH (10:27)
[2018-02-08] MEDS: Famotidine PF Inj 20 MG/2 ML Vial IV.PUSH SCH ×2 (10:27→20:57)
[2018-02-08 11:59] LABS: ABG Base Excess 12.2 mmol/L (-2-2); ABG PCO2 57 mmHg (38-42); ABG PO2 87 mmHG (61-120)
[2018-02-08] MEDS: Enoxaparin Inj 40 MG/0.4 ML Syringe SQ SCH (15:42)
--- NOTE | 2018-02-08 18:22 | P.PNCC ---
Subjective Subjective Remarks/Hospital Course: Patient is a 62-year-old male with history of COPD, schizophrenia, continued smoking who was brought to the emergency department from an assisted living facility for severe shortness of breath. Symptoms started few days ago, EMS evaluated and placed him on CPAP machine. Apparently EMS gave him 60 mg of IV Lasix for possible CHF exacerbation. In the ED initial oxygen saturation was 78 % on room air, patient was immediately placed on BiPAP with 50% oxygen. ABG showed pH 7.23 with a PCO2 of 86. Patient received IV Solu-Medrol DuoNeb and IV magnesium, also received 1 dose of IV Levaquin. No clinical improvement on 30 minutes of BiPAP, in fact ABG marginally worsened with pH 7.21 PCO2 87. Lactic acid was 2.3. Patient was intubated and placed on mechanical ventilation by Dr. Saucedo. Critical care medicine was consulted for admission I evaluated the patient in the ED. 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 Respiratory exam reveals bilateral expiratory wheezing. I have placed him on scheduled IV Solu-Medrol, DuoNeb every 4 hours scheduled and as needed, start cefepime 2 g IV every 8 hours and check sputum culture. Also inhaled budesonide had been started. Will repeat ABG in 1 hour. 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 I will check CT of the chest to rule out any occult mass/infiltrate 02/02: Patient remains intubated heavily sedated for vent synchrony. Failed CPAP attempted today due to severe tachypnea and distress. Continues to have expiratory wheezing. Lactic acid was elevated to 4.2 yesterday received 2 L normal saline bolus following this. Came down to 3 repeat lactic acid today pending 02/03: Remains critical failed CPAP trial due to severe respiratory distress and wheezing. Required re-sedation and full ventilatory support. Chest x-ray remains unchanged. Severe COPD/emphysema will make it challenging to wean off the ventilator 02/04: Remains intubated heavily sedated for ventilator synchrony. Starting Precedex to facilitate weaning trials. Clinically COPD seems to be improving with less wheezing today. Sputum culture with Haemophilus influenzae being treated 02/05: Failed SBT yesterday due to tachypnea. Becomes agitated and develops more wheezing when sedation lightened to come. Use Precedex to facilitate ventilator weaning 02/06: continues to fail SBT. very tachypneic and becomes quite distressed. more awake today. 02/07: still failing SBTs. may be very difficult to wean fro mechanical ventilation due to underlying severe COPD. 02/08: improving today. awake and alert. passed SBT. Objective Vital Signs / I&O: Vital Signs 02/07/18 19:00 02/07/18 19:01 02/07/18 20:00 Temperature Pulse Rate 58 L 60 61 Respiratory Rate 15 20 22 Blood Pressure 164/76 H Pulse Oximetry 96 96 95 02/07/18 20:01 02/07/18 20:31 02/07/18 21:00 Temperature 36.8 C Pulse Rate 58 L 57 L 62 Respiratory Rate 21 15 20 Blood Pressure 136/79 126/74 Pulse Oximetry 96 95 95 02/07/18 22:00 02/07/18 22:01 02/07/18 23:00 Temperature Pulse Rate 56 L 55 L 61 Respiratory Rate 24 29 H 22 Blood Pressure 165/77 H Pulse Oximetry 98 98 95 02/07/18 23:01 02/08/18 00:00 02/08/18 00:43 Temperature 36.9 C Pulse Rate 59 L 57 L Respiratory Rate 23 32 H 15 Blood Pressure 155/85 H 159/88 H Pulse Oximetry 97 98 98 02/08/18 01:00 02/08/18 01:01 02/08/18 02:00 Temperature Pulse Rate 60 62 59 L Respiratory Rate 30 H 22 42 H Blood Pressure 163/95 H 161/85 H Pulse Oximetry 93 L 96 98 02/08/18 03:00 02/08/18 03:01 02/08/18 04:00 Temperature 37.0 C Pulse Rate 59 L 61 53 L Respiratory Rate 27 H 20 15 Blood Pressure 172/82 H Pulse Oximetry 95 91 L 99 02/08/18 04:01 02/08/18 04:26 02/08/18 05:00 Temperature Pulse Rate 51 L 62 Respiratory Rate 15 15 27 H Blood Pressure 144/83 H Pulse Oximetry 99 100 94 L 02/08/18 05:01 02/08/18 06:00 02/08/18 06:01 Temperature Pulse Rate 57 L 50 L 62 Respiratory Rate 16 19 23 Blood Pressure 159/94 H 177/87 H Pulse Oximetry 99 100 99 02/08/18 07:00 02/08/18 07:01 02/08/18 08:00 Temperature 36.9 C Pulse Rate 53 L 49 L 44 L Respiratory Rate 21 22 22 Blood Pressure 166/72 H 155/74 H Pulse Oximetry 100 100 99 02/08/18 09:00 02/08/18 09:01 02/08/18 09:10 Temperature Pulse Rate 61 61 65 Respiratory Rate 24 26 H 14 Blood Pressure 101/63 Pulse Oximetry 97 97 97 02/08/18 10:00 02/08/18 11:00 02/08/18 12:00 Temperature 37.1 C Pulse Rate 66 67 79 Respiratory Rate 29 H 26 H 20 Blood Pressure 106/57 L 99/53 L 93/55 L Pulse Oximetry 97 02/08/18 13:00 02/08/18 14:00 02/08/18 15:00 Temperature Pulse Rate 78 78 81 Respiratory Rate 31 H 29 H 30 H Blood Pressure 99/57 L 97/54 L 111/55 L Pulse Oximetry 95 96 95 02/08/18 16:00 02/08/18 18:00 Temperature Pulse Rate 78 76 Respiratory Rate 30 H Blood Pressure 107/55 L Pulse Oximetry 95 Intake & Output 02/07/18 02/08/18 02/08/18 18:59 06:59 18:59 Intake Total 725 / 725 804 / 804 0 / 0 Output Total 950 / 950 2200 / 2200 350 / 350 Balance -225 / -225 -1396 / -1396 -350 / -350 Weight 54.5 kg Intake: IV 150 / 150 200 / 200 Precedex Inj 200 MCG In NS Inj 150 / 150 100 / 100 48 ML @ 0.2 MCG/KG/HR 3.13 mls/ hr IV.CONT TITRATE PRN Rx#: [id number] Rocephin Inj 2,000 MG In NS Inj 100 / 100 100 ML @ 200 mls/hr IV.SIG Q24H MACI Rx#:[id number] Oral 0 / 0 0 / 0 Tube Feeding 575 / 575 454 / 454 Tube Irrigant 150 / 150 Output: Urine 350 / 350 Stool 300 / 300 Urine Amount (Catheter) 650 / 650 2200 / 2200 Indwelling Urethral Catheter 900 / 900 Straight 650 / 650 1300 / 1300 Other: Date of Last Bowel Movement 02/07/18 02/08/18 02/08/18 # Bowel Movements 1 1 # Incontinent Bowel Movements 1 Result Diagrams: 02/08/18 05:11 02/08/18 05:11 Objective Remarks: GENERAL: Intubated currently on PSV. SKIN: warm/dry. HEAD: Atraumatic. Normocephalic. EYES: Pupils equal and round reactive. No scleral icterus. ENT: No nasal bleeding or discharge. Orotracheally intubated NECK: Trachea midline. No JVD. CARDIOVASCULAR: normal rate, regular rhythm. sinus. RESPIRATORY: On PSV 5/5/35%. unlabored and comfortable pattern today. GASTROINTESTINAL: Abdomen soft, non-tender, nondistended. no guarding. MUSCULOSKELETAL: No obvious deformities. No clubbing. No cyanosis. No edema. NEUROLOGICAL: On holding sedation patient wakes up easily follows commands on upper and lower extremities. Assessment and Plan - Problem List (1) Acute on chronic respiratory failure with hypoxemia Code(s): J96.21 - Acute and chronic respiratory failure with hypoxia Status: Acute (2) Acute hypercapnic respiratory failure Code(s): J96.02 - Acute respiratory failure with hypercapnia Status: Acute (3) Lactic acidemia Code(s): E87.2 - Acidosis Status: Acute (4) COPD with acute exacerbation Code(s): J44.1 - Chronic obstructive pulmonary disease with (acute) exacerbation Status: Acute (5) Hyponatremia Code(s): E87.1 - Hypo-osmolality and hyponatremia Status: Acute (6) Schizophrenia Code(s): F20.9 - Schizophrenia, unspecified Status: Chronic (7) COPD (chronic obstructive pulmonary disease) Code(s): J44.9 - Chronic obstructive pulmonary disease, unspecified Status: Chronic - Assessment and Plan Plan: NEURO: History of schizophrenia -wean sedation. -Continue home neuroleptic medications RESP: Acute COPD exacerbation Acute hypoxemic and hypercapnic respiratory failure- improving COPD, Continued tobacco abuse Left lower lobe 1.5 cm parenchymal opacity Haemophilus influenza pneumonia -Failed BiPAP, intubated and placed on PRVC/AC in the emergency department - wean to extubate - aggressive pulmonary toilet - PT consult - OOB -Sputum culture growing Haemophilus species, Continue Rocephin -CT of the chest: Moderate to severe emphysema and mild biapical scarring. Very mild tree-in-bud type infectious/inflammatory appearing infiltrates of both bases. 1.5 cm focal parenchymal opacity of the left lower lobe, also most likely infectious or inflammatory but 3-6 month follow-up CV: Lactic acidosis-resolved -Discontinue IV fluids - lasix 40mg iv x 1. GI: -Tolerating tube feeds, IV famotidine - nursing bedside swallow eval and advance diet once extubated. -Bowel regimen : -Monitor renal function closely. Condom catheter placed in the ED ID: H influenza pneumonia -Antibiotics Rocephin -F/u sputum cultures. -Growing Haemophilus species HEME: -Monitor CBC, coags ENDO: Hyponatremia-resolved -Electrolyte replacement per protocol -Sliding scale insulin PROPH: -Bilateral lower extremity SCDs. Lovenox/famotidine LINES: -Utilize peripheral IVs, central line if needed
[2018-02-08] MEDS: Benztropine 2 MG Tablet PO SCH (20:57)
[2018-02-09] MEDS: Oral Hygiene Kit OROPHARYNG SCH ×4 (00:16→21:33)
[2018-02-09] MEDS: MethylPREDNISolone Sod Succinate Inj 40 MG/ML Vial IV.PUSH SCH ×3 (05:08→21:33)
[2018-02-09 07:22] LABS: Hematocrit 47.5 % (39.0-51.0); Hemoglobin 16.1 gm/dL (13.0-17.0); Mean Corpuscular HGB Conc 33.9 % (32.0-36.0); Mean Corpuscular Hemoglobin 31.8 pg (27.0-34.0); Mean Platelet Volume 8.2 fL (7.0-11.0); Platelet Count 176 th/mm3 (150-450); Red Blood Count 5.05 mil/mm3 (4.50-5.90); Red Cell Distribution Width 13.6 % (11.6-17.2); White Blood Count 9.3 th/mm3 (4.0-11.0)
[2018-02-09 07:51] LABS: Anion Gap 1 meq/L (5-15); Blood Urea Nitrogen 28 mg/dL (7-18); Calcium 8.3 mg/dL (8.5-10.1); Carbon Dioxide 40.6 meq/L (21.0-32.0); Chloride 100 meq/L (98-107); Glomerular Filtration Rate Greater Than 89 mL/min (>89); Glucose,Random 105 mg/dL (74-106); Magnesium 2.6 mg/dL (1.5-2.5); Phosphorus 3.8 mg/dL (2.5-4.9); Potassium 4.5 meq/L (3.5-5.1); Sodium 142 meq/L (136-145)
--- NOTE | 2018-02-09 07:53 | P.PNIM ---
Subjective Interval history: Patient complains of on and off shortness of breath. Currently he has no acute symptoms. Physical Exam Vital signs: Vital Signs 02/08/18 08:00 02/08/18 09:00 02/08/18 09:01 Temperature 98.4 F Pulse Rate 44 L 61 61 Respiratory Rate 22 24 26 H Blood Pressure 155/74 H 101/63 Pulse Oximetry 99 97 97 02/08/18 09:10 02/08/18 10:00 02/08/18 11:00 Temperature Pulse Rate 65 66 67 Respiratory Rate 14 29 H 26 H Blood Pressure 106/57 L 99/53 L Pulse Oximetry 97 02/08/18 12:00 02/08/18 13:00 02/08/18 14:00 Temperature 98.7 F Pulse Rate 79 78 78 Respiratory Rate 20 31 H 29 H Blood Pressure 93/55 L 99/57 L 97/54 L Pulse Oximetry 97 95 96 02/08/18 15:00 02/08/18 16:00 02/08/18 17:00 Temperature Pulse Rate 81 78 77 Respiratory Rate 30 H 30 H 28 H Blood Pressure 111/55 L 107/55 L 106/56 L Pulse Oximetry 95 95 95 02/08/18 18:00 02/08/18 19:00 02/08/18 20:00 Temperature 98.6 F Pulse Rate 80 78 81 Respiratory Rate 32 H 30 H 30 H Blood Pressure 106/58 L 105/61 107/58 L Pulse Oximetry 93 L 96 96 02/08/18 20:20 02/08/18 21:00 02/08/18 22:00 Temperature Pulse Rate 83 80 Respiratory Rate 29 H 32 H Blood Pressure 107/61 119/66 Pulse Oximetry 94 L 93 L 94 L 02/08/18 23:00 02/09/18 00:00 02/09/18 02:00 Temperature 97.7 F Pulse Rate 74 81 82 Respiratory Rate 27 H 23 Blood Pressure 121/64 135/70 Pulse Oximetry 89 L 96 02/09/18 04:00 02/09/18 06:00 Temperature 98.3 F Pulse Rate 87 87 Respiratory Rate 19 Blood Pressure 130/82 Pulse Oximetry 94 L Intake & Output 02/08/18 02/09/18 02/09/18 18:59 06:59 18:59 Intake Total 368.51 / 368.51 Output Total 350 / 350 650 / 650 Balance 18.51 / 18.51 -650 / -650 Weight 57.1 kg Intake: IV 368.51 / 368.51 Precedex Inj 1,000 MCG In NS 250 / 250 Inj 240 ML @ 0.2 MCG/KG/HR 3.13 mls/hr IV.CONT TITRATE PRN Rx# :[id number] Diprivan 1000 mg/100 ml Inj 1, 18.51 / 18.51 000 mg In 100 ml @ 5 MCG/KG/MIN 2.313 mls/hr IV.CONT TITRATE PRN Rx#:[id number] Rocephin Inj 2,000 MG In NS Inj 100 / 100 100 ML @ 200 mls/hr IV.SIG Q24H MACI Rx#:[id number] Oral 0 / 0 Output: Urine 350 / 350 650 / 650 Other: Date of Last Bowel Movement 02/08/18 02/08/18 # Bowel Movements 1 Narrative: General patient complains of some shortness of breath, otherwise no other complaints. HEENT extraocular movements are intact, clear oropharyngeal mucosa, no JVD Cardiovascular S1-S2 audible, RRR, no murmurs rubs or gallops Respiratory bilateral wheezing. Abdomen soft, nontender, nondistended, normal bowel sounds Extremities no edema 2+ distal pulses in bilateral upper and lower extremities Neuro patient moves all 4 extremities, sensation is intact bilaterally. - Urinary Catheter Management Indwelling Urethral Catheter Cath placed during this visit: yes, but has since been removed by the nurse Reason for continuing: Decision to DC catheter Insertion date: 02/02/18 Insertion time: 05:44 Removal date: 02/05/18 Removal time: 17:45 Straight Cath placed during this visit: no Results - Labs CBC & Chem 7: 02/09/18 06:59 02/08/18 05:11 Laboratory Results - last 24 hr 02/08/18 02/09/18 11:48 06:59 WBC 9.3 RBC 5.05 Hgb 16.1 Hct 47.5 MCV 94.0 MCH 31.8 MCHC 33.9 RDW 13.6 Plt Count 176 D MPV 8.2 Puncture Site Right radial Patient Temperature 98.6 O2 Saturation 94 ABG pH 7.43 H ABG pCO2 57 H* ABG pO2 87 ABG HCO3 37 H ABG O2 Content 20.7 H ABG Base Excess 12.2 H ABG Methemoglobin 1.3 Ted Test Present Hemoglobin 15.6 Carboxyhemoglobin 0.8 O2 Delivery Device Ventilator Vent Setting 5/+5/35 Inspired O2 35 Critical Value Yes Assessment and Plan - Plan This patient is a 62-year-old male with a diagnosis of COPD, schizophrenia, extensive history of tobacco smoking who presented to the emergency department from an assisted living facility with severe shortness of breath. The patient was found to be hypoxic and hypercapnic and was initiated on treatment for COPD exacerbation and placed on BiPAP. The patient's symptoms did not improve and he was subsequently intubated. The patient was admitted to the intensive care unit and kept on mechanical ventilation. He was treated for COPD exacerbation and sputum cultures grew Haemophilus influenza. The patient has now been extubated and was transferred to my care. 1. Acute hypoxic hypercapnic respiratory failure secondary to COPD exacerbation and H influenza pneumonia Patient still has wheezing on auscultation bilaterally. Sputum cultures growing Haemophilus, continue IV antibiotics Rocephin. CT scan of the chest showing moderate to severe emphysema, focal opacity in the left lower lobe. Continue breathing treatments, continue supplemental oxygen as needed. Continue BiPAP intermittently. Continue steroids. Patient is still on 4 L of supplemental oxygen. Keep O2 saturations above 92%. Patient will be transferred out of the intensive care unit today. 2. Schizophrenia Continue current medication regimen. 3. Tobacco smoking Patient was counseled to avoid tobacco smoking. Lovenox for DVT prophylaxis.
[2018-02-09] MEDS: OLANZapine 15 MG Tablet PO SCH (09:45)
[2018-02-09] MEDS: Chlorhexidine 0.12% Oral Kit 15 ML UDC OROPHARYNG SCH ×2 (09:46→21:33)
[2018-02-09] MEDS: Famotidine PF Inj 20 MG/2 ML Vial IV.PUSH SCH ×2 (09:46→20:52)
[2018-02-09] MEDS: Enoxaparin Inj 40 MG/0.4 ML Syringe SQ SCH (15:46)
[2018-02-09] MEDS: Benztropine 2 MG Tablet PO SCH (20:51)
--- NOTE | 2018-02-09 21:29 | XR ---
EXAM DATE: 02/09/2018 9:27 PM EST AGE/SEX: 62 years / Male INDICATIONS: Minor olecranon process pain from fall. CLINICAL DATA: This is the patient's initial encounter. Patient reports that signs and symptoms have been present for 1 day and indicates a pain score of 3/10. MEDICAL/SURGICAL HISTORY: Chronic obstructive pulmonary disease. None. COMPARISON: No prior exams available for comparison. FINDINGS: Bony structures are intact and in normal alignment. Joints are intact without dislocation or signifi cant arthropathy. Osseous density is normal. Soft tissues are unremarkable. No radiopaque foreign bodies seen. There is overlying artifact from IV tubing. CONCLUSION: Negative trauma study. Electronically signed by: Saúl Salmeron MD 02/09/2018 9:28 PM EST
[2018-02-10] MEDS: Oral Hygiene Kit OROPHARYNG SCH ×4 (04:15→23:05)
[2018-02-10] MEDS: MethylPREDNISolone Sod Succinate Inj 40 MG/ML Vial IV.PUSH SCH ×3 (05:04→22:54)
[2018-02-10 06:54] LABS: Hematocrit 47.8 % (39.0-51.0); Hemoglobin 15.5 gm/dL (13.0-17.0); Mean Corpuscular HGB Conc 32.5 % (32.0-36.0); Mean Corpuscular Hemoglobin 30.9 pg (27.0-34.0); Mean Corpuscular Volume 95.2 fL (80.0-100.0); Mean Platelet Volume 8.7 fL (7.0-11.0); Platelet Count 196 th/mm3 (150-450); Red Blood Count 5.02 mil/mm3 (4.50-5.90); Red Cell Distribution Width 13.4 % (11.6-17.2); White Blood Count 11.5 th/mm3 (4.0-11.0)
[2018-02-10 07:19] LABS: Anion Gap 7 meq/L (5-15); Blood Urea Nitrogen 32 mg/dL (7-18); Calcium 8.4 mg/dL (8.5-10.1); Carbon Dioxide 34.1 meq/L (21.0-32.0); Chloride 99 meq/L (98-107); Glomerular Filtration Rate Greater Than 89 mL/min (>89); Glucose,Random 127 mg/dL (74-106); Magnesium 2.6 mg/dL (1.5-2.5); Sodium 140 meq/L (136-145)
[2018-02-10 07:22] LABS: Phosphorus 3.7 mg/dL (2.5-4.9)
[2018-02-10] MEDS ORDERED: Sodium Chloride 0.9% 2 ML Flush PRN IV.FLUSH (08:33)
[2018-02-10] MEDS: OLANZapine 15 MG Tablet PO SCH (08:56)
[2018-02-10] MEDS: Famotidine PF Inj 20 MG/2 ML Vial IV.PUSH SCH ×2 (08:57→20:07)
[2018-02-10] MEDS: Sodium Chloride 0.9% 2 ML Flush BID IV.FLUSH SCH ×2 (08:57→20:10)
[2018-02-10] MEDS: Chlorhexidine 0.12% Oral Kit 15 ML UDC OROPHARYNG SCH ×2 (08:57→20:10)
--- NOTE | 2018-02-10 13:44 | P.PNIM ---
Subjective Interval history: Follow-up for acute hypoxic hypercapnic respiratory failure, COPD exacerbation, schizophrenia, H influenza pneumonia. Patient seen and examined laying in bed, awake alert and oriented x2 with confusion. Patient denies any chest pain or shortness of breath, patient denies any discomfort at this time. Nurse denies any acute concern as reported that the patient with increased confusion. Physical Exam Vital signs: Vital Signs 02/09/18 14:00 02/09/18 15:00 02/09/18 16:00 Temperature 97.6 F Pulse Rate 93 H 97 H 93 H Respiratory Rate 31 H 30 H 28 H Blood Pressure 129/71 Pulse Oximetry 94 L 94 L 94 L 02/09/18 18:15 02/09/18 18:24 02/09/18 19:46 Temperature 96.8 F L 96.8 F L Pulse Rate 83 105 H Respiratory Rate 20 20 18 Blood Pressure 151/84 H Pulse Oximetry 92 L 02/09/18 20:00 02/09/18 23:58 02/10/18 00:00 Temperature 97.9 F 97.5 F L Pulse Rate 90 78 83 Respiratory Rate 17 17 Blood Pressure 168/79 H 145/86 H Pulse Oximetry 94 L 95 02/10/18 04:00 02/10/18 07:00 02/10/18 08:00 Temperature 97.7 F 97.7 F Pulse Rate 76 78 76 Respiratory Rate 17 14 18 Blood Pressure 133/84 126/71 Pulse Oximetry 96 91 L 02/10/18 12:00 Temperature 97.7 F Pulse Rate 86 Respiratory Rate 18 Blood Pressure 132/65 Pulse Oximetry 91 L Intake & Output 02/09/18 02/10/18 02/10/18 18:59 06:59 18:59 Intake Total 580 / 580 240 / 240 Output Total 450 / 450 Balance 580 / 580 -210 / -210 Weight 56.3 kg Intake: IV 100 / 100 Rocephin Inj 2,000 MG In NS Inj 100 / 100 100 ML @ 200 mls/hr IV.SIG Q24H MACI Rx#:[id number] Oral 480 / 480 240 / 240 Output: Urine 450 / 450 Other: # Voids 6 Date of Last Bowel Movement 02/08/18 02/10/18 # Bowel Movements 1 Narrative: GENERAL: Well-developed, well-nourished, confused male in no apparent distress SKIN: Warm and dry. Left forearm skin tears dressed and wrapped with Krunal wrap HEAD: Atraumatic. Normocephalic. EYES: Pupils equal and round. No scleral icterus. No injection or drainage. ENT: No nasal bleeding or discharge. Mucous membranes pink and moist. NECK: Trachea midline. No JVD. CARDIOVASCULAR: Regular rate and rhythm. RESPIRATORY: No accessory muscle use. Clear to auscultation. Breath sounds equal bilaterally. GASTROINTESTINAL: Abdomen obese soft, non-tender, nondistended. Hepatic and splenic margins not palpable. MUSCULOSKELETAL: Extremities without clubbing, cyanosis, or edema. No obvious deformities. NEUROLOGICAL: Awake and alert. No obvious cranial nerve deficits. Motor grossly within normal limits. Generalized weakness moving all 4 extremities normal speech. PSYCHIATRIC: Flat mood and affect; insight and judgment poor G - Urinary Catheter Management Indwelling Urethral Catheter Cath placed during this visit: yes, but has since been removed by the nurse Reason for continuing: Decision to DC catheter Insertion date: 02/02/18 Insertion time: 05:44 Removal date: 02/05/18 Removal time: 17:45 Straight Cath placed during this visit: no Results - Labs CBC & Chem 7: 02/10/18 04:51 02/10/18 04:57 Laboratory Results - last 24 hr 02/10/18 02/10/18 04:51 04:57 WBC 11.5 H RBC 5.02 Hgb 15.5 Hct 47.8 MCV 95.2 MCH 30.9 MCHC 32.5 RDW 13.4 Plt Count 196 MPV 8.7 Sodium 140 Potassium 4.0 Chloride 99 Carbon Dioxide 34.1 H Anion Gap 7 BUN 32 H Creatinine 0.63 Estimated GFR Greater than 89 Random Glucose 127 H Calcium 8.4 L Phosphorus 3.7 Magnesium 2.6 H - Imaging Impressions Elbow X-Ray 02/09/18 20:12 CONCLUSION: Negative trauma study. Assessment and Plan - Assessment (1) Acute hypercapnic respiratory failure Code(s): J96.02 - Acute respiratory failure with hypercapnia Status: Acute (2) Acute on chronic respiratory failure with hypoxemia Code(s): J96.21 - Acute and chronic respiratory failure with hypoxia Status: Acute (3) Hyponatremia Code(s): E87.1 - Hypo-osmolality and hyponatremia Status: Acute (4) COPD with acute exacerbation Code(s): J44.1 - Chronic obstructive pulmonary disease with (acute) exacerbation Status: Acute (5) Schizophrenia Code(s): F20.9 - Schizophrenia, unspecified Status: Chronic (6) COPD (chronic obstructive pulmonary disease) Code(s): J44.9 - Chronic obstructive pulmonary disease, unspecified Status: Chronic - Plan This patient is a 62-year-old male with a diagnosis of COPD, schizophrenia, extensive history of tobacco smoking who presented to the emergency department from an assisted living facility with severe shortness of breath. Acute hypoxic hypercapnic respiratory failure -Secondary to COPD exacerbation -Status post mechanical ventilation/extubation -H influenza pneumonia -NO wheezes, no sob -Sputum cultures growing Haemophilus -CT scan of the chest showing moderate to severe emphysema, focal opacity in the left lower lobe. - continue IV antibiotics Rocephin -Continue albuterol inhalers, Pulmicort, and prednisolone -continue supplemental oxygen as needed. Continue BiPAP intermittently. -Continue 3 L of supplemental oxygen. Keep O2 saturations above 92%. Encourage use of incentive spirometer Altered mental status History of schizophrenia -Likely related to schizophrenia versus respiratory failure -Continue current medication olanzapine, and Cogentin -Check labs, CBC, BMP, TSH, and ammonia level -Check urine for urinalysis with C&S if indicated -Monitor mental status Tobacco smoking -Patient was counseled on smoking cessation DVT prophylaxis: Lovenox Code Status: Full code Discussed Condition With: Patient and nurse
[2018-02-10] MEDS: Enoxaparin Inj 40 MG/0.4 ML Syringe SQ SCH (15:45)
[2018-02-10] MEDS: Benztropine 2 MG Tablet PO SCH (20:07)
[2018-02-10 22:38] LABS: Bilirubin,Urine Negative (Negative); Clarity,Urine Clear (Clear); Color,Urine Yellow (Yellw/Straw); Glucose,Urine (UA) Negative (Negative); Hyaline Casts,Urine 4 /lpf (0-3); Leukocyte Esterase,Urine Negative (Negative); Mucus,Urine Few /lpf (Occasional); Nitrite,Urine Negative (Negative); Specific Gravity,Urine 1.018 (1.002-1.035)
[2018-02-11] MEDS: Oral Hygiene Kit OROPHARYNG SCH ×4 (03:08→23:58)
[2018-02-11] MEDS: MethylPREDNISolone Sod Succinate Inj 40 MG/ML Vial IV.PUSH SCH ×3 (05:05→22:25)
[2018-02-11] MEDS: Famotidine PF Inj 20 MG/2 ML Vial IV.PUSH SCH ×2 (08:23→20:38)
[2018-02-11] MEDS: OLANZapine 15 MG Tablet PO SCH (08:23)
[2018-02-11] MEDS: Sodium Chloride 0.9% 2 ML Flush BID IV.FLUSH SCH ×2 (08:24→20:38)
[2018-02-11] MEDS: Chlorhexidine 0.12% Oral Kit 15 ML UDC OROPHARYNG SCH ×2 (08:24→19:17)
[2018-02-11 10:28] LABS: Baso % (Auto) 0.1 % (0.0-2.0); Hematocrit 46.4 % (39.0-51.0); Hemoglobin 15.6 gm/dL (13.0-17.0); Lymph # (Auto) 0.4 th/mm3 (1.0-4.8); Lymph % (Auto) 6.6 % (9.0-44.0); Mean Corpuscular HGB Conc 33.5 % (32.0-36.0); Mean Corpuscular Hemoglobin 31.8 pg (27.0-34.0); Mean Corpuscular Volume 95.1 fL (80.0-100.0); Mean Platelet Volume 8.3 fL (7.0-11.0); Mono # (Auto) 0.6 th/mm3 (0.0-0.9); Mono % (Auto) 9.7 % (0.0-8.0); Neut % (Auto) 83.6 % (16.0-70.0); Platelet Count 167 th/mm3 (150-450); Red Blood Count 4.88 mil/mm3 (4.50-5.90); Red Cell Distribution Width 13.7 % (11.6-17.2); White Blood Count 5.9 th/mm3 (4.0-11.0)
[2018-02-11 11:19] LABS: Anion Gap 5 meq/L (5-15); Blood Urea Nitrogen 21 mg/dL (7-18); Carbon Dioxide 33.6 meq/L (21.0-32.0); Chloride 98 meq/L (98-107); Glomerular Filtration Rate Greater Than 89 mL/min (>89); Glucose,Random 155 mg/dL (74-106); Magnesium 2.3 mg/dL (1.5-2.5); Phosphorus 3.5 mg/dL (2.5-4.9); Potassium 3.7 meq/L (3.5-5.1); Sodium 137 meq/L (136-145)
[2018-02-11 11:26] LABS: Thyroid Stimulating Hormone 0.594 uIU/mL (0.358-3.740)
[2018-02-11] MEDS: Enoxaparin Inj 40 MG/0.4 ML Syringe SQ SCH (14:21)
--- NOTE | 2018-02-11 14:30 | P.PNIM ---
Subjective Interval history: Follow-up for acute hypoxic hypercapnic respiratory failure, COPD exacerbation, schizophrenia, H influenza pneumonia. Patient seen and examined, laying in bed, awake alert and oriented x2, and aware what is going on at this time. Patient complains people telling him not to get out of bed, and what to do. Patient irritated on the things he cannot do. Patient denies any pain or shortness of breath, denies any headache or dizziness, denies any abdominal pain, nausea, vomiting, diarrhea or constipation. Patient denies any fever or chills. Patient stated wants to walk around and go outside, confirmed want to smoke. Discussed nicotine patch, patient refused nicotine patch. Sitter at bedside, reported patient with some confusion, reported had stools all over him this morning. Nurse reported patient with confusion, but no acute issues overnight. Physical Exam Vital signs: Vital Signs 02/10/18 14:47 02/10/18 16:00 02/10/18 18:25 Temperature 98.2 F 97.9 F Pulse Rate 85 84 Respiratory Rate 18 18 Blood Pressure 132/85 150/96 H Pulse Oximetry 95 91 L 91 L 02/10/18 20:00 02/10/18 20:11 02/10/18 20:29 Temperature 98.5 F Pulse Rate 75 80 72 Respiratory Rate 17 16 Blood Pressure 136/85 Pulse Oximetry 96 96 02/10/18 23:54 02/11/18 00:00 02/11/18 04:00 Temperature 97.8 F 97.3 F L Pulse Rate 76 76 82 Respiratory Rate 18 18 Blood Pressure 131/77 153/84 H Pulse Oximetry 93 L 97 02/11/18 04:05 02/11/18 07:00 02/11/18 07:51 Temperature Pulse Rate 79 74 Respiratory Rate 12 Blood Pressure Pulse Oximetry 97 02/11/18 08:00 02/11/18 08:17 02/11/18 12:00 Temperature 98.2 F 97.5 F L Pulse Rate 69 89 Respiratory Rate 18 18 Blood Pressure 159/74 H 110/68 Pulse Oximetry 95 98 93 L Intake & Output 02/10/18 02/11/18 02/11/18 18:59 06:59 18:59 Intake Total 480 / 480 150 / 150 Output Total 600 / 600 Balance -120 / -120 150 / 150 Weight 55.2 kg Intake: Oral 480 / 480 150 / 150 Output: Urine 600 / 600 Other: Post Void Residual 300 # Voids 2 # Incontinent Voids 1 Narrative: GENERAL: Well-developed, well-nourished, confused male in no apparent distress SKIN: Warm and dry. Left forearm IV site dressed and wrapped with Krunal wrap HEAD: Atraumatic. Normocephalic. EYES: Pupils equal and round. No scleral icterus. No injection or drainage. ENT: No nasal bleeding or discharge. Mucous membranes pink and moist. NECK: Trachea midline. No JVD. CARDIOVASCULAR: Regular rate and rhythm. RESPIRATORY: No accessory muscle use. Clear to auscultation. Breath sounds equal bilaterally. GASTROINTESTINAL: Abdomen soft, non-tender, nondistended. Hepatic and splenic margins not palpable. MUSCULOSKELETAL: Extremities without clubbing, cyanosis, or edema. No obvious deformities. NEUROLOGICAL: Awake and alert. No obvious cranial nerve deficits. Motor grossly within normal limits. Generalized weakness moving all 4 extremities normal speech. PSYCHIATRIC: Flat mood and affect; insight and judgment poor - Urinary Catheter Management Indwelling Urethral Catheter Cath placed during this visit: yes, but has since been removed by the nurse Reason for continuing: Decision to DC catheter Insertion date: 02/02/18 Insertion time: 05:44 Removal date: 02/05/18 Removal time: 17:45 Straight Cath placed during this visit: no Results - Labs CBC & Chem 7: 02/11/18 09:50 02/11/18 09:50 Laboratory Results - last 24 hr 02/10/18 02/10/18 02/11/18 14:40 18:00 09:50 WBC RBC Hgb Hct MCV MCH MCHC RDW Plt Count MPV Neut % (Auto) Lymph % (Auto) Wirt % (Auto) Eos % (Auto) Baso % (Auto) Neut # (Auto) Lymph # (Auto) Wirt # (Auto) Eos # (Auto) Baso # (Auto) WBC Differential Differential Comment Sodium 137 Potassium 3.7 Chloride 98 Carbon Dioxide 33.6 H Anion Gap 5 BUN 21 H Creatinine 0.53 L Estimated GFR Greater than 89 POC Glucose 139 H Random Glucose 155 H Calcium 8.0 L Phosphorus 3.5 Magnesium 2.3 Ammonia TSH 0.594 Urine Color Yellow Urine Clarity Clear Urine pH 7.0 Ur Specific [place] 1.018 Urine Protein Negative Urine Glucose (UA) Negative Urine Ketones Negative Urine Occult Blood Negative Urine Nitrate Negative Urine Bilirubin Negative Urine Urobilinogen Less than 2 Ur Leukocyte Esterase Negative Urine WBC 1 Hyaline Casts 4 Urine Mucus Few H Micro UA Comment Culture not ind Ur Microscopic Review Not Reportable Urine Culture Comments Culture not ind 02/11/18 02/11/18 09:50 09:50 WBC 5.9 RBC 4.88 Hgb 15.6 Hct 46.4 MCV 95.1 MCH 31.8 MCHC 33.5 RDW 13.7 Plt Count 167 MPV 8.3 Neut % (Auto) 83.6 H Lymph % (Auto) 6.6 L Wirt % (Auto) 9.7 H Eos % (Auto) 0.0 Baso % (Auto) 0.1 Neut # (Auto) 5.0 Lymph # (Auto) 0.4 L Wirt # (Auto) 0.6 Eos # (Auto) 0.0 Baso # (Auto) 0.0 WBC Differential . Differential Comment Auto diff final Sodium Potassium Chloride Carbon Dioxide Anion Gap BUN Creatinine Estimated GFR POC Glucose Random Glucose Calcium Phosphorus Magnesium Ammonia Less than 10 L TSH Urine Color Urine Clarity Urine pH Ur Specific [place] Urine Protein Urine Glucose (UA) Urine Ketones Urine Occult Blood Urine Nitrate Urine Bilirubin Urine Urobilinogen Ur Leukocyte Esterase Urine WBC Hyaline Casts Urine Mucus Micro UA Comment Ur Microscopic Review Urine Culture Comments Assessment and Plan - Assessment (1) Acute hypercapnic respiratory failure Code(s): J96.02 - Acute respiratory failure with hypercapnia Status: Acute (2) Acute on chronic respiratory failure with hypoxemia Code(s): J96.21 - Acute and chronic respiratory failure with hypoxia Status: Acute (3) Hyponatremia Code(s): E87.1 - Hypo-osmolality and hyponatremia Status: Acute (4) COPD with acute exacerbation Code(s): J44.1 - Chronic obstructive pulmonary disease with (acute) exacerbation Status: Acute (5) Schizophrenia Code(s): F20.9 - Schizophrenia, unspecified Status: Chronic (6) COPD (chronic obstructive pulmonary disease) Code(s): J44.9 - Chronic obstructive pulmonary disease, unspecified Status: Chronic - Plan This patient is a 62-year-old male with a diagnosis of COPD, schizophrenia, extensive history of tobacco smoking who presented to the emergency department from an assisted living facility with severe shortness of breath. Acute hypoxic hypercapnic respiratory failure -Secondary to COPD exacerbation -Status post mechanical ventilation/extubation -H influenza pneumonia -NO wheezes, no sob -Sputum cultures growing Haemophilus -CT scan of the chest showing moderate to severe emphysema, focal opacity in the left lower lobe. - continue IV antibiotics Rocephin -Continue albuterol inhalers, Pulmicort, and prednisolone -continue supplemental oxygen as needed. Continue BiPAP as needed -Wean O2 down Keep O2 saturations above 92%. -Encourage use of incentive spirometer Altered mental status History of schizophrenia -Likely related to schizophrenia versus respiratory failure -Continue current medication olanzapine, and Cogentin -CBC unremarkable BMP with elevated CO2, will wean down O2 keep sats greater than 90% - TSH 0.594 -ammonia level less than 10 - urine for urinalysis negative -Monitor mental status Tobacco dependence -Patient was counseled on smoking cessation -Patient offered nicotine patch, patient refused DVT prophylaxis: Lovenox Code Status: full code Discussed Condition With: mk, nurse, patient MDR Discharge Planning: Plan to discharge to SNF/rehab. Case management please assist for placement
[2018-02-11] MEDS: Benztropine 2 MG Tablet PO SCH (20:37)
[2018-02-12] MEDS: Oral Hygiene Kit OROPHARYNG SCH ×3 (04:52→17:04)
[2018-02-12 05:46] LABS: Hematocrit 45.3 % (39.0-51.0); Hemoglobin 15.2 gm/dL (13.0-17.0); Mean Corpuscular HGB Conc 33.5 % (32.0-36.0); Mean Corpuscular Hemoglobin 31.6 pg (27.0-34.0); Mean Corpuscular Volume 94.2 fL (80.0-100.0); Mean Platelet Volume 8.3 fL (7.0-11.0); Platelet Count 183 th/mm3 (150-450); Red Blood Count 4.81 mil/mm3 (4.50-5.90); Red Cell Distribution Width 13.6 % (11.6-17.2); White Blood Count 7.8 th/mm3 (4.0-11.0)
[2018-02-12] MEDS: MethylPREDNISolone Sod Succinate Inj 40 MG/ML Vial IV.PUSH SCH ×3 (05:48→21:45)
[2018-02-12 06:09] LABS: Anion Gap 2 meq/L (5-15); Blood Urea Nitrogen 25 mg/dL (7-18); Calcium 8.1 mg/dL (8.5-10.1); Chloride 103 meq/L (98-107); Glomerular Filtration Rate Greater Than 89 mL/min (>89); Glucose,Random 75 mg/dL (74-106); Magnesium 2.3 mg/dL (1.5-2.5); Phosphorus 3.6 mg/dL (2.5-4.9); Potassium 3.9 meq/L (3.5-5.1); Sodium 138 meq/L (136-145)
[2018-02-12] MEDS: OLANZapine 15 MG Tablet PO SCH (09:22)
[2018-02-12] MEDS: Famotidine PF Inj 20 MG/2 ML Vial IV.PUSH SCH ×2 (09:23→20:12)
[2018-02-12] MEDS: Sodium Chloride 0.9% 2 ML Flush BID IV.FLUSH SCH ×2 (09:23→20:12)
[2018-02-12] MEDS: Chlorhexidine 0.12% Oral Kit 15 ML UDC OROPHARYNG SCH ×2 (09:25→20:12)
--- NOTE | 2018-02-12 11:36 | P.PNIM ---
Subjective Interval history: Follow-up for acute hypoxic hypercapnic respiratory failure, COPD exacerbation, schizophrenia, H influenza pneumonia. Patient seen and examined laying in bed, sitter at bedside, patient denies any pain or shortness of breath. Patient denies any coughing, fever or chills or discomfort. Patient stated eating well and sleeping well. Wants to get out and walk around. Nurse reported no acute concerns overnight Discharge planning discussed with certified social workers in health care Physical Exam Vital signs: Vital Signs 02/11/18 12:00 02/11/18 16:00 02/11/18 20:00 Temperature 97.5 F L 98.1 F 97.2 F L Pulse Rate 89 54 L 88 Respiratory Rate 18 18 16 Blood Pressure 110/68 129/79 155/83 H Pulse Oximetry 93 L 96 94 L 02/12/18 00:00 02/12/18 04:00 02/12/18 08:06 Temperature 97.8 F 97.7 F Pulse Rate 68 82 Respiratory Rate 17 19 Blood Pressure 130/71 163/99 H Pulse Oximetry 94 L 97 96 Intake & Output 02/11/18 02/12/18 02/12/18 18:59 06:59 18:59 Intake Total 480 / 480 550 / 550 Output Total 600 / 600 400 / 400 Balance -120 / -120 150 / 150 Weight 53.9 kg Intake: Oral 480 / 480 550 / 550 Output: Urine 600 / 600 400 / 400 Other: Date of Last Bowel Movement 02/11/18 # Bowel Movements 0 Narrative: GENERAL: Well-developed, well-nourished, confused male in no apparent distress SKIN: Warm and dry. Left forearm IV site dressed and wrapped with Krunal wrap HEAD: Atraumatic. Normocephalic. EYES: Pupils equal and round. No scleral icterus. No injection or drainage. ENT: No nasal bleeding or discharge. Mucous membranes pink and moist. NECK: Trachea midline. No JVD. CARDIOVASCULAR: Regular rate and rhythm. RESPIRATORY: No accessory muscle use. Clear to auscultation. Breath sounds equal bilaterally. GASTROINTESTINAL: Abdomen soft, non-tender, nondistended. Hepatic and splenic margins not palpable. MUSCULOSKELETAL: Extremities without clubbing, cyanosis, or edema. No obvious deformities. NEUROLOGICAL: Awake and alert. No obvious cranial nerve deficits. Motor grossly within normal limits. Generalized weakness moving all 4 extremities normal speech. PSYCHIATRIC: Flat mood and affect; insight and judgment poor - Urinary Catheter Management Indwelling Urethral Catheter Cath placed during this visit: yes, but has since been removed by the nurse Reason for continuing: Decision to DC catheter Insertion date: 02/02/18 Insertion time: 05:44 Removal date: 02/05/18 Removal time: 17:45 Straight Cath placed during this visit: no Results - Labs CBC & Chem 7: 02/12/18 04:45 02/12/18 04:45 Laboratory Results - last 24 hr 02/12/18 02/12/18 04:45 04:45 WBC 7.8 RBC 4.81 Hgb 15.2 Hct 45.3 MCV 94.2 MCH 31.6 MCHC 33.5 RDW 13.6 Plt Count 183 MPV 8.3 Sodium 138 Potassium 3.9 Chloride 103 Carbon Dioxide 33.0 H Anion Gap 2 L BUN 25 H Creatinine 0.50 L Estimated GFR Greater than 89 Random Glucose 75 Calcium 8.1 L Phosphorus 3.6 Magnesium 2.3 Assessment and Plan - Assessment (1) Acute hypercapnic respiratory failure Code(s): J96.02 - Acute respiratory failure with hypercapnia Status: Acute (2) Acute on chronic respiratory failure with hypoxemia Code(s): J96.21 - Acute and chronic respiratory failure with hypoxia Status: Acute (3) Hyponatremia Code(s): E87.1 - Hypo-osmolality and hyponatremia Status: Acute (4) COPD with acute exacerbation Code(s): J44.1 - Chronic obstructive pulmonary disease with (acute) exacerbation Status: Acute (5) Schizophrenia Code(s): F20.9 - Schizophrenia, unspecified Status: Chronic (6) COPD (chronic obstructive pulmonary disease) Code(s): J44.9 - Chronic obstructive pulmonary disease, unspecified Status: Chronic - Plan This patient is a 62-year-old male with a diagnosis of COPD, schizophrenia, extensive history of tobacco smoking who presented to the emergency department from an assisted living facility with severe shortness of breath. Acute hypoxic hypercapnic respiratory failure Secondary to COPD exacerbation -Status post mechanical ventilation/extubation -H influenza pneumonia -Sputum cultures growing Haemophilus -CT scan of the chest showing moderate to severe emphysema, focal opacity in the left lower lobe. - continue IV antibiotics Rocephin -Continue albuterol inhalers, Pulmicort, and prednisolone -continue supplemental oxygen as needed. Continue BiPAP as needed -Wean O2 down Keep O2 saturations above 92%. -Encourage use of incentive spirometer -NO wheezes, no sob -Respiratory process for service for walk test Altered mental status History of schizophrenia -Likely related to schizophrenia versus respiratory failure -Continue current medication olanzapine, and Cogentin -CBC unremarkable BMP with elevated CO2, will wean down O2 keep sats greater than 90% - TSH 0.594 -ammonia level less than 10 - urine for urinalysis negative -Monitor mental status -Continue Cogentin and Navane -Follow-up with psych as an outpatient Tobacco dependence -Patient was counseled on smoking cessation -Patient offered nicotine patch, patient refused DVT prophylaxis: Lovenox Code Status: Full code Discussed Condition With: Patient, nurse, MDR Discharge Planning: Plan to discharge to SNF/rehab. Case management please assist for placement
[2018-02-12] MEDS: Enoxaparin Inj 40 MG/0.4 ML Syringe SQ SCH (14:52)
[2018-02-12] MEDS: Benztropine 2 MG Tablet PO SCH (20:12)
[2018-02-13] MEDS: Oral Hygiene Kit OROPHARYNG SCH ×4 (01:24→15:25)
[2018-02-13] MEDS: MethylPREDNISolone Sod Succinate Inj 40 MG/ML Vial IV.PUSH SCH ×2 (05:06→14:43)
[2018-02-13 06:09] LABS: Hematocrit 50.3 % (39.0-51.0); Hemoglobin 16.4 gm/dL (13.0-17.0); Mean Corpuscular HGB Conc 32.7 % (32.0-36.0); Mean Corpuscular Hemoglobin 31.3 pg (27.0-34.0); Mean Corpuscular Volume 95.6 fL (80.0-100.0); Mean Platelet Volume 8.7 fL (7.0-11.0); Platelet Count 170 th/mm3 (150-450); Red Blood Count 5.26 mil/mm3 (4.50-5.90); Red Cell Distribution Width 13.4 % (11.6-17.2); White Blood Count 8.5 th/mm3 (4.0-11.0)
[2018-02-13 06:34] LABS: Anion Gap 3 meq/L (5-15); Blood Urea Nitrogen 22 mg/dL (7-18); Calcium 8.6 mg/dL (8.5-10.1); Carbon Dioxide 33.8 meq/L (21.0-32.0); Chloride 100 meq/L (98-107); Glomerular Filtration Rate Greater Than 89 mL/min (>89); Glucose,Random 132 mg/dL (74-106); Magnesium 2.2 mg/dL (1.5-2.5); Phosphorus 3.6 mg/dL (2.5-4.9); Potassium 4.4 meq/L (3.5-5.1); Sodium 137 meq/L (136-145)
[2018-02-13] MEDS: Chlorhexidine 0.12% Oral Kit 15 ML UDC OROPHARYNG SCH ×2 (08:13→20:21)
[2018-02-13] MEDS: Famotidine PF Inj 20 MG/2 ML Vial IV.PUSH SCH ×2 (08:14→20:20)
[2018-02-13] MEDS: Sodium Chloride 0.9% 2 ML Flush BID IV.FLUSH SCH ×2 (08:14→20:21)
[2018-02-13] MEDS: OLANZapine 15 MG Tablet PO SCH (08:14)
[2018-02-13] MEDS: Enoxaparin Inj 40 MG/0.4 ML Syringe SQ SCH (14:44)
--- NOTE | 2018-02-13 18:59 | P.PNIM ---
Subjective Interval history: reports improved breathing. has a sitter at bed side, who reports intermittent confusion. Physical Exam Vital signs: Last Vital Signs Temp 98.1 F 02/13/18 16:00 Pulse 96 H 02/13/18 16:00 Resp 18 02/13/18 16:00 BP 127/70 02/13/18 16:00 Pulse Ox 96 02/13/18 16:00 Intake & Output 02/11/18 02/12/18 02/13/18 02/14/18 06:59 06:59 06:59 06:59 Intake Total 630 / 630 1030 / 1030 1440 / 1440 480 / 480 Output Total 600 / 600 1000 / 1000 2400 / 2400 800 / 800 Balance 30 / 30 30 / 30 -960 / -960 -320 / -320 Weight 55.2 kg 53.9 kg 55 kg Narrative: GENERAL: Well-developed, well-nourished, confused male in no apparent distress HEENT: not pale,anicteric,nasal canula in situ NECK: Trachea midline. No JVD. CARDIOVASCULAR: Regular rate and rhythm. RESPIRATORY: No accessory muscle use. Clear to auscultation. Breath sounds equal bilaterally. GASTROINTESTINAL: Abdomen soft, non-tender, nondistended. Hepatic and splenic margins not palpable. MUSCULOSKELETAL: Extremities without clubbing, cyanosis, or edema. No obvious deformities. NEUROLOGICAL: Awake and alert. No obvious cranial nerve deficits. Motor grossly within normal limits. Generalized weakness moving all 4 extremities normal speech. PSYCHIATRIC: Flat mood and affect; insight and judgment poor SKIN: Warm and dry. Urinary Catheter Management Indwelling Urethral Catheter: Cath placed during this visit: yes, but has since been removed by the nurse Insertion date: 02/02/18 Insertion time: 05:44 Removal date: 02/05/18 Removal time: 17:45 Straight: Cath placed during this visit: no Results Labs CBC & Chem 7: 02/13/18 05:10 02/13/18 05:10 Assessment and Plan (1) Acute hypercapnic respiratory failure: Code(s): J96.02 - Acute respiratory failure with hypercapnia Status: Acute (2) Acute on chronic respiratory failure with hypoxemia: Code(s): J96.21 - Acute and chronic respiratory failure with hypoxia Status: Acute (3) Hyponatremia: Code(s): E87.1 - Hypo-osmolality and hyponatremia Status: Acute (4) COPD with acute exacerbation: Code(s): J44.1 - Chronic obstructive pulmonary disease with (acute) exacerbation Status: Acute (5) Schizophrenia: Code(s): F20.9 - Schizophrenia, unspecified Status: Chronic (6) COPD (chronic obstructive pulmonary disease): Code(s): J44.9 - Chronic obstructive pulmonary disease, unspecified Status: Chronic Plan 62-year-old male with a diagnosis of COPD, schizophrenia, extensive history of tobacco smoking who presented to the emergency department from an assisted living facility with severe shortness of breath. -CT scan of the chest showed moderate to severe emphysema, focal opacity in the left lower lobe. Acute hypoxic hypercapnic respiratory failure--resolved. Secondary to COPD exacerbation and H influenza pneumonia.---he is clinically improving. -Status post mechanical ventilation/extubation. completed antibiotic treatment. -Continue albuterol inhalers, Pulmicort. Has been on Methyl prednisone since admission,~2 weeks, will switch to tapering PO dose from tomorrow. -continue supplemental oxygen as needed. Continue BiPAP as needed -Wean O2 down Keep O2 saturations above 92%. -Encourage use of incentive spirometer -Respiratory process for service for walk test Altered mental status acute change was likely related to respiratory failure-now resolved. also has schizophrenia -Continue current medication olanzapine, and Cogentin -CBC unremarkable - TSH 0.594 -ammonia level less than 10 - urine for urinalysis negative -Follow-up with psych as an outpatient Tobacco dependence -Patient was counseled on smoking cessation -Patient offered nicotine patch, patient refused DVT prophylaxis: Lovenox Code Status: Full code Progress Note: Quality VTE Deep Vein Thrombosis/Pulmonary Embolism Present on Admission: No _ (1) Schizophrenia Qualifiers: Schizophrenia type: (2) COPD (chronic obstructive pulmonary disease) Qualifiers: COPD type: Chronic bronchitis type: Emphysema type:
[2018-02-13] MEDS: Benztropine 2 MG Tablet PO SCH (20:21)
[2018-02-14] MEDS: Oral Hygiene Kit OROPHARYNG SCH ×4 (02:28→16:39)
[2018-02-14] MEDS ORDERED: Influenza (Quadrivalent) Vaccine 0.5 ML Syringe IM ONE (09:00)
[2018-02-14] MEDS: Famotidine PF Inj 20 MG/2 ML Vial IV.PUSH SCH ×2 (09:16→20:58)
[2018-02-14] MEDS: OLANZapine 15 MG Tablet PO SCH (09:17)
[2018-02-14] MEDS: predniSONE 10 MG Tablet PO SCH (09:17)
[2018-02-14] MEDS: Chlorhexidine 0.12% Oral Kit 15 ML UDC OROPHARYNG SCH ×2 (11:34→20:59)
[2018-02-14] MEDS: Sodium Chloride 0.9% 2 ML Flush BID IV.FLUSH SCH ×2 (11:34→20:59)
--- NOTE | 2018-02-14 14:29 | P.DIET ---
Nutritional Evaluation Type of nutrition evaluation: follow-up Nutrition consult regarding: Tube Feeding (TFing d/c'ed) Subjective Subjective Comments: Eating 100%. Objective - Diagnosis Acute Respiratory Failure - Objective % IBW: 81 (IBW:75.5kg) Body Weight Used for Calculations: Actual (61,3kg) Energy Needs - Lower Range (kCal/kg): 28 Energy Needs - Upper Range (kCal/kg): 33 Lower Limit kCal/kg (kCals): 1,716 Upper Limit kCal/kg (kCals): 2,023 Lower Limit Protein Factor (Grams per Kg): 1.2 Upper Limit Protein Factor (Grams per Kg): 1.5 Lower Protein Needs (Protein): 74 Upper Protein Needs (Protein): 92 Dietitian Reviewed in Medical Record: Current diet, Curent medications, Intake & Output, Labs, Medical history, Tube feeding Diet Order: Regular Oral Diet Intake Amount: Excellent 90%+ Objective Comments: PMH: COPD, Schizophrenia, smoker Assessment Assessment: Pt extubated and TFing d/c'ed. He is tolerating a regular diet with good po intake. Will send Ensure Enlive on trays for added nutrition d/t BMI of 17.4. RD will monitor supplement acceptance. Recommendations: Diet as ordered Ensure Enlive tid RD following Dietitian to Monitor: Lab values, Supplement acceptance, Intake & Output, Diet tolerance, Weight change, PO Intake, Medical course
--- NOTE | 2018-02-14 15:02 | P.DS ---
DS: Providers Date of admission: 02/01/18 14:28 Primary care physician: Franky Sweeney Consults: 02/08/18 18:24 Consult to Hospitalist Routine Consulting Provider: Maryan Stapleton Reason for Consultation: COPD exacerbation and community acquired pneumonia Notified:: Service Spoke with:: Lee Ann Date Notified:: 02/08/18 Time Notified:: 18:27 Ordering Provider: MIRACLE Brief History from admission: Patient is a 62-year-old male with history of COPD, schizophrenia, continued smoking who was brought to the emergency department from an assisted living facility for severe shortness of breath. Symptoms started few days ago, EMS evaluated and placed him on CPAP machine. Apparently EMS gave him 60 mg of IV Lasix for possible CHF exacerbation. In the ED initial oxygen saturation was 78 % on room air, patient was immediately placed on BiPAP with 50% oxygen. ABG showed pH 7.23 with a PCO2 of 86. Patient received IV Solu-Medrol DuoNeb and IV magnesium, also received 1 dose of IV Levaquin. No clinical improvement on 30 minutes of BiPAP, in fact ABG marginally worsened with pH 7.21 PCO2 87. Lactic acid was 2.3. Patient was intubated and placed on mechanical ventilation by Dr. Saucedo. Critical care medicine was consulted for admission I evaluated the patient in the ED. 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 Respiratory exam reveals bilateral expiratory wheezing. I have placed him on scheduled IV Solu-Medrol, DuoNeb every 4 hours scheduled and as needed, start cefepime 2 g IV every 8 hours and check sputum culture. Also inhaled budesonide had been started. Will repeat ABG in 1 hour. 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 I will check CT of the chest to rule out any occult mass/infiltrate DS: Diagnosis Discharge Diagnosis (1) Acute hypercapnic respiratory failure: Status: Acute (2) Acute on chronic respiratory failure with hypoxemia: Status: Acute (3) Hyponatremia: Status: Acute (4) COPD with acute exacerbation: Status: Acute (5) Schizophrenia: Status: Chronic (6) COPD (chronic obstructive pulmonary disease): Status: Chronic DS: Summary ISSUES ADDRESSED DURING THIS HOSPITALIZATION: 1.Acute hypoxic hypercapnic respiratory failure in the setting of pneumonia and COPD exacerbation: Patient was initially admitted to the intensive care, required endotracheal intubation and mechanical ventilation. He was started on IV antibiotics, DUONEBS, Methyl prednisone. His condition improved and he was successfully extubated, and placed on supplemental oxygen by nasal canula. He was subsequently transferred to the medical floor where he was continued on treatment. His condition continued to improve. He was switched to a tapering dose of Prednisone. His sputum culture grew H.influenza.He has completed antibiotic therapy. He should continue using his usual inhalers,and oxygen by nasal canula as before. He should complete the tapering dose of Prednisone. He is encouraged to use an incentive spirometer. Patient was counseled accordingly to quit smoking. His failed walk test while and will need home oxygen arrangements for which have been made. 2.Altered mental status acute change was likely related to respiratory failure-now resolved. -CBC unremarkable, TSH 0.594, ammonia level less than 10, urine for urinalysis negative -his usual dose of olanzapine, and Cogentin were continued. -Follow-up with psych as an outpatient Patient was evaluated by the PT/OT team while at the hospital with initial recommendation for rehab, however, he was re-evaluated on day of discharge and recommended for discharge home with home physical therapy. Patient should follow up with his usual primary care provider within 1 week for re-evaluation. Time Spent with Patient Total time spent providing and/or coordinating discharge services: Quality: VTE Deep Vein Thrombosis/Pulmonary Embolism Present on Admission: No Results Impressions ITS Impressions Chest CT 02/01/18 00:00 CONCLUSION: 1. Moderate to severe emphysema and mild biapical scarring. 2. Very mild tree-in-bud type infectious/inflammatory appearing infiltrates of both bases. No dense or confluent consolidation. No pleural effusion or pneumothorax. 3. 1.5 cm focal parenchymal opacity of the left lower lobe, also most likely infectious or inflammatory but 3-6 month follow-up noncontrast chest CT is recommended to confirm resolution or at least stability. 4. No lymphadenopathy. 5. Normal heart size. Coronary artery calcification noted. Chest X-Ray 02/07/18 05:00 CONCLUSION: Nasogastric tube and endotracheal tube in good position. Mild basilar airspace disease. Elbow X-Ray 02/09/18 20:12 CONCLUSION: Negative trauma study. Discharge Plan Discharge Disposition Patient Disposition: 04 [facility] Discharge Condition Condition: Fair Discharge Order Discharge Orders: Discharge Order (Routine); Ordered 02/15/18 Ordered By: Chiquis Cortes Discharge Details Anticipated Discharge Date: 02/15/18 Discharge Comment: needs home O2, walker Physicians Team Primary Care Provider: Franky Sweeney Attending Provider: Chiquis Cortes Rxs /Orders / Referrals /Forms Prescriptions: New prednisone 10 mg tablet 30 mg PO DAILY Qty: 9 RF: 0 prednisone 10 mg tablet 30 mg PO DAILY Qty: 9 RF: 0 Continue thiothixene 10 mg Capsule 10 mg PO HS RF: 0 benztropine 2 mg Tablet 2 mg PO HS RF: 0 olanzapine 15 mg Tablet 15 mg PO DAILY RF: 0 albuterol sulfate [Ventolin HFA] 90 mcg/actuation Hfa Aerosol Inhaler 2 puff INHALATION QID RF: 0 budesonide-formoterol [Symbicort] 160-4.5 mcg/actuation Hfa Aerosol Inhaler 2 puff INHALATION BID RF: 0 Ambulatory Orders / Order Sets / DME: Oxygen Tank (2-5 liter) (Routine) Location: Determined by Patient Ordered By: Chiquis Cortes Walker With Front Wheels (1 each) (Routine) Location: Determined by Patient Ordered By: Chiquis Cortes Referrals: Franky Sweeney M.D. [Primary Care Provider] - See Instructions Discharge Instructions Patient Printed Instructions: Prednisone (By mouth), COPD (Chronic Obstructive Pulmonary Disease) (DC) Status ED Status: Left Department
[2018-02-14] MEDS: Enoxaparin Inj 40 MG/0.4 ML Syringe SQ SCH (16:18)
--- NOTE | 2018-02-14 16:35 | P.DCO ---
Diagnosis (1) Acute hypercapnic respiratory failure: Status: Acute (2) Acute on chronic respiratory failure with hypoxemia: Status: Acute (3) COPD with acute exacerbation: Status: Acute Physical Therapy Order: Evaluate and treat and Strength and gait training Occupational Therapy Order: Evaluate and treat Home Health Nursing Order: Signs/symptoms of disease process and Oxygen administration education Case Management Consult Case Management Consult-Home Health: Yes I have seen patient Fredis Ellsworth on 02/14/18. My clinical findings support the need for the requested home health care services because: Patient has SOB and Deconditioned with increased weakness I certify that my clinical findings support that this patient is homebound because:
--- NOTE | 2018-02-14 16:44 | P.PNIM ---
Physical Exam Vital signs: Last Vital Signs Temp 97.5 F L 02/14/18 12:00 Pulse 107 H 02/14/18 12:00 Resp 18 02/14/18 12:00 BP 108/72 02/14/18 12:00 Pulse Ox 96 02/14/18 12:00 Intake & Output 02/12/18 02/13/18 02/14/18 02/15/18 06:59 06:59 06:59 06:59 Intake Total 1030 / 1030 1440 / 1440 720 / 720 Output Total 1000 / 1000 2400 / 2400 2325 / 2325 Balance 30 -960 / -960 -1605 / -1605 Weight 53.9 kg 55 kg 55 kg Narrative: GENERAL: Well-developed, well-nourished, confused male in no apparent distress HEENT: not pale,anicteric,nasal canula in situ NECK: Trachea midline. No JVD. CARDIOVASCULAR: Regular rate and rhythm. RESPIRATORY: No accessory muscle use. Clear to auscultation. Breath sounds equal bilaterally. GASTROINTESTINAL: Abdomen soft, non-tender, nondistended. Hepatic and splenic margins not palpable. MUSCULOSKELETAL: Extremities without clubbing, cyanosis, or edema. No obvious deformities. NEUROLOGICAL: Awake and alert. No obvious cranial nerve deficits. Motor grossly within normal limits. Generalized weakness moving all 4 extremities normal speech. PSYCHIATRIC: Flat mood and affect; insight and judgment poor SKIN: Warm and dry. Urinary Catheter Management Indwelling Urethral Catheter: Cath placed during this visit: yes, but has since been removed by the nurse Insertion date: 02/02/18 Insertion time: 05:44 Removal date: 02/05/18 Removal time: 17:45 Straight: Cath placed during this visit: no Results Labs CBC & Chem 7: 02/13/18 05:10 02/13/18 05:10 Assessment and Plan (1) Acute hypercapnic respiratory failure: Code(s): J96.02 - Acute respiratory failure with hypercapnia Status: Acute (2) Acute on chronic respiratory failure with hypoxemia: Code(s): J96.21 - Acute and chronic respiratory failure with hypoxia Status: Acute (3) COPD with acute exacerbation: Code(s): J44.1 - Chronic obstructive pulmonary disease with (acute) exacerbation Status: Acute Plan 62-year-old male with a diagnosis of COPD, schizophrenia, extensive history of tobacco smoking who presented to the emergency department from an assisted living facility with severe shortness of breath. -CT scan of the chest showed moderate to severe emphysema, focal opacity in the left lower lobe. Acute hypoxic hypercapnic respiratory failure--resolved. Secondary to COPD exacerbation and H influenza pneumonia.---he is clinically improving. -Status post mechanical ventilation/extubation. completed antibiotic treatment. -Continue albuterol inhalers, Pulmicort. Has been on Methyl prednisone since admission,~2 weeks, will switch to tapering PO dose from tomorrow. -continue supplemental oxygen as needed. Continue BiPAP as needed -Wean O2 down Keep O2 saturations above 92%. -Encourage use of incentive spirometer -Respiratory process for service for walk test failed walk test, will need home oxygen. Altered mental status acute change was likely related to respiratory failure-now resolved. also has schizophrenia -Continue current medication olanzapine, and Cogentin -CBC unremarkable - TSH 0.594 -ammonia level less than 10 - urine for urinalysis negative -Follow-up with psych as an outpatient Tobacco dependence -Patient was counseled on smoking cessation -Patient offered nicotine patch, patient refused DVT prophylaxis: Lovenox Code Status: Full code PT/OT had evaluated him initially, recommended rehab, re-evaluated him again today, recommending home PT, walker. Progress Note: Quality VTE Deep Vein Thrombosis/Pulmonary Embolism Present on Admission: No
[2018-02-14] MEDS: Benztropine 2 MG Tablet PO SCH (20:58)
[2018-02-15] MEDS: Oral Hygiene Kit OROPHARYNG SCH ×3 (05:01→15:47)
[2018-02-15 08:14] VITALS: RESP 18
[2018-02-15] MEDS: predniSONE 10 MG Tablet PO SCH (09:22)
[2018-02-15] MEDS: Famotidine PF Inj 20 MG/2 ML Vial IV.PUSH SCH (09:23)
[2018-02-15] MEDS: OLANZapine 15 MG Tablet PO SCH (09:23)
[2018-02-15] MEDS: Chlorhexidine 0.12% Oral Kit 15 ML UDC OROPHARYNG SCH (09:26)
--- NOTE | 2018-02-15 10:55 | P.PNIM ---
Physical Exam Vital signs: Last Vital Signs Temp 98.1 F 02/15/18 08:00 Pulse 87 02/15/18 08:13 Resp 18 02/15/18 08:13 BP 141/77 H 02/15/18 08:00 Pulse Ox 94 L 02/15/18 08:13 Intake & Output 02/13/18 02/14/18 02/15/18 02/16/18 06:59 06:59 06:59 06:59 Intake Total 1440 / 1440 720 / 720 820 / 820 Output Total 2400 / 2400 2325 / 2325 Balance -960 / -960 -1605 / -1605 819 / 819 Weight 55 kg 55 kg 53.1 kg Narrative: GENERAL: Well-developed, well-nourished, confused male in no apparent distress HEENT: not pale,anicteric,nasal canula in situ NECK: Trachea midline. No JVD. CARDIOVASCULAR: Regular rate and rhythm. RESPIRATORY: No accessory muscle use. Clear to auscultation. Breath sounds equal bilaterally. GASTROINTESTINAL: Abdomen soft, non-tender, nondistended. Hepatic and splenic margins not palpable. MUSCULOSKELETAL: Extremities without clubbing, cyanosis, or edema. No obvious deformities. NEUROLOGICAL: Awake and alert. No obvious cranial nerve deficits. Motor grossly within normal limits. Generalized weakness moving all 4 extremities normal speech. PSYCHIATRIC: Flat mood and affect; insight and judgment poor SKIN: Warm and dry. Urinary Catheter Management Indwelling Urethral Catheter: Cath placed during this visit: yes, but has since been removed by the nurse Insertion date: 02/02/18 Insertion time: 05:44 Removal date: 02/05/18 Removal time: 17:45 Straight: Cath placed during this visit: no Results Labs CBC & Chem 7: 02/13/18 05:10 02/13/18 05:10 Assessment and Plan (1) Acute hypercapnic respiratory failure: Code(s): J96.02 - Acute respiratory failure with hypercapnia Status: Acute (2) Acute on chronic respiratory failure with hypoxemia: Code(s): J96.21 - Acute and chronic respiratory failure with hypoxia Status: Acute (3) Hyponatremia: Code(s): E87.1 - Hypo-osmolality and hyponatremia Status: Acute (4) COPD with acute exacerbation: Code(s): J44.1 - Chronic obstructive pulmonary disease with (acute) exacerbation Status: Acute (5) Schizophrenia: Code(s): F20.9 - Schizophrenia, unspecified Status: Chronic (6) COPD (chronic obstructive pulmonary disease): Code(s): J44.9 - Chronic obstructive pulmonary disease, unspecified Status: Chronic Plan 62-year-old male with a diagnosis of COPD, schizophrenia, extensive history of tobacco smoking who presented to the emergency department from an assisted living facility with severe shortness of breath. -CT scan of the chest showed moderate to severe emphysema, focal opacity in the left lower lobe. Acute hypoxic hypercapnic respiratory failure--resolved. Secondary to COPD exacerbation and H influenza pneumonia.---he is clinically improving. -Status post mechanical ventilation/extubation. completed antibiotic treatment. -Continue albuterol inhalers, Pulmicort. Has been on Methyl prednisone since admission,~2 weeks, will switch to tapering PO dose from tomorrow. -continue supplemental oxygen as needed. Continue BiPAP as needed -Wean O2 down Keep O2 saturations above 92%. -Encourage use of incentive spirometer -Respiratory process for service for walk test failed walk test, will need home oxygen. 02/15--PATIENT REMAINS MEDICALLY STABLE, ARRANGEMENTS FOR HOME OXYGEN BEING MADE. Altered mental status acute change was likely related to respiratory failure-now resolved. also has schizophrenia -Continue current medication olanzapine, and Cogentin -CBC unremarkable - TSH 0.594 -ammonia level less than 10 - urine for urinalysis negative -Follow-up with psych as an outpatient Tobacco dependence -Patient was counseled on smoking cessation -Patient offered nicotine patch, patient refused DVT prophylaxis: Jeri Code Status: Full code PT/OT had evaluated him initially, recommended rehab, re-evaluated him again today, recommending home PT, walker. PATIENT CLINICALLY STABLE FOR DISCHARGE Progress Note: Quality VTE Deep Vein Thrombosis/Pulmonary Embolism Present on Admission: No _ (1) Schizophrenia Qualifiers: Schizophrenia type: (2) COPD (chronic obstructive pulmonary disease) Qualifiers: COPD type: Chronic bronchitis type: Emphysema type:
[2018-02-15] MEDS: Sodium Chloride 0.9% 2 ML Flush BID IV.FLUSH SCH (11:04)
[2018-02-15 12:56] VITALS: BP 120/72; PULSE 116; TEMP 98.3; O2SAT 95
[2018-02-15] MEDS: Enoxaparin Inj 40 MG/0.4 ML Syringe SQ SCH (15:47)
== END 2018-02-15 17:23 ==
LOC: NEPE 12:40 → NEDA 14:28 → HIMC 14:40 → N04 02-09 18:01
PROVIDERS: ADMIT Hospitalist; ATTEND Hospitalist
DX: Z23 Encounter for immunization; F20.9 Schizophrenia, unspecified; Z79.51 Long term (current) use of inhaled steroids; J96.02 Acute respiratory failure with hypercapnia; F17.210 Nicotine dependence, cigarettes, uncomplicated; E87.2 Acidosis; Z79.899 Other long term (current) drug therapy; J44.1 Chronic obstructive pulmonary disease with (acute) exacerbation; J14 Pneumonia due to Hemophilus influenzae; E22.2 Syndrome of inappropriate secretion of antidiuretic hormone; J96.21 Acute and chronic respiratory failure with hypoxia; J44.0 Chronic obstructive pulmonary disease with (acute) lower respiratory infection